=== PATIENT | female | born 1995 | race Caucasian/White ===

== ENCOUNTER 2022-04-10 23:17 | Emergency (ER) | payer OTHER, SELFPAY ==
--- OUTSIDE RECORDS SUMMARY | 2022-04-10 23:20 | XMS REPORT | Continuity of Care Document ---
:1995 Author Organization [facility] t Address [address] [place] [address] Care Team Providers Name Role Phone NATA Primary Care Physician Unavailable CHARLIE Attending Clinician Unavailable Jordon ANTON Attending Clinician Lab, Fam Pob I Attending Clinician Unavailable Sadia SLOT EDITOR Attending Clinician Doctor Unassigned, Name Attending Clinician Unavailable Pob1, Care Clinic Attending Clinician Unavailable Payers Payer Name Policy Type Policy Number Effective Date Expiration Date S ource Problems Condition Condition Condition Status Onset Resolution Last Treating Co mments Source Name Details Category Date Date Treatment Clinician Date Knee pain, Knee pain, Disease Active U nivers left left 4-07 ity of 00:00: [place] 00 [facility] Allergies, Adverse Reactions, Alerts Allergy Allergy Status Severity Reaction(s) Onset Inactive Treating Comm ents Source Name Type Date Date Clinician NO KNOWN Drug Active Univers ALLERGIE Class ity of S [facility] Social History Social Habit Start Date Stop Date Quantity Comments Source Sex Assigned At [facility] Medical Branch Exposure to Not sure [facility] SARS-CoV-2 (event) Medica l Branch Tobacco use and 2020-04-08 2020-04-08 Never used [facility] exposure 00:00:00 00:00:00 Medical [place] Smoking Status Start Date Stop Date Source Never smoker [facility] Medications Ordered Filled Start Stop Current Ordering Indication Dosage Frequency Signature Comments Components Source Medication Medication Date Date Medication? Clinician (SIG) Name Name LEVETIRACET Yes Take by Un jay AM (KEPPRA 6-15 mouth. ity of ORAL) 16:01: [address] LEVETIRACET 0 Yes Take by Un jay AM (KEPPRA 6-15 mouth. ity of ORAL) 16:01: [place] [facility] LEVETIRACET 2019-0 Yes Take by Un jay AM (KEPPRA 6-15 mouth. ity of ORAL) 16:01: [place] [facility] LEVETIRACET 2019-0 Yes Take by Un jay AM (KEPPRA 6-15 mouth. ity of ORAL) 16:01: [address] maalox:diph 0 2020- No [id number] 10mL Take 10 mL Univers enhydrAMINE 15 04-14 by mouth ity of :lidocaine 00:00: 04:59 as needed [place] 2 % viscous 00 :00 (S[facility] Medical 1:1:1 throat) Branch for up to 5 days. cephALEXin Yes Univers (KEFLEX) 4-03 ity of 500 mg 00:00: [place] capsule [facility] cephALEXin Yes Univers (KEFLEX) 4-03 ity of 500 mg 00:00: [place] capsule [facility] cephALEXin Yes Univers (KEFLEX) 4-03 ity of 500 mg 00:00: [place] capsule 00 [facility] cephALEXin 0 Yes Univers (KEFLEX) 4-03 ity of 500 mg 00:00: [place] capsule 00 [facility] diazepam 0 Yes Univers (VALIUM) 10 3-30 ity of mg tablet 00:00: [facility] XULANE 0 Yes Univers 150-35 3-30 ity of mcg/24 hr 00:00: [place] patch 00 [facility] diazepam 0 Yes Univers (VALIUM) 10 3-30 ity of mg tablet 00:00: [place] 00 [facility] XULANE Yes Univers 150-35 3-30 ity of mcg/24 hr 00:00: [place] patch 00 [facility] diazepam 0 Yes Univers (VALIUM) 10 3-30 ity of mg tablet 00:00: [facility] XULANE 0 Yes Univers 150-35 3-30 ity of mcg/24 hr 00:00: [place] patch 00 [facility] diazepam 0 Yes Univers (VALIUM) 10 3-30 ity of mg tablet 00:00: [facility] XULANE 0 Yes Univers 150-35 3-30 ity of mcg/24 hr 00:00: [place] patch 00 Medical Branch VYVANSE 30 Yes Univers mg capsule 3-11 ity of 00:00: [place] 00 Medical Branch VYVANSE 30 Yes Univers mg capsule 3-11 ity of 00:00: [place] 00 Medical Branch VYVANSE 30 Yes Univers mg capsule 3-11 ity of 00:00: [place] 00 Medical Branch VYVANSE 30 Yes Univers mg capsule 3-11 ity of 00:00: [place] 00 Medical Branch SERTraline Yes Univers (ZOLOFT) 1-28 ity of 100 mg 00:00: [place] tablet 00 Medical Branch SERTraline Yes Univers (ZOLOFT) 1-28 ity of 100 mg 00:00: [place] tablet 00 Medical Branch SERTraline Yes Univers (ZOLOFT) 1-28 ity of 100 mg 00:00: [place] tablet 00 Medical Branch SERTraline Yes Univers (ZOLOFT) 1-28 ity of 100 mg 00:00: [place] tablet 00 Medical Branch Vital Signs Vital Name Observation Time Observation Value Comments Source Systolic blood 2020-04-08 15:58:00 114 mm[Hg] Univer sity of pressure [facility] Diastolic blood 2020-04-08 15:58:00 74 mm[Hg] Unive rsity of pressure [facility] Heart rate 2020-04-08 15:58:00 102 /min [facility] Body temperature 2020-04-08 15:58:00 36.72 [facility] Res[facility] rate 2020-04-08 15:58:00 16 /min [facility] Body height 2020-04-08 15:58:00 154.9 cm [facility] Body weight 2020-04-08 15:58:00 61.236 kg [facility] BMI 2020-04-08 15:58:00 25.51 kg/m2 [facility] Oxygen saturation in 2020-04-08 15:58:00 98 /min [facility] blood by [facility] Pulse oximetry Branch Procedures Procedure Date / Time Performed Performing Clinician Sourc e POCT GRP A STREP 2020-04-08 00:00:[address] [facility] ([facility] Encounters Start End Encounter Admission Attending Care Care Encounter Source Date/Time Date/Time Type Type Clinicians Facility Department ID 2021-09-24 2021-09-24 Outpatient R [facility] [id number] Univers 14:00:00 14:00:00 ity of [facility] 2021-09-24 2021-09-24 Outpatient R CHARLIE [facility] [id number] Univers 14:00:00 14:00:00 OLIVIA allen o f [facility] 2020-06-19 2020-06-19 Telephone MICHELLE Ruvalcaba [id number] Univers 00:00:00 00:00:00 Michelle MCCARTHY [id number] it y of [facility] [id number] Al as [phone] [address] 2020-06-17 2020-06-17 Outpatient R [facility] [id number] Univers 13:00:00 13:00:00 [id number] ity of [facility] 2020-06-17 2020-06-17 Outpatient R [facility] [id number] Univers 13:00:00 13:00:00 ity of [facility] 2020-06-17 2020-06-17 Laboratory Lab, Adc Fam Pob I [facility] [id number] Univers 12:34:28 12:54:28 Only Sadia, Samina interclick [id number] ity of [place] [id number] Al as Professhussain [phone] [address] 2020-06-17 2020-06-17 Letter Doctor MICHELLE [id number] Univers 00:00:00 00:00:00 (Out) UnassignedFABIO [id number] ity of [place] [facility] [id number] Al as [phone] [address] 2020-04-08 2020-04-08 Urgent Pob1, Acute Care Clinic [facility] [id number] Univers 10:45:33 11:05:33 Care Sadia, Samina Health [id number] ity of [place] [id number] Al as Jose [phone] Nm dical [address] 2020-04-08 2020-04-08 Outpatient R [facility] [id number] Univers 11:00:00 11:00:00 [facility] Results Test Description Test Time Test Comments Results Result Comments Source POCT GRP A STREP (MOLECULAR) 2020-04-08 16:16:00 Test Item Value Reference Range Interpretation Comme nts POCT GP A STREP (test code = 53947-9) negative Negative - Negat emma [facility]
--- NOTE | 2022-04-10 23:47 | EDPHYS ---
Physician Documentation [facility] Name: Mary Jo Mendieta Age: 26 yrs Sex: Female : 1995 Arrival Date: 04/10/2022 Time: 23:20 Bed 12 Private MD: ED Physician Steven Shirley HPI: 04/10 23:46 This 26 yrs old Female presents to ER via Ambulatory with complaints of Ear Pain, Sore jmm Throat. 23:46 The patient presents with pain. Onset: The symptoms/episode began/occurred gradually, jmm today. Modifying factors: The symptoms are alleviated by nothing, the symptoms are aggravated by nothing. Associated signs and symptoms: Pertinent positives: sore throat. It is unknown whether or not the patient has had similar symptoms in the past. 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 - Social history:: Smoking status: Patient denies any tobacco usage or history of. ROS: 23:46 Constitutional: Positive for chills. jmm 23:46 ENT: Positive for ear pain. 23:46 All other systems are negative. Exam: 23:46 Constitutional: This is a well developed, well nourished patient who is awake, alert, jmm and in no acute distress. Head/Face: atraumatic. Eyes: EOMI, no conjunctival erythema appreciated 23:46 Neck: Trachea midline, Supple Chest/axilla: Normal chest wall appearance and motion. Cardiovascular: Regular rate and rhythm. No edema appreciated Respiratory: Normal respirations, no respiratory distress appreciated Abdomen/GI: Non distended, soft Back: Normal ROM Skin: General appearance color normal MS/ Extremity: Moves all extremities, no obvious deformities appreciated, no edema noted to the lower extremities Neuro: Awake and alert Psych: Behavior is normal, Mood is normal, Patient is cooperative and pleasant 23:46 ENT: TM's: erythema, that is moderate, on the right. Vital Signs: 23:27 Pulse 88; Resp 18; Temp 98.7; Pulse Ox 98% on R/A; Weight 61.23 kg; Height 5 ft. 1 in. tw5 (154.94 cm); Pain 9/10; 23:27 BP 108 / 56; tw5 23:27 Body Mass Index 25.51 (61.23 kg, 154.94 cm) tw5 MDM: 23:46 Patient medically screened. [facility] 23:47 Data reviewed: vital signs, nurses notes. Counseling: I had a detailed discussion with [facility] the patient and/or guardian regarding: the historical points, exam findings, and any diagnostic results supporting the discharge/admit diagnosis, the need for outpatient follow up, to return to the emergency department if symptoms worsen or persist or if there are any questions or concerns that arise at home. Administered Medications: No medications were administered Disposition: 04/11 00:25 Co-signature as Attending Physician, Steven Shirley MD. rn Disposition Summary: 04/10/22 23:47 Discharge Ordered Location: Home [facility] Condition: Stable [facility] Diagnosis - Acute serous otitis media, right ear [facility] Followup: [facility] - With: Private Physician - When: 2 - 3 days - Reason: Recheck today's complaints, Continuance of care, Re-evaluation by your physician Discharge Instructions: - Discharge Summary Sheet [facility] - Otitis Media, Adult [facility] Forms: - Medication Reconciliation Form [facility] - Thank You Letter [facility] - Antibiotic Education [facility] - Prescription Opioid Use [facility] Prescriptions: - Amoxicillin 875 mg Oral Tablet - take 1 tablet by ORAL route every 12 hours for 10 days; 20 tablet; Refills: 0, [facility] Product Selection Permitted Signatures: Adriano Jones PA PA jmm Nieto, Roman, MD MD rn Anju Restrepo [facility]
--- NOTE | 2022-04-10 23:47 | ER ---
Nurse's Notes [facility] Name: Mary Jo Mendieta Age: 26 yrs Sex: Female : 1995 Arrival Date: 04/10/2022 Time: 23:20 Bed 12 Private MD: Diagnosis: Acute serous otitis media, right ear Presentation: 04/10 23:27 Chief complaint: Patient states: "My Right ear is really hurting me. My throat as also tw5 been hurting, but that has been all day, the right ear only started hurting about two hours ago.". Coronavirus screen: Vaccine status: Patient reports being unvaccinated. Ebola Screen: Patient negative for fever greater than or equal to 101.5 degrees Fahrenheit, and additional compatible Ebola Virus Disease symptoms Patient denies exposure to infectious person. Patient denies travel to an Ebola-affected area in the 21 days before illness onset. Initial Sepsis Screen: Does the patient meet any 2 criteria? No. Patient's initial sepsis screen is negative. Does the patient have a suspected source of infection? No. Patient's initial sepsis screen is negative. Risk Assessment: Do you want to hurt yourself or someone else? Patient reports no desire to harm self or others. Onset of symptoms was April 10, 2022 at 21:30. 23:27 Method Of Arrival: Ambulatory tw5 23:27 Acuity: CHERIE 4 tw5 Triage Assessment: 23:29 General: Appears in no apparent distress. Behavior is calm, cooperative, appropriate tw5 for age. Pain: Complains of pain in right ear Pain currently is 9 out of 10 on a pain scale. EENT: Reports nasal congestion. 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 - Social history:: Smoking status: Patient denies any tobacco usage or history of. Screenin:59 Abuse screen: Denies threats or abuse. Denies injuries from another. Nutritional tw5 screening: No deficits noted. Tuberculosis screening: No symptoms or risk factors identified. Fall Risk None identified. Assessment: 23:59 General: see triage. tw5 Vital Signs: 23:27 Pulse 88; Resp 18; Temp 98.7; Pulse Ox 98% on R/A; Weight 61.23 kg; Height 5 ft. 1 in. tw5 (154.94 cm); Pain 9/10; 23:27 BP 108 / 56; tw5 23:27 Body Mass Index 25.51 (61.23 kg, 154.94 cm) tw5 ED Course: 23:20 Patient arrived in ED. es 23:29 Triage completed. tw5 23:29 Arm band placed on right wrist. tw5 23:31 Adriano Jones PA is PHCP. agustina 23:32 Steven Shirley MD is Attending Physician. jm 23:59 Patient has correct armband on for positive identification. tw5 23:59 No provider procedures requiring assistance completed. Patient did not have IV access tw5 during this emergency room visit. Administered Medications: No medications were administered Medication: 23:59 VIS not applicable for this client. tw5 Outcome: 23:47 Discharge ordered by . jm 23:59 Discharged to home ambulatory. tw5 23:59 Condition: good 23:59 Discharge instructions given to patient, Instructed on discharge instructions, follow up and referral plans. Demonstrated understanding of instructions. 23:59 Patient left the ED. tw5 Signatures: Adriano Jones PA PA jmm Salyer, Edna es Wood, Tiffany tw5
[2022-04-11 00:06] VITALS: BP 108/56; TEMP 98.7; O2SAT 98
== END 2022-04-10 23:59 | disposition home or self-care (01) ==
LOC: ER 23:17
DX: H65.01 Acute serous otitis media, right ear (principal)
CPT/HCPCS: 99281

== ENCOUNTER 2022-08-19 14:12 | Emergency (ER) | payer OTHER ==
--- OUTSIDE RECORDS SUMMARY | 2022-08-19 14:28 | XMS REPORT | Continuity of Care Document ---
:1995 Author Organization [facility] t Address [address] [place] [address] Care Team Providers Name Role Phone NATAARLENE Saleh Primary Care Physician Unavailable NICOLETTE MCGINNIS Attending Clinician Unavailable UNKNOWN, ATTENDING Attending Clinician Unavailable Edith Narvaez RN Attending Clinician Unavailable Nicolette Brice Attending Clinician NORM CAZARES Attending Clinician Unavailable Shekhar Graves Mfm Attending Clinician Unavailable Norm Cazares MD Attending Clinician Lab, [facility] Attending Clinician Unavailable Shayla Neal MD Attending Clinician [phone] SHAYLA NEAL Attending Clinician Unavailable 1, [facility] Us Room Attending Clinician Unavailable AUSTEN BERNAL Attending Clinician Unavailable Austen Bernal MD Attending Clinician Lab, [facility] Attending Clinician Unavailable TERA NORIEGA Attending Clinician Unavailable Doctor Unassigned, [place] Attending Clinician Unavailable OLIVIA GUERRA Attending Clinician Unavailable Michelle Ruvalcaba PA-C Attending Clinician Lab, Ad[facility] Fam Pob I Attending Clinician Unavailable Samina Castorena Attending Clinician Pob1, Acute Care Clinic Attending Clinician Unavailable Payers Payer Name Policy Type Policy Number Effective Date Expiration Date Formerly [facility] [id number] 2022 CHOICE [place] STAR 00:00:00 [employer] [id number] 2011 OUT OF NETWORK 00:00:00 MEDICAID PENDING PENDING 2022 00:00:00 MEDICA[place] OF [place] [id number] 2022 2022 00:00:00 00:00:00 Problems Condition Condition Condition Status Onset Resolution Last Treating Co mments Source Name Details Category Date Date Treatment Clinician Date Seizure Seizure Disease Active Univers disorder disorder 06-12 ity of during during 00:00: [place] 00 Medi german in first in first Branch trimester trimester 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 +HPV 0Per ASCCP guideline needs repeat pap I n 1 year Rubella Rubella Disease Active Overview: Univ ers non-immune non-immune 05-25 Formattin ity of status, status, 00:00: g of this [place] antepartum antepartum 00 note Me dical might be Branch different from the original. Address pp Susceptibl Susceptibl Disease Active Overview : Univers e to e to 05-25 Formattin ity of varicella varicella 00:00: [place] (non-immun (non-immun 00 note Me dical e), e), might be Branch currently currently different from the original. Address pp Supervisio Supervisio Disease Active U jarod n of n of 05-22 ity of high-risk high[place] Branch Obesity in Obesity in Disease Active U nivers 05-22 ity of 00:00: [place] 00 Medical Branch History of History of Disease Active Overview : Univers seizure seizure 05-22 Formattin ity o f 00:00: g of this [place] 00 note Medical might be Branch different from the original. Reports dx at age 4, last saw neuro in 2011, not on meds, reports last seizure activity was in february Knee pain, Knee pain, Disease Active 2016-0 U nivers left left 4-07 ity of 00:00: [place] 00 [facility] Knee pain, Knee pain, Disease Active 2015-0 U nivers left left 4-07 ity of 00:00: [place] 00 [facility] Allergies, Adverse Reactions, Alerts Allergy Allergy Status Severity Reaction(s) Onset Inactive Treating Comm ents Source Name Type Date Date Clinician NO KNOWN Drug Active Univers ALLERGIE Class ity of [facility] Social History Social Habit Start Date Stop Date Quantity Comments Source ASSERTION 2022-05-01 [facility] 00:00:00 [facility] Exposure to 2022-07-28 2022-08-07 Not sure [facility] SARS-CoV-2 00:00:00 14:39:00 [facility] (event) [place] Alcohol intake 2022-06-16 2022-06-16 Ex-drinker [facility] 00:00:00 00:00:00 (finding) [facility] Tobacco use and 2022-05-22 2022-05-22 Smokeless tobacco Un iversity of exposure 00:00:00 00:00:00 non-user [facility] Sex Ass[birth year] At [birth year] Universit y of 00:00:00 00:00:00 [facility] Smoking Status Start Date Stop Date Source Never smoked tobacco [facility] Medications Ordered Filled Start Stop Current Ordering Indication Dosage Frequency Signature Comments Components Source Medication Medication Date Date Medication? Clinician (SIG) Name Name No known 2021-10 No No known Unive rs medications 0-14 medication it y of 15:10: [address] No known 2021-10 No No known Unive rs medications 0-14 medication it y of 15:10: [address] No known 2021-10 No No known Unive rs medications 0-14 medication it y of 15:10: [address] No known 2021-10 No No known Unive rs medications 0-14 medication it y of 15:10: [address] No known 2021-10 No No known Unive rs medications 0-14 medication it y of 15:10: [address] No known No No known Unive rs medications 9-12 medication it y of 13:59: [address] No known No No known Unive rs medications 9-12 medication it y of 13:59: [address] No known No No known Unive rs medications 9-12 medication it y of 13:59: [address] No known No No known Unive rs medications 9-12 medication it y of 13:59: [address] No known No No known Unive rs medications 9-12 medication it y of 13:59: [address] No known No No known Unive rs medications 9-12 medication it y of 13:59: [address] No known 0 No No known Unive rs medications 9-12 medication it y of 13:59: [address] No known No No known Unive rs medications 9-12 medication it y of 13:59: [address] Vital Signs Vital Name Observation Time Observation Value Comments Source Systolic blood 2022-08-07 19:40:00 114 mm[Hg] Univer sity of [facility] Diastolic blood 2022-08-07 19:40:00 70 mm[Hg] Unive rsity of [facility] Heart rate 2022-08-07 19:40:00 93 /min Universi [facility] Body temperature 2022-08-07 19:40:00 36.44 [facility] Respiratory rate 2022-08-07 19:40:00 17 /min [facility] Body height 2022-08-07 19:40:00 [facility]9 [facility] Body weight 2022-08-07 19:40:00 [facility].47 [facility] BMI 2022-08-07 19:40:00 33.10 kg/m2 [facility] Systolic blood 2022-07-06 16:45:00 103 mm[Hg] Univer sity of [facility] Diastolic blood 2022-07-06 16:45:00 71 mm[Hg] Unive rsity of [facility] Heart rate 2022-07-06 16:45:00 101 /min Universi [facility] Body temperature 2022-07-06 16:45:00 36.56 [facility] Body weight 2022-07-06 16:45:00 75.841 [facility] BMI 2022-07-06 16:45:00 31.59 kg/m2 [facility] Procedures Procedure Date / Time Performed Performing Clinician Sourc e POCT URINALYSIS 2022-08-07 00:00:00 Nicolette Mcginnis [facility] Encounters Start End Encounter Admission Attending Care Care Encounter Source Date/Time Date/Time Type Type Clinicians Facility Department ID 2022-09-28 2022-09-28 Outpatient R [facility] [id number] Univers 09:00:00 09:00:00 ity [facility] 2022-09-10 2022-09-10 Outpatient P [facility] [id number] Univers 10:45:00 10:45:[facility] 2022-08-21 2022-08-21 Outpatient R RAHEL, [facility] [id number] Univers 11:00:00 11:00:00 NICOLETTE allen o f [facility] 2022-08-18 2022-08-18 Outpatient R UNKNOWN, [facility] [id number] Univers 16:20:00 16:20:[address] [facility] 2022-08-17 2022-08-17 Nurse Edith Narvaez 1.2.840.114 [id number] Univers 00:00:00 00:00:00 Triage FABIO 350.1.13.10 it y of HOSPITAL 4.2.7.2.686 Al as [id number] [address] 2022-08-07 2022-08-07 Outpatient R RAHEL, [facility] [id number] Univers 14:45:00 15:12:29 NICOLETTE allen o f [facility] 2022-08-07 2022-08-07 [facility] [id number] Univers 14:45:00 15:12:29 Nicolette Dickey COAL INSPECTOR 350.1.13.10 ity of Visit [facility] 4.2.7.2.686 Al as MATERNAL [id number] Med ical & CHILD [address] [place] [address] 2022-08-03 2022-08-03 Outpatient R DEBORA, [facility] [id number] Univers 11:30:00 15:23:[address] [facility] 2022-08-03 2022-08-03 Telemedici Faculty, Shekhar [facility] 1.2.840.114 [id number] Univers 11:30:00 15:23:05 ne Visit Norm Cazares COAL INSPECTOR 350.1.13.10 ity of REGIONAL 4.2.7.2.686 Al as MATERNAL [id number] [facility] & CHILD [address] [place] [address] 2022-08-03 2022-08-03 Outpatient Shaggy CAZARES [facility] [id number] Univers 11:30:00 11:30:00 [facility] 2022-07-21 2022-07-21 [facility]phone [facility] 1.2.840.114 [id number] Univers 00:00:00 00:00:00 Nicolette C COAL INSPECTOR 350.1.13.10 ity of [facility] 4.2.7.2.686 Al as MATERNAL [id number] [facility] & CHILD [address] [place] [address] 2022-07-16 2022-07-16 Abstract [facility] 1.2.840.114 [id number] Univers 00:00:00 00:00:00 Nicolette C COAL INSPECTOR 350.1.13.10 ity of REGIONAL 4.2.7.2.686 Al as MATERNAL [id number] [facility] & CHILD [address] [place] [address] 2022-07-15 2022-07-15 Abstract [facility] 1.2.840.114 [id number] Univers 00:00:00 00:00:00 Nicolette C COAL INSPECTOR 350.1.13.10 ity of [facility] 4.2.7.2.686 Al as MATERNAL [id number] [facility] & CHILD [address] [place] [address] 2022-07-14 2022-07-14 Community Representative Lab, [facility] 1.2.840. 114 [id number] Univers 09:00:00 09:28:43 Visit Shayla Neal COAL INSPECTOR 350.1. 13.10 ity of [facility] 4.2.7.2.686 Al as MATERNAL [id number] Med ical & CHILD [address] [place] [address] 2022-07-14 2022-07-14 Outpatient P [facility] [id number] Univers 09:00:00 09:00:00 ity of [facility] 2022-07-14 2022-07-14 Outpatient P TERE [facility] [id number] Univers 09:00:00 09:00:00 BRICE it y of S, MCGUIRE [facility] 2022-07-14 2022-07-14 Community Representative [facility] 1.2. 840.114 [id number] Univers 08:15:00 09:00:00 Visit Shayla Neal COAL INSPECTOR 350.1. 13.10 ity of [facility] 4.2.7.2.686 Al as MATERNAL [phone] Med ical & CHILD [address] [place] [address] 2022-07-06 2022-07-06 Outpatient R DOLORES [facility] [id number] Univers 11:30:00 12:12:04 [facility] 2022-07-06 2022-07-06 Office Faculty, [facility] 1.2 .840.114 [id number] Univers 11:30:00 12:12:04 Visit Austen Bernal COAL INSPECTOR 350.1. 13.10 ity of [facility] 4.2.7.2.686 Al as MATERNAL [phone] Med ical & CHILD [address] [place] [address] 2022-07-06 2022-07-06 Outpatient R OMERE, [facility] [id number] Univers 11:30:00 12:12:[address] [facility] 2022-06-23 2022-06-23 Abstract [facility] 1.2.840.114 [id number] Univers 00:00:00 00:00:00 Nicolette Dickey COAL INSPECTOR 350.1.13.10 ity of [facility] 4.2.7.2.686 Al as MATERNAL [id number] Med ical & CHILD [address] [place] [address] 2022-06-22 2022-06-22 Community Representative [facility] 1.2. 840.114 [id number] Univers 14:15:00 14:32:25 Visit Shayla Neal COAL INSPECTOR 350.1. 13.10 ity of REGIONAL 4.2.7.2.686 Al as MATERNAL [id number] [facility] & CHILD [address] [facility] 2022-06-22 2022-06-22 Outpatient P [facility] [id number] Univers 14:15:00 14:32:25 GORDOI it y of Mike MCGUIRE [facility] 2022-06-22 2022-06-22 Outpatient P [facility] [id number] Univers 14:15:00 14:15:00 OGRDOI it y of SSHAYLA [facility] 2022-06-16 2022-06-16 Outpatient R AKINPE, [facility] [id number] Univers 10:45:00 11:12:27 NICOLETTE ity o f [facility] 2022-06-16 2022-06-16 Routine [facility] [id number] Univers 10:45:00 11:12:27 Nicolette Dickey COAL INSPECTOR 350.1.13.10 ity of Visit REGIONAL 4.2.7.2.686 Al as MATERNAL [id number] [facility] & CHILD [address] [place] [address] 2022-06-15 2022-06-15 Telemedici Faculty, Shekhar [facility] 1.2.840.114 [id number] Univers 11:30:00 12:00:00 ne Visit Austen Bernal COAL INSPECTOR 350.1 .13.10 ity of REGIONAL 4.2.7.2.686 Al as MATERNAL [id number] [facility] & CHILD [address] [place] [address] 2022-06-15 2022-06-15 Outpatient R [facility] [id number] Univers 11:30:00 11:30:00 ity of [facility] 2022-06-15 2022-06-15 Outpatient R DOLORES, [facility] [id number] Univers 11:30:00 11:30:00 CHASEY ity of [facility] 2022-05-28 2022-05-28 Outpatient R RAHEL, [facility] [id number] Univers 08:30:00 08:30:00 NICOLETTE allen o [facility] 2022-05-28 2022-05-28 Community Representative Lab, [facility] 1.2.840. 114 [id number] Univers 08:30:00 08:30:00 Visit Rahel Nicolette Dickey COAL INSPECTOR 350.1.13. 10 ity of [facility] 4.2.7.2.686 Al as MATERNAL [id number] [facility] & [address] 2022-05-28 2022-05-28 [facility] [id number] Univers 08:30:00 08:15:52 NICOLETTE boweny o [facility] 2022-05-28 2022-05-28 Outpatient R NEETUKARLO, [facility] [id number] Univers 08:30:00 08:15:52 NICOLETTE allen o [facility] 2022-05-27 2022-05-27 [facility]phone [facility] 1.2.840.114 [id number] Univers 00:00:00 00:00:00 Nicolette Noble COAL INSPECTOR 350.1.13.10 ity of [facility] 4.2.7.2.686 Al as MATERNAL [id number] [facility] & CHILD [address] [place] [address] 2022-05-26 2022-05-26 Outpatient R LEANN [facility] [id number] Univers 15:00:00 15:00:00 ROSLEROYNDA tiffany o [facility] 2022-05-26 2022-05-26 Letter [facility] [id number] Univers 00:00:00 00:00:00 (Out) Nicolette C COAL INSPECTOR 350.1.13.10 ity [facility] 4.2.7.2.686 Al as MATERNAL [id number] [facility] & CHILD [address] [place] [address] 2022-05-26 2022-05-26 Letter Akinsipe, [facility] 1.2.420.183 [id number] Univers 00:00:00 00:00:00 (Out) Nicolette Dickey COAL INSPECTOR 350.1.13.10 ity of [facility] 4.2.7.2.686 Al as MATERNAL [id number] [facility] & CHILD [address] [place] [address] 2022-05-22 2022-05-22 Outpatient R AKINSIPE, [facility] [id number] Univers 14:15:00 16:30:24 NICOLETTE ity o [facility] 2022-05-22 2022-05-22 Outpatient R AKINSIPE, [facility] [id number] Univers 14:15:00 16:30:24 NICOLETTE ity o [facility] 2022-05-22 2022-05-22 Outpatient R AKINSIPE, [facility] [id number] Univers 14:15:00 16:30:24 NICOLETTE ity o [facility] 2022-05-22 2022-05-22 Initial Akinsipe, [facility] 1.2.061.715 [id number] Univers 14:15:00 16:30:24 Nicolette Dickey COAL INSPECTOR 350.1.13.10 ity of Visit [facility] 4.2.7.2.686 Al as MATERNAL [id number] [facility] & [address] 2022-05-22 2022-05-22 Outpatient R AKINSIPE, [facility] [id number] Univers 13:45:00 15:23:15 NICOLETTE ity o [facility] 2022-05-22 2022-05-22 Outpatient R AKINSIPE, [facility] [id number] Univers 14:15:00 14:15:00 NICOLETTE ity o [facility] 2022-05-22 2022-05-22 Orders Doctor MARTINEZ 1.2.840.114 [id number] Univers 00:00:00 00:00:00 Only Unassigned, FABIO 350.1.13.10 ity of [place] [facility] 4.2.7.2.686 Al as [id number] [place] [address] [place] 2021-09-24 2021-09-24 Outpatient R CHARLIE [facility] [id number] Univers 14:00:00 14:00:00 OLIVIA allen o f [facility] 2020-06-19 2020-06-19 Telephone MICHELLE Ruvalcaba [id number] Univers 00:00:00 00:00:00 Michelle MCCARTHY 350.1.13.10 it y of HOSPITAL 4.2.7.2.686 Al as [id number] [facility] 019 [place] 2020-06-17 2020-06-17 Outpatient R [facility] [id number] Univers 13:00:00 13:00:00 ity [facility] 2020-06-17 2020-06-17 Laboratory Lab, Adc Fam Pob I [facility] 1.2. 840.114 [id number] Univers 12:34:28 12:54:28 Only [facility] 350.1.13.10 ity of [place] 4.2.7.2.686 Al as Professio [id number] [address] [employer] 2020-06-17 2020-06-17 Letter Doctor MICHELLE 1.2.840.114 [id number] Univers 00:00:00 00:00:00 (Out) UnassignedFABIO 350.1.13.10 ity of [place] [facility] 4.2.7.2.686 Al as [id number] [address] 2020-04-08 2020-04-08 Urgent Pob1, Acute Care Clinic [facility] 1. 2.840.114 [id number] Univers 10:45:33 11:05:33 Care [facility] 350.1.13.10 ity of [place] 4.2.7.2.686 Al as Professio [id number] [address] [employer] 2020-04-08 2020-04-08 Outpatient R [facility] [id number] Univers 11:00:00 11:00:00 ity [facility] Results Test Description Test Time Test Comments Results Result Comments Source POCT URINALYSIS W SPECIFIC GRAVITY 2022-08-07 19:43:00 Test Item Value Reference Range Interpretation Comme nts POCT U SP GRAV (test code = 3255) . 1.005-1.025 POCT PH U (test code = 3254) . 5-8 POCT U LEUK EST (test code = 3263) . Negative - Negative POCT U NIT (test code = 3262) . Negative - Negative POCT U PROT (test code = 3259) trace Negative - Negative POCT U GLU (test code = 3256) negative Negative - Negative POCT U KETONE (test code = 3258) negative Negative - Negative POCT U UROBILI (test code = 3260) . 0.2-1 POCT U BILI (test code = 3261) . Negative - Negative POCT U BLD (test code = 3257) negative Negative - Negative POCT U COLOR (test code = 3266) yellow POCT U APPEAR (test code = 3267) [facility]CIFIC [id number] 19:43:00 Test Item Value Reference Range Interpretation Comments POCT U SP GRAV (test code = . 1.005-1.025 3255) POCT PH U (test code = 3254) . 5-8 POCT U LEUK EST (test code = . Negative - Negative 3263) POCT U NIT (test code = 3262) . Negative - Negative POCT U PROT (test code = 3259) trace Negative - Negative POCT U GLU (test code = 3256) negative Negative - Negative POCT U KETONE (test code = 3258) negative Negative - Negative POCT U UROBILI (test code = . 0.2-1 3260) POCT U BILI (test code = 3261) . Negative - Negative POCT U BLD (test code = 3257) negative Negative - Negative POCT U COLOR (test code = 3266) yellow POCT U APPEAR (test code = 3267) clear [facility]
--- NOTE | 2022-08-19 15:41 | ER ---
Nurse's Notes [facility] Name: Mary Jo Mendieta Age: 27 yrs Sex: Female : 1995 Arrival Date: 08/19/2022 Time: 14:18 Bed IW1 Private MD: Diagnosis: Acute upper respiratory infection, unspecified Presentation: 08/19 14:32 Chief complaint: Patient states: Pt reports Wednesday at 1800- cough, congestion, ld1 headache, sore throat began. Coronavirus screen: Client presents with at least one sign or symptom that may indicate coronavirus-19. Standard/surgical mask placed on the client. Ebola Screen: No symptoms or risks identified at this time. Initial Sepsis Screen: Does the patient meet any 2 criteria? No. Patient's initial sepsis screen is negative. Does the patient have a suspected source of infection? No. Patient's initial sepsis screen is negative. Risk Assessment: Do you want to hurt yourself or someone else? Patient reports no desire to harm self or others. Onset of symptoms was August 19, 2022. 14:32 Method Of Arrival: Ambulatory ld1 14:32 Acuity: CHERIE 4 ld1 Triage Assessment: 14:33 General: Appears in no apparent distress. comfortable, Behavior is cooperative, ld1 anxious. Pain: Denies pain. EENT: No signs and/or symptoms were reported regarding the EENT system. Reports nasal congestion. Neuro: Level of Consciousness is awake, alert, obeys commands, Oriented to person, place, time, situation. Cardiovascular: Capillary refill < 3 seconds Patient's skin is warm and dry. Respiratory: Airway is patent Respiratory effort is even, unlabored. GI: Abdomen is round non-distended. : No signs and/or symptoms were reported regarding the genitourinary system. Derm: No signs and/or symptoms reported regarding the dermatologic system. Musculoskeletal: No signs and/or symptoms reported regarding the musculoskeletal system. 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 - Social history:: Smoking status: Patient denies any tobacco usage or history of. Patient/guardian denies using alcohol. Screenin:35 Abuse screen: Denies threats or abuse. Denies injuries from another. Nutritional ld1 screening: No deficits noted. Tuberculosis screening: No symptoms or risk factors identified. Fall Risk None identified. Assessment: 14:35 Reassessment: See triage assessment. ld1 Vital Signs: 14:32 BP 116 / 83; Pulse 101; Resp 18; Temp 98.3(TE); Pulse Ox 97% on R/A; Weight 79.38 kg; ld1 Height 5 ft. 3 in. (160.02 cm); Pain 0/10; 14:32 Body Mass Index 31.00 (79.38 kg, 160.02 cm) ld1 ED Course: 14:18 Patient arrived in ED. mr 14:22 Brinana Babcock, [facility]. kb 14:22 Jeff Dang DO is Attending Physician. kb 14:33 Triage completed. ld1 14:33 Arm band placed on right wrist. ld1 14:35 Patient has correct armband on for positive identification. Placed in gown. Bed in low ld1 position. Call light in reach. Side rails up X2. Pulse ox on. NIBP on. Door closed. Noise minimized. 14:35 No provider procedures requiring assistance completed. ld1 14:36 Flu Sent. ld1 14:36 COVID-19 SARS RT PCR (Document "Date of Onset" if Symptomatic) Sent. ld1 14:36 Strep Sent. ld1 15:59 Patient did not have IV access during this emergency room visit. ld1 Administered Medications: No medications were administered Medication: 14:35 VIS not applicable for this client. ld1 Outcome: 15:41 Discharge ordered by . kb 15:59 Discharged to home ambulatory. ld1 15:59 Condition: stable 15:59 Discharge instructions given to patient, Instructed on discharge instructions, follow up and referral plans. Demonstrated understanding of instructions, follow-up care. 15:59 Patient left the ED. ld1 Signatures: Brianna Babcock, AARON ADKINS-Pooja Pond Rosa Patricia, RN RN ld1
--- NOTE | 2022-08-19 15:42 | EDPHYS ---
Physician Documentation [facility] Name: Mary Jo Mendieta Age: 27 yrs Sex: Female : 1995 Arrival Date: 08/19/2022 Time: 14:18 Bed IW1 Private MD: ED Physician Jeff Dang HPI: 08/19 15:31 This 27 yrs old Female presents to ER via Ambulatory with complaints of 17 wks kb , Flu Symptoms. 15:31 Onset: The symptoms/episode began/occurred 4 day(s) ago. The patient has not recently kb seen a physician. 15:31 The patient or guardian reports cough. Severity of symptoms: At their worst the kb symptoms were moderate, in the emergency department the symptoms are unchanged. Modifying factors: The symptoms are alleviated by nothing, the symptoms are aggravated by nothing. Associated signs and symptoms: Pertinent positives: rhinorrhea, sore throat, Pertinent negatives: chest pain, diarrhea, ear ache, fever, nausea, vomiting. The patient has not experienced similar symptoms in the past. Pt reports cough, congestion, sore throat and headache for 4 days. . 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 - Social history:: Smoking status: Patient denies any tobacco usage or history of. Patient/guardian denies using alcohol. ROS: 15:30 Constitutional: Negative for fever, chills, and weight loss. kb 15:30 ENT: Positive for rhinorrhea, sinus congestion, sore throat. 15:30 Respiratory: Positive for cough, Negative for dyspnea on exertion, hemoptysis, orthopnea, pleurisy, shortness of breath, sputum production, wheezing. 15:30 Neuro: Positive for headache. 15:30 All other systems are negative. Exam: 15:30 Constitutional: This is a well developed, well nourished patient who is awake, alert, kb and in no acute distress. Head/Face: Normocephalic, atraumatic. ENT: Moist Mucous membranes Cardiovascular: Regular rate and rhythm with a normal S1 and S2. No gallops, murmurs, or rubs. No pulse deficits. Respiratory: Respirations even and unlabored. No increased work of breathing. Talking in full sentences Abdomen/GI: Soft, non-tender. No distention Skin: Warm, dry with normal turgor. Normal color. MS/ Extremity: Pulses equal, no cyanosis. Neurovascular intact. Full, normal range of motion. Neuro: Awake and alert, GCS 15, oriented to person, place, time, and situation. Moves all extremities. Normal gait. Psych: Awake, alert, with orientation to person, place and time. Behavior, mood, and affect are within normal limits. Vital Signs: 14:32 BP 116 / 83; Pulse 101; Resp 18; Temp 98.3(TE); Pulse Ox 97% on R/A; Weight 79.38 kg; ld1 Height 5 ft. 3 in. (160.02 cm); Pain 0/10; 14:32 Body Mass Index 31.00 (79.38 kg, 160.02 cm) ld1 MDM: 14:34 Patient medically screened. kb 15:29 Data reviewed: vital signs, nurses notes. Data interpreted: Pulse oximetry: on room air kb is 97 %. Interpretation: normal. 15:30 Counseling: I had a detailed discussion with the patient and/or guardian regarding: the kb historical points, exam findings, and any diagnostic results supporting the discharge/admit diagnosis, lab results, the need for outpatient follow up, a family practitioner, to return to the emergency department if symptoms worsen or persist or if there are any questions or concerns that arise at home. 08/19 14:32 Order name: Flu; Complete Time: 15:20 ld1 08/19 14:32 Order name: COVID-19 SARS RT PCR (Document "Date of Onset" if Symptomatic); Complete ld1 Time: 15:29 08/19 14:32 Order name: Strep; Complete Time: 15:18 ld1 08/19 15:17 Order name: Throat Culture EDMS Administered Medications: No medications were administered Disposition: 21:09 Co-signature as Attending Physician, Jeff Dang DO I was immediately available on-site ms3 in the Emergency Department for consultation in the care of the patient.. Disposition Summary: 08/19/22 15:41 Discharge Ordered Location: Home kb Condition: Stable kb Diagnosis - Acute upper respiratory infection, unspecified kb Followup: kb - With: Emergency Department - When: As needed - Reason: Worsening of condition Followup: kb - With: Private Physician - When: 2 - 3 days - Reason: Recheck today's complaints, Continuance of care, Re-evaluation by your physician Discharge Instructions: - Discharge Summary Sheet kb - Upper Respiratory Infection, Adult, [id number] kb - Viral Respiratory Infection, [id number] kb Forms: - Medication Reconciliation Form kb - Thank You Letter kb - Work release form kb - Antibiotic Education kb - Prescription Opioid Use kb Signatures: Dispatcher [employer] EDMS Brianna Babcock, JED-C HIDE SPREADER-Jeff Beard DO DO ms3 Rosa Patricia, RN RN ld1 Corrections: (The following items were deleted from the chart) 15:30 15:30 ENT: Positive for rhinorrhea, sinus congestion, kb kb
[2022-08-19 16:47] VITALS: BP 116/83; TEMP 98.3; O2SAT 97
== END 2022-08-19 15:59 | disposition home or self-care (01) ==
LOC: ER 14:12
DX: O99.511 Diseases of the respiratory system complicating pregnancy, first trimester (principal); J06.9 Acute upper respiratory infection, unspecified; Z3A.17 17 weeks gestation of pregnancy; Z20.822 Contact with and (suspected) exposure to COVID-19
CPT/HCPCS: 87070; 87081; 87804 ×2; 99283; U0003

== ENCOUNTER 2023-03-07 23:39 | Emergency (ER) | payer OTHER ==
--- OUTSIDE RECORDS SUMMARY | 2023-03-07 23:47 | XMS REPORT | Continuity of Care Document ---
:1995 Author Organization [facility] t Address [address] [place] [address] Care Team Providers Name Role Phone NAILA WONG Primary Care Physician Unavailable NISHA PENA Attending Clinician Unavailable NISHA PENA Attending Clinician Unavailable KAMILAH MCGINNIS Attending Clinician Unavailable NAILA WONG Attending Clinician Unavailable Visit, Gaurav Nurse Attending Clinician Unavailable Naila Wong CNM Attending Clinician MICHELLE DECKER Attending Clinician Unavailable Alek GARIBAY, Maria Guadalupe Attending Clinician Nisha Pena MD Attending Clinician Blake Casey MD Attending Clinician Heavenly Mays MD Attending Clinician Louise Noel MD Attending Clinician [facility] Attending Clinician [phone] Provider, Gaurav Vaughn Attending Clinician Unavailable Ultrasound, Anatoliy Attending Clinician Unavailable Stevan Gamble MD Attending Clinician Fern Bernal MD Attending Clinician [phone] FERN BERNAL Attending Clinician Unavailable Faculty, Shekhar Rojas Attending Clinician Unavailable Tere Baires MD, Mcguire Attending Clinician [phone] TERE DENNISONARLENEOPAL, MCGUIRE Attending Clinician Unavailable Saran Abdalla DO Attending Clinician UNKNOWN, ATTENDING Attending Clinician Unavailable Edith Narvaez RN Attending Clinician Unavailable NORM CAZARES Attending Clinician Unavailable Norm Cazares MD Attending Clinician Lab, [facility] Attending Clinician Unavailable 1, [facility] Attending Clinician Unavailable Lab, Ang[facility] Attending Clinician Unavailable TERA NORIEGA Attending Clinician Unavailable Doctor Unassigned, [place] Attending Clinician Unavailable OLIVIA GUERRA Attending Clinician Unavailable Michelle Ruvalcaba PA-C Attending Clinician Lab, [facility] Pob I Attending Clinician Unavailable Samina Castorena Attending Clinician Pob1, [facility] Attending Clinician Unavailable NISHA PENA Admitting Clinician Unavailable Nisha Pena MD Admitting Clinician Payers Payer Name Policy Type Policy Number Effective Date Expiration Date [facility] [id number] 2022 [facility] [place] STAR 00:00:00 [employer] [id number] 2011 OUT OF NETWORK 00:00:00 MEDICAID PENDING PENDING 2022 00:00:00 MEDICAID OF [place] [id number] 2022 2022 00:00:00 00:00:00 Problems Condition Condition Condition Status Onset Resolution Last Treating Co mments Source Name Details Category Date Date Treatment Clinician Date Pre-eclamp Pre-eclamp Disease Active U nivers garth in garth in 3-20 ity of third third 00:00: [place] trimester trimester 00 Medi german Branch Morbid Morbid Disease Active Univers obesity obesity 3-19 it[place] of with body [place] body 00:[place] mass index mass index 00 Me dical of of Branch 40.0-49.9 40.0-49.9 Back pain Back pain Disease Active Uni vers affecting affecting 3-19 [place] of 00:[place] in third in third 00 Medica l trimester trimester Bran ch 38 weeks 38 weeks Disease Active Unive rs gestation gestation 3-19 ity of of of 00:00: [place] 00 [facility] Branch Excessive Excessive Disease Active Uni vers weight weight 3-03 ity of gain gain 00:00: [place] affecting affecting 00 [facility] Bran ch Seizure Seizure Disease Active Univers disorder disorder 8-19 ity of during during 00:00: [place] 00 [facility] in third in third Branch trimester trimester 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 +HPV 0Per ASCCP guideline needs repeat pap I n 1 year Rubella Rubella Disease Active Overview: Univ ers non-immune non-immune 05-25 Formattin ity of status, status, 00:00: g of this [place] antepartum antepartum 00 note Me dical might be Branch different from the original. Address pp Susceptibl Susceptibl Disease Active Overview : Univers e to e to 05-25 Formattin ity of varicella varicella 00:00: g of this [place] (non-immun (non-immun 00 note Me dical e), e), might be Branch currently currently different from the original. Address pp Supervisio Supervisio Disease Active U nivers n of n of 7-29 ity of high-risk high-risk 00:[place] 00 [facility] Branch Obesity in Obesity in Disease Active U nivers 7- ity of 00:00: 00 Medical Branch History of History of Disease Active Overview : Univers seizure seizure 05-22 Formattin ity o f 00:00: g of this [place] 00 note Medical might be Branch different from the original. Reports dx at age 4, last saw neuro in 2011, not on meds, reports last seizure activity was in february Knee pain, Knee pain, Disease Active U nivers left left 4-07 ity of 00:00: [place] 00 Medical Branch Knee pain, Knee pain, Disease Active U nivers left left 4-07 ity of 00:00: [place] 00 [facility] Scoliosis Scoliosis Disease Active Uni vers 04-14 ity of 00:00: [place] 00 [facility] Allergies, Adverse Reactions, Alerts Allergy Allergy Status Severity Reaction(s) Onset Inactive Treating Comm ents Source Name Type Date Date Clinician NO KNOWN Drug Active Univers ALLERGIE Class ity of S [facility] Social History Social Habit Start Date Stop Date Quantity Comments Source ASSERTION 2022-05-01 [facility] 00:00:00 [facility] Exposure to 2023-01-09 2023-01-19 Not sure [facility] SARS-CoV-2 00:00:00 09:39:00 [facility] (event) [place] Alcohol intake 2023-01-19 2023-01-19 Ex-drinker [facility] 00:00:00 00:00:00 (finding) [facility] Tobacco use and 2022-05-22 2022-05-22 Smokeless tobacco Un iversity of exposure 00:00:00 00:00:00 non-user [facility] Sex Ass[birth year] At [birth year] Universit y of 00:00:00 00:00:00 [facility] Smoking Status Start Date Stop Date Source Never smoked tobacco [facility] Medications Ordered Filled Start Stop Current Ordering Indication Dosage Frequency Signature Comments Components Source Medication Medication Date Date Medication? Clinician (SIG) Name Name levETIRAcet Yes 250mg Take 250 U nivers am 250 mg 3-23 mg by ity of tablet 14:48: mouth once [place] [address] now. [facility] levETIRAcet Yes 250mg Take 250 U nivers am 250 mg 3-23 mg by ity of tablet 14:48: mouth once [place] [address] now. [facility] levETIRAcet Yes 250mg 250 mg, Un jay am (KEPPRA) 3-23 Oral, QHS, it y of tablet 250 02:00: First dose [place] mg 00 on Wed01/13/23 at [place] 2100, Until Discontinu ed, Routine levETIRAcet Yes 250mg 250 mg, Un jay am (KEPPRA) 3-23 Oral, QHS, it y of tablet 250 02:00: First dose [place] mg 00 on Wed01/13/23 at Branch 2100, Until Discontinu ed, Routine ferrous 0 Yes [id number] 325mg Take 1 Un jay sulfate 325 3-23 tablet by ity of mg (65 mg 00:00: mouth [place] iron) 00 the Medical tablet morning. Branch HYDROcodone 0 Yes [id number] 1{tbl} Take 1 Un jay -acetaminop 3-23 tablet by ity of hen 5-325 00:00: mouth [place] mg tablet 00 every 6 Medical (six) Branch hours as needed for Pain (scale 7-10) (Pain scale above 4). Do not exceed 3 grams of acetaminop hen in 24 hours. Indication s: acute pain ibuprofen 0 Yes [id number] 600mg Take 1 Univers 600 mg 3-23 tablet by ity of tablet 00:00: mouth [place] 00 every 6 Medical (six) Branch hours as needed (Pain). Take with food or milk. norethindro Yes [id number] 1{tbl} Take 1 Univers ne 0.35 mg 3-23 tablet by ity of tablet 00:00: mouth in [place] 00 the Medical morning. Branch 0 Yes [id number] 1{tbl} Take 1 Univers vit 3-23 tablet by ity of no.130-iron 00:00: mouth in [place] -folic 00 the Medical ( morning. [place] VITAMIN) docusate 0 202- Yes [id number] 200mg Take 2 Univers 100 mg 3-23 -22 capsules ity of capsule 00:00: 04:59 by mouth [place] 00 :00 once daily Medical as needed Branch for Constipati on for up to 90 days. foLIC acid 0 2022- Yes [id number] 1mg Take 1 Univers 1 mg tablet 3-23 -22 tablet by it y of 00:00: 04:59 mouth in [place] 00 :00 the Medical morning Branch for 90 days. acetaminoph 0 Yes 650mg 650 mg, Un jay en 3-22 Oral, Q6H, ity of (TYLENOL) 17:00: First dose [place] tablet 650 00 on Wed Medical mg 01/13/23 at Branch 1200, Until Discontinu ed, Routine ibuprofen 0 Yes 600mg 600 mg, Univ ers (IBU) 3-22 Oral, Q6H, ity of tablet 600 17:00: First dose [place] mg 00 on Wed Medical 01/13/23 at Branch 1200, Until Discontinu ed, Routine acetaminoph 2022-0 Yes 650mg 650 mg, Un jay en 3 Oral, Q6H, ity of (TYLENOL) 17:00: First dose [place] tablet 650 00 on Wed Medical mg 01/13/23 at Branch 1200, Until Discontinu ed, Routine ibuprofen 2022-0 Yes 600mg 600 mg, Univ ers (IBU) 3-22 Oral, Q6H, ity of tablet 600 17:00: First dose [place] mg 00 on Wed Medical 01/13/23 at Branch 1200, Until Discontinu ed, Routine varicella 2022-0 Yes 1{each} 0.5 mL (1 Univers virus 01-13 Each), ity of vaccine 14:01: [place]cut[place] live 44 us, Medical (VARIVAX) ONCE-PRIOR Bran ch injection TO and diluent DISCHARGE, vial 1 dose, Starting on Wed01/13/23 at 0901, Until Discontinu ed, Routine, Give vaccine prior to discharge famotidine 0 Yes 20mg 20 mg, Unive rs (PEPCID AC) 3 Oral, ity of tablet 20 13:45: DAILY, [place] mg 00 First dose Medical on Wed Branch 01/13/23 at 0845, Until Discontinu ed, Routine famotidine 2022-0 Yes 20mg 20 mg, Unive rs (PEPCID AC) 3- Oral, ity of tablet 20 13:45: DAILY, [place] mg 00 First dose Medical on Wed Branch 01/13/23 at 0845, Until Discontinu ed, Routine HYDROcodone 2022-0 Yes 1{tbl} 1 tablet, Univers -acetaminop 3- Oral, ity of hen (NORCO) 11:58: Q6HPRN, Al as 10-325 mg 49 Starting Medica l tablet 1 on Wed Branch tablet 01/13/23 at 0658, Until Discontinu ed, Routine, Pain (scale 7-10) HYDROcodone 2022-0 Yes 1{tbl} 1 tablet, Univers -acetaminop 3-22 Oral, ity of hen (NORCO) 11:58: Q6HPRN, Al as 10-325 mg 49 Starting Medica l tablet 1 on Wed Branch tablet 01/13/23 at 0658, Until Discontinu ed, Routine, Pain (scale 7-10) levETIRAcet Yes 250mg Take 250 U nivers am 250 mg 3-22 mg by ity of tablet 09:00: mouth once [place] 04 now. Medical Branch tobramycin 2022- No 5mg/kg 240 mg Un jay (NEBCIN) 01-13- (rounded ity of 240 mg in 06:00: 06:15 from 239 Al as NaCl 0.9% 00 :59 mg = 5 Medical (NS) mg/kg Branch piggyback ?47.8 kg [place] weight), IV Piggyback, ONCE, 1 dose, On Wed01/13/23 at 0100, Administer over 30 Minutes, 50 mL
Reas on for Anti-Infec tive: Documented Infection< br>Documen juanito Infection Site: Pelvic
Duration of Therapy: Other (see Comments) Yes [id number] 1{tbl} Take 1 Univers vit 3-22 tablet by ity of no.130-iron 00:00: mouth in [place] -folic 00 the Medical ( morning. Branch VITAMIN) docusate Yes [id number] 200mg Take 2 U nivers 100 mg 3-22 capsules ity of capsule 00:00: by mouth [place] 00 once daily Medical as needed Branch for Constipati on. ferrous Yes [id number] 325mg Take 1 Un jay sulfate 325 3-22 tablet by ity of mg (65 mg 00:00: [place] iron) 00 the Medical tablet morning Branch and 1 tablet in the evening. ibuprofen Yes [id number] 600mg Take 1 Univers 600 mg 3-22 tablet by ity of tablet 00:00: mouth [place] 00 every 6 Medical (six) Branch hours as needed (Pain). Take with food or milk. foLIC acid Yes [id number] 1mg Take 1 Univers 1 mg tablet 3-22 tablet by ity of 00:00: mouth in [place] 00 the Medical morning. Branch norethindro Yes [id number] 1{tbl} Take 1 Univers ne 0.35 mg 3-22 tablet by ity of tablet 00:00: mouth in [place] 00 the Medical morning. Branch Yes [id number] 1{tbl} Take 1 Univers vit 3-22 tablet by ity of no.130-iron 00:00: mouth in [place] -folic 00 the Medical ( morning. Branch VITAMIN) docusate Yes [id number] 200mg Take 2 U nivers 100 mg 3-22 capsules ity of capsule 00:00: by mouth [place] [id number] once daily Medical as needed Branch for Constipati on. ferrous Yes [id number] 325mg Take 1 Un jay sulfate 325 3-22 tablet by ity of mg (65 mg 00:00: mouth in [facility] s iron) 00 the Medical tablet morning Branch and 1 tablet in the evening. ibuprofen Yes [id number] 600mg Take 1 Univers 600 mg 3-22 tablet by ity of tablet 00:00: mouth [place] 00 every 6 Medical (six) Branch hours as needed (Pain). Take with food or milk. foLIC acid Yes [id number] 1mg Take 1 Univers 1 mg tablet 3-22 tablet by ity of 00:00: mouth in [place] 00 the Medical morning. Branch norethindro Yes [id number] 1{tbl} Take 1 Univers ne 0.35 mg 3-22 tablet by ity of tablet 00:00: mouth in [place] 00 the Medical morning. Branch HYDROcodone 2022- Yes [id number] 1{tbl} Take 1 U nivers -acetaminop 3-22 03-30 tablet by it y of hen 5-325 00:00: 04:59 mouth [place] mg tablet 00 :00 every 6 Medical (six) Branch hours as needed for Pain (scale 7-10) (Pain scale above 4) for up to 7 days. Do not exceed 3 grams of acetaminop hen in 24 hours. Indication s: acute pain HYDROcodone 2022- Yes [id number] 1{tbl} Take 1 U nivers -acetaminop 3-22 03-30 tablet by it y of hen 5-325 00:00: 04:59 mouth [place] mg tablet 00 :00 every 6 Medical (six) Branch hours as needed for Pain (scale 7-10) (Pain scale above 4) for up to 7 days. Do not exceed 3 grams of acetaminop hen in 24 hours. Indication s: acute pain ampicillin 2022- No 2g 2,000 mg Un jay (POLYCILLIN 01-12 (2 g), IV it y of -N) 2,000 22:30: 00:04 Piggyback, [place] mg in NaCl 00 :30 ONCE, 1 Medica l 0.9% (NS) dose, On Branch 100 mL Tue MINI-BAG 01/12/23 at 1730, Administer over 30 Minutes, 100 mL
Reas on for Anti-Infec tive: Documented Infection< br>Documen juanito Infection Site: Pelvic
Duration of Therapy: Other (see Comments) metroNIDAZO 2022- No 500mg 500 mg, IV Univers LE in NaCl 01-12 Piggyback, it y of (iso-os) 21:30: 23:27 ONCE, 1 [place] (FLAGYL 00 :17 dose, On Medical I.V.) RTU Tue Branch IV infusion 01/12/23 at 500 mg 1630, Administer over 60 Minutes, 100 mL
R omero for Anti-Infec tive: Documented Infection< br>Documen juanito Infection Site: Pelvic<br& gt;Duratio n of Therapy: Other (see Comments) levETIRAcet 2022- No 250mg 250 mg, U nivers am (KEPPRA) 01-12 Oral, ity of tablet 250 20:45: 02:20 ONCE, 1 Al as mg 00 :00 dose, On Medical Tue Branch 01/12/23 at 1545, Routine rho(D) Yes 300ug 300 mcg, [facility]12 Intramuscu ity of globulin 20:40: lar, ONCE, Al as (RHOGAM) 47 For 1 Medical syringe 300 dose, Branch mcg Conditiona l, Routine rho(D) Yes 300ug 300 mcg, Univer s immune - Intramuscu ity of globulin 20:40: lar, ONCE, Al as (RHOGAM) 47 For 1 Medical syringe 300 dose, Branch mcg Conditiona l, Routine human Yes .5mL 0.5 mL, Univers papillomav 01-12 Intramuscu ity of vac,9-louis(P 20:40: lar, [place] F) 41 ONCE-PRIOR Medical (GARDASIL-9 TO [place] ) syringe DISCHARGE, 0.5 mL 1 dose, Starting on Wed01/12/23 at 1540, Until Discontinu ed, Routine, Give vaccine prior to discharge diphenhydrA 2023-0 Yes 25mg 25 mg, Univ ers MINE 3- Slow IV ity of (BENADRYL) 20:40: Push, [place] injection 41 Q6HPRN, Medical 25 mg Starting Branch on Wed01/12/23 at 1540, Until Discontinu ed, Routine, Itching diphenhydrA 3-0 Yes 25mg 25 mg, Univ ers MINE 3 Oral, ity of (BENADRYL) 20:40: Q6HPRN, [place] tablet 25 41 Starting Medica l mg on Wed01/12/23 at 1540, Until Discontinu ed, Routine, Sleep, Itching ondansetron 2022-0 Yes 4mg 4 mg, Slow Univers (ZOFRAN 01-12 IV Push, ity of (PF)) 20:40: Q8HPRN, [place] injection 4 41 Starting Medi german mg on Wed01/12/23 at 1540, Until Discontinu ed, Routine, Nausea and Vomiting (N/V) bisacodyL 2022-0 Yes 10mg 10 mg, Univer s (DULCOLAX) 01-12 Rectal, ity of suppository 20:40: QDAILYPRN, [place] 10 mg 41 Starting Medical on Wed01/12/23 at 1540, Until Discontinu ed, Routine, Constipati on simethicone 2022-0 Yes 160mg 160 mg, Un jay (GAS RELIEF 01-12 Oral, ity of (SIMETHICON 20:40: PC+HSPRN, [place] E)) 41 Starting Medical chewable on Wed tablet 160 01/12/23 at mg 1540, Until Discontinu ed, Routine, Gas docusate 3-0 Yes 200mg 200 mg, Unive rs (COLACE) 3- Oral, ity of capsule 200 20:40: QDAILYPRN, [place] mg 41 Starting Medical on Tue Branch 01/12/23 at 1540, Until Discontinu ed, Routine, Constipati on magnesium 3-0 Yes 30mL 30 mL, Univer s hydroxide 3-21 Oral, ity of (MILK OF 20:40: QDAILYPRN, Al as MAGNESIA) 41 Starting Medica l 400 mg/5 mL on Tue Branch suspension 01/12/23 at 30 mL 1540, Until Discontinu ed, Routine, Constipati on lactated 3-0 Yes 1000mL at 125 Unive rs ringers IV 3-21 mL/hr, ity of infusion 20:40: 1,000 mL, [place] 1,000 mL 41 IV Medical Infusion, Branch PRN, 1 dose, Starting on Wed01/12/23 at 1540, Until Discontinu ed, Routine diphenhydrA 2023-0 Yes 25mg 25 mg, Univ ers MINE 3- Slow IV ity of (BENADRYL) 20:40: Push, [place] injection 41 Q6HPRN, Medical 25 mg Starting Branch on Wed01/12/23 at 1540, Until Discontinu ed, Routine, Itching diphenhydrA 2023-0 Yes 25mg 25 mg, Univ ers MINE 3-21 Oral, ity of (BENADRYL) 20:40: Q6HPRN, [place] tablet 25 41 Starting Medica l mg on e Branch 01/12/23 at 1540, Until Discontinu ed, Routine, Sleep, Itching ondansetron 2023-0 Yes 4mg 4 mg, Slow Univers (ZOFRAN 01-12 IV Push, ity of (PF)) 20:40: Q8HPRN, [place] injection 4 41 Starting Medi german mg on e Branch 01/12/23 at 1540, Until Discontinu ed, Routine, Nausea and Vomiting (N/V) bisacodyL 2023-0 Yes 10mg 10 mg, Univer s (DULCOLAX) 3- Rectal, ity of suppository 20:40: QDAILYPRN, [place] 10 mg 41 Starting Medical on e Branch 01/12/23 at 1540, Until Discontinu ed, Routine, Constipati on simethicone 2023-0 Yes 160mg 160 mg, Un jay (GAS RELIEF 3- Oral, ity of (SIMETHICON 20:40: PC+HSPRN, [place] E)) 41 Starting Medical chewable on Wed tablet 160 01/12/23 at mg 1540, Until Discontinu ed, Routine, Gas docusate Yes 200mg 200 mg, Unive rs (COLACE) 01-12 Oral, ity of capsule 200 20:40: QDAILYPRN, [place] mg 41 Starting Medical on Wed Branch 01/12/23 at 1540, Until Discontinu ed, Routine, Constipati on magnesium Yes 30mL 30 mL, Univer s hydroxide 01-12 Oral, ity of (MILK OF 20:40: QDAILYPRN, Al as MAGNESIA) 41 Starting Medica l 400 mg/5 mL on Wed suspension 01/12/23 at 30 mL 1540, Until Discontinu ed, Routine, Constipati on lactated Yes 1000mL at 125 Unive rs ringers IV 3-21 mL/hr, ity of infusion 20:40: 1,000 mL, [place] 1,000 mL 41 IV Medical Infusion, Branch PRN, 1 dose, Starting on Wed01/12/23 at 1540, Until Discontinu ed, Routine ibuprofen 2022- No 600mg 600 mg, Uni vers (IBU) 01-12 Oral, ity of tablet 600 20:40: 11:59 Q6HPRN, Al as mg 41 :44 Starting Medical on Wed01/12/23 at 1540, Until Wed01/13/23 at 0659, Routine, Pain (scale 1-3) acetaminoph 2022- No 650mg 650 mg, U nivers en 01-12 Oral, ONCE ity of (TYLENOL) 03:45: 03:04 NOW, 1 [place] tablet 650 00 :00 dose, On Medic al mg Wed01/11/23 at 2245, Routine tobramycin 2022- No 5mg/kg 340 mg Un jay (NEBCIN) 01-12 (rounded ity of 340 mg in 03:45: 20:26 from 346.5 [place] NaCl 0.9% 00 :28 mg = 5 Medical (NS) mg/kg Branch piggyback ?69.3 kg Adjusted weight), IV Piggyback, Q24H ABX, 3 doses, First dose on Wed01/11/23 at 2245, Last dose on Wed01/13/23 at 2245, Administer over 30 Minutes, 50 mL
Reas on for Anti-Infec tive: Empiric Therapy for Suspected Infection< br>Empiric Therapy Site: Pelvic
Duration of therapy: 72 hours ampicillin 2022- No 2g 2,000 mg Un jay (POLYCILLIN 01-12 (2 g), IV it y of -N) 2,000 03:45: 20:25 Piggyback, [place] mg in NaCl 00 :45 Q6H ABX, Medic al 0.9% (NS) First dose Bran ch 100 mL on Wed MINI-BAG 01/11/23 at 2245, Until Discontinu ed, Administer over 30 Minutes, 100 mL
Reas on for Anti-Infec tive: Surgical Prophylaxi s
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
Duration of therapy: within 24 hours of surgery ondansetron 2022- No 4mg 4 mg, Slow Univers (ZOFRAN 01-12 IV Push, ity of (PF)) 02:15: 01:25 ONCE, On [place] injection 4 00 :00 Mon Medical mg 01/11/23 at Branch 2115, For 1 dose
Do ses of ondansetro n 16 mg and above need to be administer ed via IV piggyback. For Dose >=24mg ECG monitoring is advisable.
levETIRAcet 2022- No 250mg 250 mg, U nivers am (KEPPRA) 01-12 Oral, QHS, i ty of tablet 250 02:00: 20:40 First dose [place] mg 00 :44 (after Medical last Branch modificati on) on Wed01/11/23 at 2100, Until Discontinu ed, Routine lactated 2022- No 500mL at 999 Unive rs ringers IV 01-1121 mL/hr, 500 it y of infusion 19:45: 01:50 mL, IV [place] 500 mL 00 :56 Infusion, Medical ONCE, 1 Branch dose, On Wed01/11/23 at 1445, Routine ropivacaine 2022- Yes Epidural, U nivers 0.2 % -20 CONTINUOUS ity of (NAROPIN 19:34: PRN, [place] (PF)) 00 Starting Medical epidural on Wed Branch infusion 01/11/23 at 1434, Until Discontinu ed, Routine, Intra-op lidocaine-e Yes Intraderma Univers pinephrine 3-20 l, ONCE ity of (XYLOCAINE 19:32: INTRA [place] W/EPINEPHRI 00 PROCEDURE, Me dical NE) 1.5 Starting Branch %-1:200,000 on Wed injection 01/11/23 at 1432, Until Discontinu ed, Routine, Intra-op lactated 2022- No 500mL at 999 Unive rs ringers IV 01-11 03-20 mL/hr, 500 it y of infusion 18:54: 19:34 mL, IV [place] 500 mL 35 :52 Infusion, Medical PRN - SEE Branch INSTRUCTIO NS, 1 dose, Starting on Wed01/11/23 at 1354, Until Wed01/11/23 at 1434, Routine sodium 2022- No 30mL 30 mL, Univers citrate-cit 01-11-20 Oral, ity of [place] acid 18:54: 19:20 PRE-PROCED [place] (BICITRA) 35 :00 URE ONCE, Medic al 500-334 1 dose, Branch mg/5 mL Starting solution 30 on Wed mL 01/11/23 at 1354, Until Discontinu ed, Routine, Surgery/Pr ocedure oxytocin 2022-2022- No 2mU/min at 2-40 Un jay (PITOCIN) 01-11 03-21 mL/hr, IV ity of 30 units in 07:48: 20:40 Infusion, [place] NS 500 mL 53 :44 TITRATE, Medica l IV infusion Starting Bran ch on Wed01/11/23 at 0248, Until Wed01/12/23 at 1540, LINDSEY butorphanol 2022- No 1mg 1 mg, IV U nivers (STADOL) 01-11-20 Push, ity of injection 1 07:15: 06:25 ONCE, 1 [place] mg 00 :00 dose, On Medical Mon Branch 01/11/23 at 0215, Routine lactated 2022- No 500mL at 999 Unive rs ringers IV 01-11 mL/hr, 500 it y of infusion 04:17: 20:40 mL, IV [place] 500 mL 47 :44 Infusion, Medical PRN - SEE Branch INSTRUCTIO NS, Starting on [place] 01/10/23 at 2317, Until Wed01/12/23 at 1540, Routine D5W-LR IV 2022- No 1000mL at 1-125 U nivers infusion 01-11 mL/hr, IV ity o f 1,000 mL 04:17: 20:40 Infusion, Al as 47 :44 TITRATE, Medical Starting Branch on [place] 01/10/23 at 2317, Until Wed01/12/23 at 1540, Routine levETIRAcet 2022- No 250mg 250 mg, U nivers am (KEPPRA) 01-11 Oral, BID, i ty of tablet 250 01:00: 05:36 First dose [place] mg 00 :56 on [facility] 01/10/23 at Branch 2000, Until Discontinu ed, Routine levETIRAcet Yes 250mg Take 250 U nivers am 250 mg 3-19 mg by ity of tablet 16:48: mouth once [place] 07 now. [facility] levETIRAcet 2021-10 Yes 250mg Take 250 U nivers am 250 mg 0-28 mg by ity of tablet 11:24: mouth once [place] 52 now. [facility] Branch levETIRAcet 2021-10 Yes 250mg Take 250 U nivers am 250 mg 0-28 mg by ity of tablet 11:24: mouth once [place] 52 now. [facility] Branch levETIRAcet 2021-10 Yes 250mg Take 250 U nivers am 250 mg 0-28 mg by ity of tablet 11:24: mouth once [place] 52 now. [facility] levETIRAcet 2021-10 Yes 250mg Take 250 U nivers am 250 mg 0-28 mg by ity of tablet 11:24: mouth once [place] 52 now. [facility] levETIRAcet 2021-10 Yes 250mg Take 250 U nivers am 250 mg 0-28 mg by ity of tablet 11:24: mouth once [place] 52 now. Medical Branch levETIRAcet 2021-10 Yes 250mg Take 250 U nivers am 250 mg 0-28 mg by ity of tablet 11:24: mouth once [place] 52 now. Medical Branch levETIRAcet 2021-10 Yes 250mg Take 250 U nivers am 250 mg 0-28 mg by ity of tablet 11:24: mouth once [place] 52 now. Medical Branch levETIRAcet 2021-10 Yes 250mg Take 250 U nivers am 250 mg 0-28 mg by ity of tablet 11:24: mouth once [place] 52 now. Medical Branch levETIRAcet 2021-10 Yes 250mg Take 250 U nivers am 250 mg 0-28 mg by ity of tablet 11:24: mouth once [place] 52 now. Medical Branch levETIRAcet 2021-10 Yes 250mg Take 250 U nivers am 250 mg 0-28 mg by ity of tablet 11:24: mouth once [place] 52 now. Medical Branch levETIRAcet 2021-10 Yes 250mg Take 250 U nivers am 250 mg 0-28 mg by ity of tablet 11:24: mouth once [place] 53 now. [facility] levETIRAcet 2021-10 Yes 250mg Take 250 U nivers am 250 mg 0-28 mg by ity of tablet 11:24: mouth once [place] 53 now. [facility] levETIRAcet 2021-10 Yes 250mg Take 250 U nivers am 250 mg 0-28 mg by ity of tablet 11:24: mouth once [place] 53 now. [facility] levETIRAcet 2021-10 Yes 250mg Take 250 U nivers am 250 mg 0-28 mg by ity of tablet 11:24: mouth once [place] 53 now. [facility] levETIRAcet 2021-10 Yes 250mg Take 250 U nivers am 250 mg 0-28 mg by ity of tablet 11:24: mouth once [place] 53 now. [facility] levETIRAcet 2021-10 Yes 250mg Take 250 U nivers am 250 mg 0-28 mg by ity of tablet 11:24: mouth once [place] 53 now. [facility] levETIRAcet 2021-10 Yes 250mg Take 250 U nivers am 250 mg 0-28 mg by ity of tablet 11:24: mouth once [place] 53 now. [facility] levETIRAcet 2021-10 Yes 250mg Take 250 U nivers am 250 mg 0-28 mg by ity of tablet 11:24: mouth once [place] 53 now. [facility] levETIRAcet 2021-10 Yes 250mg Take 250 U nivers am 250 mg 0-28 mg by ity of tablet 11:24: mouth once [place] 53 now. [facility] levETIRAcet 2021-10 Yes 250mg Take 250 U nivers am 250 mg 0-28 mg by ity of tablet 11:24: mouth once [place] 53 now. [facility] levETIRAcet 2021-10 Yes 250mg Take 250 U nivers am 250 mg 0-28 mg by ity of tablet 11:24: mouth once [place] 53 now. [facility] levETIRAcet 2021-10 Yes 250mg Take 250 U nivers am 250 mg 0-28 mg by ity of tablet 11:24: mouth once [place] 52 now. [facility] levETIRAcet 2021-10 Yes 250mg Take 250 U nivers am 250 mg 0-28 mg by ity of tablet 11:24: mouth once [place] 53 now. [facility] levETIRAcet 2021-10 Yes 250mg Take 250 U nivers am 250 mg 0-28 mg by ity of tablet 11:24: mouth once [place] 53 now. [facility] levETIRAcet 2021-10 Yes 250mg Take 250 U nivers am 250 mg 0-28 mg by ity of tablet 11:24: mouth once [place] 52 now. [facility] levETIRAcet 2021-10 Yes 250mg Take 250 U nivers am 250 mg 0-28 mg by ity of tablet 11:24: mouth once [place] 53 now. [facility] levETIRAcet 2021-10 Yes 250mg Take 250 U nivers am 250 mg 0-28 mg by ity of tablet 11:24: mouth once [place] 52 now. [facility] levETIRAcet 2021-10 Yes 250mg Take 250 U nivers am 250 mg 0-28 mg by ity of tablet 11:24: mouth once [place] 53 now. [facility] levETIRAcet 2021-10 Yes 250mg Take 250 U nivers am 250 mg 0-28 mg by ity of tablet 11:24: mouth once [place] 53 now. [facility] No known 2021-10 No No known Unive rs medications 0-14 medication it y of 15:10: [address] No known 2021- No No known Unive rs medications 0-14 medication it y of 15:10: [address] No known 2021- No No known Unive rs medications 0-14 medication it y of 15:10: [address] No known 2021-10 No No known Unive rs medications 0-14 medication it y of 15:10: [address] No known 2021- No No known Unive rs medications 0-14 medication it y of 15:10: [address] No known 2021-0 No No known Unive rs medications 9-12 medication it y of 13:59: [address] No known 2021-0 No No known Unive rs medications 9-12 medication it y of 13:59: [address] No known 2021-0 No No known Unive rs medications 9-12 medication it y of 13:59: [address] No known 2021-0 No No known Unive rs medications 9-12 medication it y of 13:59: [address] No known 2021-0 No No known Unive rs medications 9-12 medication it y of 13:59: [address] No known 2021-0 No No known Unive rs medications 9-12 medication it y of 13:59: [address] No known 2021-0 No No known Unive rs medications 9-12 medication it y of 13:59: [address] No known 2021-0 No No known Unive rs medications 9-12 medication it y of 13:59: [address] Immunizations Ordered Immunization Filled Immunization Date Status Commen ts Source Name Name HPV9 2023-01-14 Completed [facility] 00:00:00 [facility] HPV9 2023-01-14 Completed [facility] 00:00:00 [facility] TDAP 2022-11-11 Completed [facility] 00:00:00 [facility] TDAP 2022-11-11 Completed [facility] 00:00:00 [facility] TDAP 2022-11-11 Completed [facility] 00:00:00 [facility] TDAP 2022-11-11 Completed [facility] 00:00:00 [facility] TDAP 2022-11-11 Completed [facility] 00:00:00 [facility] TDAP 2022-11-11 Completed [facility] 00:00:00 [facility] TDAP 2022-11-11 Completed [facility] 00:00:00 [facility] TDAP 2022-11-11 Completed [facility] 00:00:00 [facility] TDAP 2022-11-11 Completed [facility] 00:00:00 [facility] TDAP 2022-11-11 Completed [facility] 00:00:00 [facility] TDAP 2022-11-11 Completed [facility] 00:00:00 [facility] TDAP 2022-11-11 Completed [facility] 00:00:00 [facility] TDAP 2022-11-11 Completed [facility] 00:00:00 [facility] TDAP 2022-11-11 Completed [facility] 00:00:00 [facility] TDAP 2022-11-11 Completed [facility] 00:00:00 [facility] TDAP 2022-11-11 Completed [facility] 00:00:00 [facility] TDAP 2022-11-11 Completed [facility] 00:00:00 [facility] TDAP 2022-11-11 Completed [facility] 00:00:00 [facility] TDAP 2016-01-23 Completed [facility] 00:00:00 [facility] TDAP 2016-01-23 Completed [facility] 00:00:00 [facility] TDAP 2016-01-23 Completed [facility] 00:00:00 [facility] TDAP 2016-01-23 Completed [facility] 00:00:00 [facility] TDAP 2016-01-23 Completed [facility] 00:00:00 [facility] TDAP 2016-01-23 Completed [facility] 00:00:00 [facility] TDAP 2016-01-23 Completed [facility] 00:00:00 [facility] TDAP 2016-01-23 Completed [facility] 00:00:00 [facility] TDAP 2016-01-23 Completed [facility] 00:00:00 [facility] TDAP 2016-01-23 Completed [facility] 00:00:00 [facility] TDAP 2016-01-23 Completed [facility] 00:00:00 [facility] TDAP 2016-01-23 Completed [facility] 00:00:00 [facility] TDAP 2016-01-23 Completed [facility] 00:00:00 [place] [facility] TDAP 2016-01-23 Completed [facility] 00:00:00 [facility] Meningococcal 2016-01-16 Completed [facility] Polysaccharide 00:00:00 [place] [facility] (groups A, C, Y and Branc h W-135) conjugate vaccine (MCV4P) Meningococcal 2016-01-16 Completed [facility] Polysaccharide 00:00:00 [place] [facility] (groups A, C, Y and Branc h W-135) conjugate vaccine (MCV4P) Meningococcal 2016-01-16 Completed [facility] Polysaccharide 00:00:00 [place] [facility] (groups A, C, Y and Branc h W-135) conjugate vaccine (MCV4P) Meningococcal 2016-01-16 Completed [facility] Polysaccharide 00:00:00 [place] [facility] (groups A, C, Y and Branc h W-135) conjugate vaccine (MCV4P) Meningococcal 2016-01-16 Completed [facility] Polysaccharide 00:00:00 [place] [facility] (groups A, C, Y and Branc h W-135) conjugate vaccine (MCV4P) Meningococcal 2016-01-16 Completed [facility] Polysaccharide 00:00:00 [place] [facility] (groups A, C, Y and Branc h W-135) conjugate vaccine (MCV4P) Meningococcal 2016-01-16 Completed [facility] Polysaccharide 00:00:00 [place] [facility] (groups A, C, Y and Branc h W-135) conjugate vaccine (MCV4P) Meningococcal 2016-01-16 Completed [facility] Polysaccharide 00:00:00 [place] [facility] (groups A, C, Y and Branc h W-135) conjugate vaccine (MCV4P) Meningococcal 2016-01-16 Completed [facility] Polysaccharide 00:00:00 [place] [facility] (groups A, C, Y and Branc h W-135) conjugate vaccine (MCV4P) Meningococcal 2016-01-16 Completed [facility] Polysaccharide 00:00:00 [place] [facility] (groups A, C, Y and Branc h W-135) conjugate vaccine (MCV4P) Meningococcal 2016-01-16 Completed [facility] Polysaccharide 00:00:00 [place] [facility] (groups A, C, Y and Branc h W-135) conjugate vaccine (MCV4P) Meningococcal 2016-01-16 Completed [facility] Polysaccharide 00:00:00 [place] [facility] (groups A, C, Y and Branc h W-135) conjugate vaccine (MCV4P) Meningococcal 2016-01-16 Completed [facility] Polysaccharide 00:00:00 [place] [facility] (groups A, C, Y and Branc h W-135) conjugate vaccine (MCV4P) Meningococcal 2016-01-16 Completed [facility] Polysaccharide 00:00:00 [place] [facility] (groups A, C, Y and Branc h W-135) conjugate vaccine (MCV4P) HEPA,NOS 2009-05-28 Completed [facility] 00:00:00 [facility] Meningococcal 2009-05-28 Completed [facility] Polysaccharide 00:00:00 [place] [facility] (groups A, C, Y and Branc h W-135) conjugate vaccine (MCV4P) TDAP 2009-05-28 Completed [facility] 00:00:00 [facility] HEPA,NOS 2009-05-28 Completed [facility] 00:00:00 [facility] Meningococcal 2009-05-28 Completed [facility] Polysaccharide 00:00:00 [place] [facility] (groups A, C, Y and Branc h W-135) conjugate vaccine (MCV4P) TDAP 2009-05-28 Completed [facility] 00:00:00 [facility] HEPA,NOS 2009-05-28 Completed [facility] 00:00:00 [facility] Meningococcal 2009-05-28 Completed [facility] Polysaccharide 00:00:00 [place] [facility] (groups A, C, Y and Branc h W-135) conjugate vaccine (MCV4P) TDAP 2009-05-28 Completed [facility] 00:00:00 [facility] HEPA,NOS 2009-05-28 Completed [facility] 00:00:00 [facility] Meningococcal 2009-05-28 Completed [facility] Polysaccharide 00:00:00 [place] [facility] (groups A, C, Y and Branc h W-135) conjugate vaccine (MCV4P) TDAP 2009-05-28 Completed [facility] 00:00:00 [facility] HEPA,NOS 2009-05-28 Completed [facility] 00:00:00 [facility] Meningococcal 2009-05-28 Completed [facility] Polysaccharide 00:00:00 [place] [facility] (groups A, C, Y and Branc h W-135) conjugate vaccine (MCV4P) TDAP 2009-05-28 Completed [facility] 00:00:00 [facility] HEPA,NOS 2009-05-28 Completed [facility] 00:00:00 [facility] Meningococcal 2009-05-28 Completed [facility] Polysaccharide 00:00:00 [place] [facility] (groups A, C, Y and Branc h W-135) conjugate vaccine (MCV4P) TDAP 2009-05-28 Completed [facility] 00:00:00 [facility] HEPA,NOS 2009-05-28 Completed [facility] 00:00:00 [facility] Meningococcal 2009-05-28 Completed [facility] Polysaccharide 00:00:00 [place] [facility] (groups A, C, Y and Branc h W-135) conjugate vaccine (MCV4P) TDAP 2009-05-28 Completed [facility] 00:00:00 [facility] HEPA,NOS 2009-05-28 Completed [facility] 00:00:00 [facility] Meningococcal 2009-05-28 Completed [facility] Polysaccharide 00:00:00 [place] [facility] (groups A, C, Y and Branc h W-135) conjugate vaccine (MCV4P) TDAP 2009-05-28 Completed [facility] 00:00:00 [facility] HEPA,NOS 2009-05-28 Completed [facility] 00:00:00 [facility] Meningococcal 2009-05-28 Completed [facility] Polysaccharide 00:00:00 [place] [facility] (groups A, C, Y and Branc h W-135) conjugate vaccine (MCV4P) TDAP 2009-05-28 Completed [facility] 00:00:00 [facility] HEPA,NOS 2009-05-28 Completed [facility] 00:00:00 [facility] Meningococcal 2009-05-28 Completed [facility] Polysaccharide 00:00:00 [place] [facility] (groups A, C, Y and Branc h W-135) conjugate vaccine (MCV4P) TDAP 2009-05-28 Completed [facility] 00:00:00 [facility] HEPA,NOS 2009-05-28 Completed [facility] 00:00:00 [facility] Meningococcal 2009-05-28 Completed [facility] Polysaccharide 00:00:00 [place] [facility] (groups A, C, Y and Branc h W-135) conjugate vaccine (MCV4P) TDAP 2009-05-28 Completed [facility] 00:00:00 [facility] HEPA,NOS 2009-05-28 Completed [facility] 00:00:00 [facility] Meningococcal 2009-05-28 Completed [facility] Polysaccharide 00:00:00 [place] [facility] (groups A, C, Y and Branc h W-135) conjugate vaccine (MCV4P) TDAP 2009-05-28 Completed [facility] 00:00:00 [facility] HEPA,NOS 2009-05-28 Completed [facility] 00:00:00 [facility] Meningococcal 2009-05-28 Completed [facility] Polysaccharide 00:00:00 [place] [facility] (groups A, C, Y and Branc h W-135) conjugate vaccine (MCV4P) TDAP 2009-05-28 Completed [facility] 00:00:00 [facility] HEPA,NOS 2009-05-28 Completed [facility] 00:00:00 [facility] Meningococcal 2009-05-28 Completed [facility] Polysaccharide 00:00:00 [place] [facility] (groups A, C, Y and Branc h W-135) conjugate vaccine (MCV4P) TDAP 2009-05-28 Completed [facility] 00:00:00 [facility] Meningococcal 2007-12-20 Completed [facility] Polysaccharide 00:00:00 [place] [facility] (groups A, C, Y and Branc h W-135) conjugate vaccine (MCV4P) TDAP 2007-12-20 Completed [facility] 00:00:00 [facility] Varicella 2007-12-20 Completed [facility] (varivax)(chicken 00:00:00 [place] [facility] pox) [facility] Meningococcal 2007-12-20 Completed [facility] Polysaccharide 00:00:00 [place] [facility] (groups A, C, Y and Branc h W-135) conjugate vaccine (MCV4P) TDAP 2007-12-20 Completed [facility] 00:00:00 [facility] Varicella 2007-12-20 Completed [facility] (varivax)(chicken 00:00:00 [place] [facility] pox) [facility] Meningococcal 2007-12-20 Completed [facility] Polysaccharide 00:00:00 [place] [facility] (groups A, C, Y and Branc h W-135) conjugate vaccine (MCV4P) TDAP 2007-12-20 Completed [facility] 00:00:00 [facility] Varicella 2007-12-20 Completed [facility] (varivax)(chicken 00:00:00 [place] [facility] p[facility]) [facility] Meningococcal 2007-12-20 Completed [facility] Polysaccharide 00:00:00 [place] [facility] (groups A, C, Y and Branc h W-135) conjugate vaccine (MCV4P) TDAP 2007-12-20 Completed [facility] 00:00:00 [facility] Varicella 2007-12-20 Completed [facility] (varivax)(chicken 00:00:00 [place] [facility] pox) [facility] Meningococcal 2007-12-20 Completed [facility] Polysaccharide 00:00:00 [place] [facility] (groups A, C, Y and Branc h W-135) conjugate vaccine (MCV4P) TDAP 2007-12-20 Completed [facility] 00:00:00 [facility] Varicella 2007-12-20 Completed [facility] (varivax)(chicken 00:00:00 [place] [facility] pox) [facility] Meningococcal 2007-12-20 Completed [facility] Polysaccharide 00:00:00 [place] [facility] (groups A, C, Y and Branc h W-135) conjugate vaccine (MCV4P) TDAP 2007-12-20 Completed [facility] 00:00:00 [facility] Varicella 2007-12-20 Completed [facility] (varivax)(chicken 00:00:00 [place] [facility] pox) [facility] Meningococcal 2007-12-20 Completed [facility] Polysaccharide 00:00:00 [place] [facility] (groups A, C, Y and Branc h W-135) conjugate vaccine (MCV4P) TDAP 2007-12-20 Completed [facility] 00:00:00 [facility] Varicella 2007-12-20 Completed [facility] (varivax)(chicken 00:00:00 [place] [facility] pox) [facility] Meningococcal 2007-12-20 Completed [facility] Polysaccharide 00:00:00 [place] [facility] (groups A, C, Y and Branc h W-135) conjugate vaccine (MCV4P) TDAP 2007-12-20 Completed [facility] 00:00:00 [facility] Varicella 2007-12-20 Completed [facility] (varivax)(chicken 00:00:00 [place] [facility] p[facility]) [facility] Meningococcal 2007-12-20 Completed [facility] Polysaccharide 00:00:00 [place] [facility] (groups A, C, Y and Branc h W-135) conjugate vaccine (MCV4P) TDAP 2007-12-20 Completed [facility] 00:00:00 [facility] Varicella 2007-12-20 Completed [facility] (varivax)(chicken 00:00:00 [place] [facility] pox) [facility] Meningococcal 2007-12-20 Completed [facility] Polysaccharide 00:00:00 [place] [facility] (groups A, C, Y and Branc h W-135) conjugate vaccine (MCV4P) TDAP 2007-12-20 Completed [facility] 00:00:00 [facility] Varicella 2007-12-20 Completed [facility] (varivax)(chicken 00:00:00 [place] [facility] pox) [facility] Meningococcal 2007-12-20 Completed [facility] Polysaccharide 00:00:00 [place] [facility] (groups A, C, Y and Branc h W-135) conjugate vaccine (MCV4P) TDAP 2007-12-20 Completed [facility] 00:00:00 [facility] Varicella 2007-12-20 Completed [facility] (varivax)(chicken 00:00:00 [place] [facility] p[facility]) [facility] Meningococcal 2007-12-20 Completed [facility] Polysaccharide 00:00:00 [place] [facility] (groups A, C, Y and Branc h W-135) conjugate vaccine (MCV4P) TDAP 2007-12-20 Completed [facility] 00:00:00 [facility] Varicella 2007-12-20 Completed [facility] (varivax)(chicken 00:00:00 [place] [facility] p[facility]) [facility] Meningococcal 2007-12-20 Completed [facility] Polysaccharide 00:00:00 [place] [facility] (groups A, C, Y and Branc h W-135) conjugate vaccine (MCV4P) TDAP 2007-12-20 Completed [facility] 00:00:00 [facility] Varicella 2007-12-20 Completed [facility] (varivax)(chicken 00:00:00 [place] [facility] p[facility]) [facility] Meningococcal 2007-12-20 Completed [facility] Polysaccharide 00:00:00 [place] [facility] (groups A, C, Y and Branc h W-135) conjugate vaccine (MCV4P) TDAP 2007-12-20 Completed [facility] 00:00:00 [facility] Varicella 2007-12-20 Completed [facility] (varivax)(chicken 00:00:00 [place] [facility] HEPA,NOS 2007-04-26 Completed [facility] 00:00:00 [facility] HEPA,NOS 2007-04-26 Completed [facility] 00:00:00 [facility] HEPA,NOS 2007-04-26 Completed [facility] 00:00:00 [facility] HEPA,NOS 2007-04-26 Completed [facility] 00:00:00 [facility] HEPA,NOS 2007-04-26 Completed [facility] 00:00:00 [facility] HEPA,NOS 2007-04-26 Completed [facility] 00:00:00 [facility] HEPA,NOS 2007-04-26 Completed [facility] 00:00:00 [facility] HEPA,NOS 2007-04-26 Completed [facility] 00:00:00 [place] [facility] HEPA,NOS 2007-04-26 Completed [facility] 00:00:00 [place] [facility] HEPA,NOS 2007-04-26 Completed [facility] 00:00:00 [place] [facility] HEPA,NOS 2007-04-26 Completed [facility] 00:00:00 [place] [facility] HEPA,NOS 2007-04-26 Completed [facility] 00:00:00 [place] [facility] HEPA,NOS 2007-04-26 Completed [facility] 00:00:00 [place] [facility] HEPA,NOS 2007-04-26 Completed [facility] 00:00:00 [facility] DTAP 2001-01-17 Completed [facility] 00:00:00 [facility] MMR 2001-01-17 Completed [facility] 00:00:00 [facility] Polio (IPV/OPV) 2001-01-17 Completed [facility] 00:00:00 [facility] DTAP 2001-01-17 Completed [facility] 00:00:00 [facility] MMR 2001-01-17 Completed [facility] 00:00:00 [facility] Polio (IPV/OPV) 2001-01-17 Completed [facility] 00:00:00 [facility] DTAP 2001-01-17 Completed [facility] 00:00:00 [facility] MMR 2001-01-17 Completed [facility] 00:00:00 [place] [facility] Polio (IPV/OPV) 2001-01-17 Completed [facility] 00:00:00 [facility] DTAP 2001-01-17 Completed [facility] 00:00:00 [facility] MMR 2001-01-17 Completed [facility] 00:00:00 [place] [facility] Polio (IPV/OPV) 2001-01-17 Completed [facility] 00:00:00 [facility] DTAP 2001-01-17 Completed [facility] 00:00:00 [facility] MMR 2001-01-17 Completed [facility] 00:00:00 [place] [facility] Polio (IPV/OPV) 2001-01-17 Completed [facility] 00:00:00 [facility] DTAP 2001-01-17 Completed [facility] 00:00:00 [facility] MMR 2001-01-17 Completed [facility] 00:00:00 [place] [facility] Polio (IPV/OPV) 2001-01-17 Completed [facility] 00:00:00 [place] [facility] DTAP 2001-01-17 Completed [facility] 00:00:00 [place] [facility] MMR 2001-01-17 Completed [facility] 00:00:00 [place] [facility] Polio (IPV/OPV) 2001-01-17 Completed [facility] 00:00:00 [place] [facility] DTAP 2001-01-17 Completed [facility] 00:00:00 [place] [facility] MMR 2001-01-17 Completed [facility] 00:00:00 [place] [facility] Polio (IPV/OPV) 2001-01-17 Completed [facility] 00:00:00 [place] [facility] DTAP 2001-01-17 Completed [facility] 00:00:00 [place] [facility] MMR 2001-01-17 Completed [facility] 00:00:00 [place] [facility] Polio (IPV/OPV) 2001-01-17 Completed [facility] 00:00:00 [facility] DTAP 2001-01-17 Completed [facility] 00:00:00 [place] [facility] MMR 2001-01-17 Completed [facility] 00:00:00 [place] [facility] Polio (IPV/OPV) 2001-01-17 Completed [facility] 00:00:00 [place] [facility] DTAP 2001-01-17 Completed [facility] 00:00:00 [place] [facility] MMR 2001-01-17 Completed [facility] 00:00:00 [place] [facility] Polio (IPV/OPV) 2001-01-17 Completed [facility] 00:00:00 [facility] DTAP 2001-01-17 Completed [facility] 00:00:00 [place] [facility] MMR 2001-01-17 Completed [facility] 00:00:00 [place] [facility] Polio (IPV/OPV) 2001-01-17 Completed [facility] 00:00:00 [place] [facility] DTAP 2001-01-17 Completed [facility] 00:00:00 [place] [facility] MMR 2001-01-17 Completed [facility] 00:00:00 [place] [facility] Polio (IPV/OPV) 2001-01-17 Completed [facility] 00:00:00 [place] [facility] DTAP 2001-01-17 Completed [facility] 00:00:00 [place] [facility] MMR 2001-01-17 Completed [facility] 00:00:00 [facility] Polio (IPV/OPV) 2001-01-17 Completed [facility] 00:00:00 [facility] DTAP 1999-11-04 Completed [facility] 00:00:00 [facility] Varicella 1999-11-04 Completed [facility] (varivax)(chicken 00:00:00 [place] [facility] DTAP 1999-11-04 Completed [facility] 00:00:00 [facility] Varicella 1999-11-04 Completed [facility] (varivax)(chicken 00:00:00 [place] [facility] DTAP 1999-11-04 Completed [facility] 00:00:00 [facility] Varicella 1999-11-04 Completed [facility] (varivax)(chicken 00:00:00 [place] [facility] DTAP 1999-11-04 Completed [facility] 00:00:00 [facility] Varicella 1999-11-04 Completed [facility] (varivax)(chicken 00:00:00 [place] [facility] DTAP 1999-11-04 Completed [facility] 00:00:00 [facility] Varicella 1999-11-04 Completed [facility] (varivax)(chicken 00:00:00 [place] [facility] DTAP 1999-11-04 Completed [facility] 00:00:00 [facility] Varicella 1999-11-04 Completed [facility] of (varivax)([facility] 00:[facility]00 [facility] DTAP 1999-11-04 Completed [facility] 00:00:00 [facility] Varicella 1999-11-04 Completed [facility] (varivax)([facility] 00:00:00 [facility] DTAP 1999-11-04 Completed [facility] 00:00:00 [facility] Varicella 1999-11-04 Completed [facility] (varivax)([facility] 00:00:00 [facility] DTAP 1999-11-04 Completed [facility] 00:00:00 [facility] Varicella 1999-11-04 Completed [facility] (varivax)([facility] 00:00:00 [facility] DTAP 1999-11-04 Completed [facility] 00:00:00 [facility] Varicella 1999-11-04 Completed [facility] (varivax)([facility] 00:00:00 [facility] DTAP 1999-11-04 Completed [facility] 00:00:00 [facility] Varicella 1999-11-04 Completed [facility] (varivax)([facility] 00:00:00 [facility] DTAP 1999-11-04 Completed [facility] 00:00:00 [facility] Varicella 1999-11-04 Completed [facility] (varivax)([facility] 00:00:00 [facility] DTAP 1999-11-04 Completed [facility] 00:00:00 [facility] Varicella 1999-11-04 Completed [facility] (varivax)([facility] 00:00:00 [facility] DTAP 1999-11-04 Completed [facility] 00:00:00 [facility] Varicella 1999-11-04 Completed [facility] (varivax)([facility] 00:00:00 [facility] DTAP 1997-10-31 Completed [facility] 00:00:00 [facility] MMR 1997-10-31 Completed [facility] 00:00:00 [facility] DTAP 1997-10-31 Completed [facility] 00:00:00 [facility] MMR 1997-10-31 Completed [facility] 00:00:00 [facility] DTAP 1997-10-31 Completed [facility] 00:00:00 [facility] MMR 1997-10-31 Completed [facility] 00:00:00 [facility] DTAP 1997-10-31 Completed [facility] 00:00:00 [facility] MMR 1997-10-31 Completed [facility] 00:00:00 [facility] DTAP 1997-10-31 Completed [facility] 00:00:00 [facility] MMR 1997-10-31 Completed [facility] 00:00:00 [facility] DTAP 1997-10-31 Completed [facility] 00:00:00 [facility] MMR 1997-10-31 Completed [facility] 00:00:00 [facility] DTAP 1997-10-31 Completed [facility] 00:00:00 [facility] MMR 1997-10-31 Completed [facility] 00:00:00 [facility] DTAP 1997-10-31 Completed [facility] 00:00:00 [facility] MMR 1997-10-31 Completed [facility] 00:00:00 [facility] DTAP 1997-10-31 Completed [facility] 00:00:00 [facility] MMR 1997-10-31 Completed [facility] 00:00:00 [facility] DTAP 1997-10-31 Completed [facility] 00:00:00 [facility] MMR 1997-10-31 Completed [facility] 00:00:00 [facility] DTAP 1997-10-31 Completed [facility] 00:00:00 [facility] MMR 1997-10-31 Completed [facility] 00:00:00 [facility] DTAP 1997-10-31 Completed [facility] 00:00:00 [facility] MMR 1997-10-31 Completed [facility] 00:00:00 [facility] DTAP 1997-10-31 Completed [facility] 00:00:00 [facility] MMR 1997-10-31 Completed [facility] 00:00:00 [facility] DTAP 1997-10-31 Completed [facility] 00:00:00 [facility] MMR 1997-10-31 Completed [facility] 00:00:00 [facility] DTAP 1997-04-24 Completed [facility] 00:00:00 [facility] Hep B, Adol or Pedi 1997-04-24 Completed Unive rsity of Dosage 00:00:00 [facility] Polio (IPV/OPV) 1997-04-24 Completed [facility] 00:00:00 [facility] DTAP 1997-04-24 Completed [facility] 00:00:00 [facility] Hep B, Adol or Pedi 1997-04-24 Completed [facility] of Dosage 00:00:00 [facility] Polio (IPV/OPV) 1997-04-24 Completed [facility] 00:00:00 [facility] DTAP 1997-04-24 Completed [facility] 00:00:00 [facility] Hep B, Adol or Pedi 1997-04-24 Completed [facility]ive rs[facility] of Dosage 00:00:00 [facility] Polio (IPV/OPV) 1997-04-24 Completed [facility] 00:00:00 [facility] DTAP 1997-04-24 Completed [facility] 00:00:00 [facility] Hep B, Adol or Pedi 1997-04-24 Completed [facility] of Dosage 00:00:00 [facility] Polio (IPV/OPV) 1997-04-24 Completed [facility] 00:00:00 [facility] DTAP 1997-04-24 Completed [facility] 00:00:00 [facility] Hep B, Adol or Pedi 1997-04-24 Completed [facility] rs[facility] of Dosage 00:00:00 [facility] Polio (IPV/OPV) 1997-04-24 Completed [facility] 00:00:00 [facility] DTAP 1997-04-24 Completed [facility] 00:00:00 [facility] Hep B, Adol or Pedi 1997-04-24 Completed [facility] of Dosage 00:00:00 [facility] Polio (IPV/OPV) 1997-04-24 Completed [facility] 00:00:00 [facility] DTAP 1997-04-24 Completed [facility] 00:00:00 [facility] Hep B, Adol or Pedi 1997-04-24 Completed [facility]ive rs[facility] of Dosage 00:00:00 [facility] Polio (IPV/OPV) 1997-04-24 Completed [facility] 00:00:00 [facility] DTAP 1997-04-24 Completed [facility] 00:00:00 [facility] Hep B, Adol or Pedi 1997-04-24 Completed [facility] of Dosage 00:00:00 [facility] Polio (IPV/OPV) 1997-04-24 Completed [facility] 00:00:00 [facility] DTAP 1997-04-24 Completed [facility] 00:00:00 [facility] Hep B, Adol or Pedi 1997-04-24 Completed [facility] rs[facility] of Dosage 00:00:00 [facility] Polio (IPV/OPV) 1997-04-24 Completed [facility] 00:00:00 [facility] DTAP 1997-04-24 Completed [facility] 00:00:00 [facility] Hep B, Adol or Pedi 1997-04-24 Completed [facility] of Dosage 00:00:00 [facility] Polio (IPV/OPV) 1997-04-24 Completed [facility] 00:00:00 [facility] DTAP 1997-04-24 Completed [facility] 00:00:00 [facility] Hep B, Adol or Pedi 1997-04-24 Completed [facility] of Dosage 00:00:00 [facility] Polio (IPV/OPV) 1997-04-24 Completed [facility] 00:00:00 [facility] DTAP 1997-04-24 Completed [facility] 00:00:00 [facility] Hep B, Adol or Pedi 1997-04-24 Completed [facility] of Dosage 00:00:00 [facility] Polio (IPV/OPV) 1997-04-24 Completed [facility] 00:00:00 [facility] DTAP 1997-04-24 Completed [facility] 00:00:00 [facility] Hep B, Adol or Pedi 1997-04-24 Completed [facility] of Dosage 00:00:00 [facility] Polio (IPV/OPV) 1997-04-24 Completed [facility] 00:00:00 [facility] DTAP 1997-04-24 Completed [facility] 00:00:00 [facility] Hep B, Adol or Pedi 1997-04-24 Completed [facility] of Dosage 00:00:00 [facility] Polio (IPV/OPV) 1997-04-24 Completed [facility] 00:00:00 [facility] DTAP 1996 Completed [facility] 00:00:00 [facility] Polio (IPV/OPV) 1996 Completed [facility] 00:00:00 [facility] DTAP 1996 Completed [facility] 00:00:00 [facility] Polio (IPV/OPV) 1996 Completed [facility] 00:00:00 [facility] DTAP 1996 Completed [facility] 00:00:00 [facility] Polio (IPV/OPV) 1996 Completed [facility] 00:00:00 [facility] DTAP 1996 Completed [facility] 00:00:00 [facility] Polio (IPV/OPV) 1996 Completed [facility] 00:00:00 [facility] DTAP 1996 Completed [facility] 00:00:00 [facility] Polio (IPV/OPV) 1996 Completed [facility] 00:00:00 [facility] DTAP 1996 Completed [facility] 00:00:00 [facility] Polio (IPV/OPV) 1996 Completed [facility] 00:00:00 [facility] DTAP 1996 Completed [facility] 00:00:00 [facility] Polio (IPV/OPV) 1996 Completed [facility] 00:00:00 [facility] DTAP 1996 Completed [facility] 00:00:00 [facility] Polio (IPV/OPV) 1996 Completed [facility] 00:00:00 [facility] DTAP 1996 Completed [facility] 00:00:00 [facility] Polio (IPV/OPV) 1996 Completed [facility] 00:00:00 [facility] DTAP 1996 Completed [facility] 00:00:00 [facility] Polio (IPV/OPV) 1996 Completed [facility] 00:00:00 [facility] DTAP 1996 Completed [facility] 00:00:00 [facility] Polio (IPV/OPV) 1996 Completed [facility] 00:00:00 [facility] DTAP 1996 Completed [facility] 00:00:00 [facility] Polio (IPV/OPV) 1996 Completed [facility] 00:00:00 [facility] DTAP 1996 Completed [facility] 00:00:00 [facility] Polio (IPV/OPV) 1996 Completed [facility] 00:00:00 [facility] DTAP 1996 Completed [facility] 00:00:00 [facility] Polio (IPV/OPV) 1996 Completed [facility] 00:00:00 [facility] DTAP 1996 Completed [facility] 00:00:00 [facility] Hep B, Adol or Pedi 1996 Completed [facility] of Dosage 00:00:00 [facility] Polio (IPV/OPV) 1996 Completed [facility] 00:00:00 [facility] DTAP 1996 Completed [facility] 00:00:00 [facility] Hep B, Adol or Pedi 1996 Completed [facility] of Dosage 00:00:00 [facility] Polio (IPV/OPV) 1996 Completed [facility] 00:00:00 [facility] DTAP 1996 Completed [facility] 00:00:00 [facility] Hep B, Adol or Pedi 1996 Completed [facility] of Dosage 00:00:00 [facility] Polio (IPV/OPV) 1996 Completed [facility] 00:00:00 [facility] DTAP 1996 Completed [facility] 00:00:00 [facility] Hep B, Adol or Pedi 1996 Completed [facility] of Dosage 00:00:00 [facility] Polio (IPV/OPV) 1996 Completed [facility] 00:00:00 [facility] DTAP 1996 Completed [facility] 00:00:00 [facility] Hep B, Adol or Pedi 1996 Completed [facility] of Dosage 00:00:00 [facility] Polio (IPV/OPV) 1996 Completed [facility] 00:00:00 [facility] DTAP 1996 Completed [facility] 00:00:00 [facility] Hep B, Adol or Pedi 1996 Completed [facility] of Dosage 00:00:00 [facility] Polio (IPV/OPV) 1996 Completed [facility] 00:00:00 [facility] DTAP 1996 Completed [facility] 00:00:00 [facility] Hep B, Adol or Pedi 1996 Completed [facility] of Dosage 00:00:00 [facility] Polio (IPV/OPV) 1996 Completed [facility] 00:00:00 [facility] DTAP 1996 Completed [facility] 00:00:00 [facility] Hep B, Adol or Pedi 1996 Completed [facility] of Dosage 00:00:00 [facility] Polio (IPV/OPV) 1996 Completed [facility] 00:00:00 [facility] DTAP 1996 Completed [facility] 00:00:00 [facility] Hep B, Adol or Pedi 1996 Completed [facility] of Dosage 00:00:00 [facility] Polio (IPV/OPV) 1996 Completed [facility] 00:00:00 [facility] DTAP 1996 Completed [facility] 00:00:00 [facility] Hep B, Adol or Pedi 1996 Completed [facility] of Dosage 00:00:00 [facility] Polio (IPV/OPV) 1996 Completed [facility] 00:00:00 [facility] DTAP 1996 Completed [facility] 00:00:00 [facility] Hep B, Adol or Pedi 1996 Completed [facility] of Dosage 00:00:00 [facility] Polio (IPV/OPV) 1996 Completed [facility] 00:00:00 [facility] DTAP 1996 Completed [facility] 00:00:00 [facility] Hep B, Adol or Pedi 1996 Completed [facility] of Dosage 00:00:00 [facility] Polio (IPV/OPV) 1996 Completed [facility] 00:00:00 [facility] DTAP 1996 Completed [facility] 00:00:00 [facility] Hep B, Adol or Pedi 1996 Completed [facility] of Dosage 00:00:00 [facility] Polio (IPV/OPV) 1996 Completed [facility] 00:00:00 [facility] DTAP 1996 Completed [facility] 00:00:00 [facility] Hep B, Adol or Pedi 1996 Completed [facility] of Dosage 00:00:00 [facility] Polio (IPV/OPV) 1996 Completed [facility] 00:00:00 [facility] Hep B, Adol or Pedi 1996 Completed [facility] of Dosage 00:00:00 [facility] Hep B, Adol or Pedi 1996 Completed [facility] of Dosage 00:00:00 [facility] Hep B, Adol or Pedi 1996 Completed [facility] of Dosage 00:00:00 [facility] Hep B, Adol or Pedi 1996 Completed [facility] of Dosage 00:00:00 [facility] Hep B, Adol or Pedi 1996 Completed [facility] of Dosage 00:00:00 [facility] Hep B, Adol or Pedi 1996 Completed [facility] of Dosage 00:00:00 [facility] Hep B, Adol or Pedi 1996 Completed [facility] of Dosage 00:00:00 [facility] Hep B, Adol or Pedi 1996 Completed [facility] of Dosage 00:00:00 [facility] Hep B, Adol or Pedi 1996 Completed [facility] of Dosage 00:00:00 [facility] Hep B, Adol or Pedi 1996 Completed [facility] of Dosage 00:00:00 [facility] Hep B, Adol or Pedi 1996 Completed [facility] of Dosage 00:00:00 [facility] Hep B, Adol or Pedi 1996 Completed [facility] of Dosage 00:00:00 [facility] Hep B, Adol or Pedi 1996 Completed [facility] of Dosage 00:00:00 [facility] Hep B, Adol or Pedi 1996 Completed [facility] of Dosage 00:00:00 [facility] Vital Signs Vital Name Observation Time Observation Value Comments Source Systolic blood 2023-01-19 14:50:00 135 mm[Hg] Univer [facility] of pressure [facility] Diastolic blood 2023-01-19 14:50:00 84 mm[Hg] Unive [facility] of pressure [facility] Heart rate 2023-01-19 14:50:00 97 /min [facility] Body temperature 2023-01-19 14:50:00 36.39 [facility] Respiratory rate 2023-01-19 14:50:00 18 /min [facility] Body height 2023-01-19 14:50:00 152.4 cm [facility] Body weight 2023-01-19 14:50:00 96.888 kg [facility] BMI 2023-01-19 14:50:00 41.72 kg/m2 [facility] Systolic blood 2023-01-14 13:45:00 135 mm[Hg] Univer [facility]ity of pressure [facility] Diastolic blood 2023-01-14 13:45:00 82 mm[Hg] [facility] of pressure [facility] Heart rate 2023-01-14 13:45:00 96 /min [facility] Body temperature 2023-01-14 13:45:00 36.72 [facility] 2023-01-14 13:45:00 17 /min [facility] Oxygen saturation in 2023-01-14 13:45:00 98 /min [facility] Arterial blood by [place] [employer] [facility] Body height 2023-01-11 03:30:00 154.9 cm [facility] Body weight 2023-01-11 03:30:00 101.606 kg [facility] BMI 2023-01-11 03:30:00 42.35 kg/m2 [facility] Systolic blood 2023-01-12 19:15:00 115 mm[Hg] [facility] of pressure [facility] Diastolic blood 2023-01-12 19:15:00 80 mm[Hg] Unive [facility] of pressure [facility] Heart rate 2023-01-12 19:15:00 119 /min [facility] Respiratory rate 2023-01-12 19:15:00 27 /min [facility] Oxygen saturation in 2023-01-12 19:15:00 100 /min [facility] Arterial blood by [facility] Pulse oxim[facility] Body temperature 2023-01-12 19:00:00 36.44 [facility] Body height 2023-01-11 03:30:00 154.9 cm [facility] Body weight 2023-01-11 03:30:00 101.606 kg [facility] BMI 2023-01-11 03:30:00 42.35 kg/m2 [facility] Systolic blood 2023-01-07 19:06:00 133 mm[Hg] Univer [facility] of pressure [facility] Diastolic blood 2023-01-07 19:06:00 83 mm[Hg] Unive rs[facility] of pressure [facility] Heart rate 2023-01-07 19:06:00 96 /min [facility] Body temperature 2023-01-07 19:06:00 35.61 [facility] Respiratory rate 2023-01-07 19:06:00 18 /min [facility] Body height 2023-01-07 19:06:00 154.9 cm [facility] Body weight 2023-01-07 19:06:00 101.787 kg [facility] BMI 2023-01-07 19:06:00 42.40 kg/m2 [facility] Systolic blood 2023-01-05 17:43:00 126 mm[Hg] Univer [facility] of pressure [facility] Diastolic blood 2023-01-05 17:43:00 77 mm[Hg] Unive [facility] of pressure [facility] Heart rate 2023-01-05 17:43:00 97 /min [facility] Body temperature 2023-01-05 17:43:00 36.72 [facility] Respiratory rate 2023-01-05 17:43:00 18 /min [facility] Body height 2023-01-05 17:43:00 154.9 cm [facility] Body weight 2023-01-05 17:43:00 101.379 kg [facility] BMI 2023-01-05 17:43:00 42.23 kg/m2 [facility] Systolic blood 2022-12-29 14:49:00 121 mm[Hg] [facility]iver [facility] of pressure [facility] Diastolic blood 2022-12-29 14:49:00 66 mm[Hg] [facility] of pressure [facility] Heart rate 2022-12-29 14:49:00 94 /min [facility] Body temperature 2022-12-29 14:49:00 36.5 [facility] Respiratory rate 2022-12-29 14:49:00 18 /min [facility] Body height 2022-12-29 14:49:00 154.9 cm [facility] Body weight 2022-12-29 14:49:00 99.565 kg [facility] BMI 2022-12-29 14:49:00 41.47 kg/m2 [facility] Systolic blood 2022-12-25 16:31:00 132 mm[Hg] [facility]iver [facility] of pressure [facility] Diastolic blood 2022-12-25 16:31:00 79 mm[Hg] [facility] of pressure [facility] Heart rate 2022-12-25 16:31:00 100 /min [facility] Body temperature 2022-12-25 16:31:00 36.5 [facility] Respiratory rate 2022-12-25 16:31:00 18 /min [facility] Body height 2022-12-25 16:31:00 154.9 cm [facility] Body weight 2022-12-25 16:31:00 98.793 kg [facility] BMI 2022-12-25 16:31:00 41.15 kg/m2 [facility] Systolic blood 2022-12-22 14:45:00 123 mm[Hg] [facility] of pressure [facility] Diastolic blood 2022-12-22 14:45:00 74 mm[Hg] [facility] of pressure [facility] Heart rate 2022-12-22 14:45:00 107 /min [facility] Body temperature 2022-12-22 14:45:00 36.44 [facility] Respiratory rate 2022-12-22 14:45:00 18 /min [facility] Body height 2022-12-22 14:45:00 154.9 cm [facility] Body weight 2022-12-22 14:45:00 95.89 kg [facility] BMI 2022-12-22 14:45:00 39.94 kg/m2 [facility] Systolic blood 2022-12-10 18:51:00 123 mm[Hg] [facility]iver [facility] of pressure [facility] Diastolic blood 2022-12-10 18:51:00 74 mm[Hg] [facility]ive [facility] of pressure [facility] Heart rate 2022-12-10 18:51:00 102 /min [facility] Body temperature 2022-12-10 18:51:00 36.22 [facility] Body height 2022-12-10 18:51:00 154.9 cm [facility] Body weight 2022-12-10 18:51:00 96.344 kg [facility] BMI 2022-12-10 18:51:00 40.13 kg/m2 [facility] Systolic blood 2022-12-07 21:09:00 126 mm[Hg] Univer [facility]ity of pressure [facility] Diastolic blood 2022-12-07 21:09:00 86 mm[Hg] [facility] of pressure [facility] Heart rate 2022-12-07 21:09:00 116 /min [facility] Body temperature 2022-12-07 21:09:00 35.78 [facility] Respiratory rate 2022-12-07 21:09:00 18 /min [facility] Body height 2022-12-07 21:09:00 154.9 cm [facility] Body weight 2022-12-07 21:09:00 95.981 kg [facility] BMI 2022-12-07 21:09:00 39.98 kg/m2 [facility] Systolic blood 2022-11-11 14:26:00 112 mm[Hg] [facility]iver [facility] of pressure [facility] Diastolic blood 2022-11-11 14:26:00 64 mm[Hg] Unive [facility]ity of pressure [facility] Heart rate 2022-11-11 14:26:00 112 /min [facility] Body temperature 2022-11-11 14:26:00 36.5 [facility] Respiratory rate 2022-11-11 14:26:00 18 /min [facility] Body height 2022-11-11 14:26:00 154.9 cm [facility] Body weight 2022-11-11 14:26:00 94.348 kg [facility] BMI 2022-11-11 14:26:00 39.30 kg/m2 [facility] Systolic blood 2022-10-29 14:56:00 97 mm[Hg] Univer [facility] of pressure [facility] Diastolic blood 2022-10-29 14:56:00 65 mm[Hg] [facility] of pressure [facility] Heart rate 2022-10-29 14:56:00 96 /min [facility] Body temperature 2022-10-29 14:56:00 36.22 [facility] Respiratory rate 2022-10-29 14:56:00 16 /min [facility] Body height 2022-10-29 14:56:00 154.9 cm [facility] Body weight 2022-10-29 14:56:00 92.704 kg [facility] BMI 2022-10-29 14:56:00 38.62 kg/m2 [facility] Systolic blood 2022-10-14 17:05:00 117 mm[Hg] Univer [facility]ity of pressure [facility] Diastolic blood 2022-10-14 17:05:00 69 mm[Hg] [facility] Heart rate 2022-10-14 17:05:00 111 /min [facility] Body temperature 2022-10-14 17:05:00 36.56 Elizabeth [facility] Respiratory rate 2022-10-14 17:05:00 17 /min [facility] Body height 2022-10-14 17:05:00 154.9 cm [facility] Body weight 2022-10-14 17:05:00 90.402 kg [facility] BMI 2022-10-14 17:05:00 37.66 kg/m2 [facility] Systolic blood 2022-09-21 17:13:00 111 mm[Hg] [facility] Diastolic blood 2022-09-21 17:13:00 65 mm[Hg] [facility] Heart rate 2022-09-21 17:13:00 102 /min [facility] Body temperature 2022-09-21 17:13:00 36.22 [facility] Respiratory rate 2022-09-21 17:13:00 18 /min [facility] Body height 2022-09-21 17:13:00 154.9 cm [facility] Body weight 2022-09-21 17:13:00 86.665 kg [facility] BMI 2022-09-21 17:13:00 36.10 kg/m2 [facility] Systolic blood 2022-08-21 16:18:00 121 mm[Hg] [facility] Diastolic blood 2022-08-21 16:18:00 73 mm[Hg] [facility] Heart rate 2022-08-21 16:18:00 109 /min [facility] Body temperature 2022-08-21 16:18:00 36.44 [facility] Respiratory rate 2022-08-21 16:18:00 18 /min [facility] Body height 2022-08-21 16:18:00 154.9 cm [facility] Body weight 2022-08-21 16:18:00 81.251 kg [facility] BMI 2022-08-21 16:18:00 33.85 kg/m2 [facility] Systolic blood 2022-08-07 19:40:00 114 mm[Hg] [facility] Diastolic blood 2022-08-07 19:40:00 70 mm[Hg] [facility] Heart rate 2022-08-07 19:40:00 93 /min [facility] Body temperature 2022-08-07 19:40:00 36.44 [facility] Respiratory rate 2022-08-07 19:40:00 17 /min [facility] Body height 2022-08-07 19:40:00 154.9 cm [facility] Body weight 2022-08-07 19:40:00 79.47 kg [facility] BMI 2022-08-07 19:40:00 33.10 kg/m2 [facility] Systolic blood 2022-07-06 16:45:00 103 mm[Hg] [facility] Diastolic blood 2022-07-06 16:45:00 71 mm[Hg] [facility] Heart rate 2022-07-06 16:45:00 101 /min [facility] Body temperature 2022-07-06 16:45:00 36.56 [facility] Body weight 2022-07-06 16:45:00 75.841 kg [facility] BMI 2022-07-06 16:45:00 31.59 kg/m2 [facility] Procedures Procedure Date / Time Performing Clinician Source Performed CBC WITH DIFF 2023-01-13 10:05:00 Birdie Beckford Mai [facility] CBC WITH DIFF 2023-01-13 10:05:00 Birdie Beckford Inessa [facility] VENOUS CORD GAS 2023-01-12 18:14:00 Chapito [facility] VENOUS CORD GAS 2023-01-12 18:14:00 Chapito [facility] OR FOR DOUBLE SET UP 2023-01-12 17:37:00 Blake Casey [facility] SECTION 2023-01-12 17:37:00 Blake Casey [facility] OR FOR DOUBLE SET UP 2023-01-12 17:37:00 Balke Casey [facility] SECTION 2023-01-12 17:37:00 Blake Casey [facility] CENTRAL NEURAXIAL BLOCK 2023-01-11 19:20:00 Miguelito Zurita [facility] (LEVETIRACETAM) 2023-01-11 05:52:[address] [facility] 2023-01-11 05:52:00 Gely Orozco [facility] HEPATITIS B SURFACE 2023-01-11 05:40:00 Sorin Uriarte [facility] HB ABO GROUPING 2023-01-11 05:40:00 Chapito [facility] RHO (D) IMMUNE GLOBULIN 2023-01-11 05:40:00 Birdie Beckford [facility] SYPHILIS IGG/IGM 2023-01-11 05:40:00 Chapito [facility] HEPATITIS B SURFACE 2023-01-11 05:40:00 Sorin Uriarte [facility] HB ABO GROUPING 2023-01-11 05:40:00 Hope [facility] RHO (D) IMMUNE GLOBULIN 2023-01-11 05:40:00 Birdie Beckford Mai [facility] SYPHILIS IGG/IGM 2023-01-11 05:40:00 [facility] (AS[facility] AMINO 2023-01-10 23:44:00 [facility]) Medical Branch CREATININE 2023-01-10 23:44:00 Ruelas-[facility] ALANINE AMINO 2023-01-10 23:44:00 Hollis-[facility] TRANSFERASE([facility] LACTATE DEHYDROGENASE 2023-01-10 23:44:00 Ruelas-[facility] URIC ACID 2023-01-10 23:44:00 [place]as[place] COMP. METABOLIC PANEL 2023-01-10 23:44:00 [facility] ([id number]) Medical Branch CBC WITH DIFF 2023-01-10 23:44:00 [facility] URINALYSIS 2023-01-10 23:44:00 Hollis-[facility] SGOT (ASPARTATE AMINO 2023-01-10 23:44:00 Hollis-[facility]) Medical Branch CREATININE 2023-01-10 23:44:00 Ruelas[place], [facility] ALANINE AMINO 2023-01-10 23:44:00 [facility] TRANSFERASE([facility] [place] LACTATE DEHYDROGENASE 2023-01-10 23:44:00 Ruelas-[facility] URIC ACID 2023-01-10 23:44:00 Ruelas-[facility] COMP. METABOLIC PANEL 2023-01-10 23:44:00 Maria Guadalupe Gaston [facility] ([id number]) [facility] Branch CBC WITH DIFF 2023-01-10 23:44:00 Maria Guadalupe Gaston [facility] URINALYSIS 2023-01-10 23:44:00 Maria Guadalupe Gaston [facility] PROTEIN CREAT RATIO 2023-01-10 22:50:00 Maria Guadalupe Gaston Un iversity [facility] URINE RANDOM [facility] PROTEIN CREAT RATIO 2023-01-10 22:50:00 Maria Guadalupe [facility] ASSIGNMENT OF BENEFITS 2023-01-10 21:40:53 Doctor Unassigned, No [facility] ASSIGNMENT OF BENEFITS 2023-01-10 21:40:53 Doctor Unassigned, No [facility] CONSENT/REFUSAL FOR 2023-01-10 21:38:09 Doctor Unassigned, No [facility] DIAGNOSIS AND TREATMENT [facility] CONSENT/REFUSAL FOR 2023-01-10 21:38:09 Doctor Unassigned, No [facility] NON-STRESS TEST 2023-01-07 21:16:56 Akinmar Kamilah C U [facility] POCT URINALYSIS 2023-01-07 19:33:00 Akinsipe Kamilah C [facility] NON-STRESS TEST 2023-01-06 21:38:57 Akinsipe Kamilah C U [facility] POCT URINALYSIS 2023-01-05 00:00:00 Akinsipe Kamilah C [facility] POCT URINALYSIS 2022-12-29 14:51:00 Akinsipe, Kamilah C [facility] NON-STRESS TEST 2022-12-25 18:27:50 Naila [facility] 2022-12-25 16:32:00 Akinsipe Kamilah C [facility] NON-STRESS TEST 2022-12-22 16:08:21 [facility] 2022-12-22 14:45:00 Kamilah Mcginnis [facility] NON-STRESS TEST 2022-12-10 19:52:27 [facility]aila [facility] PO[facility] URINALYSIS W/O 2022-12-10 19:28:00 Naila Wong [facility] SPECIFIC GRAVITY [facility] NON-STRESS TEST 2022-12-07 21:46:26 Kamilah Mcginnis [facility] POCT URINALYSIS 2022-12-07 21:11:00 Kamilah Mcginnis [facility] HIV 1/2 AG-AB WITH 2022-11-11 15:24:00 Kamilah Mcginnis [facility] SYPHILIS IGG/IGM 2022-11-11 15:24:00 Kamilah Mcginnis [facility] TDAP VACCINE, >11 YRS, 2022-11-11 14:51:08 Kamilah Mcginnis [facility] POCT URINALYSIS 2022-11-11 14:27:00 Kamilah Mcginnis [facility] POCT URINALYSIS 2022-10-29 15:03:00 Kamilah Mcginnis [facility] POCT URINALYSIS 2022-10-14 00:00:00 Kamilah Mcginnis [facility] POCT URINALYSIS 2022-09-21 17:17:00 Kamilah Mcginnis [facility] ALPHA 2022-08-21 16:50:00 Kamilah Mcginnis [facility] FETOPROTEIN-MATERNAL SER [facility] PAP SMEAR-LIQUID 2022-08-21 16:50:00 Kamilah Mcginnis [facility] BASED-[facility] POCT URINALYSIS 2022-08-07 00:00:00 Kamilah Mcginnis [facility] Encounters Start End Encounter Admission Attending Care Care Encounter Source Date/Time Date/Time Type Type Clinicians Facility Department ID 2023-01-10 Outpatient P PENA NISHA [facility] CHRISTIANO [id number] Univers 19:34:[address] [facility] 2023-03-23 2023-03-23 Outpatient R RAHEL, [facility] [id number] Univers 13:15:00 13:15:00 KAMILAH mckee [facility] 2023-01-19 2023-01-19 [facility] [id number] Univers 10:00:00 10:06:02 NAILA [facility] 2023-01-19 2023-01-19 [facility] 1.2 .840.114 [id number] Univers 10:00:00 10:06:02 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[facility].13.1 [facility] 4.2.7.2.686 Al as MATERNAL [id number] [facility] ical & CHILD [address] [place] [address] 2023-01-10 2023-01-14 Inpatient X NISHA PENA [facility] [id number] Univers 16:46:00 14:48:00 HELIOAKBARNISHA [facility] 2023-01-10 2023-01-14 [facility] 1.2 .840.114 [id number] Univers 16:46:00 14:48:00 Encounter HelioAkbarNishamaycol [facility]CCARTHY 350.1.13.10 [facility] 4.2.7.2.686 Al as [id number] [address] 2023-01-14 2023-01-14 Outpatient R [facility] [id number] Univers 14:30:00 14:30:00 ity [facility] 2023-01-12 2023-01-12 [facility] [id number] Univers 15:30:00 15:30:00 KAMILAH mckee [facility] 2023-01-12 2023-01-12 Surgery MICHELLE Casey 1.2.840.114 [id number] Univers 13:05:00 14:23:00 Blake MCCARTHY 350.1.13.10 ity of [facility] 4.2.7.2.686 Al as [id number] [facility] 013 Branch 2023-01-11 2023-01-11 Anesthesia Heavenly Mays 1.2.840.114 [id number] Univers 14:22:00 14:22:00 Event Louise Noel 350.1.13.10 ity [facility] 4.2.7.2.686 Al as [id number] [facility] 132 Branch 2023-01-08 2023-01-08 Outpatient R [facility] [id number] Univers 14:30:00 14:30:00 ity [facility] 2023-01-07 2023-01-07 [facility] [id number] Univers 14:45:00 15:05:11 KAMILAH ity o 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 350.1.13.10 ity of Visit REGIONAL 4.2.7.2.686 Al as MATERNAL [id number] [facility] [address] [place] [address] 2023-01-05 2023-01-05 Outpatient R AKINSIPE, [facility] [id number] Univers 13:00:00 13:35:29 KAMILAH ity o f [facility] 2023-01-05 2023-01-05 Routine Akinsipe, [facility] 1.2.688.528 [id number] Univers 13:00:00 13:35:29 Kamilah C SEWAGE SCREEN OPERATOR 350.1.13.10 ity of Visit REGIONAL 4.2.7.2.686 Al as MATERNAL [id number] [facility] [address] [place] [address] 2023-01-02 2023-01-02 Telephone [facility] 1.2.840.114 [id number] Univers 00:00:00 00:00:00 Kamilah C SEWAGE SCREEN OPERATOR 350.1.13.10 ity of REGIONAL 4.2.7.2.686 Al as MATERNAL [id number] [facility] & [address] 2023-01-01 2023-01-01 Outpatient R RAHEL [facility] [id number] Univers 13:00:00 13:00:00 KAMILAH boweny o f [facility] 2022-12-29 2022-12-29 Outpatient [facility] [id number] Univers 09:00:00 09:40:36 [facility] 2022-12-29 2022-12-29 Routine Provider, Gaurav [facility] 1 .2.840.114 [id number] Univers 09:00:00 09:40:36 Naila Wong SEWAGE SCREEN OPERATOR 350.1.13. 10 ity of Visit REGIONAL 4.2.7.2.686 Al as MATERNAL [id number] [facility] & [address] 2022-12-28 2022-12-28 Outpatient P [facility] [id number] Univers 10:30:00 10:30:00 [facility] 2022-12-25 2022-12-25 Outpatient [facility] [id number] Univers 10:30:00 11:20:26 [facility] 2022-12-25 2022-12-25 Routine Provider, Gaurav [facility] 1 .2.840.114 [id number] Univers 10:30:00 11:20:26 Naila Wong SEWAGE SCREEN OPERATOR 350.1.13. 10 ity of Visit REGIONAL 4.2.7.2.686 Al as MATERNAL [id number] [facility] & [address] 2022-12-25 2022-12-25 Outpatient R [facility] [id number] Univers 09:30:00 09:30:00 ity [facility] 2022-12-22 2022-12-22 Outpatient R [facility] [id number] Univers 08:45:00 09:31:01 NAILA [facility] 2022-12-22 2022-12-22 Routine Provider, Gaurav Vaughn [facility] 1 .2.840.114 [id number] Univers 08:45:00 09:31:01 Naila Wong SEWAGE SCREEN OPERATOR 350.1.13. 10 ity of Visit REGIONAL 4.2.7.2.686 Al as MATERNAL [id number] [facility] [address] [place] [address] 2022-12-21 2022-12-21 Outpatient [facility] [id number] Univers 13:30:00 13:30:00 KAMILAH mckee [facility] 2022-12-21 2022-12-21 Pigs Feet Finisher [facility]tras[facility] 1.2 .840.114 [id number] Univers 08:30:00 09:01:47 Visit Stevan Gamble SEWAGE SCREEN OPERATOR 350.1.13.10 ity of REGIONAL 4.2.7.2.686 Al as MATERNAL [id number] [facility] & CHILD 369 [facility] 2022-12-14 2022-12-14 Outpatient Shaggy [facility] [id number] Univers 13:00:00 13:00:00 [facility] 2022-12-10 2022-12-10 Routine Provider, [facility] 1 .2.840.114 [id number] Univers 13:30:00 13:30:00 Naila Wong SEWAGE SCREEN OPERATOR 350.1.13. 10 ity of Visit REGIONAL 4.2.7.2.686 Al as MATERNAL [id number] [facility] & [address] 2022-12-10 2022-12-10 Outpatient Shaggy [facility] [id number] Univers 13:30:00 13:28:21 [facility] 2022-12-07 2022-12-07 [facility] 1.2.398.431 [id number] Univers 15:15:00 15:41:47 Kamilah C SEWAGE SCREEN OPERATOR 350.1.13.10 ity of Visit REGIONAL 4.2.7.2.686 Al as MATERNAL [id number] [facility] 107 [facility] 2022-12-07 2022-12-07 Outpatient R RAHEL, [facility] [id number] Univers 14:00:00 14:00:00 KAMILAH ity o f [facility] 2022-11-30 2022-11-30 Outpatient P [facility] [id number] Univers 10:30:00 10:30:00 ity of [facility] 2022-11-25 2022-11-25 Outpatient R RAHEL, [facility] [id number] Univers 14:00:00 14:00:00 KAMILAH ity o f [facility] 2022-11-12 2022-11-12 Abstract [facility] 1.2.840.114 [id number] Univers 00:00:00 00:00:00 Kamilah Dickey SEWAGE SCREEN OPERATOR 350.1.13.10 ity of REGIONAL 4.2.7.2.686 Al as MATERNAL [id number] [facility] CHILD [address] [place] [address] 2022-11-11 2022-11-11 Pigs Feet Finisher Ultrasound, [facility] 1.2 .840.114 [id number] Univers 10:30:00 11:00:00 Visit Fern Bernal Masha SEWAGE SCREEN OPERATOR 350.1. 13.10 ity of REGIONAL 4.2.7.2.686 Al as MATERNAL [id number] [facility] CH[facility] 369 [facility] 2022-11-11 2022-11-11 Outpatient P OMERE, [facility] [id number] Univers 10:30:00 10:30:00 CHASEY ity [facility] 2022-11-11 2022-11-11 Outpatient R RAHEL, [facility] [id number] Univers 08:45:00 09:20:10 KAMILAH ity o f [facility] 2022-11-11 2022-11-11 Routine [facility] 1.2.640.300 [id number] Univers 08:45:00 09:20:10 Kamilah C SEWAGE SCREEN OPERATOR 350.1.13.10 ity of Visit REGIONAL 4.2.7.2.686 Al as MATERNAL [id number] [facility] CHILD [address] [place] [address] 2022-10-29 2022-10-29 Outpatient R AKINSIPE, [facility] [id number] Univers 08:45:00 09:23:49 KAMILAH ity o f [facility] 2022-10-29 2022-10-29 Routine Akinpe, [facility] 1.2.594.936 [id number] Univers 08:45:00 09:23:49 Kamilah C SEWAGE SCREEN OPERATOR 350.1.13.10 ity of Visit REGIONAL 4.2.7.2.686 Al as MATERNAL [id number] [address] 2022-10-14 2022-10-14 Outpatient R RAHEL, [facility] [id number] Univers 10:45:00 11:47:29 KAMILAH ity o f [facility] 2022-10-14 2022-10-14 Routine Akinsipe, [facility] 1.2.736.248 [id number] Univers 10:45:00 11:47:29 Kamilah C SEWAGE SCREEN OPERATOR 350.1.13.10 ity of Visit REGIONAL 4.2.7.2.686 Al as MATERNAL [id number] [facility] & [address] 2022-10-12 2022-10-12 Outpatient P [facility] [id number] Univers 10:30:00 10:30:00 ity [facility] 2022-10-05 2022-10-05 Outpatient R OMERE, [facility] [id number] Univers 15:30:00 15:30:00 CHASEY ity [facility] 2022-09-28 2022-09-28 Telemedici Faculty, [facility]har [facility] 1.2.840.114 [id number] Univers 09:00:00 09:30:00 ne Visit Tere Dennisonwilliam Mcguire SEWAGE SCREEN OPERATOR 350.1 .13.10 ity of REGIONAL 4.2.7.2.686 Al as MATERNAL [id number] Med ical & CHILD 107 [facility] 2022-09-28 2022-09-28 Outpatient R TERE [facility] [id number] Univers 09:00:00 09:00:00 BRICE bowen SHAYLA Juarez [facility] 2022-09-21 2022-09-21 Outpatient R RAHEL [facility] [id number] Univers 11:00:00 11:33:17 KAMILAHJEANETH allen o f [facility] 2022-09-21 2022-09-21 Routine [facility] 1.2.056.810 [id number] Univers 11:00:00 11:33:17 Kamilah C SEWAGE SCREEN OPERATOR 350.1.13.10 ity of Visit REGIONAL 4.2.7.2.686 Al as MATERNAL [id number] Med ical & CHILD [address] [place] [address] 2022-09-16 2022-09-16 Telephone [facility] 1.2.840.114 [id number] Univers 00:00:00 00:00:00 Kamilah C SEWAGE SCREEN OPERATOR 350.1.13.10 ity of REGIONAL 4.2.7.2.686 Al as MATERNAL [id number] Med ical & CHILD [address] [place] [address] 2022-09-10 2022-09-10 Pigs Feet Finisher Ultrasound, [facility] 1.2 .840.114 [id number] Univers 10:45:00 11:50:02 Visit Saran Abdalla SEWAGE SCREEN OPERATOR 350.1.13.10 ity of REGIONAL 4.2.7.2.686 Al as MATERNAL [id number] Med ical & CHILD 369 [facility] 2022-09-10 2022-09-10 Outpatient P SUSAN [facility] [id number] Univers 10:45:00 10:45:00 SARAN ity of [facility] 2022-09-10 2022-09-10 Abstract [facility] 1.2.840.114 [id number] Univers 00:00:00 00:00:00 Kamilah C SEWAGE SCREEN OPERATOR 350.1.13.10 ity of REGIONAL 4.2.7.2.686 Al as MATERNAL [id number] Med ical & CHILD [address] [place] [address] 2022-08-21 2022-08-21 Outpatient R AKINSIPE, [facility] [id number] Univers 11:00:00 11:57:28 KAMILAH ity o [facility] 2022-08-21 2022-08-21 Routine Akinsipe, [facility] 1.2.236.535 [id number] Univers 11:00:00 11:57:28 Kamilah C SEWAGE SCREEN OPERATOR 350.1.13.10 ity of Visit REGIONAL 4.2.7.2.686 Al as MATERNAL [id number] [facility] & CHILD [address] [place] [address] 2022-08-18 2022-08-18 Outpatient R KRISTINA, [facility] [id number] Univers 16:20:00 16:20:00 ATTENDING ity [facility] 2022-08-17 2022-08-17 Nurse Edith Narvaez 1.2.840.114 [id number] Univers 00:00:00 00:00:00 Triage FABIO 350.1.13.10 it [facility] 4.2.7.2.686 Al as [id number] [address] 2022-08-07 2022-08-07 Outpatient R AKINSIPE, [facility] [id number] Univers 14:45:00 15:12:29 KAMILAH ity o [facility] 2022-08-07 2022-08-07 Routine Akinpe, [facility] 1.2.628.328 [id number] Univers 14:45:00 15:12:29 Kamilah C SEWAGE SCREEN OPERATOR 350.1.13.10 ity of Visit REGIONAL 4.2.7.2.686 Al as MATERNAL [id number] [facility] & CHILD [address] [place] [address] 2022-08-03 2022-08-03 Out[facility] [id number] Univers 11:30:00 15:23:05 NORM [facility] 2022-08-03 2022-08-03 Telemedici Faculty, Shekhar [facility] 1.2.840.114 [id number] Univers 11:30:00 15:23:05 ne Visit Norm Cazares SEWAGE SCREEN OPERATOR 350.1.13.10 ity of REGIONAL 4.2.7.2.686 Al as MATERNAL [id number] Med ical & CHILD [address] [place] [address] 2022-08-03 2022-08-03 Outpatient R DEBORA [facility] [id number] Univers 11:30:00 11:30:00 NORM ity [facility] 2022-07-21 2022-07-21 Telephone Nuradestini [facility] 1.2.840.114 [id number] Univers 00:00:00 00:00:00 Kamilah C SEWAGE SCREEN OPERATOR 350.1.13.[address] [facility] 4.2.7.2.686 Al as MATERNAL [id number] Med ical & CHILD [address] [place] [address] 2022-07-16 2022-07-16 Abstract Nuradestini [facility] 1.2.840.114 [id number] Univers 00:00:00 00:00:00 Kamilah C SEWAGE SCREEN OPERATOR 350.1.13.10 ity of REGIONAL 4.2.7.2.686 Al as MATERNAL [id number] Med ical & CHILD [address] [place] [address] 2022-07-15 2022-07-15 [facility] 1.2.840.114 [id number] Univers 00:00:00 00:00:00 Kamilah C SEWAGE SCREEN OPERATOR 350.1.13.[address] [facility] 4.2.7.2.686 Al as MATERNAL [id number] [facility] ical & CHILD [address] [place] [address] 2022-07-14 2022-07-14 [facility], [facility] 1.2.840. 114 [id number] Univers 09:00:00 09:28:43 Visit Shayla Howe SEWAGE SCREEN OPERATOR 350.1. 13.10 ity of REGIONAL 4.2.7.2.686 Al as MATERNAL [id number] Med ical & CHILD [address] [facility] 2022-07-14 2022-07-14 Outpatient P [facility] [id number] Univers 09:00:00 09:00:00 ity of [facility] 2022-07-14 2022-07-14 Outpatient P TERE [facility] [id number] Univers 09:00:00 09:00:00 BRICE it y of S, MCGUIRE [facility] 2022-07-14 2022-07-14 Pigs Feet Finisher 1, [facility] Us Room [place] [facility] 1.2. 840.114 [id number] Univers 08:15:00 09:00:00 Visit Tere Dequan Shayla SEWAGE SCREEN OPERATOR 350.1. 13.[address] [facility] 4.2.7.2.686 Al as MATERNAL [phone] [facility] ical & CHILD [address] [place] [address] 2022-07-06 2022-07-06 [facility] [id number] Univers 11:30:00 12:12:04 CHASECourt [facility] 2022-07-06 2022-07-06 Office Faculty, Shekhar [facility] 1.2 .840.114 [id number] Univers 11:30:00 12:12:04 Visit Fern Bernal SEWAGE SCREEN OPERATOR 350.1. 13.[address] [facility] 4.2.7.2.686 Al as MATERNAL [id number] [facility] & [address] 2022-07-06 2022-07-06 Outpatient R DOLORES [facility] [id number] Univers 11:30:00 12:12:04 [facility] 2022-06-23 2022-06-23 Abstract Rahel, [facility] 1.2.840.114 [id number] Univers 00:00:00 00:00:00 Kamilah Dickey SEWAGE SCREEN OPERATOR 350.1.13.[address] [facility] 4.2.7.2.686 Al as MATERNAL [phone] [facility] & CHILD [address] [place] [address] 2022-06-22 2022-06-22 Pigs Feet Finisher 1, [facility] 1.2. 840.114 [id number] Univers 14:15:00 14:32:25 Visit Shayla Howe SEWAGE SCREEN OPERATOR 350.1. 13.10 ity of REGIONAL 4.2.7.2.686 Al as MATERNAL [id number] [facility] [address] [facility] 2022-06-22 2022-06-22 Outpatient P [facility] [id number] Univers 14:15:00 14:32:25 KOUTROUVELI it y of S, MCGUIRE [facility] 2022-06-22 2022-06-22 Outpatient P TERE [facility] [id number] Univers 14:15:00 14:15:00 KOUTROUVELI it y of S, MCGUIRE [facility] 2022-06-16 2022-06-16 Outpatient R AKINSIPE, [facility] [id number] Univers 10:45:00 11:12:27 KAMILAH allen o f [facility] 2022-06-16 2022-06-16 Routine Akinsipe, [facility] 1.2.572.932 [id number] Univers 10:45:00 11:12:27 Kamilah Dickey SEWAGE SCREEN OPERATOR 350.1.13.10 ity of Visit REGIONAL 4.2.7.2.686 Al as MATERNAL [id number] [facility] & [address] 2022-06-15 2022-06-15 Telemedici Faculty, Shekhar Oneill [facility] 1.2.840.114 [id number] Univers 11:30:00 12:00:00 ne Visit Fern Bernalliban SEWAGE SCREEN OPERATOR 350.1 .13.10 ity of [place] [address].2.7.2.686 Al as MATERNAL [id number] [facility] & CHILD [address] [place] [address] 2022-06-15 2022-06-15 Outpatient R [facility] [id number] Univers 11:30:00 11:30:00 ity [facility] 2022-06-15 2022-06-15 Outpatient R OMERE, [facility] [id number] Univers 11:30:00 11:30:00 CHASEY ity [facility] 2022-05-28 2022-05-28 Pigs Feet Finisher [facility] 1.2.840. 114 [id number] Univers 08:30:00 08:30:00 Visit Geneva Mcginnisola C SEWAGE SCREEN OPERATOR 350.1.13. 10 ity of [facility] 4.2.7.2.686 Al as MATERNAL [id number] [facility] & [address] 2022-05-28 2022-05-28 Outpatient R NEETUPE, [facility] [id number] Univers 08:30:00 08:15:52 KAMILAH ity o f [facility] 2022-05-28 2022-05-28 Outpatient R AKINSIPE, [facility] [id number] Univers 08:30:00 08:15:52 KAMILAH ity o [facility] 2022-05-28 2022-05-28 Outpatient R AKINSIPE, [facility] [id number] Univers 08:30:00 08:15:52 KAMILAH ity o [facility] 2022-05-27 2022-05-27 Telephone [facility] 1.2.840.114 [id number] Univers 00:00:00 00:00:00 Kamilah C SEWAGE SCREEN OPERATOR 350.1.13.10 ity of REG[facility] 4.2.7.2.686 Al as MATERNAL [id number] [address] 2022-05-26 2022-05-26 Outpatient R NORIEGA, [facility] [id number] Univers 15:00:00 15:00:00 AURELIOLEROYNDA tiffany o [facility] 2022-05-26 2022-05-26 Letter [facility] 1.2.637.566 [id number] Univers 00:00:00 00:00:00 (Out) Kamilah C SEWAGE SCREEN OPERATOR 350.1.13.10 ity of [facility] 4.2.7.2.686 Al as MATERNAL [phone] [address] 2022-05-26 2022-05-26 Letter [facility] 1.2.670.181 [id number] Univers 00:00:00 00:00:00 (Out) Kamilah C SEWAGE SCREEN OPERATOR 350.1.13.10 ity of [facility] 4.2.7.2.686 Al as MATERNAL [id number] [facility] & CHILD [address] [place] [address] 2022-05-22 2022-05-22 Outpatient R AKINSIPE, [facility] [id number] Univers 14:15:00 16:30:24 KAMILAH ity o f [facility] 2022-05-22 2022-05-22 Outpatient R AKINSIPE, [facility] [id number] Univers 14:15:00 16:30:24 KAMILAH ity o [facility] 2022-05-22 2022-05-22 Outpatient R AKINSIPE, [facility] [id number] Univers 14:15:00 16:30:24 KAMILAH jessiy o [facility] 2022-05-22 2022-05-22 Initial Rahel, [facility] 1.2.171.137 [id number] Univers 14:15:00 16:30:24 Kamilah Dickey SEWAGE SCREEN OPERATOR 350.1.13.10 ity of Visit REGIONAL 4.2.7.2.686 Al as MATERNAL [id number] [facility]ILD [address] [place] [address] 2022-05-22 2022-05-22 Outpatient R AKINSIPE, [facility] [id number] Univers 13:45:00 15:23:15 KAMILAH allen o [facility] 2022-05-22 2022-05-22 Outpatient R AKINSIPE, [facility] [id number] Univers 14:15:00 14:15:00 KAMILAH jessiy o [facility] 2022-05-22 2022-05-22 Orders Doctor MARTINEZ 1.2.840.114 [id number] Univers 00:00:00 00:00:00 Only Unassigned, FABIO 350.1.13.10 ity of [place] [facility] 4.2.7.2.686 Al as [id number] [address] 2021-09-24 2021-09-24 Outpatient R CHARLIE, [facility] [id number] Univers 14:00:00 14:00:00 OLIVIA bowencourt o [facility] 2020-06-19 2020-06-19 Telephone MICHELLE Ruvalcaba 1.2.602.172 [id number] Univers 00:00:00 00:00:00 Michelle MCCARTHY 350.1.13.10 it y of HOSPITAL 4.2.7.2.686 Al as [id number] [address] 2020-06-17 2020-06-17 Outpatient R [facility] [id number] Univers 13:00:00 13:00:00 ity [facility] 2020-06-17 2020-06-17 Laboratory Lab, Adc Fam Pob I [facility] 1.2. 840.114 [id number] Univers 12:34:28 12:54:28 Only Samina [facility] 350.1.13.10 ity of [place] 4.2.7.2.686 Al as Professio [id number] [address] Office [facility] One 2020-06-17 2020-06-17 Letter Doctor MICHELLE 1.2.840.114 [id number] Univers 00:00:00 00:00:00 (Out) UnassignedFABIO 350.1.13.10 ity of [place] [facility] 4.2.7.2.686 Al as [id number] [address] 2020-04-08 2020-04-08 Urgent Pob1, Acute Care Clinic [facility] 1. 2.840.114 [id number] Univers 10:45:33 11:05:33 Care Samina Mccullough 350.1.13.10 ity of [place] 4.2.7.2.686 Al as Professio [id number] [address] Office Building One 2020-04-08 2020-04-08 Outpatient R [facility] [id number] Univers 11:00:00 [facility]:00[facility] Test Description Test Time Test Comments Results Result Comments Source RHO (D) IMMUNE GLOBULIN 2023-01-12 20:44:53 Test Item Value Reference Range Interpretation Comme nts RHIG CANDIDATE? (test code = No- see comment Patient is not a candidate for RhIg- 5188) Patient is Rh P ositive.Performed at [facility] Laboratory Services - [facility] Blood [address] [place] [address]Qhaa Free: [phone] A No. [id number] [facility] [id number] 20:44:53 Test Item Value Reference Range Interpretation Comments RHIG CANDIDATE? No- see comment Patient i s not a (test code = candidate for R hIg- 5188) Patient is Rh Positive.Perfor med at [facility] Laboratory Services - [facility] Blood [address] [address]Fanf Free: [phone] A No. [id number] [facility] CORD [id number] 18:38:22 Test Item Value Reference Range Interpretation Comments VENOUS BASE EXCESS, CORD -4.8 mEq/L (test code = 7415405055) VENOUS PH, CORD (test 7.25 7.25-7.45 code = 3279193203) VENOUS PC02, CORD (test 54 See_Comment H [Au tomated message] code = 1384833664) The syste m which generated this result transmitted ref erence range: 27 - 49 mmHg. The reference r clau was not used to interpret this result as normal/abnor mal. VENOUS PO2, CORD (test Unabl e code = 5333790054) VENOUS BICARBONATE, CORD 23 See_Comment [A utomated message] (test code = 2217622407) The system which generated this result transmitted ref erence range: 12 - 29 mEq/L. The reference r clau was not used to interpret this result as normal/abnor mal. Lab Interpretation (test Abnormal code = 49288-8) [facility] CORD [id number] 18:38:22 Test Item Value Reference Range Interpretation Comments VENOUS BASE EXCESS, CORD -4.8 mEq/L (test code = 5545720435) VENOUS PH, CORD (test 7.25 7.25-7.45 code = 2428782137) VENOUS PC02, CORD (test 54 See_Comment H [Au tomated message] code = 6261281230) The syste m which generated this result transmitted ref erence range: 27 - 49 mmHg. The reference r clau was not used to interpret this result as normal/abnor mal. VENOUS PO2, CORD (test Unabl e code = 5159907659) VENOUS BICARBONATE, CORD 23 See_Comment [A utomated message] (test code = 4523519309) The system which generated this result transmitted ref erence range: 12 - 29 mEq/L. The reference r clau was not used to interpret this result as normal/abnor mal. Lab Interpretation (test Abnormal code = 16846-8) [facility] CORD [id number] 18:34:44 Test Item Value Reference Range Interpretation Comments BASE EXCESS, CORD -6.1 mEq/L (test code = 2678283807) AC PH, CORD (BEAKER) 7.21 7.18-7.38 (test code = 3175357369) PC02, CORD (test code 58 See_Comment [Auto mated message] The = 3317127133) system which g enerated this result transmit juanito reference range : 32 - 66 mmHg. The refer ence range was not used to interpret this result as normal/abnormal . PO2, CORD (test code 10 See_Comment [Autom ated message] The = ) system which g enerated this result transmit juanito reference range : 10 - 30 mmHg. The refer ence range was not used to interpret this result as normal/abnormal . BICARBONATE, CORD 23 See_Comment [Automate d message] The (test code = system which ge nerated this 8933543025) result transmit juanito reference range : 17 - 27 mEq/L. The refe rence range was not used to interpret this result as normal/abnormal . [facility] CORD [id number] 18:34:44 Test Item Value Reference Range Interpretation Comments BASE EXCESS, CORD -6.1 mEq/L (test code = 2285211499) AC PH, CORD (BEAKER) 7.21 7.18-7.38 (test code = 5531357196) PC02, CORD (test code 58 See_Comment [Auto mated message] The = 0885720185) system which g enerated this result transmit juanito reference range : 32 - 66 mmHg. The refer ence range was not used to interpret this result as normal/abnormal . PO2, CORD (test code 10 See_Comment [Autom ated message] The = 3072641121) system which g enerated this result transmit juanito reference range : 10 - 30 mmHg. The refer ence range was not used to interpret this result as normal/abnormal . BICARBONATE, CORD 23 See_Comment [Automate d message] The (test code = system which ge nerated this 6960358116) result transmit juanito reference range : 17 - 27 mEq/L. The refe rence range was not used to interpret this result as normal/abnormal . [facility] ONLY - SYPHILIS [id number] 14:38:24 Test Item Value Reference Range Interpretation Comments Syphilis IgG/IgM (test Non-reactive Non-reactive code = 39390-9) ALYSHA (test code = ALYSHA) Non-reactive - No serologic evidence of T. pallidum infection. Cannot exclude incubating or early syphilis. Submit a second specimen in 2-4 weeks if syphilis is clinically suspected. Equivocal - Further testing to follow. Reactive - Further testing to follow. Lab Interpretation (test Normal code = 96886-7) [facility] ONLY - SYPHILIS [id number] 14:38:24 Test Item Value Reference Range Interpretation Comments Syphilis IgG/IgM (test Non-reactive Non-reactive code = 03807-0) ALYSHA (test code = ALYSHA) Non-reactive - No serologic evidence of T. pallidum infection. Cannot exclude incubating or early syphilis. Submit a second specimen in 2-4 weeks if syphilis is clinically suspected. Equivocal - Further testing to follow. Reactive - Further testing to follow. Lab Interpretation (test Normal code = 74083-3) [facility] B Surface [id number] 06:53:32 Test Item Value Reference Range Interpretation Comments HBsAg Semi-Quantitative (test code = 0.04 Negative 5195-3) [facility] B Surface [id number] 06:53:32 Test Item Value Reference Range Interpretation Comments HBsAg Semi-Quantitative (test code = 0.04 Negative 5195-3) [facility] (LEVETIRACETAM)2023-01-11 06:22:53 Test Item Value Reference Range Interpretation Comments KEPPRA (test code = 5 ug/mL 12-46 L [id number]) ALYSHA (test code = ALYSHA) Therapeutic range: 12-46 ?g/mL ? ?Toxic: Not well established.Test developed and characteristics determined by [facility] Laboratory Services. Lab Interpretation Abnormal (test code = 01806-8) [facility] (LEV[facility]IRACETAM)2023-01-11 06:22:53 Test Item Value Reference Range Interpretation Comments KEPPRA (test code = 5 ug/mL 12-46 L [id number]) ALYSHA (test code = ALYSHA) Therapeutic range: 12-46 ?g/mL ? ?Toxic: Not well established.Test developed and characteristics determined by [facility] Laboratory Services. Lab Interpretation Abnormal (test code = 07167-2) [facility] Screen - ONCE [id number] 05:59:00 Test Item Value Reference Range Interpretation Comments ABO & RH (test code = 20) A POSITIVE IAT (test code = 1185) Negative [facility] ONCE [id number] 05:59:00 Test Item Value Reference Range Interpretation Comments ABO & RH (test code = 20) A POSITIVE IAT (test code = 1185) Negative [facility] [id number] 19:33:00 Test Item Value Reference Range Interpretation Comments POCT U SP GRAV (test code = 3255) . 1.005-1.025 POCT PH U (test code = 3254) . 5-8 POCT U LEUK EST (test code = 3263) . Negative - Negative POCT U NIT (test code = 3262) . Negative - Negative POCT U PROT (test code = 3259) 30+ Negative - Negative POCT U GLU (test code = 3256) NEG Negative - Negative POCT U KETONE (test code = 3258) . Negative - Negative POCT U UROBILI (test code = 3260) . 0.2-1 POCT U BILI (test code = 3261) . Negative - Negative POCT U BLD (test code = 3257) . Negative - Negative POCT U COLOR (test code = 3266) . POCT U APPEAR (test code = 3267) . [facility] W SPECIFIC [id number] 18:03:00 Test Item Value Reference Range Interpretation Comments POCT U SP GRAV (test code = . 1.005-1.025 3255) POCT PH U (test code = 3254) . 5-8 POCT U LEUK EST (test code = . Negative - Negative 3263) POCT U NIT (test code = 3262) . Negative - Negative POCT U PROT (test code = 3259) 1+ Negative - Negative POCT U GLU (test code = 3256) negative Negative - Negative POCT U KETONE (test code = 3258) . Negative - Negative POCT U UROBILI (test code = . 0.2-1 3260) POCT U BILI (test code = 3261) . Negative - Negative POCT U BLD (test code = 3257) . Negative - Negative POCT U COLOR (test code = 3266) . POCT U APPEAR (test code = 3267) . [facility] URINALYSIS W SPECIFIC [id number] 14:51:00 Test Item Value Reference Range Interpretation Comments POCT U SP GRAV (test code = 3255) . 1.005-1.025 POCT PH U (test code = 3254) 6 mg/dl 5-8 POCT U LEUK EST (test code = Trace Negative - Negative 3263) POCT U NIT (test code = 3262) Neg Negative - Negative POCT U PROT (test code = 3259) Trace Negative - Negative POCT U GLU (test code = 3256) Neg Negative - Negative POCT U KETONE (test code = 3258) None Negative - Negative POCT U UROBILI (test code = 3260) . 0.2-1 POCT U BILI (test code = 3261) . Negative - Negative POCT U BLD (test code = 3257) Trace Negative - Negative POCT U COLOR (test code = 3266) POCT U APPEAR (test code = 3267) [facility] URINALYSIS W SPECIFIC [id number] 16:32:00 Test Item Value Reference Range Interpretation Comments POCT U SP GRAV (test code = 3255) . 1.005-1.025 POCT PH U (test code = 3254) . 5-8 POCT U LEUK EST (test code = 3263) . Negative - Negative POCT U NIT (test code = 3262) . Negative - Negative POCT U PROT (test code = 3259) 1+ Negative - Negative POCT U GLU (test code = 3256) Neg Negative - Negative POCT U KETONE (test code = 3258) . Negative - Negative POCT U UROBILI (test code = 3260) . 0.2-1 POCT U BILI (test code = 3261) . Negative - Negative POCT U BLD (test code = 3257) . Negative - Negative POCT U COLOR (test code = 3266) . POCT U APPEAR (test code = 3267) . [facility] URINALYSIS W SPECIFIC [id number] 16:32:00 Test Item Value Reference Range Interpretation Comments POCT U SP GRAV (test code = 3255) . 1.005-1.025 POCT PH U (test code = 3254) . 5-8 POCT U LEUK EST (test code = 3263) . Negative - Negative POCT U NIT (test code = 3262) . Negative - Negative POCT U PROT (test code = 3259) 1+ Negative - Negative POCT U GLU (test code = 3256) Neg Negative - Negative POCT U KETONE (test code = 3258) . Negative - Negative POCT U UROBILI (test code = 3260) . 0.2-1 POCT U BILI (test code = 3261) . Negative - Negative POCT U BLD (test code = 3257) . Negative - Negative POCT U COLOR (test code = 3266) . POCT U APPEAR (test code = 3267) . [facility] URINALYSIS W SPECIFIC [id number] 14:46:00 Test Item Value Reference Range Interpretation Comments POCT U SP GRAV (test code = 3255) . 1.005-1.025 POCT PH U (test code = 3254) 7 mg/dl 5-8 POCT U LEUK EST (test code = Trace Negative - Negative 3263) POCT U NIT (test code = 3262) Neg Negative - Negative POCT U PROT (test code = 3259) Trace Negative - Negative POCT U GLU (test code = 3256) Neg Negative - Negative POCT U KETONE (test code = 3258) None Negative - Negative POCT U UROBILI (test code = 3260) . 0.2-1 POCT U BILI (test code = 3261) . Negative - Negative POCT U BLD (test code = 3257) Trace Negative - Negative POCT U COLOR (test code = 3266) . POCT U APPEAR (test code = 3267) . [facility] URINALYSIS W SPECIFIC [id number] 14:46:00 Test Item Value Reference Range Interpretation Comments POCT U SP GRAV (test code = 3255) . 1.005-1.025 POCT PH U (test code = 3254) 7 mg/dl 5-8 POCT U LEUK EST (test code = Trace Negative - Negative 3263) POCT U NIT (test code = 3262) Neg Negative - Negative POCT U PROT (test code = 3259) Trace Negative - Negative POCT U GLU (test code = 3256) Neg Negative - Negative POCT U KETONE (test code = 3258) None Negative - Negative POCT U UROBILI (test code = 3260) . 0.2-1 POCT U BILI (test code = 3261) . Negative - Negative POCT U BLD (test code = 3257) Trace Negative - Negative POCT U COLOR (test code = 3266) . POCT U APPEAR (test code = 3267) . [facility] URINALYSIS W/O SPECIFIC [id number] 19:28:00 Test Item Value Reference Range Interpretation Comments POCT PH U (test code = 3254) * 5-8 POCT U LEUK EST (test code = * Negative - Negative 3263) POCT U NIT (test code = 3262) * Negative - Negative POCT U PROT (test code = 3259) trace Negative - Negative POCT U GLU (test code = 3256) negative Negative - Negative POCT U KETONE (test code = 3258) * Negative - Negative POCT U BLD (test code = 3257) * Negative - Negative [facility] URINALYSIS W SPECIFIC [id number] 21:12:00 Test Item Value Reference Range Interpretation Comments POCT U SP GRAV (test code = 3255) . 1.005-1.025 POCT PH U (test code = 3254) . 5-8 POCT U LEUK EST (test code = 3263) . Negative - Negative POCT U NIT (test code = 3262) . Negative - Negative POCT U PROT (test code = 3259) 30 Negative - Negative POCT U GLU (test code = 3256) 50 Negative - Negative POCT U KETONE (test code = 3258) . Negative - Negative POCT U UROBILI (test code = 3260) . 0.2-1 POCT U BILI (test code = 3261) . Negative - Negative POCT U BLD (test code = 3257) . Negative - Negative POCT U COLOR (test code = 3266) . POCT U APPEAR (test code = 3267) . [facility] [place] [id number] 16:39:57 Test Item Value Reference Range Interpretation Comments Syphilis IgG/IgM (test Non-reactive Non-reactive code = 40749-2) ALYSHA (test code = ALYSHA) Non-reactive - No serologic evidence of T. pallidum infection. Cannot exclude incubating or early syphilis. Submit a second specimen in 2-4 weeks if syphilis is clinically suspected. Equivocal - Further testing to follow. Reactive - Further testing to follow. Lab Interpretation (test Normal code = 63194-9) [facility] 1/2 AG-AB WITH [id number] 06:31:45 Test Item Value Reference Range Interpretation Comments HIV Negative Negative Semi-quantitative (test code = 90171-2) ALYSHA (test code = Non-reactive for HIV-1 ALYSHA) antigen and HIV-1/HIV-2 antibodies. ?No laboratory evidence of HIV infection. ?Repeat in 2-4 weeks if acute HIV infection is suspected. [facility] W SPECIFIC [id number] 14:27:00 Test Item Value Reference Range Interpretation Comments POCT U SP GRAV (test code = 3255) . 1.005-1.025 POCT PH U (test code = 3254) . 5-8 POCT U LEUK EST (test code = 3263) . Negative - Negative POCT U NIT (test code = 3262) . Negative - Negative POCT U PROT (test code = 3259) Trace Negative - Negative POCT U GLU (test code = 3256) Neg Negative - Negative POCT U KETONE (test code = 3258) . Negative - Negative POCT U UROBILI (test code = 3260) . 0.2-1 POCT U BILI (test code = 3261) . Negative - Negative POCT U BLD (test code = 3257) . Negative - Negative POCT U COLOR (test code = 3266) . POCT U APPEAR (test code = 3267) . [facility] URINALYSIS W SPECIFIC [id number] 15:03:00 Test Item Value Reference Range Interpretation Comments POCT U SP GRAV (test code = 3255) . 1.005-1.025 POCT PH U (test code = 3254) . 5-8 POCT U LEUK EST (test code = 3263) . Negative - Negative POCT U NIT (test code = 3262) . Negative - Negative POCT U PROT (test code = 3259) Trace Negative - Negative POCT U GLU (test code = 3256) Neg Negative - Negative POCT U KETONE (test code = 3258) . Negative - Negative POCT U UROBILI (test code = 3260) . 0.2-1 POCT U BILI (test code = 3261) . Negative - Negative POCT U BLD (test code = 3257) . Negative - Negative POCT U COLOR (test code = 3266) POCT U APPEAR (test code = 3267) [facility] URINALYSIS W SPECIFIC [id number] 15:03:00 Test Item Value Reference Range Interpretation Comments POCT U SP GRAV (test code = 3255) . 1.005-1.025 POCT PH U (test code = 3254) . 5-8 POCT U LEUK EST (test code = 3263) . Negative - Negative POCT U NIT (test code = 3262) . Negative - Negative POCT U PROT (test code = 3259) Trace Negative - Negative POCT U GLU (test code = 3256) Neg Negative - Negative POCT U KETONE (test code = 3258) . Negative - Negative POCT U UROBILI (test code = 3260) . 0.2-1 POCT U BILI (test code = 3261) . Negative - Negative POCT U BLD (test code = 3257) . Negative - Negative POCT U COLOR (test code = 3266) POCT U APPEAR (test code = 3267) [facility] URINALYSIS W SPECIFIC [id number] 15:03:00 Test Item Value Reference Range Interpretation Comments POCT U SP GRAV (test code = 3255) . 1.005-1.025 POCT PH U (test code = 3254) . 5-8 POCT U LEUK EST (test code = 3263) . Negative - Negative POCT U NIT (test code = 3262) . Negative - Negative POCT U PROT (test code = 3259) Trace Negative - Negative POCT U GLU (test code = 3256) Neg Negative - Negative POCT U KETONE (test code = 3258) . Negative - Negative POCT U UROBILI (test code = 3260) . 0.2-1 POCT U BILI (test code = 3261) . Negative - Negative POCT U BLD (test code = 3257) . Negative - Negative POCT U COLOR (test code = 3266) POCT U APPEAR (test code = 3267) [facility] URINALYSIS W SPECIFIC [id number] 17:08:00 Test Item Value Reference Range Interpretation Comments [...] POCT U GLU (test code = 3256) normal Negative - Negative POCT U KETONE (test code = 3258) . Negative - Negative POCT U UROBILI (test code = 3260) . 0.2-1 POCT U BILI (test code = 3261) . Negative - Negative POCT U BLD (test code = 3257) . Negative - Negative POCT U COLOR (test code = 3266) . POCT U APPEAR (test code = 3267) . [facility] URINALYSIS W SPECIFIC [id number] 17:08:00 Test Item Value Reference Range Interpretation Comments [...] POCT U GLU (test code = 3256) normal Negative - Negative POCT U KETONE (test code = 3258) . Negative - Negative POCT U UROBILI (test code = 3260) . 0.2-1 POCT U BILI (test code = 3261) . Negative - Negative POCT U BLD (test code = 3257) . Negative - Negative POCT U COLOR (test code = 3266) . POCT U APPEAR (test code = 3267) . [facility] URINALYSIS W SPECIFIC [id number] 17:08:00 Test Item Value Reference Range Interpretation Comments [...] POCT U GLU (test code = 3256) normal Negative - Negative POCT U KETONE (test code = 3258) . Negative - Negative POCT U UROBILI (test code = 3260) . 0.2-1 POCT U BILI (test code = 3261) . Negative - Negative POCT U BLD (test code = 3257) . Negative - Negative POCT U COLOR (test code = 3266) . POCT U APPEAR (test code = 3267) . [facility] URINALYSIS W SPECIFIC [id number] 17:08:00 Test Item Value Reference Range Interpretation Comments [...] POCT U GLU (test code = 3256) normal Negative - Negative POCT U KETONE (test code = 3258) . Negative - Negative POCT U UROBILI (test code = 3260) . 0.2-1 POCT U BILI (test code = 3261) . Negative - Negative POCT U BLD (test code = 3257) . Negative - Negative POCT U COLOR (test code = 3266) . POCT U APPEAR (test code = 3267) . [facility] URINALYSIS W SPECIFIC [id number] 17:08:00 Test Item Value Reference Range Interpretation Comments [...] POCT U GLU (test code = 3256) normal Negative - Negative POCT U KETONE (test code = 3258) . Negative - Negative POCT U UROBILI (test code = 3260) . 0.2-1 POCT U BILI (test code = 3261) . Negative - Negative POCT U BLD (test code = 3257) . Negative - Negative POCT U COLOR (test code = 3266) . POCT U APPEAR (test code = 3267) . [facility] [id number] 17:18:00 Test Item Value Reference Range Interpretation Comments POCT U SP GRAV (test code = 3255) . 1.005-1.025 POCT PH U (test code = 3254) . 5-8 POCT U LEUK EST (test code = 3263) . Negative - Negative POCT U NIT (test code = 3262) . Negative - Negative POCT U PROT (test code = 3259) Trace Negative - Negative POCT U GLU (test code = 3256) Neg Negative - Negative POCT U KETONE (test code = 3258) . Negative - Negative POCT U UROBILI (test code = 3260) . 0.2-1 POCT U BILI (test code = 3261) . Negative - Negative POCT U BLD (test code = 3257) . Negative - Negative POCT U COLOR (test code = 3266) . POCT U APPEAR (test code = 3267) . [facility] [id number] 16:47:57 Test Item Value Reference Range Interpretation Comments AFP-MS (test 25.4 ng/mL code = 9348745664) AFP-MS MoM (test code = 6929904796) WEIGHT (test lbs code = 9514455298) RACE (test code = 5636758386) GEST. AGE (test 18,0 Gestational age code = reflects sample 7726318563) collection date . Previous prelim inary verified result was 9,3 on 08/22/2022 a t 1301 CDT INS. DEP (test No code = 1581658650) LMP (test code = 0606781115) US DATE (test code = 1688736757) PE DATE (test code = 3938016719) METHOD (test US code = 2523601683) MULT GEST (test No code = 5427961068) NTD HX (test No code = 4396536405) INITAL OR Initial Testing REPEAT (test code = 6348045957) SMOKER (test No code = 8901040901) RH (test code = Positive 4059184801) OSB INTERP See Note The maternal se rum AFP (test code = result is NOT e levated 2476857823) for a of thisgestational age. The risk of an open neural tube def ect is less thanthe sc reening cut-off. OSB RSK (test 1:89043 The risk of OS B is code = equal to 1:6560 0The OSB 3942454359) cut-off is 2.50 (1:104) OSB SCRN (test Negative code = 2360140818) [facility] URINALYSIS W SPECIFIC [id number] 19:43:00 Test Item Value Reference Range Interpretation [...] U APPEAR (test code = 3267) clear [facility] [id number] 19:43:00 Test Item Value Reference Range Interpretation [...] U APPEAR (test code = 3267) clear [facility]
[2023-03-08] MEDS ORDERED: IBUPROFEN 400 MG TAB ONE (01:07)
[2023-03-08 02:02] LABS: Specific Gravity 1.015 (1.005-1.030); Urine Bacteria <20 /HPF (<20); Urine Bilirubin NEGATIVE (Negative); Urine Blood Negative (Negative); Urine Clarity Clear (Clear); Urine Color Colorless (Yellow); Urine Glucose NEGATIVE (Negative); Urine Mucus Slight /HPF (None Seen); Urine Protein NEGATIVE (Negative); Urine RBC <5 /HPF (None Seen); Urine Urobilinogen Normal (Normal); Urine pH 6.5 (5.0-7.0)
--- NOTE | 2023-03-08 02:24 | ER ---
Nurse's Notes [facility] Name: Mary Jo Mendieta Age: 27 yrs Sex: Female : 1995 Arrival Date: 03/07/2023 Time: 23:39 Bed 10 Private MD: Diagnosis: Postoperative pain at incision. Pelvic pain in female Presentation: 03/07 23:52 Chief complaint: Patient states: lower abdominal pain began today crampy C Section on kl January 12. Coronavirus screen: Vaccine status: Patient reports being unvaccinated. Ebola Screen: Patient negative for fever greater than or equal to 101.5 degrees Fahrenheit, and additional compatible Ebola Virus Disease symptoms. Initial Sepsis Screen: Does the patient meet any 2 criteria? No. Patient's initial sepsis screen is negative. Does the patient have a suspected source of infection? No. Patient's initial sepsis screen is negative. Risk Assessment: Do you want to hurt yourself or someone else? Patient reports no desire to harm self or others. 23:52 Method Of Arrival: Ambulatory 23:52 Acuity: CHERIE 3 kl Triage Assessment: 23:55 General: Appears uncomfortable, Behavior is calm, cooperative. Pain: Complains of pain kl in right lower quadrant and left lower quadrant. GI: Reports upper abdominal pain, nausea, normal bowel habits. : No deficits noted. No signs and/or symptoms were reported regarding the genitourinary system. Historical: - Allergies: 23:54 No Known Allergies; kl - PMHx: 23:54 epilepsy; kl - PSHx: 23:54 section; kl - Immunization history:: Adult Immunizations not up to date. - Social history:: Smoking status: Patient denies any tobacco usage or history of. - Family history:: not pertinent. Screenin/15 02:37 [facility] ED Fall Risk Assessment (Adult) History of falling in the last 3 months, kl including since admission No falls in past 3 months (0 pts) Confusion or Disorientation No (0 pts) Intoxicated or Sedated No (0 pts) Impaired Gait No (0 pts) Mobility Assist Device Used No (0 pt) Score/Fall Risk Level 0 - 2 = Low Risk Oriented to surroundings, Maintained a safe environment. Abuse screen: Denies threats or abuse. Nutritional screening: No deficits noted. Tuberculosis screening: No symptoms or risk factors identified. Assessment: 02:37 Reassessment: Patient appears in no apparent distress at this time. Patient is alert, kl oriented x 3, equal unlabored respirations, skin warm/dry/pink. Vital Signs: 03/07 23:52 BP 118 / 64; Pulse 72; Resp 18; Temp 98(TE); Pulse Ox 99% on R/A; Weight 79.38 kg; kl Height 5 ft. 1 in. ; Pain 6/10; 03/08 02:38 BP 124 / 78; Pulse 65; Resp 16; Pulse Ox 99% on R/A; kl 03/07 23:52 Body Mass Index 33.07 (79.38 kg, 154.94 cm) 03/07 23:52 Pain Scale: Adult ED Course: 03/07 23:45 Patient arrived in ED. 23:54 Triage completed. 03/08 00:03 Moy Wilson MD is Attending Physician. sp4 00:58 Test, Urine Sent. 00:58 Urinalysis W/Microscopic Sent. 01:02 Test, Urine Sent. kl 02:38 Patient has correct armband on for positive identification. Administered Medications: 01:02 Drug: Ibuprofen PO 800 mg Route: PO; kl 02:37 Follow up: Response: No adverse reaction; Pain is decreased Outcome: 02:24 Discharge ordered by . sp4 02:39 Discharged to home ambulatory, with family. kl 02:39 Condition: stable 02:39 Discharge instructions given to patient, Instructed on discharge instructions, follow up and referral plans. 02:39 Patient left the ED. Signatures: Chelsea Alvares RN RN kl Salyer, Edna es Potepalov, Sergey, MD MD sp4
--- NOTE | 2023-03-08 02:24 | EDPHYS ---
Physician Documentation [facility] Name: Mary Jo Mendieta Age: 27 yrs Sex: Female : 1995 Arrival Date: 03/07/2023 Time: 23:39 Bed 10 Private MD: ED Physician Moy Wilson HPI: 03/08 00:03 This 27 yrs old Female presents to ER via Ambulatory with complaints of Pain sp4 where is unable to sit. 00:58 27-year-old female presents with acute pain at the site. Patient delivered sp4 her first baby on 01/12/2023 via low transverse and this evening she has developed crampy pain around her scar. Patient denied any vaginal bleeding, denied discharge, denied dysuria, denied fever, denied vomiting. . Historical: - Allergies: 03/07 23:54 No Known Allergies; kl - PMHx: 23:54 epilepsy; kl - PSHx: 23:54 section; kl - Immunization history:: Adult Immunizations not up to date. - Social history:: Smoking status: Patient denies any tobacco usage or history of. - Family history:: not pertinent. ROS: 03/08 00:58 Constitutional: Negative for fever, chills, and weight loss, Eyes: Negative for injury, sp4 pain, redness, and discharge, ENT: Negative for injury, pain, and discharge, Neck: Negative for injury, pain, and swelling, Cardiovascular: Negative for chest pain, palpitations, and edema, Respiratory: Negative for shortness of breath, cough, wheezing, and pleuritic chest pain, Abdomen/GI: Negative for nausea, vomiting, diarrhea, and constipation, positive lower abdominal pain at the area Back: Negative for injury and pain, : Negative for injury, bleeding, discharge, and swelling, MS/Extremity: Negative for injury and deformity, Skin: Negative for injury, rash, and discoloration, Neuro: Negative for headache, weakness, numbness, tingling, and seizure, Psych: Negative for depression, anxiety, Allergy/Immunology: Negative for hives, rash, and allergies Endocrine: Negative for neck swelling, polydipsia, polyuria, polyphagia, and weight changes Hematologic/Lymphatic: Negative for swollen nodes, abnormal bleeding, and unusual bruising Exam: 00:58 Constitutional: This is a well developed, well nourished patient who is awake, alert, sp4 and in no acute distress. Head/Face: Normocephalic, atraumatic. Eyes: Pupils equal round and reactive to light, extra-ocular motions intact. Lids and lashes normal. Conjunctiva and sclera are not injected. Cornea within normal limits. Periorbital areas with no swelling, redness, or edema. ENT: Nares patent. No nasal discharge, no septal abnormalities noted. Tympanic membranes are normal and external auditory canals are clear. Oropharynx with no redness, swelling, or masses, exudates, or evidence of obstruction, uvula midline. Mucous membranes moist. Neck: Trachea midline, no thyromegaly or masses palpated, and no cervical lymphadenopathy. Supple, full range of motion without nuchal rigidity, or vertebral point tenderness. No Meningismus. Chest/axilla: Normal chest wall appearance and motion. Nontender with no deformity. No lesions are appreciated. Cardiovascular: Regular rate and rhythm with a normal S1 and S2. No gallops, murmurs, or rubs. Normal PMI, no JVD. No pulse deficits. Respiratory: Lungs have equal breath sounds bilaterally, clear to auscultation and percussion. No rales, rhonchi or wheezes noted. No increased work of breathing, no retractions or nasal flaring. Abdomen/GI: Soft, non-tender, with normal bowel sounds. No distension or tympany. There is scar from low transverse and healing stages. There is mild tenderness around scar. No guarding, no rebound, no signs of peritonitis Back: No spinal tenderness. No costovertebral tenderness. Skin: Warm, dry with normal turgor. Normal color with no rashes, no lesions, and no evidence of cellulitis. MS/ Extremity: Pulses equal, no cyanosis. Neurovascular intact. Full, normal range of motion. Neuro: Awake and alert, GCS 15, oriented to person, place, time, and situation. Cranial nerves II-XII grossly intact. Motor strength 5/5 in all extremities. Sensory grossly intact. Psych: Awake, alert, with orientation to person, place and time. Behavior, mood, and affect are within normal limits Vital Signs: 03/07 23:52 BP 118 / 64; Pulse 72; Resp 18; Temp 98(TE); Pulse Ox 99% on R/A; Weight 79.38 kg; kl Height 5 ft. 1 in. ; Pain 10; 03/08 02:38 BP 124 / 78; Pulse 65; Resp 16; Pulse Ox 99% on R/A; kl 03/07 23:52 Body Mass Index 33.07 (79.38 kg, 154.94 cm) kl 03/07 23:52 Pain Scale: Adult kl MDM: 00:35 Patient medically screened. sp4 00:58 Data reviewed: vital signs, nurses notes, lab test result(s), urinalysis, UPT: sp4 negative. ED course: Patient was offered CT abdomen pelvis to evaluate for postoperative complications. Patient has declined CT scan at this time. Patient plans to follow-up with her [facility] for repeat exam in the next few days. . 02:22 Differential Diagnosis Postoperative seroma, postoperative fluid collection, sp4 pain, postoperative pain. ED course: Since patient declining CAT scan at this time it is reasonable to discharge patient with recommendation to return in case pain becomes worse. 03/08 00:43 Order name: UAM; Complete Time: 02:22 03/08 00:43 Order name: Urinalysis W/Microscopic kl Administered Medications: 01:02 Drug: Ibuprofen PO 800 mg Route: PO; 02:37 Follow up: Response: No adverse reaction; Pain is decreased Disposition Summary: 03/08/23 02:24 Discharge Ordered Location: Home sp4 Problem: new sp4 Symptoms: are unchanged sp4 Condition: Stable sp4 Diagnosis - Postoperative pain at incision. Pelvic pain in female sp4 Followup: sp4 - With: Private Physician - When: 2 - 3 days - Reason: Recheck today's complaints Discharge Instructions: - Discharge Summary Sheet sp4 - Pelvic Pain, Female sp4 Forms: - Medication Reconciliation Form sp4 Prescriptions: - naproxen sodium 500 mg Oral Tablet, ER Multiphase 24 hr - take 1 tablet by ORAL route every 12 hours; 30 tablet; Refills: 0, Product sp4 Selection Permitted Signatures: Dispatcher [employer] Chelsea Strickland RN RN kl Potepalov, Sergey, MD MD sp4
[2023-03-08 03:00] VITALS: TEMP 98; O2SAT 99
[2023-03-08 03:01] VITALS: BP 124/78
== END 2023-03-08 02:39 | disposition home or self-care (01) ==
LOC: ER 23:39
DX: G89.18 Other acute postprocedural pain (principal); R10.2 Pelvic and perineal pain; G40.909 Epilepsy, unspecified, not intractable, without status epilepticus
CPT/HCPCS: 81001; 99283

== ENCOUNTER 2024-01-25 17:29 | Emergency (ER) | payer SELFPAY ==
--- OUTSIDE RECORDS SUMMARY | 2024-01-25 17:37 | XMS REPORT | Continuity of Care Document ---
Author Name Unknown Address [address] [facility] [address]. [address] [place] [address] [facility] Address [address] [facility]. [address] [place] [address] Care Team Providers Care Design Editor Name Role Phone CHERYL DAVISON Primary Care Physician Unavailab NISHA Bey Attending Clinician Unavailable NISHA CADET Attending Clinician Unavailable CON RIOS Attending Clinician Unavailable Con Rios PA-C Attending Clinician [phone] Felecia Vick Attending Clinician [phone] CHERYL DAVISON Attending Clinician Unavailable Xenia WOODSJanuary Attending Clinician Unavailab TRINA Shaw Attending Clinician Unavailable Trina Valentine PA-C Attending Clinician [phone] Unknown, Attending Attending Clinician Unavailab koki GC_GCBZW_Kadijuan francisco_S Attending Clinician UnavailCheryl Hoff Attending Clinician [phone] NOLVIA JACOBS Attending Clinician Unavailable [facility]ending [facility]ician Unava ilable Nolvia Poole Attending Clinician [phone] Doctor Unassigned, [place] Attending Clinician U Rashid Muro Attending Clinician [phone] NAILA LUNDY Attending Clinician UnavailFELECIA Browne Attending Clinician Unavailable Kamilah Brice Attending Clinician + KAMILAH MCGINNIS Attending Clinician Unavail able Visit, [facility] Nurse Attending Clinician Unava ilable Nikkie TOPETE, Naila Winters Attending Clinician [phone] MICHELLE DECKER Attending Clinician Unavailable Alek GARIBAY, Maria Guadalupe Attending Clinician [phone] Helio GARIBAY, Nisha Attending Clinician [phone] Jacinto GARIBAY, Blake Xie Attending Clinician [phone] Tabatha GARIBAY, Heavenly Attending Clinician [phone] Bert GARIBAY, Louise Attending Clinician [phone] [facility], [facility] Attending Clinician Hannah vailable Ultrasound, Floridalmam Attending Clinician Unavailjose Gamble MD, Stevan Rogers Attending Clinician [phone] Christine GARIBAY, Fern Flanagan Attending Clinician + FERN BERNAL Attending Clinician Unav ailable Faculty, [facility] Attending Clinician Unava ilable Tammie Baires MD, Garcia Attending Clinician + SHAYLA NEAL Attending Clinician Unav ailable SusanSaran cross DO Attending Clinician [phone] UNKNOWN, ATTENDING Attending Clinician Unavailab koki Narvaez RN, Edith M Attending Clinician Unavailable NORM CAZARES Attending Clinician Unavailable Norm Cazares MD Attending Clinician [phone] Lab, [facility] Attending Clinician Unavailable 1, [facility] Attending Clinician Unavailab le Lab, [facility] Attending Clinician Unavailable TERA NORIEGA Attending Clinician Unavailab OLIVIA Macias Attending Clinician Unavailobey Ruvalcaba PA-C, Michelle Attending Clinician [phone] Lab, [facility] I Attending Clinician Unavailab Samina Harris Attending Clinician [phone] P[facility], [facility] Attending Clinician Unav ailable NISHA CADET Admitting Clinician Unavailable GC_GCBZW_Kadiyala_S Admitting Clinician Unavailjose Cadet MD, Nisha Admitting Clinician Payers Payer Name Policy Type Policy Number Effective Date Expirati on Date Source [facility] [id number] 2022 00:00:00 [employer]WORK [id number] 2011 00:00:00 MEDICAID PENDING PENDING 2022 00:00:00 MEDICAID [place] [id number] 2022 00:00:00 2022 00:00:00 Problems Condition Name Condition Details Condition Category Status Onset Date Resolution Date Last Treatment Date Treating Clinician Comments Source Encounter to establish care Encounter to establish care Disease Active 2022-10 00:00: 00 [facility] Vomiting, unspecifie d vomiting type, unspecifie d whether nausea present Vomiting, unspecifie d vomiting type, unspecifie d whether nausea present Disease Active 2022-10 00:00: 00 [facility] BMI 38.0-38.9, adult BMI 38.0-38.9, adult Disease Active 04-22 00:00: 00 [facility] Contracept emma patch status Contracept emma patch status Disease Active 04-22 00:00: 00 [facility] Anemia of mother in , condition Anemia of mother in , condition Disease Active 04-22 00:00: 00 [facility] Pre-eclamp garth in third trimester Pre-eclamp garth in third trimester Disease Active 01-11 00:00: 00 [facility] Morbid obesity with body mass index of 40.0-49.9 Morbid obesity with body mass index of 40.0-49.9 Disease Active 01-10 00:00: 00 [facility] Back pain affecting in third trimester Back pain affecting in third trimester Disease Active 01-10 00:00: 00 [facility] 38 weeks gestation of 38 weeks gestation of Disease Active 01-10 00:00: 00 [facility] Excessive weight gain affecting Excessive weight gain affecting Disease Active 3-03 00:00: 00 [facility] Seizure disorder during in third trimester Seizure disorder during in third trimester Disease Active 8-19 00:00: 00 [facility] Low grade squamous intraepith elial lesion (LGSIL) on cervical Pap smear Low grade squamous intraepith elial lesion (LGSIL) on cervical Pap smear Disease Active 8 00:00: 00 Overview: Formattin g of this note might be different from the original. +HPV 08-12- 0Per ASCCP guideline needs repeat pap I n 1 year [facility] Rubella non-immune status, antepartum Rubella non-immune status, antepartum Disease Active 05-25 00:00: 00 Overview: Formattin g of this note might be different from the original. Address pp [facility] Susceptibl e to varicella (non-immun e), currently Susceptibl e to varicella (non-immun e), currently Disease Active 05-25 00:00: 00 Overview: Formattin g of this note might be different from the original. Address pp [facility] Supervisio n of high-risk Supervisio n of high-risk Disease Active 05-22 00:00: 00 [facility] Obesity in Obesity in Disease Active 05-22 00:00: 00 [facility] History of seizure History of seizure Disease Active 05-22 00:00: 00 Overview: Formattin g of this note might be different from the original. Reports dx at age 4, last saw neuro in 2011, not on meds, reports last seizure activity was in february [facility] Knee pain, left Knee pain, left Disease Active 01-29 00:00: 00 [facility] Knee pain, left Knee pain, left Disease Active 01-29 00:00: 00 [facility] Scoliosis Scoliosis Disease Active 6- 00:00: 00 [facility] Allergies, Adverse Reactions, Alerts Allergy Name Allergy Type Status Severity Reaction(s) Onset Date Inactive Date Treating Clinician Comments Source NO KNOWN ALLERGIE S Drug Class Active [facility] Social History Social Habit Start Date Stop Date Quantity Comments Source ASSERTION 2022-05-01 00:00:00 [facility] Gender identity [facility] Alcohol intake 2023-12-21 00:00:00 2023-12-21 00:00:00 Current drinker of alcohol (finding) [facility] Alcohol Comment 2023-04-22 00:00:00 2023-04-22 00:00:00 Social drinking [facility] History of Social function 2023-04-22 00:00:00 2023-04-22 00:00:00 [facility] Exposure to SARS-CoV-2 (event) 2023-01-09 00:00:00 2023-01-19 09:39:00 Not sure [facility] Tobacco use and exposure 2022-05-22 00:00:00 2022-05-22 00:00:00 Smokeless tobacco non-user [facility] Sex Assigned At 1995 00:00:00 1995 00:00:00 [facility] Smoking Status Start Date Stop Date Source Never smoked tobacco [facility] Medications Ordered Medication Name Filled Medication Name Start Date Stop Date Current Medication? Ordering Clinician Indication Dosage Frequency Signature (SIG) Comments Components Source acetaminoph en (TYLENOL) tablet 650 mg 12-22 05:30: 00 12-22 05:25 :00 No 650mg 650 mg, Oral, ONCE, 1 dose, On Wed12/21/23 at 2330, LINDSEY [facility] methylPREDN ISolone 4 mg tablets 12-21 00:00: 00 Yes [id number] Take by mouth SEE-INSTRU CTIONS. follow package directions [facility] bromphenira mine-pseudo ephedrine-D M (BROMFED DM) 2-30-10 mg/5 mL syrup 12-21 00:00: 00 12-31 05:59 :00 Yes [id number] 10mL Take 10 mL by mouth 4 (four) times daily as needed for Congestion /Allergies for up to 10 days. [facility] valACYclovi r (VALTREX) 1 gram tablet 12-18 00:00: 00 12-25 05:59 :00 Yes [id number] 1g Take 1 tablet by mouth in the morning and 1 tablet in the evening. Do all this for 7 days. [facility] ondansetron 4 mg disintegrat ing tablet 2022-10 00:00: 00 Yes [id number] 4mg Take 1 tablet by mouth every 8 (eight) hours as needed for Nausea and Vomiting (N/V). [facility] PAXLOVID, EUA, 300 mg (150 mg x 2)-100 mg tablet 05-17 00:00: 00 Yes [id number] TAKE 3 TABLETS BY MOUTH IN THE MORNING AND IN THE EVENING FOR 5 DAYS [facility] nirmatrelvi r-ritonavir (PAXLOVID, EUA,) 300 mg (150 mg x 2)-100 mg tablet 05-15 00:00: 00 05-17 00:00 :00 No [id number] 3{tbl} Take 3 tablets by mouth in the morning and 3 tablets in the evening. Do all this for 5 days. [facility] levETIRAcet am 250 mg tablet 04-22 15:47: 27 04-22 00:00 :00 No 250mg Take 1 tablet by mouth once now. [facility] norelgestro min-ethinyl estradiol 150-35 mcg/24 hr patch 04-22 00:00: 00 Yes [id number] 1{patch } Apply 1 Patch to skin weekly. [facility] levETIRAcet am 250 mg tablet 01-14 14:48: 52 Yes 250mg Take 250 mg by mouth once now. [facility] levETIRAcet am (KEPPRA) tablet 250 mg 01-14 02:00: 00 Yes 250mg 250 mg, Oral, QHS, First dose on Wed01/13/23 at 2100, Until Discontinu ed, Routine [facility] vit no.130-iron -folic ( VITAMIN) 01-14 00:00: 00 Yes [id number] 1{tbl} Take 1 tablet by mouth in the morning. [facility] vit no.130-iron -folic ( VITAMIN) 01-14 00:00: 00 Yes [id number] 1{tbl} Take 1 tablet by mouth in the morning. [facility] ferrous sulfate 325 mg (65 mg iron) tablet 01-14 00:00: 00 04-22 00:00 :00 No [id number] 325mg Take 1 tablet by mouth in the morning. [facility] HYDROcodone -acetaminop hen 5-325 mg tablet 01-14 00:00: 00 04-22 00:00 :00 No [id number] 1{tbl} Take 1 tablet by mouth every 6 (six) hours as needed for Pain (scale 7-10) (Pain scale above 4). Do not exceed 3 grams of acetaminop hen in 24 hours. Indication s: acute pain [facility] ibuprofen 600 mg tablet 01-14 00:00: 00 04-22 00:00 :00 No [id number] 600mg Take 1 tablet by mouth every 6 (six) hours as needed (Pain). Take with food or milk. [facility] norethindro ne 0.35 mg tablet 01-14 00:00: 00 04-22 00:00 :00 No [id number] 1{tbl} Take 1 tablet by mouth in the morning. [facility] docusate 100 mg capsule 01-14 00:00: 00 04-15 04:59 :00 No [id number] 200mg Take 2 capsules by mouth once daily as needed for Constipati on for up to 90 days. [facility] foLIC acid 1 mg tablet 01-14 00:00: 00 04-15 04:59 :00 No [id number] 1mg Take 1 tablet by mouth in the morning for 90 days. [facility] acetaminoph en (TYLENOL) tablet 650 mg 01-13 17:00: 00 Yes 650mg 650 mg, Oral, Q6H, First dose on Wed01/13/23 at 1200, Until Discontinu ed, Routine [facility] ibuprofen (IBU) tablet 600 mg 01-13 17:00: 00 Yes 600mg 600 mg, Oral, Q6H, First dose on Wed01/13/23 at 1200, Until Discontinu ed, Routine [facility] varicella virus vaccine live (VARIVAX) injection and diluent vial 01-13 14:01: 44 Yes 1{each} 0.5 mL (1 Each), Subcutaneo us, ONCE-PRIOR TO DISCHARGE, 1 dose, Starting on Wed01/13/23 at 0901, Until Discontinu ed, Routine, Give vaccine prior to discharge [facility] famotidine (PEPCID AC) tablet 20 mg 01-13 13:45: 00 Yes 20mg 20 mg, Oral, DAILY, First dose on Wed01/13/23 at 0845, Until Discontinu ed, Routine [facility] HYDROcodone -acetaminop hen (NORCO) 10-325 mg tablet 1 tablet 01-13 11:58: 49 Yes 1{tbl} 1 tablet, Oral, Q6HPRN, Starting on Wed01/13/23 at 0658, Until Discontinu ed, Routine, Pain (scale 7-10) [facility] levETIRAcet am 250 mg tablet 01-13 09:00: 04 Yes 250mg Take 250 mg by mouth once now. [facility] tobramycin (NEBCIN) 240 mg in NaCl 0.9% (NS) piggyback 01-13 06:00: 00 01-13 06:15 :59 No 5mg/kg 240 mg (rounded from 239 mg = 5 mg/kg ?47.8 kg [place] weight), IV Piggyback, ONCE, 1 dose, On Wed01/13/23 at 0100, Administer over 30 Minutes, 50 mL
Reas on for Anti-Infec tive: Documented Infection< br>Documen juanito Infection Site: Pelvic
Duration of Therapy: Other (see Comments) [facility] vit no.130-iron -folic ( VITAMIN) 01-13 00:00: 00 Yes [id number] 1{tbl} Take 1 tablet by mouth in the morning. [facility] docusate 100 mg capsule 01-13 00:00: 00 Yes [id number] 200mg Take 2 capsules by mouth once daily as needed for Constipati on. [facility] ferrous sulfate 325 mg (65 mg iron) tablet 01-13 00:00: 00 Yes [id number] 325mg Take 1 tablet by mouth in the morning and 1 tablet in the evening. [facility] ibuprofen 600 mg tablet 01-13 00:00: 00 Yes [id number] 600mg Take 1 tablet by mouth every 6 (six) hours as needed (Pain). Take with food or milk. [facility] foLIC acid 1 mg tablet 01-13 00:00: 00 Yes [id number] 1mg Take 1 tablet by mouth in the morning. [facility] norethindro ne 0.35 mg tablet 01-13 00:00: 00 Yes [id number] 1{tbl} Take 1 tablet by mouth in the morning. [facility] HYDROcodone -acetaminop hen 5-325 mg tablet 01-13 00:00: 00 01-21 04:59 :00 No [id number] 1{tbl} Take 1 tablet by mouth every 6 (six) hours as needed for Pain (scale 7-10) (Pain scale above 4) for up to 7 days. Do not exceed 3 grams of acetaminop hen in 24 hours. Indication s: acute pain [facility] ampicillin (POLYCILLIN -N) 2,000 mg in NaCl 0.9% (NS) 100 mL MINI-BAG 01-12 22:30: 00 01-13 00:04 :30 No 2g 2,000 mg (2 g), IV Piggyback, ONCE, 1 dose, On Wed01/12/23 at 1730, Administer over 30 Minutes, 100 mL
Reas on for Anti-Infec tive: Documented Infection< br>Documen juanito Infection Site: Pelvic
Duration of Therapy: Other (see Comments) [facility] metroNIDAZO LE in NaCl (iso-os) (FLAGYL I.V.) RTU IV infusion 500 mg 01-12 21:30: 00 01-12 23:27 :17 No 500mg 500 mg, IV Piggyback, ONCE, 1 dose, On Wed01/12/23 at 1630, Administer over 60 Minutes, 100 mL
Reas on for Anti-Infec tive: Documented Infection< br>Documen juanito Infection Site: Pelvic
Duration of Therapy: Other (see Comments) [facility] levETIRAcet am (KEPPRA) tablet 250 mg 01-12 20:45: 00 01-13 02:20 :00 No 250mg 250 mg, Oral, ONCE, 1 dose, On Wed01/12/23 at 1545, Routine [facility] rho(D) immune globulin (RHOGAM) syringe 300 mcg 01-12 20:40: 47 Yes 300ug 300 mcg, Intramuscu lar, ONCE, For 1 dose, Conditiona l, Routine [facility] human papillomav vac,9-louis(P F) (GARDASIL-9 ) syringe 0.5 mL 01-12 20:40: 41 Yes .5mL 0.5 mL, Intramuscu lar, ONCE-PRIOR TO DISCHARGE, 1 dose, Starting on Wed01/12/23 at 1540, Until Discontinu ed, Routine, Give vaccine prior to discharge [facility] diphenhydrA MINE (BENADRYL) injection 25 mg 01-12 20:40: 41 Yes 25mg 25 mg, Slow IV Push, Q6HPRN, Starting on Wed01/12/23 at 1540, Until Discontinu ed, Routine, Itching [facility] diphenhydrA MINE (BENADRYL) tablet 25 mg 01-12 20:40: 41 Yes 25mg 25 mg, Oral, Q6HPRN, Starting on Wed01/12/23 at 1540, Until Discontinu ed, Routine, Sleep, Itching [facility] ondansetron (ZOFRAN (PF)) injection 4 mg 01-12 20:40: 41 Yes 4mg 4 mg, Slow IV Push, Q8HPRN, Starting on Wed01/12/23 at 1540, Until Discontinu ed, Routine, Nausea and Vomiting (N/V) [facility] bisacodyL (DULCOLAX) suppository 10 mg 01-12 20:40: 41 Yes 10mg 10 mg, Rectal, QDAILYPRN, Starting on Wed01/12/23 at 1540, Until Discontinu ed, Routine, Constipati on [facility] simethicone (GAS RELIEF (SIMETHICON E)) chewable tablet 160 mg 01-12 20:40: 41 Yes 160mg 160 mg, Oral, PC+HSPRN, Starting on Wed01/12/23 at 1540, Until Discontinu ed, Routine, Gas [facility] docusate (COLACE) capsule 200 mg 01-12 20:40: 41 Yes 200mg 200 mg, Oral, QDAILYPRN, Starting on Wed01/12/23 at 1540, Until Discontinu ed, Routine, Constipati on [facility] magnesium hydroxide (MILK OF MAGNESIA) 400 mg/5 mL suspension 30 mL 01-12 20:40: 41 Yes 30mL 30 mL, Oral, QDAILYPRN, Starting on Wed01/12/23 at 1540, Until Discontinu ed, Routine, Constipati on [facility] lactated ringers IV infusion 1,000 mL 01-12 20:40: 41 Yes 1000mL at 125 mL/hr, 1,000 mL, IV Infusion, PRN, 1 dose, Starting on Wed01/12/23 at 1540, Until Discontinu ed, Routine [facility] ibuprofen (IBU) tablet 600 mg 01-12 20:40: 41 01-13 11:59 :44 No 600mg 600 mg, Oral, Q6HPRN, Starting on Wed01/12/23 at 1540, Until Wed01/13/23 at 0659, Routine, Pain (scale 1-3) [facility] acetaminoph en (TYLENOL) tablet 650 mg 01-12 03:45: 00 01-12 03:04 :00 No 650mg 650 mg, Oral, ONCE NOW, 1 dose, On Wed01/11/23 at 2245, Routine [facility] tobramycin (NEBCIN) 340 mg in NaCl 0.9% (NS) piggyback 01-12 03:45: 00 01-12 20:26 :28 No 5mg/kg 340 mg (rounded from 346.5 mg = 5 mg/kg ?69.3 kg Adjusted weight), IV Piggyback, Q24H ABX, 3 doses, First dose on Wed01/11/23 at 2245, Last dose on Wed01/13/23 at 2245, Administer over 30 Minutes, 50 mL
Reas on for Anti-Infec tive: Empiric Therapy for Suspected Infection< br>Empiric Therapy Site: Pelvic
Duration of therapy: 72 hours [facility] ampicillin (POLYCILLIN -N) 2,000 mg in NaCl 0.9% (NS) 100 mL MINI-BAG 01-12 03:45: 00 01-12 20:25 :45 No 2g 2,000 mg (2 g), IV Piggyback, Q6H ABX, First dose on Wed01/11/23 at 2245, Until Discontinu ed, Administer over 30 Minutes, 100 mL
Reas on for Anti-Infec tive: Surgical Prophylaxi s
Surgi german Prophylaxi s: LINOLEUM TILE FLOOR LAYER
Duration of therapy: within 24 hours of surgery [facility] ondansetron (ZOFRAN (PF)) injection 4 mg 01-12 02:15: 00 01-12 01:25 :00 No 4mg 4 mg, Slow IV Push, ONCE, On Wed01/11/23 at 2115, For 1 dose
Do ses of ondansetro n 16 mg and above need to be administer ed via IV piggyback. For Dose >=24mg ECG monitoring is advisable.
[facility] levETIRAcet am (KEPPRA) tablet 250 mg 01-12 02:00: 00 01-12 20:40 :44 No 250mg 250 mg, Oral, QHS, First dose (after last modificati on) on Wed01/11/23 at 2100, Until Discontinu ed, Routine [facility] lactated ringers IV infusion 500 mL 01-11 19:45: 00 01-12 01:50 :56 No 500mL at 999 mL/hr, 500 mL, IV Infusion, ONCE, 1 dose, On Wed01/11/23 at 1445, Routine [facility] ropivacaine 0.2 % (NAROPIN (PF)) epidural infusion 01-11 19:34: 00 Yes Epidural, CONTINUOUS PRN, Starting on Wed01/11/23 at 1434, Until Discontinu ed, Routine, Intra-op [facility] lidocaine-e pinephrine (XYLOCAINE W/EPINEPHRI NE) 1.5 %-1:200,000 injection 01-11 19:32: 00 Yes Intraderma l, ONCE INTRA PROCEDURE, Starting on Wed01/11/23 at 1432, Until Discontinu ed, Routine, Intra-op [facility] lactated ringers IV infusion 500 mL 01-11 18:54: 35 01-11 19:34 :52 No 500mL at 999 mL/hr, 500 mL, IV Infusion, PRN - SEE INSTRUCTIO NS, 1 dose, Starting on Wed01/11/23 at 1354, Until Wed01/11/23 at 1434, Routine [facility] sodium citrate-cit clayton acid (BICITRA) 500-334 mg/5 mL solution 30 mL 01-11 18:54: 35 01-11 19:20 :00 No 30mL 30 mL, Oral, PRE-PROCED URE ONCE, 1 dose, Starting on Wed01/11/23 at 1354, Until Discontinu ed, Routine, Surgery/Pr ocedure [facility] oxytocin (PITOCIN) 30 units in NS 500 mL IV infusion 01-11 07:48: 53 01-12 20:40 :44 No 2mU/min at 2-40 mL/hr, IV Infusion, TITRATE, Starting on Wed01/11/23 at 0248, Until Wed01/12/23 at 1540, LINDSEY [facility] butorphanol (STADOL) injection 1 mg 01-11 07:15: 00 01-11 06:25 :00 No 1mg 1 mg, IV Push, ONCE, 1 dose, On Wed01/11/23 at 0215, Routine [facility] lactated ringers IV infusion 500 mL 01-11 04:17: 47 01-12 20:40 :44 No 500mL at 999 mL/hr, 500 mL, IV Infusion, PRN - SEE INSTRUCTIO NS, Starting on Wed01/10/23 at 2317, Until Wed01/12/23 at 1540, Routine [facility] D5W-LR IV infusion 1,000 mL 01-11 04:17: 47 01-12 20:40 :44 No 1000mL at 1-125 mL/hr, IV Infusion, TITRATE, Starting on Wed01/10/23 at 2317, Until Wed01/12/23 at 1540, Routine [facility] levETIRAcet am (KEPPRA) tablet 250 mg 01-11 01:00: 00 01-11 05:36 :56 No 250mg 250 mg, Oral, BID, First dose on Wed01/10/23 at 2000, Until Discontinu ed, Routine [facility] levETIRAcet am 250 mg tablet 01-10 16:48: 07 Yes 250mg Take 250 mg by mouth once now. [facility] levETIRAcet am 250 mg tablet 2021-10 0 11:24: 52 Yes 250mg Take 250 mg by mouth once now. [facility] No known medications 2021-10 0-14 15:10: 26 No No known medication s [facility] No known medications 912 13:59: 38 No No known medication [facility] Immunizations Ordered Immunization Name Filled Immunization Name Date Status Comments Source HPV9 2023-04-22 00:00:00 Completed [facility] HPV9 2023-04-22 00:00:00 Completed [facility] HPV9 2023-04-22 00:00:00 Completed [facility] HPV9 2023-04-22 00:00:00 Completed [facility] HPV9 2023-01-14 00:00:00 Completed [facility] HPV9 2023-01-14 00:00:00 Completed [facility] HPV9 2023-01-14 00:00:00 Completed [facility] HPV9 2023-01-14 00:00:00 Completed [facility] HPV9 2023-01-14 00:00:00 Completed [facility] HPV9 2023-01-14 00:00:00 Completed [facility] HPV9 2023-01-14 00:00:00 Completed [facility] HPV9 2023-01-14 00:00:00 Completed [facility] TDAP 2022-11-11 00:00:00 Completed [facility] TDAP 2022-11-11 00:00:00 Completed [facility] TDAP 2022-11-11 00:00:00 Completed [facility] TDAP 2022-11-11 00:00:00 Completed [facility] TDAP 2022-11-11 00:00:00 Completed [facility] TDAP 2022-11-11 00:00:00 Completed [facility] TDAP 2022-11-11 00:00:00 Completed [facility] TDAP 2022-11-11 00:00:00 Completed [facility] TDAP 2022-11-11 00:00:00 Completed [facility] TDAP 2022-11-11 00:00:00 Completed [facility] TDAP 2022-11-11 00:00:00 Completed [facility] TDAP 2022-11-11 00:00:00 Completed [facility] TDAP 2022-11-11 00:00:00 Completed [facility] TDAP 2022-11-11 00:00:00 Completed [facility] TDAP 2022-11-11 00:00:00 Completed [facility] TDAP 2022-11-11 00:00:00 Completed [facility] TDAP 2022-11-11 00:00:00 Completed [facility] TDAP 2022-11-11 00:00:00 Completed [facility] TDAP 2022-11-11 00:00:00 Completed [facility] TDAP 2022-11-11 00:00:00 Completed [facility] TDAP 2022-11-11 00:00:00 Completed [facility] TDAP 2022-11-11 00:00:00 Completed [facility] TDAP 2022-11-11 00:00:00 Completed [facility] TDAP 2022-11-11 00:00:00 Completed [facility] TDAP 2016-01-23 00:00:00 Completed [facility] TDAP 2016-01-23 00:00:00 Completed [facility] TDAP 2016-01-23 00:00:00 Completed [facility] TDAP 2016-01-23 00:00:00 Completed [facility] TDAP 2016-01-23 00:00:00 Completed [facility] TDAP 2016-01-23 00:00:00 Completed [facility] TDAP 2016-01-23 00:00:00 Completed [facility] TDAP 2016-01-23 00:00:00 Completed [facility] TDAP 2016-01-23 00:00:00 Completed [facility] TDAP 2016-01-23 00:00:00 Completed [facility] TDAP 2016-01-23 00:00:00 Completed [facility] TDAP 2016-01-23 00:00:00 Completed [facility] TDAP 2016-01-23 00:00:00 Completed [facility] TDAP 2016-01-23 00:00:00 Completed [facility] TDAP 2016-01-23 00:00:00 Completed [facility] TDAP 2016-01-23 00:00:00 Completed [facility] TDAP 2016-01-23 00:00:00 Completed [facility] TDAP 2016-01-23 00:00:00 Completed [facility] TDAP 2016-01-23 00:00:00 Completed [facility] TDAP 2016-01-23 00:00:00 Completed [facility] Meningococcal Polysaccharide (groups A, C, Y and W-135) conjugate vaccine (MCV4P) 2016-01-16 00:00:00 Completed [facility] Meningococcal Polysaccharide (groups A, C, Y and W-135) conjugate vaccine (MCV4P) 2016-01-16 00:00:00 Completed [facility] Meningococcal Polysaccharide (groups A, C, Y and W-135) conjugate vaccine (MCV4P) 2016-01-16 00:00:00 Completed [facility] Meningococcal Polysaccharide (groups A, C, Y and W-135) conjugate vaccine (MCV4P) 2016-01-16 00:00:00 Completed [facility] Meningococcal Polysaccharide (groups A, C, Y and W-135) conjugate vaccine (MCV4P) 2016-01-16 00:00:00 Completed [facility] Meningococcal Polysaccharide (groups A, C, Y and W-135) conjugate vaccine (MCV4P) 2016-01-16 00:00:00 Completed [facility] Meningococcal Polysaccharide (groups A, C, Y and W-135) conjugate vaccine (MCV4P) 2016-01-16 00:00:00 Completed [facility] Meningococcal Polysaccharide (groups A, C, Y and W-135) conjugate vaccine (MCV4P) 2016-01-16 00:00:00 Completed [facility] Meningococcal Polysaccharide (groups A, C, Y and W-135) conjugate vaccine (MCV4P) 2016-01-16 00:00:00 Completed [facility] Meningococcal Polysaccharide (groups A, C, Y and W-135) conjugate vaccine (MCV4P) 2016-01-16 00:00:00 Completed [facility] Meningococcal Polysaccharide (groups A, C, Y and W-135) conjugate vaccine (MCV4P) 2016-01-16 00:00:00 Completed [facility] Meningococcal Polysaccharide (groups A, C, Y and W-135) conjugate vaccine (MCV4P) 2016-01-16 00:00:00 Completed [facility] Meningococcal Polysaccharide (groups A, C, Y and W-135) conjugate vaccine (MCV4P) 2016-01-16 00:00:00 Completed [facility] Meningococcal Polysaccharide (groups A, C, Y and W-135) conjugate vaccine (MCV4P) 2016-01-16 00:00:00 Completed [facility] Meningococcal Polysaccharide (groups A, C, Y and W-135) conjugate vaccine (MCV4P) 2016-01-16 00:00:00 Completed [facility] Meningococcal Polysaccharide (groups A, C, Y and W-135) conjugate vaccine (MCV4P) 2016-01-16 00:00:00 Completed [facility] Meningococcal Polysaccharide (groups A, C, Y and W-135) conjugate vaccine (MCV4P) 2016-01-16 00:00:00 Completed [facility] Meningococcal Polysaccharide (groups A, C, Y and W-135) conjugate vaccine (MCV4P) 2016-01-16 00:00:00 Completed [facility] Meningococcal Polysaccharide (groups A, C, Y and W-135) conjugate vaccine (MCV4P) 2016-01-16 00:00:00 Completed [facility] Meningococcal Polysaccharide (groups A, C, Y and W-135) conjugate vaccine (MCV4P) 2016-01-16 00:00:00 Completed [facility] HEPA,NOS 2009-05-28 00:00:00 Completed [facility] Meningococcal Polysaccharide (groups A, C, Y and W-135) conjugate vaccine (MCV4P) 2009-05-28 00:00:00 Completed [facility] TDAP 2009-05-28 00:00:00 Completed [facility] HEPA,NOS 2009-05-28 00:00:00 Completed [facility] Meningococcal Polysaccharide (groups A, C, Y and W-135) conjugate vaccine (MCV4P) 2009-05-28 00:00:00 Completed [facility] TDAP 2009-05-28 00:00:00 Completed [facility] HEPA,NOS 2009-05-28 00:00:00 Completed [facility] Meningococcal Polysaccharide (groups A, C, Y and W-135) conjugate vaccine (MCV4P) 2009-05-28 00:00:00 Completed [facility] TDAP 2009-05-28 00:00:00 Completed [facility] HEPA,NOS 2009-05-28 00:00:00 Completed [facility] Meningococcal Polysaccharide (groups A, C, Y and W-135) conjugate vaccine (MCV4P) 2009-05-28 00:00:00 Completed [facility] TDAP 2009-05-28 00:00:00 Completed [facility] HEPA,NOS 2009-05-28 00:00:00 Completed [facility] Meningococcal Polysaccharide (groups A, C, Y and W-135) conjugate vaccine (MCV4P) 2009-05-28 00:00:00 Completed [facility] TDAP 2009-05-28 00:00:00 Completed [facility] HEPA,NOS 2009-05-28 00:00:00 Completed [facility] Meningococcal Polysaccharide (groups A, C, Y and W-135) conjugate vaccine (MCV4P) 2009-05-28 00:00:00 Completed [facility] TDAP 2009-05-28 00:00:00 Completed [facility] HEPA,NOS 2009-05-28 00:00:00 Completed [facility] Meningococcal Polysaccharide (groups A, C, Y and W-135) conjugate vaccine (MCV4P) 2009-05-28 00:00:00 Completed [facility] TDAP 2009-05-28 00:00:00 Completed [facility] HEPA,NOS 2009-05-28 00:00:00 Completed [facility] Meningococcal Polysaccharide (groups A, C, Y and W-135) conjugate vaccine (MCV4P) 2009-05-28 00:00:00 Completed [facility] TDAP 2009-05-28 00:00:00 Completed [facility] HEPA,NOS 2009-05-28 00:00:00 Completed [facility] Meningococcal Polysaccharide (groups A, C, Y and W-135) conjugate vaccine (MCV4P) 2009-05-28 00:00:00 Completed [facility] TDAP 2009-05-28 00:00:00 Completed [facility] HEPA,NOS 2009-05-28 00:00:00 Completed [facility] Meningococcal Polysaccharide (groups A, C, Y and W-135) conjugate vaccine (MCV4P) 2009-05-28 00:00:00 Completed [facility] TDAP 2009-05-28 00:00:00 Completed [facility] HEPA,NOS 2009-05-28 00:00:00 Completed [facility] Meningococcal Polysaccharide (groups A, C, Y and W-135) conjugate vaccine (MCV4P) 2009-05-28 00:00:00 Completed [facility] TDAP 2009-05-28 00:00:00 Completed [facility] HEPA,NOS 2009-05-28 00:00:00 Completed [facility] Meningococcal Polysaccharide (groups A, C, Y and W-135) conjugate vaccine (MCV4P) 2009-05-28 00:00:00 Completed [facility] TDAP 2009-05-28 00:00:00 Completed [facility] HEPA,NOS 2009-05-28 00:00:00 Completed [facility] Meningococcal Polysaccharide (groups A, C, Y and W-135) conjugate vaccine (MCV4P) 2009-05-28 00:00:00 Completed [facility] TDAP 2009-05-28 00:00:00 Completed [facility] HEPA,NOS 2009-05-28 00:00:00 Completed [facility] Meningococcal Polysaccharide (groups A, C, Y and W-135) conjugate vaccine (MCV4P) 2009-05-28 00:00:00 Completed [facility] TDAP 2009-05-28 00:00:00 Completed [facility] HEPA,NOS 2009-05-28 00:00:00 Completed [facility] Meningococcal Polysaccharide (groups A, C, Y and W-135) conjugate vaccine (MCV4P) 2009-05-28 00:00:00 Completed [facility] TDAP 2009-05-28 00:00:00 Completed [facility] HEPA,NOS 2009-05-28 00:00:00 Completed [facility] Meningococcal Polysaccharide (groups A, C, Y and W-135) conjugate vaccine (MCV4P) 2009-05-28 00:00:00 Completed [facility] TDAP 2009-05-28 00:00:00 Completed [facility] HEPA,NOS 2009-05-28 00:00:00 Completed [facility] Meningococcal Polysaccharide (groups A, C, Y and W-135) conjugate vaccine (MCV4P) 2009-05-28 00:00:00 Completed [facility] TDAP 2009-05-28 00:00:00 Completed [facility] HEPA,NOS 2009-05-28 00:00:00 Completed [facility] Meningococcal Polysaccharide (groups A, C, Y and W-135) conjugate vaccine (MCV4P) 2009-05-28 00:00:00 Completed [facility] TDAP 2009-05-28 00:00:00 Completed [facility] HEPA,NOS 2009-05-28 00:00:00 Completed [facility] Meningococcal Polysaccharide (groups A, C, Y and W-135) conjugate vaccine (MCV4P) 2009-05-28 00:00:00 Completed [facility] TDAP 2009-05-28 00:00:00 Completed [facility] HEPA,NOS 2009-05-28 00:00:00 Completed [facility] Meningococcal Polysaccharide (groups A, C, Y and W-135) conjugate vaccine (MCV4P) 2009-05-28 00:00:00 Completed [facility] TDAP 2009-05-28 00:00:00 Completed [facility] Meningococcal Polysaccharide (groups A, C, Y and W-135) conjugate vaccine (MCV4P) 2007-12-20 00:00:00 Completed [facility] TDAP 2007-12-20 00:00:00 Completed [facility] Varicella (varivax)(chicken pox) 2007-12-20 00:00:00 Completed [facility] Meningococcal Polysaccharide (groups A, C, Y and W-135) conjugate vaccine (MCV4P) 2007-12-20 00:00:00 Completed [facility] TDAP 2007-12-20 00:00:00 Completed [facility] Varicella (varivax)(chicken pox) 2007-12-20 00:00:00 Completed [facility] Meningococcal Polysaccharide (groups A, C, Y and W-135) conjugate vaccine (MCV4P) 2007-12-20 00:00:00 Completed [facility] TDAP 2007-12-20 00:00:00 Completed [facility] Varicella (varivax)(chicken pox) 2007-12-20 00:00:00 Completed [facility] Meningococcal Polysaccharide (groups A, C, Y and W-135) conjugate vaccine (MCV4P) 2007-12-20 00:00:00 Completed [facility] TDAP 2007-12-20 00:00:00 Completed [facility] Varicella (varivax)(chicken pox) 2007-12-20 00:00:00 Completed [facility] Meningococcal Polysaccharide (groups A, C, Y and W-135) conjugate vaccine (MCV4P) 2007-12-20 00:00:00 Completed [facility] TDAP 2007-12-20 00:00:00 Completed [facility] Varicella (varivax)(chicken pox) 2007-12-20 00:00:00 Completed [facility] Meningococcal Polysaccharide (groups A, C, Y and W-135) conjugate vaccine (MCV4P) 2007-12-20 00:00:00 Completed [facility] TDAP 2007-12-20 00:00:00 Completed [facility] Varicella (varivax)(chicken pox) 2007-12-20 00:00:00 Completed [facility] Meningococcal Polysaccharide (groups A, C, Y and W-135) conjugate vaccine (MCV4P) 2007-12-20 00:00:00 Completed [facility] TDAP 2007-12-20 00:00:00 Completed [facility] Varicella (varivax)(chicken pox) 2007-12-20 00:00:00 Completed [facility] Meningococcal Polysaccharide (groups A, C, Y and W-135) conjugate vaccine (MCV4P) 2007-12-20 00:00:00 Completed [facility] TDAP 2007-12-20 00:00:00 Completed [facility] Varicella (varivax)(chicken pox) 2007-12-20 00:00:00 Completed [facility] Meningococcal Polysaccharide (groups A, C, Y and W-135) conjugate vaccine (MCV4P) 2007-12-20 00:00:00 Completed [facility] TDAP 2007-12-20 00:00:00 Completed [facility] Varicella (varivax)(chicken pox) 2007-12-20 00:00:00 Completed [facility] Meningococcal Polysaccharide (groups A, C, Y and W-135) conjugate vaccine (MCV4P) 2007-12-20 00:00:00 Completed [facility] TDAP 2007-12-20 00:00:00 Completed [facility] Varicella (varivax)(chicken pox) 2007-12-20 00:00:00 Completed [facility] Meningococcal Polysaccharide (groups A, C, Y and W-135) conjugate vaccine (MCV4P) 2007-12-20 00:00:00 Completed [facility] TDAP 2007-12-20 00:00:00 Completed [facility] Varicella (varivax)(chicken pox) 2007-12-20 00:00:00 Completed [facility] Meningococcal Polysaccharide (groups A, C, Y and W-135) conjugate vaccine (MCV4P) 2007-12-20 00:00:00 Completed [facility] TDAP 2007-12-20 00:00:00 Completed [facility] Varicella (varivax)(chicken pox) 2007-12-20 00:00:00 Completed [facility] Meningococcal Polysaccharide (groups A, C, Y and W-135) conjugate vaccine (MCV4P) 2007-12-20 00:00:00 Completed [facility] TDAP 2007-12-20 00:00:00 Completed [facility] Varicella (varivax)(chicken pox) 2007-12-20 00:00:00 Completed [facility] Meningococcal Polysaccharide (groups A, C, Y and W-135) conjugate vaccine (MCV4P) 2007-12-20 00:00:00 Completed [facility] TDAP 2007-12-20 00:00:00 Completed [facility] Varicella (varivax)(chicken pox) 2007-12-20 00:00:00 Completed [facility] Meningococcal Polysaccharide (groups A, C, Y and W-135) conjugate vaccine (MCV4P) 2007-12-20 00:00:00 Completed [facility] TDAP 2007-12-20 00:00:00 Completed [facility] Varicella (varivax)(chicken pox) 2007-12-20 00:00:00 Completed [facility] Meningococcal Polysaccharide (groups A, C, Y and W-135) conjugate vaccine (MCV4P) 2007-12-20 00:00:00 Completed [facility] TDAP 2007-12-20 00:00:00 Completed [facility] Varicella (varivax)(chicken pox) 2007-12-20 00:00:00 Completed [facility] Meningococcal Polysaccharide (groups A, C, Y and W-135) conjugate vaccine (MCV4P) 2007-12-20 00:00:00 Completed [facility] TDAP 2007-12-20 00:00:00 Completed [facility] Varicella (varivax)(chicken pox) 2007-12-20 00:00:00 Completed [facility] Meningococcal Polysaccharide (groups A, C, Y and W-135) conjugate vaccine (MCV4P) 2007-12-20 00:00:00 Completed [facility] TDAP 2007-12-20 00:00:00 Completed [facility] Varicella (varivax)(chicken pox) 2007-12-20 00:00:00 Completed [facility] Meningococcal Polysaccharide (groups A, C, Y and W-135) conjugate vaccine (MCV4P) 2007-12-20 00:00:00 Completed [facility] TDAP 2007-12-20 00:00:00 Completed [facility] Varicella (varivax)(chicken pox) 2007-12-20 00:00:00 Completed [facility] Meningococcal Polysaccharide (groups A, C, Y and W-135) conjugate vaccine (MCV4P) 2007-12-20 00:00:00 Completed [facility] TDAP 2007-12-20 00:00:00 Completed [facility] Varicella (varivax)(chicken pox) 2007-12-20 00:00:00 Completed [facility] HEPA,NOS 2007-04-26 00:00:00 Completed [facility] HEPA,NOS 2007-04-26 00:00:00 Completed [facility] HEPA,NOS 2007-04-26 00:00:00 Completed [facility] HEPA,NOS 2007-04-26 00:00:00 Completed [facility] HEPA,NOS 2007-04-26 00:00:00 Completed [facility] HEPA,NOS 2007-04-26 00:00:00 Completed [facility] HEPA,NOS 2007-04-26 00:00:00 Completed [facility] HEPA,NOS 2007-04-26 00:00:00 Completed [facility] HEPA,NOS 2007-04-26 00:00:00 Completed [facility] HEPA,NOS 2007-04-26 00:00:00 Completed [facility] HEPA,NOS 2007-04-26 00:00:00 Completed [facility] HEPA,NOS 2007-04-26 00:00:00 Completed [facility] HEPA,NOS 2007-04-26 00:00:00 Completed [facility] HEPA,NOS 2007-04-26 00:00:00 Completed [facility] HEPA,NOS 2007-04-26 00:00:00 Completed [facility] HEPA,NOS 2007-04-26 00:00:00 Completed [facility] HEPA,NOS 2007-04-26 00:00:00 Completed [facility] HEPA,NOS 2007-04-26 00:00:00 Completed [facility] HEPA,NOS 2007-04-26 00:00:00 Completed [facility] HEPA,NOS 2007-04-26 00:00:00 Completed [facility] DTAP 2001-01-17 00:00:00 Completed [facility] MMR 2001-01-17 00:00:00 Completed [facility] Polio (IPV/OPV) 2001-01-17 00:00:00 Completed [facility] DTAP 2001-01-17 00:00:00 Completed [facility] MMR 2001-01-17 00:00:00 Completed [facility] Polio (IPV/OPV) 2001-01-17 00:00:00 Completed [facility] DTAP 2001-01-17 00:00:00 Completed [facility] MMR 2001-01-17 00:00:00 Completed [facility] Polio (IPV/OPV) 2001-01-17 00:00:00 Completed [facility] DTAP 2001-01-17 00:00:00 Completed [facility] MMR 2001-01-17 00:00:00 Completed [facility] Polio (IPV/OPV) 2001-01-17 00:00:00 Completed [facility] DTAP 2001-01-17 00:00:00 Completed [facility] MMR 2001-01-17 00:00:00 Completed [facility] Polio (IPV/OPV) 2001-01-17 00:00:00 Completed [facility] DTAP 2001-01-17 00:00:00 Completed [facility] MMR 2001-01-17 00:00:00 Completed [facility] Polio (IPV/OPV) 2001-01-17 00:00:00 Completed [facility] DTAP 2001-01-17 00:00:00 Completed [facility] MMR 2001-01-17 00:00:00 Completed [facility] Polio (IPV/OPV) 2001-01-17 00:00:00 Completed [facility] DTAP 2001-01-17 00:00:00 Completed [facility] MMR 2001-01-17 00:00:00 Completed [facility] Polio (IPV/OPV) 2001-01-17 00:00:00 Completed [facility] DTAP 2001-01-17 00:00:00 Completed [facility] MMR 2001-01-17 00:00:00 Completed [facility] Polio (IPV/OPV) 2001-01-17 00:00:00 Completed [facility] DTAP 2001-01-17 00:00:00 Completed [facility] MMR 2001-01-17 00:00:00 Completed [facility] Polio (IPV/OPV) 2001-01-17 00:00:00 Completed [facility] DTAP 2001-01-17 00:00:00 Completed [facility] MMR 2001-01-17 00:00:00 Completed [facility] Polio (IPV/OPV) 2001-01-17 00:00:00 Completed [facility] DTAP 2001-01-17 00:00:00 Completed [facility] MMR 2001-01-17 00:00:00 Completed [facility] Polio (IPV/OPV) 2001-01-17 00:00:00 Completed [facility] DTAP 2001-01-17 00:00:00 Completed [facility] MMR 2001-01-17 00:00:00 Completed [facility] Polio (IPV/OPV) 2001-01-17 00:00:00 Completed [facility] DTAP 2001-01-17 00:00:00 Completed [facility] MMR 2001-01-17 00:00:00 Completed [facility] Polio (IPV/OPV) 2001-01-17 00:00:00 Completed [facility] DTAP 2001-01-17 00:00:00 Completed [facility] MMR 2001-01-17 00:00:00 Completed [facility] Polio (IPV/OPV) 2001-01-17 00:00:00 Completed [facility] DTAP 2001-01-17 00:00:00 Completed [facility] MMR 2001-01-17 00:00:00 Completed [facility] Polio (IPV/OPV) 2001-01-17 00:00:00 Completed [facility] DTAP 2001-01-17 00:00:00 Completed [facility] MMR 2001-01-17 00:00:00 Completed [facility] Polio (IPV/OPV) 2001-01-17 00:00:00 Completed [facility] DTAP 2001-01-17 00:00:00 Completed [facility] MMR 2001-01-17 00:00:00 Completed [facility] Polio (IPV/OPV) 2001-01-17 00:00:00 Completed [facility] DTAP 2001-01-17 00:00:00 Completed [facility] MMR 2001-01-17 00:00:00 Completed [facility] Polio (IPV/OPV) 2001-01-17 00:00:00 Completed [facility] DTAP 2001-01-17 00:00:00 Completed [facility] MMR 2001-01-17 00:00:00 Completed [facility] Polio (IPV/OPV) 2001-01-17 00:00:00 Completed [facility] DTAP 1999-11-04 00:00:00 Completed [facility] Varicella (varivax)(chicken pox) 1999-11-04 00:00:00 Completed [facility] DTAP 1999-11-04 00:00:00 Completed [facility] Varicella (varivax)(chicken pox) 1999-11-04 00:00:00 Completed [facility] DTAP 1999-11-04 00:00:00 Completed [facility] Varicella (varivax)(chicken pox) 1999-11-04 00:00:00 Completed [facility] DTAP 1999-11-04 00:00:00 Completed [facility] Varicella (varivax)(chicken pox) 1999-11-04 00:00:00 Completed [facility] DTAP 1999-11-04 00:00:00 Completed [facility] Varicella (varivax)(chicken pox) 1999-11-04 00:00:00 Completed [facility] DTAP 1999-11-04 00:00:00 Completed [facility] Varicella (varivax)(chicken pox) 1999-11-04 00:00:00 Completed [facility] DTAP 1999-11-04 00:00:00 Completed [facility] Varicella (varivax)(chicken pox) 1999-11-04 00:00:00 Completed [facility] DTAP 1999-11-04 00:00:00 Completed [facility] Varicella (varivax)(chicken pox) 1999-11-04 00:00:00 Completed [facility] DTAP 1999-11-04 00:00:00 Completed [facility] Varicella (varivax)(chicken pox) 1999-11-04 [facility] Varicella (varivax)(chicken pox) 1999-11-04 00:00:00 Completed [facility] DTAP 1999-11-04 00:00:00 Completed [facility] Varicella (varivax)(chicken pox) 1999-11-04 00:00:00 Completed [facility] DTAP 1999-11-04 00:00:00 Completed [facility] Varicella (varivax)(chicken pox) 1999-11-04 00:00:00 Completed [facility] DTAP 1999-11-04 00:00:00 Completed [facility] Varicella (varivax)(chicken pox) 1999-11-04 00:00:00 Completed [facility] DTAP 1999-11-04 00:00:00 Completed [facility] Varicella (varivax)(chicken pox) 1999-11-04 00:00:00 Completed [facility] DTAP 1999-11-04 00:00:00 Completed [facility] Varicella (varivax)(chicken pox) 1999-11-04 [facility] Varicella (varivax)(chicken pox) 1999-11-04 [facility] Varicella (varivax)(chicken pox) 1999-11-04 00:00:00 Completed [facility] DTAP 1999-11-04 00:00:00 Completed [facility] Varicella (varivax)(chicken pox) 1999-11-04 00:00:00 Completed [facility] DTAP 1999-11-04 00:00:00 Completed [facility] Varicella (varivax)(chicken pox) 1999-11-04 00:00:00 Completed [facility] DTAP 1999-11-04 00:00:00 Completed [facility] Varicella (varivax)(chicken pox) 1999-11-04 00:00:00 Completed [facility] DTAP 1997-10-31 00:00:00 Completed [facility] MMR 1997-10-31 00:00:00 Completed [facility] DTAP 1997-10-31 00:00:00 Completed [facility] MMR 1997-10-31 00:00:00 Completed [facility] DTAP 1997-10-31 00:00:00 Completed [facility] MMR 1997-10-31 00:00:00 Completed [facility] DTAP 1997-10-31 00:00:00 Completed [facility] MMR 1997-10-31 00:00:00 Completed [facility] DTAP 1997-10-31 00:00:00 Completed [facility] MMR 1997-10-31 00:00:00 Completed [facility] DTAP 1997-10-31 00:00:00 Completed [facility] MMR 1997-10-31 00:00:00 Completed [facility] HIB PRP-D,booster 1997-10-31 00:00:00 Completed [facility] DTAP 1997-10-31 00:00:00 [facility] [facility] 1997-10-31 00:00:00 Completed [facility] HIB PRP-D,booster 1997-10-31 00:00:00 Completed [facility] DTAP 1997-10-31 00:00:00 Completed [facility] MMR 1997-10-31 00:00:00 Completed [facility] HIB PRP-D,booster 1997-10-31 00:00:00 Completed [facility] Heamophilus Influenza B 1997-10-31 00:00:00 Completed [facility] DTAP 1997-10-31 00:00:00 Completed [facility] MMR 1997-10-31 00:00:00 Completed [facility] HIB PRP-D,booster 1997-10-31 00:00:00 Completed [facility] Heamophilus Influenza B 1997-10-31 00:00:00 Completed [facility] DTAP 1997-10-31 00:00:00 Completed [facility] MMR 1997-10-31 00:00:00 Completed [facility] HIB PRP-D,booster 1997-10-31 00:00:00 Completed [facility] Heamophilus Influenza B 1997-10-31 00:00:00 Completed [facility] DTAP 1997-10-31 00:00:00 Completed [facility] MMR 1997-10-31 00:00:00 Completed [facility] HIB PRP-D,booster 1997-10-31 00:00:00 Completed [facility] Heamophilus Influenza B 1997-10-31 00:00:00 Completed [facility] DTAP 1997-10-31 00:00:00 Completed [facility] MMR 1997-10-31 00:00:00 Completed [facility] DTAP 1997-10-31 00:00:00 Completed [facility] MMR 1997-10-31 00:00:00 Completed [facility] DTAP 1997-10-31 00:00:00 Completed [facility] MMR 1997-10-31 00:00:00 Completed [facility] DTAP 1997-10-31 00:00:00 Completed [facility] MMR 1997-10-31 00:00:00 Completed [facility] DTAP 1997-10-31 00:00:00 Completed [facility] MMR 1997-10-31 00:00:00 Completed [facility] DTAP 1997-10-31 00:00:00 Completed [facility] MMR 1997-10-31 00:00:00 Completed [facility] DTAP 1997-10-31 00:00:00 Completed [facility] MMR 1997-10-31 00:00:00 Completed [facility] DTAP 1997-10-31 00:00:00 Completed [facility] MMR 1997-10-31 00:00:00 Completed [facility] DTAP 1997-10-31 00:00:00 Completed [facility] MMR 1997-10-31 00:00:00 Completed [facility] DTAP 1997-04-24 00:00:00 Completed [facility] Hep B, Adol or Pedi Dosage 1997-04-24 00:00:00 Completed [facility] Polio (IPV/OPV) 1997-04-24 00:00:00 Completed [facility] DTAP 1997-04-24 00:00:00 Completed [facility] Hep B, Adol or Pedi Dosage 1997-04-24 00:00:00 Completed [facility] Polio (IPV/OPV) 1997-04-24 00:00:00 Completed [facility] DTAP 1997-04-24 00:00:00 Completed [facility] Hep B, Adol or Pedi Dosage 1997-04-24 00:00:00 Completed [facility] Polio (IPV/OPV) 1997-04-24 00:00:00 Completed [facility] DTAP 1997-04-24 00:00:00 Completed [facility] Hep B, Adol or Pedi Dosage 1997-04-24 00:00:00 Completed [facility] Polio (IPV/OPV) 1997-04-24 00:00:00 Completed [facility] DTAP 1997-04-24 00:00:00 Completed [facility] Hep B, Adol or Pedi Dosage 1997-04-24 00:00:00 Completed [facility] Polio (IPV/OPV) 1997-04-24 00:00:00 Completed [facility] DTAP 1997-04-24 00:00:00 Completed [facility] Hep B, Adol or Pedi Dosage 1997-04-24 00:00:00 Completed [facility] Polio (IPV/OPV) 1997-04-24 00:00:00 Completed [facility] HIB PRP-D,booster 1997-04-24 00:00:00 Completed [facility] DTAP 1997-04-24 00:00:00 Completed [facility] Hep B, Adol or Pedi Dosage 1997-04-24 00:00:00 Completed [facility] Polio (IPV/OPV) 1997-04-24 00:00:00 Completed [facility] HIB PRP-D,booster 1997-04-24 00:00:00 Completed [facility] DTAP 1997-04-24 00:00:00 Completed [facility] Hep B, Adol or Pedi Dosage 1997-04-24 00:00:00 Completed [facility] Polio (IPV/OPV) 1997-04-24 00:00:00 Completed [facility] HIB PRP-D,booster 1997-04-24 00:00:00 Completed [facility] Heamophilus Influenza B 1997-04-24 00:00:00 Completed [facility] DTAP 1997-04-24 00:00:00 Completed [facility] Hep B, Adol or Pedi Dosage 1997-04-24 00:00:00 Completed [facility] Polio (IPV/OPV) 1997-04-24 00:00:00 Completed [facility] HIB PRP-D,booster 1997-04-24 00:00:00 Completed [facility] Heamophilus Influenza B 1997-04-24 00:00:00 Completed [facility] DTAP 1997-04-24 00:00:00 Completed [facility] Hep B, Adol or Pedi Dosage 1997-04-24 00:00:00 Completed [facility] Polio (IPV/OPV) 1997-04-24 00:00:00 Completed [facility] HIB PRP-D,booster 1997-04-24 00:00:00 Completed [facility] Heamophilus Influenza B 1997-04-24 00:00:00 Completed [facility] DTAP 1997-04-24 00:00:00 Completed [facility] Hep B, Adol or Pedi Dosage 1997-04-24 00:00:00 Completed [facility] Polio (IPV/OPV) 1997-04-24 00:00:00 Completed [facility] HIB PRP-D,booster 1997-04-24 00:00:00 Completed [facility] Heamophilus Influenza B 1997-04-24 00:00:00 Completed [facility] DTAP 1997-04-24 00:00:00 Completed [facility] Hep B, Adol or Pedi Dosage 1997-04-24 00:00:00 Completed [facility] Polio (IPV/OPV) 1997-04-24 00:00:00 Completed [facility] DTAP 1997-04-24 00:00:00 Completed [facility] Hep B, Adol or Pedi Dosage 1997-04-24 00:00:00 Completed [facility] Polio (IPV/OPV) 1997-04-24 00:00:00 Completed [facility] DTAP 1997-04-24 00:00:00 Completed [facility] Hep B, Adol or Pedi Dosage 1997-04-24 00:00:00 Completed [facility] Polio (IPV/OPV) 1997-04-24 00:00:00 Completed [facility] DTAP 1997-04-24 00:00:00 Completed [facility] Hep B, Adol or Pedi Dosage 1997-04-24 00:00:00 Completed [facility] Polio (IPV/OPV) 1997-04-24 00:00:00 Completed [facility] DTAP 1997-04-24 00:00:00 Completed [facility] Hep B, Adol or Pedi Dosage 1997-04-24 00:00:00 Completed [facility] Polio (IPV/OPV) 1997-04-24 00:00:00 Completed [facility] DTAP 1997-04-24 00:00:00 Completed [facility] Hep B, Adol or Pedi Dosage 1997-04-24 00:00:00 Completed [facility] Polio (IPV/OPV) 1997-04-24 00:00:00 Completed [facility] DTAP 1997-04-24 00:00:00 Completed [facility] Hep B, Adol or Pedi Dosage 1997-04-24 00:00:00 Completed [facility] Polio (IPV/OPV) 1997-04-24 00:00:00 Completed [facility] DTAP 1997-04-24 00:00:00 Completed [facility] Hep B, Adol or Pedi Dosage 1997-04-24 00:00:00 Completed [facility] Polio (IPV/OPV) 1997-04-24 00:00:00 Completed [facility] DTAP 1997-04-24 00:00:00 Completed [facility] Hep B, Adol or Pedi Dosage 1997-04-24 00:00:00 Completed [facility] Polio (IPV/OPV) 1997-04-24 00:00:00 Completed [facility] DTAP 1996 00:00:00 Completed [facility] Polio (IPV/OPV) 1996 00:00:00 Completed [facility] DTAP 1996 00:00:00 Completed [facility] Polio (IPV/OPV) 1996 00:00:00 Completed [facility] DTAP 1996 00:00:00 Completed [facility] Polio (IPV/OPV) 1996 00:00:00 Completed [facility] DTAP 1996 00:00:00 Completed [facility] Polio (IPV/OPV) 1996 00:00:00 Completed [facility] DTAP 1996 00:00:00 Completed [facility] Polio (IPV/OPV) 1996 00:00:00 Completed [facility] DTAP 1996 00:00:00 Completed [facility] Polio (IPV/OPV) 1996 00:00:00 Completed [facility] HIB PRP-D,booster 1996 00:00:00 Completed [facility] DTAP 1996 00:00:00 Completed [facility] Polio (IPV/OPV) 1996 00:00:00 Completed [facility] HIB PRP-D,booster 1996 00:00:00 Completed [facility] DTAP 1996 00:00:00 Completed [facility] Polio (IPV/OPV) 1996 00:00:00 Completed [facility] HIB PRP-D,booster 1996 00:00:00 Completed [facility] Heamophilus Influenza B 1996 00:00:00 Completed [facility] DTAP 1996 00:00:00 Completed [facility] Polio (IPV/OPV) 1996 00:00:00 Completed [facility] HIB PRP-D,booster 1996 00:00:00 Completed [facility] Heamophilus Influenza B 1996 00:00:00 Completed [facility] DTAP 1996 00:00:00 Completed [facility] Polio (IPV/OPV) 1996 00:00:00 Completed [facility] HIB PRP-D,booster 1996 00:00:00 Completed [facility] Heamophilus Influenza B 1996 00:00:00 Completed [facility] DTAP 1996 00:00:00 Completed [facility] Polio (IPV/OPV) 1996 00:00:00 Completed [facility] HIB PRP-D,booster 1996 00:00:00 Completed [facility] Heamophilus Influenza B 1996 00:00:00 Completed [facility] DTAP 1996 00:00:00 Completed [facility] Polio (IPV/OPV) 1996 00:00:00 Completed [facility] DTAP 1996 00:00:00 Completed [facility] Polio (IPV/OPV) 1996 00:00:00 Completed [facility] DTAP 1996 00:00:00 Completed [facility] Polio (IPV/OPV) 1996 00:00:00 Completed [facility] DTAP 1996 00:00:00 Completed [facility] Polio (IPV/OPV) 1996 00:00:00 Completed [facility] DTAP 1996 00:00:00 Completed [facility] Polio (IPV/OPV) 1996 00:00:00 Completed [facility] DTAP 1996 00:00:00 Completed [facility] Polio (IPV/OPV) 1996 00:00:00 Completed [facility] DTAP 1996 00:00:00 Completed [facility] Polio (IPV/OPV) 1996 00:00:00 Completed [facility] DTAP 1996 00:00:00 Completed [facility] Polio (IPV/OPV) 1996 00:00:00 Completed [facility] DTAP 1996 00:00:00 Completed [facility] Polio (IPV/OPV) 1996 00:00:00 Completed [facility] DTAP 1996 00:00:00 Completed [facility] Hep B, Adol or Pedi Dosage 1996 00:00:00 Completed [facility] Polio (IPV/OPV) 1996 00:00:00 Completed [facility] DTAP 1996 00:00:00 Completed [facility] Hep B, Adol or Pedi Dosage 1996 00:00:00 Completed [facility] Polio (IPV/OPV) 1996 00:00:00 Completed [facility] DTAP 1996 00:00:00 Completed [facility] Hep B, Adol or Pedi Dosage 1996 00:00:00 Completed [facility] Polio (IPV/OPV) 1996 00:00:00 Completed [facility] DTAP 1996 00:00:00 Completed [facility] Hep B, Adol or Pedi Dosage 1996 00:00:00 Completed [facility] Polio (IPV/OPV) 1996 00:00:00 Completed [facility] DTAP 1996 00:00:00 Completed [facility] Hep B, Adol or Pedi Dosage 1996 00:00:00 Completed [facility] Polio (IPV/OPV) 1996 00:00:00 Completed [facility] DTAP 1996 00:00:00 Completed [facility] Hep B, Adol or Pedi Dosage 1996 00:00:00 Completed [facility] Polio (IPV/OPV) 1996 00:00:00 Completed [facility] HIB PRP-D,booster 1996 00:00:00 Completed [facility] DTAP 1996 00:00:00 Completed [facility] Hep B, Adol or Pedi Dosage 1996 00:00:00 Completed [facility] Polio (IPV/OPV) 1996 00:00:00 Completed [facility] HIB PRP-D,booster 1996 00:00:00 Completed [facility] DTAP 1996 00:00:00 Completed [facility] Hep B, Adol or Pedi Dosage 1996 00:00:00 Completed [facility] Polio (IPV/OPV) 1996 00:00:00 Completed [facility] HIB PRP-D,booster 1996 00:00:00 Completed [facility] Heamophilus Influenza B 1996 00:00:00 Completed [facility] DTAP 1996 00:00:00 Completed [facility] Hep B, Adol or Pedi Dosage 1996 00:00:00 Completed [facility] Polio (IPV/OPV) 1996 00:00:00 Completed [facility] HIB PRP-D,booster 1996 00:00:00 Completed [facility] Heamophilus Influenza B 1996 00:00:00 Completed [facility] DTAP 1996 00:00:00 Completed [facility] Hep B, Adol or Pedi Dosage 1996 00:00:00 Completed [facility] Polio (IPV/OPV) 1996 00:00:00 Completed [facility] HIB PRP-D,booster 1996 00:00:00 Completed [facility] Heamophilus Influenza B 1996 00:00:00 Completed [facility] DTAP 1996 00:00:00 Completed [facility] Hep B, Adol or Pedi Dosage 1996 00:00:00 Completed [facility] Polio (IPV/OPV) 1996 00:00:00 Completed [facility] HIB PRP-D,booster 1996 00:00:00 Completed [facility] Heamophilus Influenza B 1996 00:00:00 Completed [facility] DTAP 1996 00:00:00 Completed [facility] Hep B, Adol or Pedi Dosage 1996 00:00:00 Completed [facility] Polio (IPV/OPV) 1996 00:00:00 Completed [facility] DTAP 1996 00:00:00 Completed [facility] Hep B, Adol or Pedi Dosage 1996 00:00:00 Completed [facility] Polio (IPV/OPV) 1996 00:00:00 Completed [facility] DTAP 1996 00:00:00 Completed [facility] Hep B, Adol or Pedi Dosage 1996 00:00:00 Completed [facility] Polio (IPV/OPV) 1996 00:00:00 Completed [facility] DTAP 1996 00:00:00 Completed [facility] Hep B, Adol or Pedi Dosage 1996 00:00:00 Completed [facility] Polio (IPV/OPV) 1996 00:00:00 Completed [facility] DTAP 1996 00:00:00 Completed [facility] Hep B, Adol or Pedi Dosage 1996 00:00:00 Completed [facility] Polio (IPV/OPV) 1996 00:00:00 Completed [facility] DTAP 1996 00:00:00 Completed [facility] Hep B, Adol or Pedi Dosage 1996 00:00:00 Completed [facility] Polio (IPV/OPV) 1996 00:00:00 Completed [facility] DTAP 1996 00:00:00 Completed [facility] Hep B, Adol or Pedi Dosage 1996 00:00:00 Completed [facility] Polio (IPV/OPV) 1996 00:00:00 Completed [facility] DTAP 1996 00:00:00 Completed [facility] Hep B, Adol or Pedi Dosage 1996 00:00:00 Completed [facility] Polio (IPV/OPV) 1996 00:00:00 Completed [facility] DTAP 1996 00:00:00 Completed [facility] Hep B, Adol or Pedi Dosage 1996 00:00:00 Completed [facility] Polio (IPV/OPV) 1996 00:00:00 Completed [facility] Hep B, Adol or Pedi Dosage 1996 00:00:00 Completed [facility] Hep B, Adol or Pedi Dosage 1996 00:00:00 Completed [facility] Hep B, Adol or Pedi Dosage 1996 00:00:00 Completed [facility] Hep B, Adol or Pedi Dosage 1996 00:00:00 Completed [facility] Hep B, Adol or Pedi Dosage 1996 00:00:00 Completed [facility] Hep B, Adol or Pedi Dosage 1996 00:00:00 Completed [facility] Hep B, Adol or Pedi Dosage 1996 00:00:00 Completed [facility] Hep B, Adol or Pedi Dosage 1996 00:00:00 Completed [facility] Hep B, Adol or Pedi Dosage 1996 00:00:00 Completed [facility] Hep B, Adol or Pedi Dosage 1996 00:00:00 Completed [facility] Hep B, Adol or Pedi Dosage 1996 00:00:00 Completed [facility] Hep B, Adol or Pedi Dosage 1996 00:00:00 Completed [facility] Hep B, Adol or Pedi Dosage 1996 00:00:00 Completed [facility] Hep B, Adol or Pedi Dosage 1996 00:00:00 Completed [facility] Hep B, Adol or Pedi Dosage 1996 00:00:00 Completed [facility] Hep B, Adol or Pedi Dosage 1996 00:00:00 Completed [facility] Hep B, Adol or Pedi Dosage 1996 00:00:00 Completed [facility] Hep B, Adol or Pedi Dosage 1996 00:00:00 Completed [facility] Hep B, Adol or Pedi Dosage 1996 00:00:00 Completed [facility] Hep B, Adol or Pedi Dosage 1996 00:00:00 Completed [facility] TDAP Unknown Completed [facility] DTAP Unknown Completed [facility] DTAP Unknown Completed [facility] DTAP Unknown Completed [facility] DTAP Unknown Completed [facility] DTAP Unknown Completed [facility] DTAP Unknown Completed [facility] HEPA,NOS Unknown Completed [facility] HEPA,NOS Unknown Completed [facility] Hep B, Adol or Pedi Dosage Unknown Completed [facility] Hep B, Adol or Pedi Dosage Unknown Completed [facility] Hep B, Adol or Pedi Dosage Unknown Completed [facility] Meningococcal Polysaccharide (groups A, C, Y and W-135) conjugate vaccine (MCV4P) Unknown Completed [facility] Meningococcal Polysaccharide (groups A, C, Y and W-135) conjugate vaccine (MCV4P) Unknown Completed [facility] Meningococcal Polysaccharide (groups A, C, Y and W-135) conjugate vaccine (MCV4P) Unknown Completed [facility] MMR Unknown Completed [facility] MMR Unknown Completed [facility] Polio (IPV/OPV) Unknown Completed [facility] Polio (IPV/OPV) Unknown Completed [facility] Polio (IPV/OPV) Unknown Completed [facility] Polio (IPV/OPV) Unknown Completed [facility] TDAP Unknown Completed [facility] TDAP Unknown Completed [facility] TDAP Unknown Completed [facility] Varicella (varivax)(chicken pox) Unknown Completed [facility] Varicella (varivax)(chicken pox) Unknown Completed [facility] HPV9 Unknown Completed [facility] HIB PRP-D,booster [facility] Completed [facility] Heamophilus Influenza B Unknown Completed [facility] Heamophilus Influenza B Unknown Completed [facility] Heamophilus Influenza B Unknown Completed [facility] HPV9 Unknown Completed [facility] TDAP Unknown Completed [facility] DTAP Unknown Completed [facility] DTAP Unknown Completed [facility] DTAP Unknown Completed [facility] DTAP Unknown Completed [facility] DTAP Unknown Completed [facility] DTAP Unknown Completed [facility] HEPA,NOS Unknown Completed [facility] HEPA,NOS Unknown Completed [facility] Hep B, Adol or Pedi Dosage Unknown Completed [facility] Hep B, Adol or Pedi Dosage Unknown Completed [facility] Hep B, Adol or Pedi Dosage Unknown Completed [facility] Meningococcal Polysaccharide (groups A, C, Y and W-135) conjugate vaccine (MCV4P) Unknown Completed [facility] Meningococcal Polysaccharide (groups A, C, Y and W-135) conjugate vaccine (MCV4P) Unknown Completed [facility] Meningococcal Polysaccharide (groups A, C, Y and W-135) conjugate vaccine (MCV4P) Unknown Completed [facility] MMR Unknown Completed [facility] MMR Unknown Completed [facility] Polio (IPV/OPV) Unknown Completed [facility] Polio (IPV/OPV) Unknown Completed [facility] Polio (IPV/OPV) Unknown Completed [facility] Polio (IPV/OPV) Unknown Completed [facility] TDAP Unknown Completed [facility] TDAP Unknown Completed [facility] TDAP Unknown Completed [facility] Varicella (varivax)(chicken pox) Unknown Completed [facility] Varicella (varivax)(chicken pox) Unknown Completed [facility] HPV9 Unknown Completed [facility] HIB PRP-D,booster Unknown [facility] He[facility] B Unknown Completed [facility] Heamophilus Influenza B Unknown Completed [facility] Heamophilus Influenza B Unknown Completed [facility] Heamophilus Influenza B Unknown Completed [facility] HPV9 Unknown Completed [facility] HPV9 Unknown Completed [facility] TDAP Unknown Completed [facility] DTAP Unknown Completed [facility] DTAP Unknown Completed [facility] DTAP Unknown Completed [facility] DTAP Unknown Completed [facility] DTAP Unknown Completed [facility] DTAP Unknown Completed [facility] HEPA,NOS Unknown Completed [facility] HEPA,NOS Unknown Completed [facility] Hep B, Adol or Pedi Dosage Unknown Completed [facility] Hep B, Adol or Pedi Dosage Unknown Completed [facility] Hep B, Adol or Pedi Dosage Unknown Completed [facility] Meningococcal Polysaccharide (groups A, C, Y and W-135) conjugate vaccine (MCV4P) Unknown Completed [facility] Meningococcal Polysaccharide (groups A, C, Y and W-135) conjugate vaccine (MCV4P) Unknown Completed [facility] Meningococcal Polysaccharide (groups A, C, Y and W-135) conjugate vaccine (MCV4P) Unknown Completed [facility] MMR Unknown Completed [facility] MMR Unknown Completed [facility] Polio (IPV/OPV) Unknown Completed [facility] Polio (IPV/OPV) Unknown Completed [facility] Polio (IPV/OPV) Unknown Completed [facility] Polio (IPV/OPV) Unknown Completed [facility] TDAP Unknown Completed [facility] TDAP Unknown Completed [facility] TDAP Unknown Completed [facility] Varicella (varivax)(chicken pox) Unknown Completed [facility] Varicella (varivax)(chicken pox) Unknown Completed [facility] HPV9 Unknown Completed [facility] HIB PRP-D,booster Unknown [facility] Unknown Completed [facility] Heamophilus Influenza B Unknown Completed [facility] Heamophilus Influenza B Unknown Completed [facility] Heamophilus Influenza B Unknown Completed [facility] HPV9 Unknown Completed [facility] HPV9 Unknown Completed [facility] HPV9 Unknown Completed [facility] TDAP Unknown Completed [facility] DTAP Unknown Completed [facility] DTAP Unknown Completed [facility] DTAP Unknown Completed [facility] DTAP Unknown Completed [facility] DTAP Unknown Completed [facility] DTAP Unknown Completed [facility] HEPA,NOS Unknown Completed [facility] HEPA,NOS Unknown Completed [facility] Hep B, Adol or Pedi Dosage Unknown Completed [facility] Hep B, Adol or Pedi Dosage Unknown Completed [facility] Hep B, Adol or Pedi Dosage Unknown Completed [facility] Meningococcal Polysaccharide (groups A, C, Y and W-135) conjugate vaccine (MCV4P) Unknown Completed [facility] Meningococcal Polysaccharide (groups A, C, Y and W-135) conjugate vaccine (MCV4P) Unknown Completed [facility] Meningococcal Polysaccharide (groups A, C, Y and W-135) conjugate vaccine (MCV4P) Unknown Completed [facility] MMR Unknown Completed [facility] MMR Unknown Completed [facility] Polio (IPV/OPV) Unknown Completed [facility] Polio (IPV/OPV) Unknown Completed [facility] Polio (IPV/OPV) Unknown Completed [facility] Polio (IPV/OPV) Unknown Completed [facility] TDAP Unknown Completed [facility] TDAP Unknown Completed [facility] TDAP Unknown Completed [facility] Varicella (varivax)(chicken pox) Unknown Completed [facility] Varicella (varivax)(chicken pox) Unknown Completed [facility] HPV9 Unknown Completed [facility] HIB PRP-D,booster Unknown [facility]booster [facility] Com[facility] Heamophilus Influenza B Unknown Completed [facility] Heamophilus Influenza B Unknown Completed [facility] Heamophilus Influenza B Unknown Completed [facility] HPV9 Unknown Completed [facility] HPV9 Unknown Completed [facility] HPV9 Unknown Completed [facility] TDAP Unknown Completed [facility] DTAP Unknown Completed [facility] DTAP Unknown Completed [facility] DTAP Unknown Completed [facility] DTAP Unknown Completed [facility] DTAP Unknown Completed [facility] DTAP Unknown Completed [facility] HEPA,NOS Unknown Completed [facility] HEPA,NOS Unknown Completed [facility] Hep B, Adol or Pedi Dosage Unknown Completed [facility] Hep B, Adol or Pedi Dosage Unknown Completed [facility] Hep B, Adol or Pedi Dosage Unknown Completed [facility] Meningococcal Polysaccharide (groups A, C, Y and W-135) conjugate vaccine (MCV4P) Unknown Completed [facility] Meningococcal Polysaccharide (groups A, C, Y and W-135) conjugate vaccine (MCV4P) Unknown Completed [facility] Meningococcal Polysaccharide (groups A, C, Y and W-135) conjugate vaccine (MCV4P) Unknown Completed [facility] MMR Unknown Completed [facility] MMR Unknown Completed [facility] Polio (IPV/OPV) Unknown Completed [facility] Polio (IPV/OPV) Unknown Completed [facility] Polio (IPV/OPV) Unknown Completed [facility] Polio (IPV/OPV) Unknown Completed [facility] TDAP Unknown Completed [facility] TDAP Unknown Completed [facility] TDAP Unknown Completed [facility] Varicella (varivax)(chicken pox) Unknown Completed [facility] Varicella (varivax)(chicken pox) Unknown Completed [facility] HPV9 Unknown Completed [facility] HIB PRP-D,booster Unknown [facility]D,booster [facility] Completed [facility] Heamophilus Influenza B Unknown Completed [facility] Heamophilus Influenza B Unknown Completed [facility] Heamophilus Influenza B Unknown Completed [facility] HPV9 Unknown Completed [facility] HPV9 Unknown Completed [facility] HPV9 Unknown Completed [facility] TDAP Unknown Completed [facility] DTAP Unknown Completed [facility] DTAP Unknown Completed [facility] DTAP Unknown Completed [facility] DTAP Unknown Completed [facility] DTAP Unknown Completed [facility] DTAP Unknown Completed [facility] HEPA,NOS Unknown Completed [facility] HEPA,NOS Unknown Completed [facility] Hep B, Adol or Pedi Dosage Unknown Completed [facility] Hep B, Adol or Pedi Dosage Unknown Completed [facility] Hep B, Adol or Pedi Dosage Unknown Completed [facility] Meningococcal Polysaccharide (groups A, C, Y and W-135) conjugate vaccine (MCV4P) Unknown Completed [facility] Meningococcal Polysaccharide (groups A, C, Y and W-135) conjugate vaccine (MCV4P) Unknown Completed [facility] Meningococcal Polysaccharide (groups A, C, Y and W-135) conjugate vaccine (MCV4P) Unknown Completed [facility] MMR Unknown Completed [facility] MMR Unknown Completed [facility] Polio (IPV/OPV) Unknown Completed [facility] Polio (IPV/OPV) Unknown Completed [facility] Polio (IPV/OPV) Unknown Completed [facility] Polio (IPV/OPV) Unknown Completed [facility] TDAP Unknown Completed [facility] TDAP Unknown Completed [facility] TDAP Unknown Completed [facility] Varicella (varivax)(chicken pox) Unknown Completed [facility] Varicella (varivax)(chicken pox) Unknown Completed [facility] HPV9 Unknown Completed [facility] HIB PRP-D,booster Unknown [facility] HIB PRP-D,booster [facility] HIB PRP-D[facility]booster [facility] HIB PRP-D,booster [facility] Influenza B Unknown Completed [facility] Heamophilus Influenza B Unknown Completed [facility] Heamophilus Influenza B Unknown Completed [facility] Heamophilus Influenza B Unknown Completed [facility] HPV9 Unknown Completed [facility] HPV9 Unknown Completed [facility] HPV9 Unknown Completed [facility] TDAP Unknown Completed [facility] DTAP Unknown Completed [facility] DTAP Unknown Completed [facility] DTAP Unknown Completed [facility] DTAP Unknown Completed [facility] DTAP Unknown Completed [facility] DTAP Unknown Completed [facility] HEPA,NOS Unknown Completed [facility] HEPA,NOS Unknown Completed [facility] Hep B, Adol or Pedi Dosage Unknown Completed [facility] Hep B, Adol or Pedi Dosage Unknown Completed [facility] Hep B, Adol or Pedi Dosage Unknown Completed [facility] Meningococcal Polysaccharide (groups A, C, Y and W-135) conjugate vaccine (MCV4P) Unknown Completed [facility] Meningococcal Polysaccharide (groups A, C, Y and W-135) conjugate vaccine (MCV4P) Unknown Completed [facility] Meningococcal Polysaccharide (groups A, C, Y and W-135) conjugate vaccine (MCV4P) Unknown Completed [facility] MMR Unknown Completed [facility] MMR Unknown Completed [facility] Polio (IPV/OPV) Unknown Completed [facility] Polio (IPV/OPV) Unknown Completed [facility] Polio (IPV/OPV) Unknown Completed [facility] Polio (IPV/OPV) Unknown Completed [facility] TDAP Unknown Completed [facility] TDAP Unknown Completed [facility] TDAP Unknown Completed [facility] Varicella (varivax)(chicken pox) Unknown Completed [facility] Varicella (varivax)(chicken pox) Unknown Completed [facility] HPV9 Unknown Completed [facility] HIB PRP-D,booster Unknown [facility] HIB PRP-D,booster [facility] HIB PRP-D,booster [facility] HIB PRP-D,booster Unknown [facility] Influenza B Unknown Completed [facility] Heamophilus Influenza B Unknown Completed [facility] Heamophilus Influenza B Unknown Completed [facility] Heamophilus Influenza B Unknown Completed [facility] HPV9 Unknown Completed [facility] HPV9 Unknown Completed [facility] HPV9 Unknown Completed [facility] TDAP Unknown Completed [facility] DTAP Unknown Completed [facility] DTAP Unknown Completed [facility] DTAP Unknown Completed [facility] DTAP Unknown Completed [facility] DTAP Unknown Completed [facility] DTAP Unknown Completed [facility] HEPA,NOS Unknown Completed [facility] HEPA,NOS Unknown Completed [facility] Hep B, Adol or Pedi Dosage Unknown Completed [facility] Hep B, Adol or Pedi Dosage Unknown Completed [facility] Hep B, Adol or Pedi Dosage Unknown Completed [facility] Meningococcal Polysaccharide (groups A, C, Y and W-135) conjugate vaccine (MCV4P) Unknown Completed [facility] Meningococcal Polysaccharide (groups A, C, Y and W-135) conjugate vaccine (MCV4P) Unknown Completed [facility] Meningococcal Polysaccharide (groups A, C, Y and W-135) conjugate vaccine (MCV4P) Unknown Completed [facility] MMR Unknown Completed [facility] MMR Unknown Completed [facility] Polio (IPV/OPV) Unknown Completed [facility] Polio (IPV/OPV) Unknown Completed [facility] Polio (IPV/OPV) Unknown Completed [facility] Polio (IPV/OPV) Unknown Completed [facility] TDAP Unknown Completed [facility] TDAP Unknown Completed [facility] TDAP Unknown Completed [facility] Varicella (varivax)(chicken pox) Unknown Completed [facility] Varicella (varivax)(chicken pox) Unknown Completed [facility] HPV9 Unknown Completed [facility] HIB PRP-D,booster Unknown [facility] H[facility] PRP-D,booster [facility] HIB PRP-D,booster Unknown [facility] HIB PRP-D,booster Unknown [facility] Influenza B Unknown Completed [facility] Heamophilus Influenza B Unknown Completed [facility] Heamophilus Influenza B Unknown Completed [facility] Heamophilus Influenza B Unknown Completed [facility] HPV9 Unknown Completed [facility] HPV9 Unknown Completed [facility] HPV9 Unknown Completed [facility] TDAP Unknown Completed [facility] DTAP Unknown Completed [facility] DTAP Unknown Completed [facility] DTAP Unknown Completed [facility] DTAP Unknown Completed [facility] DTAP Unknown Completed [facility] DTAP Unknown Completed [facility] HEPA,NOS Unknown Completed [facility] HEPA,NOS Unknown Completed [facility] Hep B, Adol or Pedi Dosage Unknown Completed [facility] Hep B, Adol or Pedi Dosage Unknown Completed [facility] Hep B, Adol or Pedi Dosage Unknown Completed [facility] Meningococcal Polysaccharide (groups A, C, Y and W-135) conjugate vaccine (MCV4P) Unknown Completed [facility] Meningococcal Polysaccharide (groups A, C, Y and W-135) conjugate vaccine (MCV4P) Unknown Completed [facility] Meningococcal Polysaccharide (groups A, C, Y and W-135) conjugate vaccine (MCV4P) Unknown Completed [facility] MMR Unknown Completed [facility] MMR Unknown Completed [facility] Polio (IPV/OPV) Unknown Completed [facility] Polio (IPV/OPV) Unknown Completed [facility] Polio (IPV/OPV) Unknown Completed [facility] Polio (IPV/OPV) Unknown Completed [facility] TDAP Unknown Completed [facility] TDAP Unknown Completed [facility] TDAP Unknown Completed [facility] Varicella (varivax)(chicken pox) Unknown Completed [facility] Varicella (varivax)(chicken pox) Unknown Completed [facility] HPV9 Unknown Completed [facility] HIB PRP-D,booster Unknown [facility] HIB PRP-D,booster Unknown [facility] HIB PRP-D,booster Unknown [facility] HIB PRP-D,booster Unknown [facility] Influenza B Unknown Completed [facility] Heamophilus Influenza B Unknown Completed [facility] Heamophilus Influenza B Unknown Completed [facility] Heamophil[facility] Influenza B Unknown Completed [facility] HPV9 Unknown Completed [facility] HPV9 Unknown Completed [facility] HPV9 Unknown Completed [facility] Vital Signs Vital Name Observation Time Observation Value Comments S ource Systolic blood pressure 2023-12-22 05:20:00 116 mm[Hg] [facility] Diastolic blood pressure 2023-12-22 05:20:00 75 mm[Hg] [facility] Heart rate 2023-12-22 05:20:00 104 /min [facility] Body temperature 2023-12-22 05:20:00 38 [facility] Respiratory rate 2023-12-22 05:20:00 20 /min [facility] Oxygen saturation in Arterial blood by Pulse oximetry 2023-12-22 05:20:00 100 /min [facility] Body height 2023-12-22 02:56:00 154.9 cm [facility] Body weight 2023-12-22 02:56:00 79.379 kg [facility] BMI 2023-12-22 02:56:00 33.07 kg/m2 [facility] Systolic blood pressure 2023-08-26 18:20:00 124 mm[Hg] [facility] Diastolic blood pressure 2023-08-26 18:20:00 72 mm[Hg] [facility] Heart rate 2023-08-26 18:20:00 107 /min [facility] Body temperature 2023-08-26 18:20:00 36.78 [facility] Respiratory rate 2023-08-26 18:20:00 18 /min [facility] Body weight 2023-08-26 18:20:00 79.062 kg [facility] BMI 2023-08-26 18:20:00 32.93 kg/m2 [facility] Oxygen saturation in Arterial blood by Pulse oximetry 2023-08-26 18:20:00 98 /min [facility] Systolic blood pressure 2023-08-03 15:00:00 117 mm[Hg] [facility] Diastolic blood pressure 2023-08-03 15:00:00 81 mm[Hg] [facility] Heart rate 2023-08-03 15:00:00 85 /min [facility] Body height 2023-08-03 15:00:00 154.9 cm [facility] Body weight 2023-08-03 15:00:00 80.74 kg [facility] BMI 2023-08-03 15:00:00 33.63 kg/m2 [facility] Oxygen saturation in Arterial blood by Pulse oximetry 2023-08-03 15:00:00 99 /min [facility] Systolic blood pressure 2023-07-19 18:06:00 125 mm[Hg] [facility] Diastolic blood pressure 2023-07-19 18:06:00 75 mm[Hg] [facility] Heart rate 2023-07-19 18:06:00 87 /min [facility] Body temperature 2023-07-19 18:06:00 35.94 [facility] Respiratory rate 2023-07-19 18:06:00 17 /min [facility] Body height 2023-07-19 18:06:00 154.9 cm [facility] Body weight 2023-07-19 18:06:00 83.326 kg [facility] BMI 2023-07-19 18:06:00 34.71 kg/m2 [facility] Systolic blood pressure 2023-05-15 18:00:00 111 mm[Hg] [facility] Diastolic blood pressure 2023-05-15 18:00:00 75 mm[Hg] [facility] Heart rate 2023-05-15 18:00:00 100 /min [facility] Body temperature 2023-05-15 18:00:00 36.83 [facility] Respiratory rate 2023-05-15 18:00:00 16 /min [facility] Body height 2023-05-15 18:00:00 154.9 cm [facility] Body weight 2023-05-15 18:00:00 86.818 kg [facility] BMI 2023-05-15 18:00:00 36.16 kg/m2 [facility] Oxygen saturation in Arterial blood by Pulse oximetry 2023-05-15 18:00:00 98 /min [facility] Systolic blood pressure 2023-04-22 20:08:00 119 mm[Hg] [facility] Diastolic blood pressure 2023-04-22 20:08:00 73 mm[Hg] [facility] Heart [facility] 2023-04-22 20[facility]08:00 79 [facility] Body temperature 2023-04-22 20:08:00 36.11 [facility] Respiratory rate 2023-04-22 20:08:00 20 /min [facility] Body height 2023-04-22 20:08:00 152.4 cm [facility] Body weight 2023-04-22 20:08:00 88.451 kg [facility] BMI 2023-04-22 20:08:00 38.08 kg/m2 [facility] Systolic blood pressure 2023-01-19 14:50:00 135 mm[Hg] [facility] Diastolic blood pressure 2023-01-19 14:50:00 84 mm[Hg] [facility] Heart rate 2023-01-19 14:50:00 97 [facility] Body temperature 2023-01-19 14:50:00 36.39 [facility] Respiratory rate 2023-01-19 14:50:00 18 /min [facility] Body height 2023-01-19 14:50:00 152.4 cm [facility] Body weight 2023-01-19 14:50:00 96.888 kg [facility] BMI 2023-01-19 14:50:00 41.72 kg/m2 [facility] Systolic blood pressure 2023-01-14 13:45:00 135 mm[Hg] [facility] Diastolic blood pressure 2023-01-14 13:45:00 82 mm[Hg] [facility] Heart rate 2023-01-14 13:45:00 96 /min [facility] Body temperature 2023-01-14 13:45:00 36.72 [facility] Respiratory rate 2023-01-14 13:45:00 17 /min [facility] Oxygen saturation in Arterial blood by Pulse oximetry 2023-01-14 13:45:00 98 /min [facility] Body height 2023-01-11 03:30:00 154.9 cm [facility] Body weight 2023-01-11 03:30:00 101.606 kg [facility] BMI 2023-01-11 03:30:00 42.35 kg/m2 [facility] Systolic blood pressure 2023-01-12 19:15:00 115 mm[Hg] [facility] Diastolic blood pressure 2023-01-12 19:15:00 80 mm[Hg] [facility] Heart rate 2023-01-12 19:15:00 119 /min [facility] Respiratory rate 2023-01-12 19:15:00 27 /min [facility] Oxygen saturation in Arterial blood by Pulse oximetry 2023-01-12 19:15:00 100 /min [facility] Body temperature 2023-01-12 19:00:00 36.44 [facility] Body height 2023-01-11 03:30:00 154.9 cm [facility] Body weight 2023-01-11 03:30:00 101.606 kg [facility] BMI 2023-01-11 03:30:00 42.35 kg/m2 [facility] Systolic blood pressure 2023-01-07 19:06:00 133 mm[Hg] [facility] Diastolic blood pressure 2023-01-07 19:06:00 83 mm[Hg] [facility] Heart rate 2023-01-07 19:06:00 96 /min [facility] Body temperature 2023-01-07 19:06:00 35.61 [facility] Respiratory rate 2023-01-07 19:06:00 18 /min [facility] Body height 2023-01-07 19:06:00 154.9 cm [facility] Body weight 2023-01-07 19:06:00 101.787 kg [facility] BMI 2023-01-07 19:06:00 42.40 kg/m2 [facility] Systolic blood pressure 2023-01-05 17:43:00 126 mm[Hg] [facility] Diastolic blood pressure 2023-01-05 17:43:00 77 mm[Hg] [facility] Heart rate 2023-01-05 17:43:00 97 /min [facility] Body temperature 2023-01-05 17:43:00 36.72 [facility] Respiratory rate 2023-01-05 17:43:00 18 /min [facility] Body height 2023-01-05 17:43:00 154.9 cm [facility] Body weight 2023-01-05 17:43:00 101.379 kg [facility] BMI 2023-01-05 17:43:00 42.23 kg/m2 [facility] Systolic blood pressure 2022-12-29 14:49:00 121 mm[Hg] [facility] Diastolic blood pressure 2022-12-29 14:49:00 66 mm[Hg] [facility] Heart rate 2022-12-29 14:49:00 94 /min [facility] Body temperature 2022-12-29 14:49:00 36.5 [facility] Respiratory rate 2022-12-29 14:49:00 18 /min [facility] Body height 2022-12-29 14:49:00 154.9 cm [facility] Body weight 2022-12-29 14:49:00 99.565 kg [facility] BMI 2022-12-29 14:49:00 41.47 kg/m2 [facility] Systolic blood pressure 2022-12-25 16:31:00 132 mm[Hg] [facility] Diastolic blood pressure 2022-12-25 16:31:00 79 mm[Hg] [facility] Heart rate 2022-12-25 16:31:00 100 /min [facility] Body temperature 2022-12-25 16:31:00 36.5 [facility] Respiratory rate 2022-12-25 16:31:00 18 /min [facility] Body height 2022-12-25 16:31:00 154.9 cm [facility] Body weight 2022-12-25 16:31:00 98.793 kg [facility] BMI 2022-12-25 16:31:00 41.15 kg/m2 [facility] Systolic blood pressure 2022-12-22 14:45:00 123 mm[Hg] [facility] Diastolic blood pressure 2022-12-22 14:45:00 74 mm[Hg] [facility] Heart rate 2022-12-22 14:45:00 107 /min [facility] Body temperature 2022-12-22 14:45:00 36.44 [facility] Respiratory rate 2022-12-22 14:45:00 18 /min [facility] Body height 2022-12-22 14:45:00 154.9 cm [facility] Body weight 2022-12-22 14:45:00 95.89 kg [facility] BMI 2022-12-22 14:45:00 39.94 kg/m2 [facility] Systolic blood pressure 2022-12-10 18:51:00 123 mm[Hg] [facility] Diastolic blood pressure 2022-12-10 18:51:00 74 mm[Hg] [facility] Heart rate 2022-12-10 18:51:00 102 /min [facility] Body temperature 2022-12-10 18:51:00 36.22 [facility] Body height 2022-12-10 18:51:00 154.9 cm [facility] Body weight 2022-12-10 18:51:00 96.344 kg [facility] BMI 2022-12-10 18:51:00 40.13 kg/m2 [facility] Systolic blood pressure 2022-12-07 21:09:00 126 mm[Hg] [facility] Diastolic blood pressure 2022-12-07 21:09:00 86 mm[Hg] [facility] Heart rate 2022-12-07 21:09:00 116 /min [facility] Body temperature 2022-12-07 21:09:00 35.78 [facility] Respiratory rate 2022-12-07 21:09:00 18 /min [facility] Body height 2022-12-07 21:09:00 154.9 cm [facility] Body weight 2022-12-07 21:09:00 95.981 kg [facility] BMI 2022-12-07 21:09:00 39.98 kg/m2 [facility] Systolic blood pressure 2022-11-11 14:26:00 112 mm[Hg] [facility] Diastolic blood pressure 2022-11-11 14:26:00 64 mm[Hg] [facility] Heart rate 2022-11-11 14:26:00 112 /min [facility] Body temperature 2022-11-11 14:26:00 36.5 [facility] Respiratory rate 2022-11-11 14:26:00 18 /min [facility] Body height 2022-11-11 14:26:00 154.9 cm [facility] Body weight 2022-11-11 14:26:00 94.348 kg [facility] BMI 2022-11-11 14:26:00 39.30 kg/m2 [facility] Systolic blood pressure 2022-10-29 14:56:00 97 mm[Hg] [facility] Diastolic blood pressure 2022-10-29 14:56:00 65 mm[Hg] [facility] Heart rate 2022-10-29 14:56:00 96 /min [facility] Body temperature 2022-10-29 14:56:00 36.22 [facility] Respiratory rate 2022-10-29 14:56:00 16 /min [facility] Body height 2022-10-29 14:56:00 154.9 cm [facility] Body weight 2022-10-29 14:56:00 92.704 kg [facility] BMI 2022-10-29 14:56:00 38.62 kg/m2 [facility] Systolic blood pressure 2022-10-14 17:05:00 117 mm[Hg] [facility] Diastolic blood pressure 2022-10-14 17:05:00 69 mm[Hg] [facility] Heart rate 2022-10-14 17:05:00 111 /[facility] Body temperature 2022-10-14 17:05:00 36.56 [facility] Respiratory rate 2022-10-14 17:05:00 17 /min [facility] Body height 2022-10-14 17:05:00 154.9 cm [facility] Body weight 2022-10-14 17:05:00 90.402 kg [facility] BMI 2022-10-14 17:05:00 37.66 kg/m2 [facility] Systolic blood pressure 2022-09-21 17:13:00 111 mm[Hg] [facility] Diastolic blood pressure 2022-09-21 17:13:00 65 mm[Hg] [facility] Heart rate 2022-09-21 17:13:00 102 /min [facility] Body temperature 2022-09-21 17:13:00 36.22 [facility] Respiratory rate 2022-09-21 17:13:00 18 /min [facility] Body height 2022-09-21 17:13:00 154.9 cm [facility] Body weight 2022-09-21 17:13:00 86.665 kg [facility] BMI 2022-09-21 17:13:00 36.10 kg/m2 [facility] Systolic blood pressure 2022-08-21 16:18:00 121 mm[Hg] [facility] Diastolic blood pressure 2022-08-21 16:18:00 73 mm[Hg] [facility] Heart rate 2022-08-21 16:18:00 109 /min [facility] Body temperature 2022-08-21 16:18:00 36.44 [facility] Respiratory rate 2022-08-21 16:18:00 18 /min [facility] Body height 2022-08-21 16:18:00 154.9 cm [facility] Body weight 2022-08-21 16:18:00 81.251 kg [facility] BMI 2022-08-21 16:18:00 33.85 kg/m2 [facility] Systolic blood pressure 2022-08-07 19:40:00 114 mm[Hg] [facility] Diastolic blood pressure 2022-08-07 19:40:00 70 mm[Hg] [facility] Heart rate 2022-08-07 19:40:00 93 /min [facility] Body temperature 2022-08-07 19:40:00 36.44 [facility] Respiratory rate 2022-08-07 19:40:00 17 /min [facility] Body height 2022-08-07 19:40:00 154.9 cm [facility] Body weight 2022-08-07 19:40:00 79.47 kg [facility] BMI 2022-08-07 19:40:00 33.10 kg/m2 [facility] Systolic blood pressure 2022-07-06 16:45:00 103 mm[Hg] [facility] Diastolic blood pressure 2022-07-06 16:45:00 71 mm[Hg] [facility] Heart rate 2022-07-06 16:45:00 101 /min [facility] Body temperature 2022-07-06 16:45:00 36.56 [facility] Body weight 2022-07-06 16:45:00 75.841 kg [facility] BMI 2022-07-06 16:45:00 31.59 kg/m2 [facility] Procedures Procedure Date / Time Performed Performing Clinician Source RAPID INFLUENZA A/B 2023-12-22 05:01:00 Con Rios [facility] ASSIGNMENT OF BENEFITS 2023-12-22 03:17:35 Docto r Unassigned, [place] [facility] RAPID STREP SCREEN FOR GROUP A 2023-12-22 03:13:00 Con Rios [facility] COVID-19 (ID NOW RAPID TESTING) 2023-12-22 03:13:00 Con Rios [facility] NOTICE OF PRIVACY PRACTICES 2023-12-22 02:50:28 Doctor Unassigned, [place] [facility] CONSENT/REFUSAL FOR DIAGNOSIS AND TREATMENT 2023-12-22 02:49:46 Doctor Unassigned, [place] [facility] POCT SARS-COV-2 ANTIGEN (BINAX NOW) 2023-08-26 18:42:00 Trina Valentine [facility] POCT MOLECULAR FLU 2023-08-26 18:32:00 Unknown, Attend ing [facility] GARDASIL 9 (HPV 9V) VACCINE 2023-07-20 18:47:47 Doctor Unassigned, [place] [facility] GARDASIL 9 (HPV 9V) VACCINE 2023-07-19 18:26:23 Doctor Unassigned, [place] [facility] PATIENT FINANCIAL POLICY 2023-07-19 17:54:59 Doctor Unassigned, [place] [facility] POCT SARS-COV-2 ANTIGEN (BINAX NOW) 2023-05-15 18:13:00 Promise Carlos [facility] POCT MOLECULAR STREP 2023-05-15 17:58:00 Unknown, Atte jean claude [facility] GARDASIL 9 (HPV 9V) VACCINE 2023-04-22 21:03:29 Nolvia Jacobs [facility] POCT TEST 2023-04-22 20:55:00 Cortney Jacobs [facility] CBC WITH DIFF 2023-01-13 10:05:00 Alka Beckford Mai [facility] CBC WITH DIFF 2023-01-13 10:05:00 Alka Beckford Mai [facility] VENOUS CORD GAS 2023-01-12 18:14:00 Lauren Uriarte [facility] VENOUS CORD GAS 2023-01-12 18:14:00 Lauren Uriarte [facility] OR FOR DOUBLE SET UP DELIVERY 2023-01-12 17:37:00 CaseyBlake russ [facility] SECTION 2023-01-12 17:37:00 Lauren Caseyis Zoya moss [facility] OR FOR DOUBLE SET UP DELIVERY 2023-01-12 17:37:00 CaseyBlake boswell [facility] SECTION 2023-01-12 17:37:00 Blake Casey [facility] CENTRAL NEURAXIAL BLOCK 2023-01-11 19:20:00 Rani Zurita [facility] KEPPRA (LEVETIRACETAM) 2023-01-11 05:52:00 Umesh Orozco [facility] TESSYPPRA (LEVETIRACETAM) 2023-01-11 05:52:00 Umesh Orozco [facility] HEPATITIS B SURFACE ANTIGEN 2023-01-11 05:40:00 Sorin Uriarte [facility] HB ABO GROUPING 2023-01-11 05:40:00 Lauren Uriarte [facility] RHO (D) IMMUNE GLOBULIN 2023-01-11 05:40:00 Birdie Suarez Mai [facility] SYPHILIS IGG/IGM 2023-01-11 05:40:00 Betsy Uriarte [facility] HEPATITIS B SURFACE ANTIGEN 2023-01-11 05:40:00 Sorin Uriarte [facility] HB ABO GROUPING 2023-01-11 05:40:00 Lauren Uriarte [facility] RHO (D) IMMUNE GLOBULIN 2023-01-11 05:40:00 Birdie Suarez Mai [facility] SYPHILIS IGG/IGM 2023-01-11 05:40:00 Betsy Uriarte [facility] SGOT (ASPARTATE AMINO TRANSFER) 2023-01-10 23:44:00 [facility] CREATININE 2023-01-10 23:44:00 [facility] ALANINE AMINO TRANSFERASE(SGPT 2023-01-10 23:44:00 [facility] LACTATE DEHYDROGENASE 2023-01-10 23:44:00 [facility] URIC ACID 2023-01-10 23:44:00 [facility] COMP. METABOLIC PANEL ([id number]) 2023-01-10 23:44:00 [facility] CBC WITH DIFF 2023-01-10 23:44:00 [facility] URINALYSIS 2023-01-10 23:44:00 [facility] SGOT (ASPARTATE AMINO TRANSFER) 2023-01-10 23:44:00 [facility] CREATININE 2023-01-10 23:44:00 [facility] ALANINE AMINO TRANSFERASE(SGPT 2023-01-10 23:44:00 [facility] LACTATE DEHYDROGENASE 2023-01-10 23:44:00 [facility] URIC ACID 2023-01-10 23:44:00 [facility] COMP. METABOLIC PANEL ([id number]) 2023-01-10 23:44:00 [facility] CBC WITH DIFF 2023-01-10 23:44:00 [facility] URINALYSIS 2023-01-10 23:44:00 [facility] PROTEIN CREAT RATIO URINE RANDOM 2023-01-10 22:50:00 [facility] PROTEIN CREAT RATIO URINE RANDOM 2023-01-10 22:50:00 Alek Maria Guadalupe [facility] ASSIGNMENT OF BENEFITS 2023-01-10 21:40:53 Docto r Unassigned, [place] [facility] ASSIGNMENT OF BENEFITS 2023-01-10 21:40:53 Docto r Unassigned, [place] [facility] CONSENT/REFUSAL FOR DIAGNOSIS AND TREATMENT 2023-01-10 21:38:09 Doctor Unassigned, [place] [facility] CONSENT/REFUSAL FOR DIAGNOSIS AND TREATMENT 2023-01-10 21:38:09 Doctor Unassigned, [place] [facility] NON-STRESS TEST 2023-01-07 21:16:56 Ricardo Mcginnis [facility] POCT URINALYSIS 2023-01-07 19:33:00 Kamilah Mcginnis [facility] NON-STRESS TEST 2023-01-06 21:38:57 Ricardo Mcginnis [facility] POCT URINALYSIS 2023-01-05 00:00:00 Kamilah Mcginnis [facility] POCT URINALYSIS 2022-12-29 14:51:00 Kamilah Mcginnis [facility] NON-STRESS TEST 2022-12-25 18:27:50 Hussein Lundy [facility] POCT URINALYSIS 2022-12-25 16:32:00 Kamilah Mcginnis [facility] NON-STRESS TEST 2022-12-22 16:08:21 Hussein Lundy [facility] POCT URINALYSIS 2022-12-22 14:45:00 Kamilah Mcginnis [facility] NON-STRESS TEST 2022-12-10 19:52:27 Hussein Lundy [facility] POCT URINALYSIS W/O SPECIFIC GRAVITY 2022-12-10 19:28:00 Naila Lundy [facility] NON-STRESS TEST 2022-12-07 21:46:26 Ricardo Mcginnis [facility] POCT URINALYSIS 2022-12-07 21:11:00 Kamilah Mcginnis [facility] HIV 1/2 AG-AB WITH REFLEX 2022-11-11 15:24:00 Kamilah Mcginnis [facility] SYPHILIS IGG/IGM 2022-11-11 15:24:00 Thang Mcginnis [facility] TDAP VACCINE, >11 YRS, IM 2022-11-11 14:51:08 Kamilah Mcginnis [facility] POCT URINALYSIS 2022-11-11 14:27:00 Kamilah Mcginnis [facility] POCT URINALYSIS 2022-10-29 15:03:00 Kamilah Mcginnis [facility] POCT URINALYSIS 2022-10-14 00:00:00 Kamilah Mcginnis [facility] POCT URINALYSIS 2022-09-21 17:17:00 Kamilah Mcginnis [facility] ALPHA FETOPROTEIN-MATERNAL SER 2022-08-21 16:50:00 Kamilah Mcginnis [facility] PAP SMEAR-LIQUID BASED-CP 2022-08-21 16:50:00 Kamilah Mcginnis [facility] POCT URINALYSIS 2022-08-07 00:00:00 Kamilah Mcginnis [facility] Encounters Start Date/Time End Date/Time Encounter Type Admission Type Attending Clinicians Care Facility Care Department Encounter ID Source 2023-01-10 19:34:33 Outpatient NISHA VELEZ SANGEETA [facility] [id number] [facility] 2023-12-21 20:58:00 2023-12-21 23:34:00 Emergency X CON RIOS [facility] ERT [id number] [facility] 2023-12-21 20:58:00 2023-12-21 23:34:00 Emergency Con Rios [facility] 1.2.840.114 350.1.13.10 4.2.7.2.686 [id number] [facility] 2023-12-18 00:00:00 2023-12-18 00:00:[address] [facility] 1..840.114 350.1.13.10 4.2.7.2.686 [id number] [facility] 2023-10-04 16:30:00 2023-10-04 16:30:00 Outpatient CHERYL DYSON [facility] [id number] [facility] 2023-09-28 00:00:00 2023-09-28 00:00:00 Pre Visit Outreach Xenia Karen [facility] 1..840.114 350.1.13.10 4.2.7.2.686 [id number] [facility] 2023-08-26 13:00:00 2023-08-26 13:52:45 Outpatient R TRINA VALENTINE [facility] [id number] [facility] 2023-08-26 13:00:00 2023-08-26 13:52:45 Urgent Care Trina Valentine Unknown, Attending [facility] 1..840.114 350.1.13.10 4.2.7.2.686 [id number] [facility] 2023-08-25 00:00:00 2023-08-25 00:00:00 Outpatient GC_GCBZW_Ka diyala_S PRIV [facility] [id number] [facility] 2023-08-03 10:00:00 2023-08-03 10:17:34 Outpatient R CHERYL DAVISON [facility] [id number] [facility] 2023-08-03 10:00:00 2023-08-03 10:17:34 Office Visit Cheryl Davison [facility] 1.114 350.1.13.10 4.2.7.2.686 [id number] [facility] 2023-07-19 14:30:00 2023-07-19 14:30:00 Nurse Visit Visit, [facility] Nurse Nolvia Jacobs [facility] LINOLEUM TILE FLOOR LAYER [facility] MATERNAL & CHILD [facility] 1.114 350.1.13.10 4.2.7.2.686 [id number] [facility] 2023-07-19 14:30:00 2023-07-19 13:55:20 Outpatient NOLVIA KLINE [facility] [id number] [facility] 2023-07-19 00:00:00 2023-07-19 00:00:00 Orders Only Doctor Unassigned, [place] [facility] 1.114 350.1.13.10 4.2.7.2.686 [id number] [facility] 2023-07-19 00:00:00 2023-07-19 00:00:00 Letter (Out) Rashid Montes [facility] LINOLEUM TILE FLOOR LAYER [facility] MATERNAL & CHILD [facility] 1..114 350.1.13.10 4.2.7.2.686 [id number] [facility] 2023-05-15 12:40:00 2023-05-15 13:43:53 Outpatient FELECIA BOYD [facility] [id number] [facility] 2023-05-15 12:40:00 2023-05-15 13:00:00 Urgent Care Felecia Melendez Unknown, Attending [facility] 1..114 350.1.13.10 4.2.7.2.686 [id number] [facility] 2023-05-15 00:00:00 2023-05-15 00:00:00 RefFelecia Triplett [facility]FF[facility] 1.2.840.114 350.1.13.10 4.2.7.2.686 [id number] [facility] 2023-04-22 15:00:00 2023-04-22 15:57:27 Outpatient R NOLVIA JACOBS [facility] [id number] [facility] 2023-04-22 15:00:00 2023-04-22 15:57:27 Office Visit Nolvia Jacobs [facility] LINOLEUM TILE FLOOR LAYER [facility] MATERNAL & CHILD [facility] 1.2.840.114 350.1.13.10 4.2.7.2.686 [id number] [facility] 2023-04-20 00:00:00 2023-04-20 00:00:00 Telephone Kamilah Mcginnis [facility] LINOLEUM TILE FLOOR LAYER [facility] & CHILD [facility] 1.2.840.114 350.1.13.10 4.2.7.2.686 [id number] [facility] 2023-04-05 00:00:00 2023-04-05 00:00:00 Telephone Kamilah Mcginnis [facility] LINOLEUM TILE FLOOR LAYER [facility] CHILD [facility] 1.2.840.114 350.1.13.10 4.2.7.2.686 [id number] [facility] 2023-03-23 13:15:00 2023-03-23 13:15:00 Outpatient KAMILAH CALDWELL [facility] [id number] [facility] 2023-01-19 10:00:00 2023-01-19 10:06:02 Outpatient NAILA WITT [facility] [id number] [facility] 2023-01-19 10:00:00 2023-01-19 10:06:02 [facility] LINOLEUM TILE FLOOR LAYER [facility] MATERNAL & CH[facility] 1.2.840.114 350.1.13.10 4.2.7.2.686 [id number] [facility] 2023-01-10 16:46:00 2023-01-14 14:48:00 Inpatient KEERTHI DORANRAFAEL CADET, NISHA [facility] [id number] [facility] 2023-01-10 16:46:00 2023-01-14 14:48:00 Hospital Encounter RuelasDougkan harris Maria Guadalupesriram Cadet, [facility] 1.2840.114 350.1.13.10 4.2.7.2.686 [id number] [facility] 2023-01-14 14:30:00 2023-01-14 14:30:00 Outpatient R [facility] [id number] [facility] 2023-01-12 15:30:00 2023-01-12 15:30:00 Outpatient R KAMILAH MCGINNIS [facility] [id number] [facility] 2023-01-12 13:05:00 2023-01-12 14:23:00 Surgery Blake Casey [facility] 1.2.840.114 350.1.13.10 4.2.7.2.686 [id number] [facility] 2023-01-11 14:22:00 2023-01-11 14:22:00 Anesthesia Event Heavenly Mays Sarah [facility] 1.2840.114 350.1.13.10 4.2.7.2.686 [id number] [facility] 2023-01-08 14:30:00 2023-01-08 14:30:00 Outpatient R [facility] [id number] [facility] 2023-01-07 14:45:00 2023-01-07 15:05:11 Outpatient R AKINKAMILAH SMITH [facility] [id number] [facility] 2023-01-07 14:45:00 2023-01-07 15:05:11 Routine Visit Kamilah Mcginnis [facility] LINOLEUM TILE FLOOR LAYER [facility] & CHILD [facility] 1..840.114 350.1.13.10 4.2.7.2.686 [id number] [facility] 2023-01-05 13:00:00 2023-01-05 13:35:29 Outpatient R KAMILAH MCGINNIS [facility] [id number] [facility] 2023-01-05 13:00:00 2023-01-05 13:35:29 Routine Visit Kamilah Mcginnis [facility] LINOLEUM TILE FLOOR LAYER [facility] & CHILD [facility] 1..840.114 350.1.13.10 4.2.7.2.686 [id number] [facility] 2023-01-02 00:00:00 2023-01-02 00:00:00 Telephone Kamilah Mcginnis [facility] LINOLEUM TILE FLOOR LAYER [facility] CHILD [facility] 1.840.114 350.1.13.10 4.2.7.2.686 [id number] [facility] 2023-01-01 13:00:00 2023-01-01 13:00:00 Outpatient R KAMILAH MCGINNIS [facility] [id number] [facility] 2022-12-29 09:00:00 2022-12-29 09:40:36 Outpatient R NAILA LUNDY [facility] [id number] [facility] 2022-12-29 09:00:00 2022-12-29 09:40:36 Routine Visit Provider, Naila Aparicio [facility] LINOLEUM TILE FLOOR LAYER [facility] & CHILD [facility] 1..840.114 350.1.13.10 4.2.7.2.686 [id number] [facility] 2022-12-28 10:30:00 2022-12-28 10:30:00 Outpatient P [facility] [id number] [facility] 2022-12-25 10:30:00 2022-12-25 11:20:26 Outpatient R NAILA LUNDY [facility] [id number] [facility] 2022-12-25 10:30:00 2022-12-25 11:20:26 Routine Visit Provider, Naila Aparicio [facility] LINOLEUM TILE FLOOR LAYER [facility] MATERNAL & CHILD [facility] ..840.114 350.1.13.10 4.2.7.2.686 [id number] [facility] 2022-12-25 09:30:00 2022-12-25 09:30:00 Outpatient R [facility] [id number] [facility] 2022-12-22 08:45:00 2022-12-22 09:31:01 Outpatient R NAILA LUNDY [facility] [id number] [facility] 2022-12-22 08:45:00 2022-12-22 09:31:01 Routine Visit Provider, Naila Aparicio [facility] LINOLEUM TILE FLOOR LAYER [facility] MATERNAL & CHILD [facility] ..840.114 350.1.13.10 4.2.7.2.686 [id number] [facility] 2022-12-21 13:30:00 2022-12-21 13:30:00 Outpatient R KAMILAH MCGINNIS [facility] [id number] [facility] 2022-12-21 08:30:00 2022-12-21 09:01:47 Transportation Lead Visit Ultrasound, Stevan Novak [facility] LINOLEUM TILE FLOOR LAYER [facility] MATERNAL & CHILD [facility] ..840.114 350.1.13.10 4.2.7.2.686 [id number] [facility] 2022-12-14 13:00:00 2022-12-14 13:00:00 Outpatient R NAILA LUNDY [facility] [id number] [facility] 2022-12-10 13:30:00 2022-12-10 13:30:00 Routine Visit Provider, Naila Aparicio [facility] LINOLEUM TILE FLOOR LAYER [facility] & CHILD [facility] 1..840.114 350.1.13.10 4.2.7.2.686 [id number] [facility] 2022-12-10 13:30:00 2022-12-10 13:28:21 Outpatient R NAILA LUNDY [facility] [id number] [facility] 2022-12-07 15:15:00 2022-12-07 15:41:47 Routine Visit Kamilah Mcginnis [facility] LINOLEUM TILE FLOOR LAYER [facility] & CHILD [facility] 1..840.114 350.1.13.10 4.2.7.2.686 [id number] [facility] 2022-12-07 14:00:00 2022-12-07 14:00:00 Outpatient R KAMILAH MCGINNIS [facility] [id number] [facility] 2022-11-30 10:30:00 2022-11-30 10:30:00 Outpatient P [facility] [id number] [facility] 2022-11-25 14:00:00 2022-11-25 14:00:00 Outpatient R KAMILAH MCGINNIS [facility] [id number] [facility] 2022-11-12 00:00:00 2022-11-12 00:00:00 Abstract Kamilah Mcginnis [facility] LINOLEUM TILE FLOOR LAYER [facility] CHILD [facility] 1..840.114 350.1.13.10 4.2.7.2.686 [id number] [facility] 2022-11-11 10:30:00 2022-11-11 11:00:00 Transportation Lead Visit Ultrasound, Anatoliy Fern Bernal Masha [facility] LINOLEUM TILE FLOOR LAYER [facility] & CHILD [facility] 1..840.114 350.1.13.10 [id number] [id number] [facility] 2022-11-11 10:30:00 2022-11-11 10:30:00 Outpatient P HBARTI BERNALCourt [facility] [id number] [facility] 2022-11-11 08:45:00 2022-11-11 09:20:10 Outpatient R KAMILAH MCGINNIS [facility] [id number] [facility] 2022-11-11 08:45:00 2022-11-11 09:20:10 Routine Visit Kamilah Mcginnis [facility] LINOLEUM TILE FLOOR LAYER [facility] & CHILD [facility] 1..840.114 350.1.13.10 [id number] [id number] [facility] 2022-10-29 08:45:00 2022-10-29 09:23:49 Outpatient R KAMILAH MCGINNIS [facility] [id number] [facility] 2022-10-29 08:45:00 2022-10-29 09:23:49 Routine Visit Kamilah Mcginnis [facility] LINOLEUM TILE FLOOR LAYER [facility] & CHILD [facility] 1..840.114 350.1.13.10 [id number] [id number] [facility] 2022-10-14 10:45:00 2022-10-14 11:47:29 Outpatient R KAMILAH MCGINNIS [facility] [id number] [facility] 2022-10-14 10:45:00 2022-10-14 11:47:29 Routine Visit Kamilah Mcginnis [facility] LINOLEUM TILE FLOOR LAYER [facility] MATERNAL & CHILD [facility] 1.840.114 350.1.13.10 4.2.7.2.686 [id number] [facility] 2022-10-12 10:30:00 2022-10-12 10:30:00 Outpatient P [facility] [id number] [facility] 2022-10-05 15:30:00 2022-10-05 15:30:00 Outpatient R FERN BERNAL [facility] [id number] [facility] 2022-09-28 09:00:00 2022-09-28 09:30:00 Telemedici ne Visit Faculty, Shekhar Oneill [facility] Shayla Iglesias [facility] LINOLEUM TILE FLOOR LAYER [facility] & CHILD [facility] 1.0.114 350.1.13.10 4.2.7.2.686 [id number] [facility] 2022-09-28 09:00:00 2022-09-28 09:00:00 Outpatient R SHAYLA IGLESIAS [facility] [id number] [facility] 2022-09-21 11:00:00 2022-09-21 11:33:17 Outpatient R KAMILAH MCGINNIS [facility] [id number] [facility] 2022-09-21 11:00:00 2022-09-21 11:33:17 Routine Visit Kamilah Mcginnis [facility] LINOLEUM TILE FLOOR LAYER [facility] & CHILD [facility] 1.0.114 350.1.13.10 4.2.7.2.686 [id number] [facility] 2022-09-16 00:00:00 2022-09-16 00:00:00 Telephone Kamilah Mcginnis [facility] LINOLEUM TILE FLOOR LAYER [facility] & CHILD [facility] 1.840.114 350.1.13.10 4.2.7.2.686 [id number] [facility] 2022-09-10 10:45:00 2022-09-10 11:50:02 Transportation Lead Visit Ultrasound, Shekhar-Saran Gonzales [facility] LINOLEUM TILE FLOOR LAYER [facility] & CHILD [facility] 1.840.114 350.1.13.10 4.2.7.2.686 [id number] [facility] 2022-09-10 10:45:00 2022-09-10 10:45:00 Outpatient P SUSAN SARAN [facility] [id number] [facility] 2022-09-10 00:00:00 2022-09-10 00:00:00 Abstract Kamilah Mcginnis [facility] LINOLEUM TILE FLOOR LAYER [facility] & CHILD [facility] 1.840.114 350.1.13.10 4.2.7.2.686 [id number] [facility] 2022-08-21 11:00:00 2022-08-21 11:57:28 Outpatient R KAMILAH MCGINNIS [facility] [id number] [facility] 2022-08-21 11:00:00 2022-08-21 11:57:28 Routine Visit Kamilah Mcginnis [facility] LIN[facility]LEUM TI[facility] 1.840.114 350.1.13.10 4.2.7.2.686 [id number] [facility] 2022-08-18 16:20:00 2022-08-18 16:20:00 Outpatient R UNKNOWN, ATTENDING [facility] [id number] [facility] 2022-08-17 00:00:00 2022-08-17 00:00:00 Nurse Triage Edith Narvaez [facility] ..114 350.1.13.10 4.2.7.2.686 [id number] [facility] 2022-08-07 14:45:00 2022-08-07 15:12:29 Outpatient R JOSEFINABAM SMITHILOLA [facility] [id number] [facility] 2022-08-07 14:45:00 2022-08-07 15:12:29 Routine Visit Kamilah Mcginnis [facility] LINOLEUM TILE FLOOR LAYER [facility] MATERNAL & CHILD [facility] 1..840.114 350.1.13.10 4.2.7.2.686 [id number] [facility] 2022-08-03 11:30:00 2022-08-03 15:23:05 Outpatient R NORM CAZARES [facility] [id number] [facility] 2022-08-03 11:30:00 2022-08-03 15:23:05 Telemedici ne Visit Faculty, [facility] Davila [facility] LINOLEUM TILE FLOOR LAYER [facility] & CHILD [facility] 1..840.114 350.1.13.10 4.2.7.2.686 [id number] [facility] 2022-08-03 11:30:00 2022-08-03 11:30:00 Outpatient R DEBORA NORM [facility] [id number] [facility] 2022-07-21 00:00:00 2022-07-21 00:00:00 Telephone Kamilah Mcginnis [facility] LINOLEUM TILE FLOOR LAYER [facility] & CHILD [facility] 1..840.114 350.1.13.10 4.2.7.2.686 [id number] [facility] 2022-07-16 00:00:00 2022-07-16 00:00:00 Abstract Kamilah Mcginnis [facility] LINOLEUM TILE FLOOR LAYER [facility] CHILD [facility] 1..840.114 350.1.13.10 4.2.7.2.686 [id number] [facility] 2022-07-15 00:00:00 2022-07-15 00:00:00 Abstract Kamilah Mcginnis [facility] LINOLEUM TILE FLOOR LAYER [facility] MATERNAL & CHILD [facility] 1.84.114 350.1.13.10 4.2.7.2.686 [id number] [facility] 2022-07-14 09:00:00 2022-07-14 09:28:43 [facility] LINOLEUM TILE FLOOR LAYER [facility] & CHILD [facility] 1.84.114 350.1.13.10 4.2.7.2.686 [id number] [facility] 2022-07-14 09:00:00 2022-07-14 09:00:00 Outpatient P [facility] [id number] [facility] 2022-07-14 09:00:00 2022-07-14 09:00:00 Outpatient P SHAYLA IGLESIAS [facility] [id number] [facility] 2022-07-14 08:15:00 2022-07-14 09:00:00 Transportation Lead [facility] & CHILD [facility] 1.840.114 350.1.13.10 4.2.7.2.686 [id number] [facility] 2022-07-06 11:30:00 2022-07-06 12:12:04 Outpatient R FERN BERNAL [facility] [id number] [facility] 2022-07-06 11:30:00 2022-07-06 12:12:04 Office Visit Faculty, Shekhar Oneill Fern Macdonald [facility] LINOLEUM TILE FLOOR LAYER [facility] MATERNAL & CHILD [facility] 1.840.114 350.1.13.10 4.2.7.2.686 [id number] [facility] 2022-07-06 11:30:00 2022-07-06 12:12:04 Outpatient R FERN BERNAL [facility] [id number] [facility] 2022-06-23 00:00:00 2022-06-23 00:00:00 Abstract Kamilah Mcginnis [facility] LINOLEUM TILE FLOOR LAYER [facility] & CHILD [facility] 1..840.114 350.1.13.10 4.2.7.2.686 [id number] [facility] 2022-06-22 14:15:00 2022-06-22 14:32:25 Transportation Lead Visit 1, [facility] Room Shayla Iglesias [facility] LINOLEUM TILE FLOOR LAYER [facility] & CHILD [facility] 1..840.114 350.1.13.10 4.2.7.2.686 [id number] [facility] 2022-06-22 14:15:00 2022-06-22 14:32:25 Outpatient P SHAYLA IGLESIAS [facility] [id number] [facility] 2022-06-22 14:15:00 2022-06-22 14:15:00 Outpatient P SHAYLA IGLESIAS [facility] [id number] [facility] 2022-06-16 10:45:00 2022-06-16 11:12:27 Outpatient R KAMILAH MCGINNIS [facility] [id number] [facility] 2022-06-16 10:45:00 2022-06-16 11:12:27 Routine Visit JosefinaKamilah smith [facility]N [facility] & CHILD [facility] 1..840.114 350.1.13.10 4.2.7.2.686 [id number] 107 [id number] [facility] 2022-06-15 11:30:00 2022-06-15 12:00:00 Telemedici ne Visit Faculty, Shekhar Oneill [facility] ChristineBharticourt Flanagan [facility] LINOLEUM TILE FLOOR LAYER [facility] CHILD [facility] 1..840.114 350.1.13.10 4.2.7.2.686 [id number] [facility] 2022-06-15 11:30:00 2022-06-15 11:30:00 Outpatient R [facility] [id number] [facility] 2022-06-15 11:30:00 2022-06-15 11:30:00 Outpatient R FERN BERNAL [facility] [id number] [facility] 2022-05-28 08:30:00 2022-05-28 08:30:00 Transportation Lead Visit Lab, Shekhar-Rmchp Kamilah Mcginnis [facility] LINOLEUM TILE FLOOR LAYER [facility] & CHILD [facility] ..840.114 350.1.13.10 4.2.7.2.686 [id number] [facility] 2022-05-28 08:30:00 2022-05-28 08:15:52 Outpatient R KAMILAH MCGINNIS [facility] [id number] [facility] 2022-05-28 08:30:00 2022-05-28 08:15:52 Outpatient R KAMILAH MCGINNIS [facility] [id number] [facility] 2022-05-28 08:30:00 2022-05-28 08:15:52 Outpatient R KAMILAH MCGINNIS [facility] [id number] [facility] 2022-05-27 00:00:00 2022-05-27 00:00:00 Telephone Kamilah Mcginnis [facility] LINOLEUM TILE FLOOR LAYER [facility] ..840.114 350.1.13.10 4.2.7.2.686 [id number] [facility] 2022-05-26 15:00:00 2022-05-26 15:00:00 Outpatient R TERA NORIEGA [facility] [id number] [facility] 2022-05-26 00:00:00 2022-05-26 00:00:00 Letter (Out) Kamilah Mcginnis Noble [facility] LINOLEUM TILE FLOOR LAYER [facility] & CHILD [facility] 1.2.840.114 350.1.13.10 4.2.7.2.686 [id number] [facility] 2022-05-26 00:00:00 2022-05-26 00:00:00 Letter (Out) JosefinaBam smithilola Noble [facility] LINOLEUM TILE FLOOR LAYER [facility] & CHILD [facility] 1.2.840.114 350.1.13.10 4.2.7.2.686 [id number] [facility] 2022-05-22 14:15:00 2022-05-22 16:30:24 Outpatient R KAMILAH MCGINNIS [facility] [id number] [facility] 2022-05-22 14:15:00 2022-05-22 16:30:24 Outpatient R KAMILAH MCGINNIS [facility] [id number] [facility] 2022-05-22 14:15:00 2022-05-22 16:30:24 Outpatient R KAMILAH MCGINNIS [facility] [id number] [facility] 2022-05-22 14:15:00 2022-05-22 16:30:24 Initial Visit Kamilah Mcginnis [facility] LINOLEUM TILE FLOOR LAYER [facility] & CHILD [facility] 1.2.840.114 350.1.13.10 4.2.7.2.686 [id number] [facility] 2022-05-22 13:45:00 2022-05-22 15:23:15 Outpatient R KAMILAH MCGINNIS [facility] [id number] [facility] 2022-05-22 14:15:00 2022-05-22 14:15:00 Outpatient R KAMILAH MCGINNIS [facility] [id number] [facility] 2022-05-22 00:00:00 2022-05-22 00:00:00 Orders Only Doctor Unassigned, [place] [facility] 1.114 350.1.13.10 4.2.7.2.686 [id number] [facility] 2021-09-24 14:00:00 2021-09-24 14:00:00 Outpatient R OLIVIA GUERRA [facility] [id number] [facility] 2020-06-19 00:00:00 2020-06-19 00:00:00 Telephone Jordon [facility] 1.114 350.1.13.10 4.2.7.2.686 [id number] [facility] 2020-06-17 13:00:00 2020-06-17 13:00:00 Outpatient R [facility] [id number] [facility] 2020-06-17 12:34:28 2020-06-17 12:54:28 Laboratory Only [facility] .114 350.1.13.10 4.2.7.2.686 [id number] [facility] 2020-06-17 00:00:00 2020-06-17 00:00:00 Letter (Out) Doctor Unassigned, [place] [facility] 1.114 350.1.13.10 4.2.7.2.686 [id number] [facility] 2020-04-08 10:45:33 2020-04-08 11:05:33 Urgent Care Pob1, Acute Care Clinic [facility] Office [facility] [address] .114 350.1.13.10 4.2.7.2.686 [id number] [facility] 2020-04-08 11:00:00 2020-04-08 11:00:00 Outpatient R [facility] [id number] [facility] Results Test Description Test Time Test Comments Results Result Co mments Source [facility] SARS-COV-2 ANTIGEN (BINAX NOW)2023-08-26 18:42:00* Test Item Value Reference Range Interpretation Comme [facility] POCT SARS-COV-2 ANTIGEN (tomi t code = 46612-9) Not Detected Not Detected On board controls acceptable with C Line (test code = 3574) Yes [facility] SARS-COV-2 ANTIGEN (BINAX NOW)2023-05-15 18:13:00* Test Item Value Reference Range Interpretation Comme [facility] POCT SARS-COV-2 ANTIGEN (tomi t code = 63022-3) Positive Not Detected A On board controls acceptable with C Line (test code = 3574) Yes Lab Interpretation (test cod e = 49128-1) Abnormal [facility] MOLECULAR [id number] 18:06:20* Test Item Value Reference Range Interpretation Comme [facility] POCT Molecular Strep (test c ode = 47228-1) Negative Negative Lab Interpretation (test cod e = 55324-4) Normal [facility] [id number] 20:56:00* Test Item Value Reference Range Interpretation Comme nts POCT PREG (test code = 1605) Negative On board controls acceptable with C Line (test code = 3574) Yes POCT PREG LOT # (test code = 3575) POCT PREG TEST DATE ( test code = 3576) [facility] [id number] 20:56:00* Test Item Value Reference Range Interpretation Comme nts POCT PREG (test code = 1605) Negative On board controls acceptable with C Line (test code = 3574) Yes POCT PREG LOT # (test code = 3575) POCT PREG TEST DATE ( test code = 3576) [facility] [id number] 20:44:53* Test Item Value Reference Range Interpretation Comme nts RHIG CANDIDATE? (test code = 5188) No- see comment Patient is not a candidate for RhIg- Patient is Rh Positive.Performed at [facility] Laboratory Services - [facility] Blood [address] [place] [address]Irgs Free: [phone] No. [id number] [facility] I[facility]E [id number] 20:44:53* Test Item Value Reference Range Interpretation Comme nts RHIG CANDIDATE? (test code = 5188) No- see comment Patient is not a candidate for RhIg- Patient is Rh Positive.Performed at [facility] Laboratory Services - [facility] Blood [address] [address]Aqsg Free: [phone] No. [id number] [facility] [id number] 18:38:22* Test Item Value Reference Range Interpretation Comme [facility] VENOUS BASE EXCESS, CORD (test code = 1411364781) -4.8 mEq/L VENOUS PH, CORD (test code = 8097971562) 7.25 7.25-7.45 VENOUS PC02, CORD (test code = 1319244040) 54 See_Comment H [Automated CEED Techge] The system which generated this result transmitted reference range: 27 - 49 mmHg. The reference range was not used to interpret this result as normal/abnormal. VENOUS PO2, CORD (test code = 6636603070) Unable VENOUS BICARBONATE, CORD (test code = 6055771930) 23 See_Comment [Automa juanito message] The system which generated this result transmitted reference range: 12 - 29 mEq/L. The reference range was not used to interpret this result as normal/abnormal. Lab Interpretation (test code = 99697-8) Abnormal [facility] CORD [id number] 18:38:22* Test Item Value Reference Range Interpretation Comme [facility] VENOUS BASE EXCESS, CORD (test code = 6644997039) -4.8 mEq/L VENOUS PH, CORD (test code = 8566682995) 7.25 7.25-7.45 VENOUS PC02, CORD (test code = 4227374427) 54 See_Comment H [Automated me ssage] The system which generated this result transmitted reference range: 27 - 49 mmHg. The reference range was not used to interpret this result as normal/abnormal. VENOUS PO2, CORD (test code = 8732879075) Unable VENOUS BICARBONATE, CORD (test code = 9538055128) 23 See_Comment [Automa juanito message] The system which generated this result transmitted reference range: 12 - 29 mEq/L. The reference range was not used to interpret this result as normal/abnormal. Lab Interpretation (test code = 57010-3) Abnormal [facility] CORD [id number] 18:34:44* Test Item Value Reference Range Interpretation Comme nts BASE EXCESS, CORD (test code = 1000852217) -6.1 mEq/L AC PH, CORD (BEAKER) (test code = 2693302756) 7.21 7.18-7.38 PC02, CORD (test code = 8929963976) 58 See_Comment [Automated messa ge] The system which generated this result transmitted reference range: 32 - 66 mmHg. The reference range was not used to interpret this result as normal/abnormal. PO2, CORD (test code = 9127810860) 10 See_Comment [Automated messa ge] The system which generated this result transmitted reference range: 10 - 30 mmHg. The reference range was not used to interpret this result as normal/abnormal. BICARBONATE, CORD (test code = 3885504365) 23 See_Comment [Automated messa ge] The system which generated this result transmitted reference range: 17 - 27 mEq/L. The reference range was not used to interpret this result as normal/abnormal. [facility] CORD [id number] 18:34:44* Test Item Value Reference Range Interpretation Comme nts BASE EXCESS, CORD (test code = 9663931924) -6.1 mEq/L AC PH, CORD (BEAKER) (test code = 5124850668) 7.21 7.18-7.38 PC02, CORD (test code = 1752023206) 58 See_Comment [Automated messa ge] The system which generated this result transmitted reference range: 32 - 66 mmHg. The reference range was not used to interpret this result as normal/abnormal. PO2, CORD (test code = 9892863942) 10 See_Comment [Automated messa ge] The system which generated this result transmitted reference range: 10 - 30 mmHg. The reference range was not used to interpret this result as normal/abnormal. BICARBONATE, CORD (test code = 8529450851) 23 See_Comment [Automated messa ge] The system which generated this result transmitted reference range: 17 - 27 mEq/L. The reference range was not used to interpret this result as normal/abnormal. [facility] ONLY - SYPHILIS [id number] 14:38:24* Test Item Value Reference Range Interpretation Comme nts Syphilis IgG/IgM (test code = 65879-0) Non-reactive Non-reactive ALYSHA (test code = ALYSHA) Non-reactive - No serologic evidence of T. pallidum infection. Cannot exclude incubating or early syphilis. Submit a second specimen in 2-4 weeks if syphilis is clinically suspected. Equivocal - Further testing to follow. Reactive - Further testing to follow. Lab Interpretation (test code = 89295-4) Normal [facility] ONLY - SYPHILIS [id number] 14:38:24* Test Item Value Reference Range Interpretation Comme nts Syphilis IgG/IgM (test code = 60742-6) Non-reactive Non-reactive ALYSHA (test code = ALYSHA) Non-reactive - No serologic evidence of T. pallidum infection. Cannot exclude incubating or early syphilis. Submit a second specimen in 2-4 weeks if syphilis is clinically suspected. Equivocal - Further testing to follow. Reactive - Further testing to follow. Lab Interpretation (test code = 93632-1) Normal [facility] B Surface [id number] 06:53:32 * Test Item Value Reference Range Interpretation Comme nts HBsAg Semi-Quantitative (tomi t code = 5195-3) 0.04 Negative [facility] B Surface [id number] 06:53:32 * Test Item Value Reference Range Interpretation Comme nts HBsAg Semi-Quantitative (tomi t code = 5195-3) 0.04 Negative [facility]2023[facility]-11 06:22:53* Test Item Value Reference Range Interpretation Comme nts KEPPRA (test code = 7179741195) 5 ug/mL 12-46 L ALYSHA (test code = ALYSHA) Therapeutic range: 12-46 ?g/mL ? ?Toxic: Not well established.Test developed and characteristics determined by [facility] Laboratory Services. Lab Interpretation (test code = 02452-7) Abnormal [facility]2023-01-11 06:22:53* Test Item Value Reference Range Interpretation Comme nts KEPPRA (test code = 3165858483) 5 ug/mL 12-46 L ALYSHA (test code = ALYSHA) Therapeutic range: 12-46 ?g/mL ? ?Toxic: Not well established.Test developed and characteristics determined by [facility] Laboratory Services. Lab Interpretation (test code = 60152-7) Abnormal [facility] [id number] 05:59:00 * Test Item Value Reference Range Interpretation Comme nts ABO & RH (test code = 20) A POSITIVE IAT (test code = 1185) Negative [facility] [id number] 05:59:00 * Test Item Value Reference Range Interpretation Comme nts ABO & RH (test code = 20) A POSITIVE IAT (test code = 1185) Negative [facility] [id number] 19:33:00* Test Item Value Reference Range Interpretation Comme nts POCT U SP GRAV (test code = 3255) . 1.005-1.025 POCT PH U (test code = 3254) . 5-8 POCT U LEUK EST (test code = 3263) . Negative - N egative POCT U NIT (test code = 3262) . Negative - Negati ve POCT U PROT (test code = 3259) 30+ Negative - Negat emma POCT U GLU (test code = 3256) NEG Negative - Negati ve POCT U KETONE (test code = 3258) . Negative - Neg ative POCT U UROBILI (test code = 3260) . 0.2-1 POCT U BILI (test code = 3261) . Negative - Negat emma POCT U BLD (test code = 3257) . Negative - Negati ve POCT U COLOR (test code = 3266) . POCT U APPEAR (test code = 3267) . [facility] SPECIFIC [id number] 18:03:00* Test Item Value Reference Range Interpretation Comme nts POCT U SP GRAV (test code = 3255) . 1.005-1.025 POCT PH U (test code = 3254) . 5-8 POCT U LEUK EST (test code = 3263) . Negative - Negative POCT U NIT (test code = 3262) . Negative - Negati ve POCT U PROT (test code = 3259) 1+ Negative - Negat emma POCT U GLU (test code = 3256) negative Negative - Negati ve POCT U KETONE (test code = 3258) . Negative - Neg ative POCT U UROBILI (test code = 3260) . 0.2-1 POCT U BILI (test code = 3261) . Negative - Negat emma POCT U BLD (test code = 3257) . Negative - Negati ve POCT U COLOR (test code = 3266) . POCT U APPEAR (test code = 3267) . [facility] URINALYSIS W SPECIFIC [id number] 14:51:00* Test Item Value Reference Range Interpretation Comme nts POCT U SP GRAV (test code = 3255) . 1.005-1.025 POCT PH U (test code = 3254) 6 mg/dl 5-8 POCT U LEUK EST (test code = 3263) Trace Negative - Negative POCT U NIT (test code = 3262) Neg Negative - Negati ve POCT U PROT (test code = 3259) Trace Negative - Negat emma POCT U GLU (test code = 3256) Neg Negative - Negati ve POCT U KETONE (test code = 3258) None Negative - Neg ative POCT U UROBILI (test code = 3260) . 0.2-1 POCT U BILI (test code = 3261) . Negative - Negat emma POCT U BLD (test code = 3257) Trace Negative - Negati ve POCT U COLOR (test code = 3266) POCT U APPEAR (test code = 3267) [facility] URINALYSIS W SPECIFIC [id number] 16:32:00* Test Item Value Reference Range Interpretation Comme nts POCT U SP GRAV (test code = 3255) . 1.005-1.025 POCT PH U (test code = 3254) . 5-8 POCT U LEUK EST (test code = 3263) . Negative - N egative POCT U NIT (test code = 3262) . Negative - Negati ve POCT U PROT (test code = 3259) 1+ Negative - Negat emma POCT U GLU (test code = 3256) Neg Negative - Negati ve POCT U KETONE (test code = 3258) . Negative - Neg ative POCT U UROBILI (test code = 3260) . 0.2-1 POCT U BILI (test code = 3261) . Negative - Negat emma POCT U BLD (test code = 3257) . Negative - Negati ve POCT U COLOR (test code = 3266) . POCT U APPEAR (test code = 3267) . [facility] URINALYSIS W SPECIFIC [id number] 16:32:00* Test Item Value Reference Range Interpretation Comme nts POCT U SP GRAV (test code = 3255) . 1.005-1.025 POCT PH U (test code = 3254) . 5-8 POCT U LEUK EST (test code = 3263) . Negative - N egative POCT U NIT (test code = 3262) . Negative - Negati ve POCT U PROT (test code = 3259) 1+ Negative - Negat emma POCT U GLU (test code = 3256) Neg Negative - Negati ve POCT U KETONE (test code = 3258) . Negative - Neg ative POCT U UROBILI (test code = 3260) . 0.2-1 POCT U BILI (test code = 3261) . Negative - Negat emma POCT U BLD (test code = 3257) . Negative - Negati ve POCT U COLOR (test code = 3266) . POCT U APPEAR (test code = 3267) . [facility] URINALYSIS W SPECIFIC [id number] 14:46:00* Test Item Value Reference Range Interpretation Comme nts POCT U SP GRAV (test code = 3255) . 1.005-1.025 POCT PH U (test code = 3254) 7 mg/dl 5-8 POCT U LEUK EST (test code = 3263) Trace Negative - Negative POCT U NIT (test code = 3262) Neg Negative - Negati ve POCT U PROT (test code = 3259) Trace Negative - Negat emma POCT U GLU (test code = 3256) Neg Negative - Negati ve POCT U KETONE (test code = 3258) None Negative - Neg ative POCT U UROBILI (test code = 3260) . 0.2-1 POCT U BILI (test code = 3261) . Negative - Negat emma POCT U BLD (test code = 3257) Trace Negative - Negati ve POCT U COLOR (test code = 3266) . POCT U APPEAR (test code = 3267) . [facility] URINALYSIS W SPECIFIC [id number] 14:46:00* Test Item Value Reference Range Interpretation Comme nts POCT U SP GRAV (test code = 3255) . 1.005-1.025 POCT PH U (test code = 3254) 7 mg/dl 5-8 POCT U LEUK EST (test code = 3263) Trace Negative - Negative POCT U NIT (test code = 3262) Neg Negative - Negati ve POCT U PROT (test code = 3259) Trace Negative - Negat emma POCT U GLU (test code = 3256) Neg Negative - Negati ve POCT U KETONE (test code = 3258) None Negative - Neg ative POCT U UROBILI (test code = 3260) . 0.2-1 POCT U BILI (test code = 3261) . Negative - Negat emma POCT U BLD (test code = 3257) Trace Negative - Negati ve POCT U COLOR (test code = 3266) . POCT U APPEAR (test code = 3267) . [facility] URINALYSIS W/O SPECIFIC [id number] 19:28:00* Test Item Value Reference Range Interpretation Comme nts POCT PH U (test code = 3254) * 5-8 POCT U LEUK EST (test code = 3263) * Negative - Negative POCT U NIT (test code = 3262) * Negative - Negati ve POCT U PROT (test code = 3259) trace Negative - Negat emma POCT U GLU (test code = 3256) negative Negative - Negati ve POCT U KETONE (test code = 3258) * Negative - Neg ative POCT U BLD (test code = 3257) * Negative - Negati ve [facility] URINALYSIS W SPECIFIC [id number] 21:12:00* Test Item Value Reference Range Interpretation Comme nts POCT U SP GRAV (test code = 3255) . 1.005-1.025 POCT PH U (test code = 3254) . 5-8 POCT U LEUK EST (test code = 3263) . Negative - N egative POCT U NIT (test code = 3262) . Negative - Negati ve POCT U PROT (test code = 3259) 30 Negative - Negat emma POCT U GLU (test code = 3256) 50 Negative - Negati ve POCT U KETONE (test code = 3258) . Negative - Neg ative POCT U UROBILI (test code = 3260) . 0.2-1 POCT U BILI (test code = 3261) . Negative - Negat emma POCT U BLD (test code = 3257) . Negative - Negati ve POCT U COLOR (test code = 3266) . POCT U APPEAR (test code = 3267) . [facility] ONLY - SYPHILIS [id number] 16:39:57* Test Item Value Reference Range Interpretation Comme nts Syphilis IgG/IgM (test code = 28267-6) Non-reactive Non-reactive ALYSHA (test code = ALYSHA) Non-reactive - No serologic evidence of T. pallidum infection. Cannot exclude incubating or early syphilis. Submit a second specimen in 2-4 weeks if syphilis is clinically suspected. Equivocal - Further testing to follow. Reactive - Further testing to follow. Lab Interpretation (test code = 22628-1) [facility] [id number] 06:31:45* Test Item Value Reference Range Interpretation Comme nts HIV Semi-quantitative (test code = 50913-1) Negative Negative ALYSHA (test code = ALYSHA) Non-reactive for HIV-1 antigen and HIV-1/HIV-2 antibodies. ?No laboratory evidence of HIV infection. ?Repeat in 2-4 weeks if acute HIV infection is suspected. [facility] URINALYSIS W SPECIFIC [id number] 14:27:00* Test Item Value Reference Range Interpretation Comme nts POCT U SP GRAV (test code = 3255) . 1.005-1.025 POCT PH U (test code = 3254) . 5-8 POCT U LEUK EST (test code = 3263) . Negative - N egative POCT U NIT (test code = 3262) . Negative - Negati ve POCT U PROT (test code = 3259) Trace Negative - Negat emma POCT U GLU (test code = 3256) Neg Negative - Negati ve POCT U KETONE (test code = 3258) . Negative - Neg ative POCT U UROBILI (test code = 3260) . 0.2-1 POCT U BILI (test code = 3261) . Negative - Negat emma POCT U BLD (test code = 3257) . Negative - Negati ve POCT U COLOR (test code = 3266) . POCT U APPEAR (test code = 3267) . [facility] URINALYSIS W SPECIFIC [id number] 15:03:00* Test Item Value Reference Range Interpretation Comme nts POCT U SP GRAV (test code = 3255) . 1.005-1.025 POCT PH U (test code = 3254) . 5-8 POCT U LEUK EST (test code = 3263) . Negative - N egative POCT U NIT (test code = 3262) . Negative - Negati ve POCT U PROT (test code = 3259) Trace Negative - Negat emma POCT U GLU (test code = 3256) Neg Negative - Negati ve POCT U KETONE (test code = 3258) . Negative - Neg ative POCT U UROBILI (test code = 3260) . 0.2-1 POCT U BILI (test code = 3261) . Negative - Negat emma POCT U BLD (test code = 3257) . Negative - Negati ve POCT U COLOR (test code = 3266) POCT U APPEAR (test code = 3267) [facility] URINALYSIS W SPECIFIC [id number] 15:03:00* Test Item Value Reference Range Interpretation Comme nts POCT U SP GRAV (test code = 3255) . 1.005-1.025 POCT PH U (test code = 3254) . 5-8 POCT U LEUK EST (test code = 3263) . Negative - N egative POCT U NIT (test code = 3262) . Negative - Negati ve POCT U PROT (test code = 3259) Trace Negative - Negat emma POCT U GLU (test code = 3256) Neg Negative - Negati ve POCT U KETONE (test code = 3258) . Negative - Neg ative POCT U UROBILI (test code = 3260) . 0.2-1 POCT U BILI (test code = 3261) . Negative - Negat emma POCT U BLD (test code = 3257) . Negative - Negati ve POCT U COLOR (test code = 3266) POCT U APPEAR (test code = 3267) [facility] URINALYSIS W SPECIFIC [id number] 15:03:00* Test Item Value Reference Range Interpretation Comme nts POCT U SP GRAV (test code = 3255) . 1.005-1.025 POCT PH U (test code = 3254) . 5-8 POCT U LEUK EST (test code = 3263) . Negative - N egative POCT U NIT (test code = 3262) . Negative - Negati ve POCT U PROT (test code = 3259) Trace Negative - Negat emma POCT U GLU (test code = 3256) Neg Negative - Negati ve POCT U KETONE (test code = 3258) . Negative - Neg ative POCT U UROBILI (test code = 3260) . 0.2-1 POCT U BILI (test code = 3261) . Negative - Negat emma POCT U BLD (test code = 3257) . Negative - Negati ve POCT U COLOR (test code = 3266) POCT U APPEAR (test code = 3267) [facility] URINALYSIS W SPECIFIC [id number] 17:08:00* Test Item Value Reference Range Interpretation Comme nts POCT U SP GRAV (test code = 3255) . 1.005-1.025 POCT PH U (test code = 3254) . 5-8 POCT U LEUK EST (test code = 3263) . Negative - N egative POCT U NIT (test code = 3262) . Negative - Negati ve POCT U PROT (test code = 3259) trace Negative - Negat emma POCT U GLU (test code = 3256) normal Negative - Negati ve POCT U KETONE (test code = 3258) . Negative - Neg ative POCT U UROBILI (test code = 3260) . 0.2-1 POCT U BILI (test code = 3261) . Negative - Negat emma POCT U BLD (test code = 3257) . Negative - Negati ve POCT U COLOR (test code = 3266) . POCT U APPEAR (test code = 3267) . [facility] URINALYSIS W SPECIFIC [id number] 17:08:00* Test Item Value Reference Range Interpretation Comme nts POCT U SP GRAV (test code = 3255) . 1.005-1.025 POCT PH U (test code = 3254) . 5-8 POCT U LEUK EST (test code = 3263) . Negative - N egative POCT U NIT (test code = 3262) . Negative - Negati ve POCT U PROT (test code = 3259) trace Negative - Negat emma POCT U GLU (test code = 3256) normal Negative - Negati ve POCT U KETONE (test code = 3258) . Negative - Neg ative POCT U UROBILI (test code = 3260) . 0.2-1 POCT U BILI (test code = 3261) . Negative - Negat emma POCT U BLD (test code = 3257) . Negative - Negati ve POCT U COLOR (test code = 3266) . POCT U APPEAR (test code = 3267) . [facility] URINALYSIS W SPECIFIC [id number] 17:08:00* Test Item Value Reference Range Interpretation Comme nts POCT U SP GRAV (test code = 3255) . 1.005-1.025 POCT PH U (test code = 3254) . 5-8 POCT U LEUK EST (test code = 3263) . Negative - N egative POCT U NIT (test code = 3262) . Negative - Negati ve POCT U PROT (test code = 3259) trace Negative - Negat emma POCT U GLU (test code = 3256) normal Negative - Negati ve POCT U KETONE (test code = 3258) . Negative - Neg ative POCT U UROBILI (test code = 3260) . 0.2-1 POCT U BILI (test code = 3261) . Negative - Negat emma POCT U BLD (test code = 3257) . Negative - Negati ve POCT U COLOR (test code = 3266) . POCT U APPEAR (test code = 3267) . [facility] URINALYSIS W SPECIFIC [id number] 17:08:00* Test Item Value Reference Range Interpretation Comme nts POCT U SP GRAV (test code = 3255) . 1.005-1.025 POCT PH U (test code = 3254) . 5-8 POCT U LEUK EST (test code = 3263) . Negative - N egative POCT U NIT (test code = 3262) . Negative - Negati ve POCT U PROT (test code = 3259) trace Negative - Negat emma POCT U GLU (test code = 3256) normal Negative - Negati ve POCT U KETONE (test code = 3258) . Negative - Neg ative POCT U UROBILI (test code = 3260) . 0.2-1 POCT U BILI (test code = 3261) . Negative - Negat emma POCT U BLD (test code = 3257) . Negative - Negati ve POCT U COLOR (test code = 3266) . POCT U APPEAR (test code = 3267) . [facility] URINALYSIS W SPECIFIC [id number] 17:08:00* Test Item Value Reference Range Interpretation Comme nts POCT U SP GRAV (test code = 3255) . 1.005-1.025 POCT PH U (test code = 3254) . 5-8 POCT U LEUK EST (test code = 3263) . Negative - N egative POCT U NIT (test code = 3262) . Negative - Negati ve POCT U PROT (test code = 3259) trace Negative - Negat emma POCT U GLU (test code = 3256) normal Negative - Negati ve POCT U KETONE (test code = 3258) . Negative - Neg ative POCT U UROBILI (test code = 3260) . 0.2-1 POCT U BILI (test code = 3261) . Negative - Negat emma POCT U BLD (test code = 3257) . Negative - Negati ve POCT U COLOR (test code = 3266) . POCT U APPEAR (test code = 3267) . [facility] [id number] 17:18:00* Test Item Value Reference Range Interpretation Comme nts POCT U SP GRAV (test code = 3255) . 1.005-1.025 POCT PH U (test code = 3254) . 5-8 POCT U LEUK EST (test code = 3263) . Negative - N egative POCT U NIT (test code = 3262) . Negative - Negati ve POCT U PROT (test code = 3259) Trace Negative - Negat emma POCT U GLU (test code = 3256) Neg Negative - Negati ve POCT U KETONE (test code = 3258) . Negative - Neg ative POCT U UROBILI (test code = 3260) . 0.2-1 POCT U BILI (test code = 3261) . Negative - Negat emma POCT U BLD (test code = 3257) . Negative - Negati ve POCT U COLOR (test code = 3266) . POCT U APPEAR (test code = 3267) . [facility] [id number] 16:47:57* Test Item Value Reference Range Interpretation Comme nts AFP-MS (test code = 2499664922) 25.4 ng/mL AFP-MS MoM (test code = 7481018827) WEIGHT (test code = 6186964138) lbs RACE (test code = 1254565617) GEST. AGE (test code = 6296708011) 18,0 Gestational age reflects sample collection date. Previous preliminary verified result was 9,3 on 08/22/2022 at 1301 CDT INS. DEP (test code = 1328972180) No LMP (test code = 2113951628) US DATE (test code = 1463315008) PE DATE (test code = 7803514909) METHOD (test code = 6921105906) US MULT GEST (test code = 4391287887) No NTD HX (test code = 6886011778) No INITAL OR REPEAT (test code = 7761710601) Initial Testing SMOKER (test code = 6129734691) No RH (test code = 1983713200) Positive OSB INTERP (test code = 1192748448) See Note The maternal ser um AFP result is NOT elevated for a of thisgestational age. The risk of an open neural tube defect is less thanthe screening cut-off. OSB RSK (test code = 0531646287) 1:32722 The risk of OSB is equal to 1:11754Lye OSB cut-off is 2.50 (1:104) OSB SCRN (test code = 6747419815) Negative [facility] URINALYSIS W SPECIFIC [id number] 19:43:00* Test Item Value Reference Range Interpretation Comme nts POCT U SP GRAV (test code = 3255) . 1.005-1.025 POCT PH U (test code = 3254) . 5-8 POCT U LEUK EST (test code = 3263) . Negative - Negative POCT U NIT (test code = 3262) . Negative - Negati ve POCT U PROT (test code = 3259) trace Negative - Negat emma POCT U GLU (test code = 3256) negative Negative - Negati ve POCT U KETONE (test code = 3258) negative Negative - Neg ative POCT U UROBILI (test code = 3260) . 0.2-1 POCT U BILI (test code = 3261) . Negative - Negat emma POCT U BLD (test code = 3257) negative Negative - Negati ve POCT U COLOR (test code = 3266) yellow POCT U APPEAR (test code = 3267) [facility] [id number] 19:43:00* Test Item Value Reference Range Interpretation Comme nts POCT U SP GRAV (test code = 3255) . 1.005-1.025 POCT PH U (test code = 3254) . 5-8 POCT U LEUK EST (test code = 3263) . Negative - Negative POCT U NIT (test code = 3262) . Negative - Negati ve POCT U PROT (test code = 3259) trace Negative - Negat emma POCT U GLU (test code = 3256) negative Negative - Negati ve POCT U KETONE (test code = 3258) negative Negative - Neg ative POCT U UROBILI (test code = 3260) . 0.2-1 POCT U BILI (test code = 3261) . Negative - Negat emma POCT U BLD (test code = 3257) negative Negative - Negati ve POCT U COLOR (test code = 3266) yellow POCT U APPEAR (test code = 3267) clear [facility] Notes Date/Time Note Provider Source 2023-12-21 23:33:06 eNfev4jLKbRpG2UPs8tG /XzZM8ILFHMH7 LnpF90qAqRptdJ4cOc7C//moWaVLEcq37 18-12-26T23:33:06 Pt discharged with diagnosis of fever and chills and viral illness. Printed and verbal instructions reviewed with and given to pt. Prescriptions given x 2. Pt verbalized understanding of teaching, medications, and recommended follow-up. Denies questions or concerns at this time. Pt ambulatory at discharge. Appears in no apparent distress. No ataxia noted. 53497-7Nsnwbombk department FrotHW9629-01-55X71:33:08Emergen y department NoteTXT1.2.840.893345.1.13.104.2. 7.2.364152|[id number] for patient nkxe63755-8MluxXJFUZTOTTPNZxoadfw ed C-CDA narrative [id number] Harp RNUT[address] Cu[id number] 453CEQAPANTKOFRMCCFWFTQCU9962-01- 27T23:33:081.2.840.159800.1.72.3. 15|1.2.840.827804.1.13.104.2.7.2. 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 7.2.814907|[id number] for patient ueiz95462-4YiwoDYAQVWCBLVIAwdqnrz ed C-CDA narrative [id number] R Shehadeh RN[address]TXTX[address]5577 988EBOHHORWMBFXYSFDMBWLAG0412-32- 27T23:07:171.2.840.415454.1.72.3. 15|1.2.840.363092.1.13.104.2.7.2. [id number] Margaux Davis RN [facility] 2023-12-21 20:54:51 lYHhzrRAuvFVXuRkKHaT lS+dttbn6x/8x hzvPEB2ERszKkUVPqSrUT31UtzWutze00 18-12-26T20:54:51 Patient reports fever starting this morning, with headache and chills. Temp around 7pm was 102 at home, took Ibuprofen. She started new prescribed medication yesterday for mouth sores. 73905-6Ugsnxuxdn department Triage fqqbXI6876-98-83U36:56:27[facility] Triage noteTXT1.2.840.139563.1.13.104.2. 7.2.217974|[id number] for patient ktnh03036-4Hqihvgiag department NoteLNNARRATIVEFormatted C-CDA narrative [id number] M Leibee RNUT[address] Dt[id number] 107VUNCDPGFRDTLDNGGJGPHTC9882-43- 27T20:56:271.2.840.414259.1.72.3. 15|1.2.840.977172.1.13.104.2.7.2. [id number] Mushtaq Perez RN [facility] 2023-12-18 11:19:45 X2YPvRSc/ejIPUelZ9Ik joMRr+iMdwsNc Yxv7xhelMWluj8owS4Do6IAK1+G71nq90 18-12-23T11:19:45 Medina is here with her who is well. Noticed cold sore corner of the lip right side. Sent Valtrex 1 gm PO BID x 7 days. 41045-5Dkipckuoo encounter McrpHP5989-05-54Q77:22:23Telephon e encounter NoteTXT1.2.840.730316.1.13.104.2. 7.2.384117|[id number] for patient tgwe17224-7GfjvOZEFKKJVBIFRoqzwdp ed C-CDA narrative text[address] JddyXirbjdfavIwugvgbdiCWRX7593857 419DDVEONRUIGKJBBJUMJTNDX3248-38- 24T11:22:231.2.840.779015.1.72.3. 15|1.2.840.429088.1.13.104.2.7.2. [id number] [facility] 2023-05-17 10:10:37 [facility]YbZwRFDpuUIiyxRBt fNPHl9dpjH4gg bIdkdWBuZz2JwxfEJ/T8PJCSvs6fqMv53 16-05-24T10:10:37 Tried calling patient at the contact number on the chart, no voicemail set up. I don't know if she wants me to send the Paxlovid prescription to any other pharmacy. 59200-2Xmfpnakqm encounter HiagCK0724-72-72J05:10:37Telephon e encounter NoteTXT1.2.840.805537.1.13.104.2. 7.2.986079|[id number] for patient [address] Yn[id number] 989DAEQYOWXRJXMPBOAUYDHRT0191-67- 24T10:10:371.2.840.168617.1.72.3. 15|1.2.840.259853.1.13.104.2.7.2. [id number] [facility]"
[2024-01-25 19:23] LABS: SARS-CoV-2 Antigen CONTROL BLUE LINE VIS/BG OK; SARS-CoV-2 Antigen Rapid Res Negative (Negative)
--- NOTE | 2024-01-25 19:35 | EDPHYS ---
Physician Documentation [facility] Name: Mary Jo Mendieta Age: 28 yrs Sex: Female : 1995 Arrival Date: 01/25/2024 Time: 17:29 Bed DX5 Private MD: ED Physician Chetan Velasquez HPI: 01/24 17:54 This 28 yrs old Female presents to ER via Ambulatory with complaints of sb4 Vomiting/Diarrhea, Headache. 17:54 patient states she started feeling nauseated last night at approx 8pm, said she thinks sb4 it could be due to a bad fruit cup. states she has vomited a few times, had diarrhea, and now has a headache. she is able to hold food/fluids down. no known sick contacts. states she feels hot, but has not checked her temp. Historical: - Allergies: 17:49 No Known Allergies; nj1 - PMHx: 17:49 epilepsy; nj1 - PSHx: 17:49 section; nj1 - Immunization history:: Client reports having NOT received the Covid vaccine. - Infectious Disease History:: Denies. - Social history:: Smoking status: Patient denies any tobacco usage or history of. ROS: 17:54 Cardiovascular: Negative for chest pain, palpitations, and edema, sb4 17:54 Constitutional: Positive for fever, 17:54 Abdomen/GI: Positive for nausea, vomiting, and diarrhea, 17:54 Neuro: Positive for headache, 17:54 All other systems are negative, Exam: 17:54 Constitutional: This is a well developed, well nourished patient who is awake, alert, sb4 and in no acute distress. Head/Face: Normocephalic, atraumatic. Eyes: Extra-ocular motions intact. Periorbital areas with no swelling, redness, or edema. ENT: Mucous membranes moist. Cardiovascular: Regular rate and rhythm with a normal S1 and S2. Respiratory: Lungs have equal breath sounds bilaterally, clear to auscultation and percussion. No rales, rhonchi or wheezes noted. No increased work of breathing, no retractions or nasal flaring. Abdomen/GI: Soft, non-tender, no distension. Skin: Warm, dry with normal turgor. Normal color with no rashes, no lesions, and no evidence of cellulitis. MS/ Extremity: Pulses equal, no cyanosis. Neurovascular intact. Full, normal range of motion. Neuro: Awake and alert, GCS 15, oriented to person, place, time, and situation. Motor strength 5/5 in all extremities. Sensory grossly intact. Vital Signs: 17:47 BP 110 / 71; Pulse 105; Resp 18; Temp 99.3(O); Pulse Ox 97% ; Weight 79.38 kg; Height 5 nj1 ft. 1 in. ; Pain 6/10; 17:47 Body Mass Index 33.07 (79.38 kg, 154.94 cm) nj1 17:47 Pain Scale: Adult nj1 MDM: 17:54 Patient medically screened. sb4 19:34 Data reviewed: vital signs, nurses notes, lab test result(s), and as a result, I will sb4 discharge patient. Counseling: I had a detailed discussion with the patient and/or guardian regarding the historical points, exam findings, and any diagnostic results supporting the discharge/admit diagnosis, lab results, to return to the emergency department if symptoms worsen or persist or if there are any questions or concerns that arise at home. 01/24 18:49 Order name: SARS RAPID; Complete Time: 19:24 sb4 01/24 18:49 Order name: Flu; Complete Time: 19:33 sb4 01/24 18:49 Order name: Strep; Complete Time: 19:33 sb4 01/24 19:32 Order name: Throat Culture [facility] 01/24 17:54 Order name: IV Saline Lock sb4 01/24 17:54 Order name: Labs collected and sent sb4 Administered Medications: 19:35 CANCELLED (Physician Discretion): ns 0.9% 1000 ml IV at 1 bolus Per protocol; 1000 mL sb4 bolus 19:35 CANCELLED (Physician Discretion): TORadol - cxjtzzepc64 mg IVP once sb4 19:35 CANCELLED (Physician Discretion): ondansetron 4 mg IVP once; over 2 minutes sb4 Disposition: 20:24 Co-signature as Attending Physician, Chetan Velasquez MD I reviewed the patient's care rt provided by the Advanced Practice Provider and agree with the diagnosis and treatment plan. Disposition Summary: 01/25/24 19:34 Discharge Ordered Notes: Location: Home sb4 Problem: new sb4 Symptoms: have improved sb4 Condition: Stable sb4 Diagnosis - Nausea with vomiting, unspecified sb4 Followup: sb4 - With: Emergency Department - When: As needed - Reason: Trouble breathing, Worsening of condition Discharge Instructions: - Discharge Summary Sheet sb4 - Nausea and Vomiting, Adult sb4 Forms: - Medication Reconciliation Form sb4 - Thank You Letter sb4 - Patient Portal Instructions sb4 - Leadership Thank You Letter sb4 - Work release form bc6 Prescriptions: - Zofran 4 mg Oral Tablet - take 1 tablet ORAL route every 12 hours As needed; 20 tablet; Refills: 0, sb4 Product Selection Permitted Signatures: Dispatcher [employer] EDMS Julia Danielson PA-C PA-C sb4 Chetan Velasquez MD MD rt Dea Pineda RN RN nj1 Corrections: (The following items were deleted from the chart) 17:55 17:55 CBC+H.LAB.BRZ ordered. EDMS EDMS 17:55 17:55 COMPREHENSIVE METABOLIC PANEL+C.LAB.BRZ ordered. EDMS EDMS 17:55 17:55 LIPASE+C.LAB.BRZ ordered. EDMS EDMS 17:55 17:55 Test, Urine+UC.LAB.BRZ ordered. EDMS EDMS 17:55 17:55 Urinalysis+U.LAB.BRZ ordered. EDMS EDMS 19:35 17:54 NS 0.9% IV 1000 ml IV at 1 bolus Per protocol; 1000 mL bolus ordered. sb4 sb4 19:35 17:54 TORadol - Ketorolac IVP 15 mg IVP once ordered. sb4 sb4 19:35 17:54 Ondansetron IVP 4 mg IVP once; over 2 minutes ordered. sb4 sb4
--- NOTE | 2024-01-25 19:35 | ER ---
Nurse's Notes [facility] Name: Mary Jo Mendieta Age: 28 yrs Sex: Female : 1995 Arrival Date: 01/25/2024 Time: 17:29 Bed DX5 Private MD: Diagnosis: Nausea with vomiting, unspecified Presentation: 01/24 17:47 Chief complaint: Patient states: Nauseous yesterday, as well as vomiting, diarrhea and nj1 headache today. Coronavirus screen: Vaccine status: Patient reports being unvaccinated. Ebola Screen: Patient denies travel to an Ebola-affected area in the 21 days before illness onset. Initial Sepsis Screen: Does the patient meet any 2 criteria? HR > 90 bpm. No. Patient's initial sepsis screen is negative. Does the patient have a suspected source of infection? No. Patient's initial sepsis screen is negative. Risk Assessment: Do you want to hurt yourself or someone else? Patient reports no desire to harm self or others. Onset of symptoms was January 24, 2024. 17:47 Method Of Arrival: [facility] 17:47 Acuity: CHERIE 3 nj1 Triage Assessment: 17:50 General: Appears in no apparent distress. comfortable, Behavior is calm, cooperative, nj1 appropriate for age. Pain: Complains of pain in Head Pain currently is 6 out of 10 on a pain scale. Quality of pain is described as aching. Historical: - Allergies: 17:49 No Known Allergies; nj1 - PMHx: 17:49 epilepsy; nj1 - PSHx: 17:49 section; nj1 - Immunization history:: Client reports having NOT received the Covid vaccine. - Infectious Disease History:: Denies. - Social history:: Smoking status: Patient denies any tobacco usage or history of. Screenin:41 [facility] ED Fall Risk Assessment (Adult) History of falling in the last 3 months, iw including since admission No falls in past 3 months (0 pts) Confusion or Disorientation No (0 pts) Intoxicated or Sedated No (0 pts) Impaired Gait No (0 pts) Mobility Assist Device Used No (0 pt) Altered Elimination No (0 pt) Score/Fall Risk Level 0 - 2 = Low Risk. Abuse screen: Denies threats or abuse. Denies injuries from another. Nutritional screening: No deficits noted. Tuberculosis screening: No symptoms or risk factors identified. Assessment: 19:41 Reassessment: Patient appears in no apparent distress at this time. Patient and/or iw family updated on plan of care and expected duration. Pain level reassessed. Patient is alert, oriented x 3, equal unlabored respirations, skin warm/dry/pink. Vital Signs: 17:47 BP 110 / 71; Pulse 105; Resp 18; Temp 99.3(O); Pulse Ox 97% ; Weight 79.38 kg; Height 5 nj1 ft. 1 in. ; Pain 6/10; 17:47 Body Mass Index 33.07 (79.38 kg, 154.94 cm) nj1 17:47 Pain Scale: Adult [facility] ED Course: 17:32 Patient arrived in ED. im 17:49 Julia Danielson PA-C is PHCP. sb4 17:49 Chetan Velasquez MD is Attending Physician. sb4 17:49 Triage completed. nj1 17:49 Arm band placed on right wrist. nj1 18:45 In the Process of Starting Patients work-up she stated she did not want any blood work bc6 done. that she only wanted to be swabbed. she has her daughter and she will pass out and have a seizure with blood work. 18:52 Strep Sent. bc6 18:52 Flu Sent. bc6 18:52 SARS RAPID Sent. bc6 19:41 Shelley Wade, RN is Primary Nurse. iw 19:41 No provider procedures requiring assistance completed. Patient did not have IV access iw during this emergency room visit. Administered Medications: 19:35 CANCELLED (Physician Discretion): ns 0.9% 1000 ml IV at 1 bolus Per protocol; 1000 mL sb4 bolus 19:35 CANCELLED (Physician Discretion): TORadol - [id number] mg IVP once sb4 19:35 CANCELLED (Physician Discretion): ondansetron 4 mg IVP once; over 2 minutes sb4 Medication: 19:41 VIS not applicable for this client. iw Outcome: 19:34 Discharge ordered by . sb4 19:41 Discharged to home ambulatory, iw 19:41 Condition: good 19:41 Discharge instructions given to patient, Instructed on discharge instructions, follow up and referral plans. medication usage, Demonstrated understanding of instructions, follow-up care, medications, Prescriptions given X 1, 19:41 Patient left the ED. iw Signatures: Shelley Wade, RN RN iw Julia Danielson PANikko PAArcadioC sb4 Keisha Adhikari bc6 Dea Pineda RN RN nj1 Rochelle Falcon Corrections: (The following items were deleted from the chart) 17:50 17:47 Pulse 105bpm; Resp 18bpm; Pulse Ox 97%; Temp 99.3F Oral; 79.38 kg; Height 5 ft. 1 nj1 in.; BMI: 33.0; Pain 6/10, Adult; nj1
[2024-01-25 22:16] VITALS: BP 110/71; TEMP 99.3; O2SAT 97
== END 2024-01-25 19:41 | disposition home or self-care (01) ==
LOC: ER 17:29
DX: R11.2 Nausea with vomiting, unspecified (principal); Z11.52 Encounter for screening for COVID-19
CPT/HCPCS: 36415; 87070; 87081; 87804; 87811; 99283

== ENCOUNTER 2024-02-07 11:44 | Emergency (ER) | payer SELFPAY ==
--- OUTSIDE RECORDS SUMMARY | 2024-02-07 11:52 | XMS REPORT | Continuity of Care Document ---
Author Name Unknown Address [address] [facility] [address] [place] [address] [facility] Address [address] [facility] 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 Role Phone CHERYL DAVISON Primary Care Physician Unavailab NISHA Bey Attending Clinician Unavailable NISHA CADET Attending Clinician Unavailable CON RIOS Attending Clinician Unavailable Con Rios PA-C Attending Clinician [phone] Felecia Vick Attending Clinician [phone] CHERYL DAVISON Attending Clinician Unavailable Xenia WOODSJanuary Attending Clinician Unavailab TRINA Shaw Attending Clinician Unavailable Trina Valentine PA-C Attending Clinician [phone] Unknown, Attending Attending Clinician Unavailab koki GC_GCBZW_Kadijuan francisco_S Attending Clinician UnavailCheryl Hoff Attending Clinician [phone] NOLVIA JACOBS Attending Clinician Unavailable Visit, [facility] Nurse Attending Clinician Unava ilNolvia Kelly Attending Clinician [phone] Doctor Unassigned, Gross Attending Clinician U Rashid Muro Attending Clinician [phone] NAILA LUNDY Attending Clinician Unavaila FELECIA Medrano Attending Clinician Unavailable Kamilah Brice Attending Clinician + KAMILAH MCGINNIS Attending Clinician Unavail able Visit, [facility] Nurse Attending Clinician Unava ilable Nikkie CASILLASM, Naila Winters Attending Clinician [phone] BRIANNE, MICHELLE Attending Clinician Unavailable Alek GARIBAY, Maria Guadalupe Attending Clinician [phone] Helio GARIBAY, Nisha Attending Clinician [phone] Jacinto GARIBAY, Blake Xie Attending Clinician [phone] Tabatha GARIBAY, Heavenly Attending Clinician [phone] Bert GARIBAY, Louise Attending Clinician [phone] [facility], [facility] Temp Attending Clinician Hannah vailable Ultrasound, Ang-m Attending Clinician Unavailjose Gamble MD, Stevan Rogers Attending Clinician +[phone] Dolores GARIBAY, Fern Flanagan Attending Clinician + FERN BERNAL Attending Clinician Unav ailable Faculty, [facility] Attending Clinician Unava ilable Tammie Baires MD, Garcia Attending Clinician + SHAYLA NEAL Attending Clinician Unav ailable Saran Abdalla DO Attending Clinician [phone] UNKNOWN, ATTENDING Attending Clinician Unavailab koki Narvaez RN, Edith Anthony Attending Clinician Unavailable NORM CAZARES Attending Clinician Unavailable Norm Cazares MD Attending Clinician [phone], [facility] Attending Clinician Unavailable 1, [facility] Us Room Attending Clinician Unavailab le Lab, [facility] Attending Clinician Unavailable TERA NORIEGA Attending Clinician Unavailab OLIVIA Macias Attending Clinician Unavailabl angely Ruvalcaba PA-C, Michelle Attending Clinician [phone] Lab, Adc [facility]am Pob I Attending Clinician Unavailab Samina Harris Attending Clinician [phone] Pob[facility], [facility] Attending Clinician Unav ailable NISHA CADET Admitting Clinician Unavailable GC_GCBZW_Kadiyala_Kimberly Admitting Clinician Nisha Burton MD Admitting Clinician Payers Payer Name Policy Type Policy Number Effective Date Expirati on Date Source [facility] [id number] 2022 00:00:00 [employer]WORK [id number] 2011 00:00:00 MEDICAID PENDING PENDING 2022 00:00:00 [place] [id number] 2022 00:00:00 2022 00:00:00 Problems Condition Name Condition Details Condition Category Status Onset Date Resolution Date Last Treatment Date Treating Clinician Comments Source Encounter to establish care Encounter to establish care Disease Active 2022-10 00:00: 00 [facility] Vomiting, unspecifie d vomiting type, unspecifie d whether nausea present Vomiting, unspecifie d vomiting type, unspecifie d whether nausea present Disease Active 2022-10 00:00: 00 [facility] BMI 38.0-38.9, adult BMI 38.0-38.9, adult Disease Active 04-22 00:00: 00 [facility] Contracept emma patch status Contracept emma patch status Disease Active 04-22 00:00: 00 [facility] Anemia of mother in , condition Anemia of mother in , condition Disease Active 04-22 00:00: 00 [facility] Pre-eclamp garth in third trimester Pre-eclamp garth in third trimester Disease Active 01-11 00:00: 00 [facility] Morbid obesity with body mass index of 40.0-49.9 Morbid obesity with body mass index of 40.0-49.9 Disease Active 01-10 00:00: 00 [facility] Back pain affecting in third trimester Back pain affecting in third trimester Disease Active 01-10 00:00: 00 [facility] 38 weeks gestation of 38 weeks gestation of Disease Active 01-10 00:00: 00 [facility] Excessive weight gain affecting Excessive weight gain affecting Disease Active 2023-0 3-03 00:00: 00 [facility] Seizure disorder during in third trimester Seizure disorder during in third trimester Disease Active 8-19 00:00: 00 [facility] Low grade squamous intraepith elial lesion (LGSIL) on cervical Pap smear Low grade squamous intraepith elial lesion (LGSIL) on cervical Pap smear Disease Active 8 00:00: 00 Overview: Formattin g of this note might be different from the original. +HPV 08-12- 0Per ASCCP guideline needs repeat pap I n 1 year [facility] Rubella non-immune status, antepartum Rubella non-immune status, antepartum Disease Active 05-25 00:00: 00 Overview: Formattin g of this note might be different from the original. Address pp [facility] Susceptibl e to varicella (non-immun e), currently Susceptibl e to varicella (non-immun e), currently Disease Active 05-25 00:00: 00 Overview: Formattin g of this note might be different from the original. Address pp [facility] Supervisio n of high-risk Supervisio n of high-risk Disease Active 05-22 00:00: 00 [facility] Obesity in Obesity in Disease Active 05-22 00:00: 00 [facility] History of seizure History of seizure Disease Active 05-22 00:00: 00 Overview: Formattin g of this note might be different from the original. Reports dx at age 4, last saw neuro in 2011, not on meds, reports last seizure activity was in february [facility] Knee pain, left Knee pain, left Disease Active 01-29 00:00: 00 [facility] Knee pain, left Knee pain, left Disease Active 01-29 00:00: 00 [facility] Scoliosis Scoliosis Disease Active 6 00:00: 00 [facility] Allergies, Adverse Reactions, Alerts Allergy Name Allergy Type Status Severity Reaction(s) Onset Date Inactive Date Treating Clinician Comments Source NO KNOWN ALLERGIE S Drug Class Active [facility] Social History Social Habit Start Date Stop Date Quantity Comments Source ASSERTION 2022-05-01 00:00:00 [facility] Alcohol intake 2023-12-21 00:00:00 2023-12-21 00:00:00 Current drinker of alcohol (finding) [facility] Alcohol Comment 2023-04-22 00:00:00 2023-04-22 00:00:00 Social drinking [facility] History of Social function 2023-04-22 00:00:00 2023-04-22 00:00:00 [facility] Exposure to SARS-CoV-2 (event) 2023-01-09 00:00:00 2023-01-19 09:39:00 Not sure [facility] Tobacco use and exposure 2022-05-22 00:00:00 2022-05-22 00:00:00 Smokeless tobacco non-user [facility] Sex Assigned At 1995 00:00:00 1995 00:00:00 [facility] Smoking Status Start Date Stop Date Source Never smoked tobacco [facility] Medications Ordered Medication Name Filled Medication Name Start Date Stop Date Current Medication? Ordering Clinician Indication Dosage Frequency Signature (SIG) Comments Components Source acetaminoph en (TYLENOL) tablet 650 mg 12-22 05:30: 00 12-22 05:25 :00 No 650mg 650 mg, Oral, ONCE, 1 dose, On Wed12/21/23 at 2330, LINDSEY [facility] methylPREDN ISolone 4 mg tablets 12-21 00:00: 00 Yes [id number] Take by mouth SEE-INSTRU CTIONS. follow package directions [facility] bromphenira mine-pseudo ephedrine-D M (BROMFED DM) 2-30-10 mg/5 mL syrup 12-21 00:00: 00 12-31 05:59 :00 Yes [id number] 10mL Take 10 mL by mouth 4 (four) times daily as needed for Congestion /Allergies for up to 10 days. [facility] valACYclovi r (VALTREX) 1 gram tablet 12-18 00:00: 00 12-25 05:59 :00 Yes [id number] 1g Take 1 tablet by mouth in the morning and 1 tablet in the evening. Do all this for 7 days. [facility] ondansetron 4 mg disintegrat ing tablet 2022-10 00:00: 00 Yes [id number] 4mg Take 1 tablet by mouth every 8 (eight) hours as needed for Nausea and Vomiting (N/V). [facility] PAXLOVID, EUA, 300 mg (150 mg x 2)-100 mg tablet 05-17 00:00: 00 Yes [id number] TAKE 3 TABLETS BY MOUTH IN THE MORNING AND IN THE EVENING FOR 5 DAYS [facility] nirmatrelvi r-ritonavir (PAXLOVID, EUA,) 300 mg (150 mg x 2)-100 mg tablet 05-15 00:00: 00 05-17 00:00 :00 No [id number] 3{tbl} Take 3 tablets by mouth in the morning and 3 tablets in the evening. Do all this for 5 days. [facility] levETIRAcet am 250 mg tablet 04-22 15:47: 27 04-22 00:00 :00 No 250mg Take 1 tablet by mouth once now. [facility] norelgestro min-ethinyl estradiol 150-35 mcg/24 hr patch 04-22 00:00: 00 Yes [id number] 1{patch } Apply 1 Patch to skin weekly. [facility] levETIRAcet am 250 mg tablet 01-14 14:48: 52 Yes 250mg Take 250 mg by mouth once now. [facility] levETIRAcet am (KEPPRA) tablet 250 mg 01-14 02:00: 00 Yes 250mg 250 mg, Oral, QHS, First dose on Wed01/13/23 at 2100, Until Discontinu ed, Routine [facility] vit no.130-iron -folic ( VITAMIN) 01-14 00:00: 00 Yes [id number] 1{tbl} Take 1 tablet by mouth in the morning. [facility] vit no.130-iron -folic ( VITAMIN) 01-14 00:00: 00 Yes [id number] 1{tbl} Take 1 tablet by mouth in the morning. [facility] ferrous sulfate 325 mg (65 mg iron) tablet 01-14 00:00: 00 04-22 00:00 :00 No [id number] 325mg Take 1 tablet by mouth in the morning. [facility] HYDROcodone -acetaminop hen 5-325 mg tablet 01-14 00:00: 00 04-22 00:00 :00 No [id number] 1{tbl} Take 1 tablet by mouth every 6 (six) hours as needed for Pain (scale 7-10) (Pain scale above 4). Do not exceed 3 grams of acetaminop hen in 24 hours. Indication s: acute pain [facility] ibuprofen 600 mg tablet 01-14 00:00: 00 04-22 00:00 :00 No [id number] 600mg Take 1 tablet by mouth every 6 (six) hours as needed (Pain). Take with food or milk. [facility] norethindro ne 0.35 mg tablet 01-14 00:00: 00 04-22 00:00 :00 No [id number] 1{tbl} Take 1 tablet by mouth in the morning. [facility] docusate 100 mg capsule 01-14 00:00: 00 04-15 04:59 :00 No [id number] 200mg Take 2 capsules by mouth once daily as needed for Constipati on for up to 90 days. [facility] foLIC acid 1 mg tablet 01-14 00:00: 00 04-15 04:59 :00 No [id number] 1mg Take 1 tablet by mouth in the morning for 90 days. [facility] acetaminoph en (TYLENOL) tablet 650 mg 01-13 17:00: 00 Yes 650mg 650 mg, Oral, Q6H, First dose on Wed01/13/23 at 1200, Until Discontinu ed, Routine [facility] ibuprofen (IBU) tablet 600 mg 01-13 17:00: 00 Yes 600mg 600 mg, Oral, Q6H, First dose on Wed01/13/23 at 1200, Until Discontinu ed, Routine [facility] varicella virus vaccine live (VARIVAX) injection and diluent vial 01-13 14:01: 44 Yes 1{each} 0.5 mL (1 Each), Subcutaneo us, ONCE-PRIOR TO DISCHARGE, 1 dose, Starting on Wed01/13/23 at 0901, Until Discontinu ed, Routine, Give vaccine prior to discharge [facility] famotidine (PEPCID AC) tablet 20 mg 01-13 13:45: 00 Yes 20mg 20 mg, Oral, DAILY, First dose on Wed01/13/23 at 0845, Until Discontinu ed, Routine [facility] HYDROcodone -acetaminop hen (NORCO) 10-325 mg tablet 1 tablet 01-13 11:58: 49 Yes 1{tbl} 1 tablet, Oral, Q6HPRN, Starting on Wed01/13/23 at 0658, Until Discontinu ed, Routine, Pain (scale 7-10) [facility] levETIRAcet am 250 mg tablet 01-13 09:00: 04 Yes 250mg Take 250 mg by mouth once now. [facility] tobramycin (NEBCIN) 240 mg in NaCl 0.9% (NS) piggyback 01-13 06:00: 00 01-13 06:15 :59 No 5mg/kg 240 mg (rounded from 239 mg = 5 mg/kg ?47.8 kg [place] weight), IV Piggyback, ONCE, 1 dose, On Wed01/13/23 at 0100, Administer over 30 Minutes, 50 mL
Reas on for Anti-Infec tive: Documented Infection< br>Documen juanito Infection Site: Pelvic
Duration of Therapy: Other (see Comments) [facility] vit no.130-iron -folic ( VITAMIN) 01-13 00:00: 00 Yes [id number] 1{tbl} Take 1 tablet by mouth in the morning. [facility] docusate 100 mg capsule 01-13 00:00: 00 Yes [id number] 200mg Take 2 capsules by mouth once daily as needed for Constipati on. [facility] ferrous sulfate 325 mg (65 mg iron) tablet 01-13 00:00: 00 Yes [id number] 325mg Take 1 tablet by mouth in the morning and 1 tablet in the evening. [facility] ibuprofen 600 mg tablet 01-13 00:00: 00 Yes [id number] 600mg Take 1 tablet by mouth every 6 (six) hours as needed (Pain). Take with food or milk. [facility] foLIC acid 1 mg tablet 01-13 00:00: 00 Yes [id number] 1mg Take 1 tablet by mouth in the morning. [facility] norethindro ne 0.35 mg tablet 01-13 00:00: 00 Yes [id number] 1{tbl} Take 1 tablet by mouth in the morning. [facility] HYDROcodone -acetaminop hen 5-325 mg tablet 01-13 00:00: 00 01-21 04:59 :00 No [id number] 1{tbl} Take 1 tablet by mouth every 6 (six) hours as needed for Pain (scale 7-10) (Pain scale above 4) for up to 7 days. Do not exceed 3 grams of acetaminop hen in 24 hours. Indication s: acute pain [facility] ampicillin (POLYCILLIN -N) 2,000 mg in NaCl 0.9% (NS) 100 mL MINI-BAG 01-12 22:30: 00 01-13 00:04 :30 No 2g 2,000 mg (2 g), IV Piggyback, ONCE, 1 dose, On Wed01/12/23 at 1730, Administer over 30 Minutes, 100 mL
Reas on for Anti-Infec tive: Documented Infection< br>Documen juanito Infection Site: Pelvic
Duration of Therapy: Other (see Comments) [facility] metroNIDAZO LE in NaCl (iso-os) (FLAGYL I.V.) RTU IV infusion 500 mg 01-12 21:30: 00 01-12 23:27 :17 No 500mg 500 mg, IV Piggyback, ONCE, 1 dose, On Wed01/12/23 at 1630, Administer over 60 Minutes, 100 mL
Reas on for Anti-Infec tive: Documented Infection< br>Documen juanito Infection Site: Pelvic
Duration of Therapy: Other (see Comments) [facility] levETIRAcet am (KEPPRA) tablet 250 mg 01-12 20:45: 00 01-13 02:20 :00 No 250mg 250 mg, Oral, ONCE, 1 dose, On Wed01/12/23 at 1545, Routine [facility] rho(D) immune globulin (RHOGAM) syringe 300 mcg 01-12 20:40: 47 Yes 300ug 300 mcg, Intramuscu lar, ONCE, For 1 dose, Conditiona l, Routine [facility] human papillomav vac,9-louis(P F) (GARDASIL-9 ) syringe 0.5 mL 01-12 20:40: 41 Yes .5mL 0.5 mL, Intramuscu lar, ONCE-PRIOR TO DISCHARGE, 1 dose, Starting on Wed01/12/23 at 1540, Until Discontinu ed, Routine, Give vaccine prior to discharge [facility] diphenhydrA MINE (BENADRYL) injection 25 mg 01-12 20:40: 41 Yes 25mg 25 mg, Slow IV Push, Q6HPRN, Starting on Wed01/12/23 at 1540, Until Discontinu ed, Routine, Itching [facility] diphenhydrA MINE (BENADRYL) tablet 25 mg 01-12 20:40: 41 Yes 25mg 25 mg, Oral, Q6HPRN, Starting on Wed01/12/23 at 1540, Until Discontinu ed, Routine, Sleep, Itching [facility] ondansetron (ZOFRAN (PF)) injection 4 mg 01-12 20:40: 41 Yes 4mg 4 mg, Slow IV Push, Q8HPRN, Starting on Wed01/12/23 at 1540, Until Discontinu ed, Routine, Nausea and Vomiting (N/V) [facility] bisacodyL (DULCOLAX) suppository 10 mg 01-12 20:40: 41 Yes 10mg 10 mg, Rectal, QDAILYPRN, Starting on Wed01/12/23 at 1540, Until Discontinu ed, Routine, Constipati on [facility] simethicone (GAS RELIEF (SIMETHICON E)) chewable tablet 160 mg 01-12 20:40: 41 Yes 160mg 160 mg, Oral, PC+HSPRN, Starting on Wed01/12/23 at 1540, Until Discontinu ed, Routine, Gas [facility] docusate (COLACE) capsule 200 mg 01-12 20:40: 41 Yes 200mg 200 mg, Oral, QDAILYPRN, Starting on Wed01/12/23 at 1540, Until Discontinu ed, Routine, Constipati on [facility] magnesium hydroxide (MILK OF MAGNESIA) 400 mg/5 mL suspension 30 mL 01-12 20:40: 41 Yes 30mL 30 mL, Oral, QDAILYPRN, Starting on Wed01/12/23 at 1540, Until Discontinu ed, Routine, Constipati on [facility] lactated ringers IV infusion 1,000 mL 01-12 20:40: 41 Yes 1000mL at 125 mL/hr, 1,000 mL, IV Infusion, PRN, 1 dose, Starting on Wed01/12/23 at 1540, Until Discontinu ed, Routine [facility] ibuprofen (IBU) tablet 600 mg 01-12 20:40: 41 01-13 11:59 :44 No 600mg 600 mg, Oral, Q6HPRN, Starting on Wed01/12/23 at 1540, Until Wed01/13/23 at 0659, Routine, Pain (scale 1-3) [facility] acetaminoph en (TYLENOL) tablet 650 mg 01-12 03:45: 00 01-12 03:04 :00 No 650mg 650 mg, Oral, ONCE NOW, 1 dose, On Wed01/11/23 at 2245, Routine [facility] tobramycin (NEBCIN) 340 mg in NaCl 0.9% [...] Site: Pelvic
Duration of therapy: 72 hours [facility] ampicillin (POLYCILLIN -N) 2,000 mg in NaCl 0.9% (NS) 100 mL MINI-BAG 01-12 03:45: 00 01-12 20:25 :45 No 2g 2,000 mg (2 g), IV Piggyback, Q6H ABX, First dose on Wed01/11/23 at 2245, Until Discontinu ed, Administer over 30 Minutes, 100 mL
Reas on for Anti-Infec tive: Surgical Prophylaxi s
Surgi german Prophylaxi s: PRODUCT TEST SPECIALIST
Duration of therapy: within 24 hours of surgery [facility] ondansetron (ZOFRAN (PF)) injection 4 mg 01-12 02:15: 00 01-12 01:25 :00 No 4mg 4 mg, Slow IV Push, ONCE, On Wed01/11/23 at 2115, For 1 dose
Do ses of ondansetro n 16 mg and above need to be administer ed via IV piggyback. For Dose >=24mg ECG monitoring is advisable.
[facility] levETIRAcet am (KEPPRA) tablet 250 mg 01-12 02:00: 00 01-12 20:40 :44 No 250mg 250 mg, Oral, QHS, First dose (after last modificati on) on Wed01/11/23 at 2100, Until Discontinu ed, Routine [facility] lactated ringers IV infusion 500 mL 01-11 19:45: 00 01-12 01:50 :56 No 500mL at 999 mL/hr, 500 mL, IV Infusion, ONCE, 1 dose, On Wed01/11/23 at 1445, Routine [facility] ropivacaine 0.2 % (NAROPIN (PF)) epidural infusion 01-11 19:34: 00 Yes Epidural, CONTINUOUS PRN, Starting on Wed01/11/23 at 1434, Until Discontinu ed, Routine, Intra-op [facility] lidocaine-e pinephrine (XYLOCAINE W/EPINEPHRI NE) 1.5 %-1:200,000 injection 01-11 19:32: 00 Yes Intraderma l, ONCE INTRA PROCEDURE, Starting on Wed01/11/23 at 1432, Until Discontinu ed, Routine, Intra-op [facility] lactated ringers IV infusion 500 mL 01-11 18:54: 35 01-11 19:34 :52 No 500mL at 999 mL/hr, 500 mL, IV Infusion, PRN - SEE INSTRUCTIO NS, 1 dose, Starting on Wed01/11/23 at 1354, Until Wed01/11/23 at 1434, Routine [facility] sodium citrate-cit clayton acid (BICITRA) 500-334 mg/5 mL solution 30 mL 01-11 18:54: 35 01-11 19:20 :00 No 30mL 30 mL, Oral, PRE-PROCED URE ONCE, 1 dose, Starting on Wed01/11/23 at 1354, Until Discontinu ed, Routine, Surgery/Pr ocedure [facility] oxytocin (PITOCIN) 30 units in NS 500 mL IV infusion 01-11 07:48: 53 01-12 20:40 :44 No 2mU/min at 2-40 mL/hr, IV Infusion, TITRATE, Starting on Wed01/11/23 at 0248, Until Wed01/12/23 at 1540, LINDSEY [facility] butorphanol (STADOL) injection 1 mg 01-11 07:15: 00 01-11 06:25 :00 No 1mg 1 mg, IV Push, ONCE, 1 dose, On Wed01/11/23 at 0215, Routine [facility] lactated ringers IV infusion 500 mL 01-11 04:17: 47 01-12 20:40 :44 No 500mL at 999 mL/hr, 500 mL, IV Infusion, PRN - SEE INSTRUCTIO NS, Starting on Wed01/10/23 at 2317, Until Wed01/12/23 at 1540, Routine [facility] D5W-LR IV infusion 1,000 mL 01-11 04:17: 47 01-12 20:40 :44 No 1000mL at 1-125 mL/hr, IV Infusion, TITRATE, Starting on Wed01/10/23 at 2317, Until Wed01/12/23 at 1540, Routine [facility] levETIRAcet am (KEPPRA) tablet 250 mg 01-11 01:00: 00 01-11 05:36 :56 No 250mg 250 mg, Oral, BID, First dose on Wed01/10/23 at 2000, Until Discontinu ed, Routine [facility] levETIRAcet am 250 mg tablet 01-10 16:48: 07 Yes 250mg Take 250 mg by mouth once now. [facility] levETIRAcet am 250 mg tablet 2021-10 0 11:24: 52 Yes 250mg Take 250 mg by mouth once now. [facility] No known medications 2021-10 0-14 15:10: 26 No No known medication s [facility] No known medications 9-12 13:59: 38 No No known medication General acute hospital Immunizations Ordered Immunization Name Filled Immunization Name Date Status Comments Source HPV9 2023-04-22 00:00:00 Completed [facility] HPV9 2023-04-22 00:00:00 Completed [facility] HPV9 2023-04-22 00:00:00 Completed [facility] HPV9 2023-04-22 00:00:00 Completed [facility] HPV9 2023-01-14 00:00:00 Completed [facility] HPV9 2023-01-14 00:00:00 Completed [facility] HPV9 2023-01-14 00:00:00 Completed [facility] HPV9 2023-01-14 00:00:00 Completed [facility] HPV9 2023-01-14 00:00:00 Completed [facility] HPV9 2023-01-14 00:00:00 Completed [facility] HPV9 2023-01-14 00:00:00 Completed [facility] HPV9 2023-01-14 00:00:00 Completed [facility] TDAP 2022-11-11 00:00:00 Completed [facility] TDAP 2022-11-11 00:00:00 Completed [facility] TDAP 2022-11-11 00:00:00 Completed [facility] TDAP 2022-11-11 00:00:00 Completed [facility] TDAP 2022-11-11 00:00:00 Completed [facility] TDAP 2022-11-11 00:00:00 Completed [facility] TDAP 2022-11-11 00:00:00 Completed [facility] TDAP 2022-11-11 00:00:00 Completed [facility] TDAP 2022-11-11 00:00:00 Completed [facility] TDAP 2022-11-11 00:00:00 Completed [facility] TDAP 2022-11-11 00:00:00 Completed [facility] TDAP 2022-11-11 00:00:00 Completed [facility] TDAP 2022-11-11 00:00:00 Completed [facility] TDAP 2022-11-11 00:00:00 Completed [facility] TDAP 2022-11-11 00:00:00 Completed [facility] TDAP 2022-11-11 00:00:00 Completed [facility] TDAP 2022-11-11 00:00:00 Completed [facility] TDAP 2022-11-11 00:00:00 Completed [facility] TDAP 2022-11-11 00:00:00 Completed [facility] TDAP 2022-11-11 00:00:00 Completed [facility] TDAP 2022-11-11 00:00:00 Completed [facility] TDAP 2022-11-11 00:00:00 Completed [facility] TDAP 2022-11-11 00:00:00 Completed [facility] TDAP 2022-11-11 00:00:00 Completed [facility] TDAP 2016-01-23 00:00:00 Completed [facility] TDAP 2016-01-23 00:00:00 Completed [facility] TDAP 2016-01-23 00:00:00 Completed [facility] TDAP 2016-01-23 00:00:00 Completed [facility] TDAP 2016-01-23 00:00:00 [facility]pleted [facility] [facility] 2016-01-23 00:00:00 Completed [facility] TDAP 2016-01-23 00:00:00 Completed [facility] TDAP 2016-01-23 00:00:00 Completed [facility] TDAP 2016-01-23 00:00:00 Completed [facility] TDAP 2016-01-23 00:00:00 Completed [facility] TDAP 2016-01-23 00:00:00 Completed [facility] TDAP 2016-01-23 00:00:00 Completed [facility] TDAP 2016-01-23 00:00:00 Completed [facility] TDAP 2016-01-23 00:00:00 Completed [facility] TDAP 2016-01-23 00:00:00 Completed [facility] TDAP 2016-01-23 00:00:00 Completed [facility] TDAP 2016-01-23 00:00:00 Completed [facility] TDAP 2016-01-23 00:00:00 Completed [facility] TDAP 2016-01-23 00:00:00 Completed [facility] TDAP 2016-01-23 00:00:00 Completed [facility] Meningococcal Polysaccharide (groups A, C, Y and W-135) conjugate vaccine (MCV4P) 2016-01-16 00:00:00 Completed [facility] Meningococcal Polysaccharide (groups A, C, Y and W-135) conjugate vaccine (MCV4P) 2016-01-16 00:00:00 Completed [facility] Meningococcal Polysaccharide (groups A, C, Y and W-135) conjugate vaccine (MCV4P) 2016-01-16 00:00:00 Completed [facility] Meningococcal Polysaccharide (groups A, C, Y and W-135) conjugate vaccine (MCV4P) 2016-01-16 00:00:00 Completed [facility] Meningococcal Polysaccharide (groups A, C, Y and W-135) conjugate vaccine (MCV4P) 2016-01-16 00:00:00 Completed [facility] Meningococcal Polysaccharide (groups A, C, Y and W-135) conjugate vaccine (MCV4P) 2016-01-16 00:00:00 Completed [facility] Meningococcal Polysaccharide (groups A, C, Y and W-135) conjugate vaccine (MCV4P) 2016-01-16 00:00:00 Completed [facility] Meningococcal Polysaccharide (groups A, C, Y and W-135) conjugate vaccine (MCV4P) 2016-01-16 00:00:00 Completed [facility] Meningococcal Polysaccharide (groups A, C, Y and W-135) conjugate vaccine (MCV4P) 2016-01-16 00:00:00 Completed [facility] Meningococcal Polysaccharide (groups A, C, Y and W-135) conjugate vaccine (MCV4P) 2016-01-16 00:00:00 Completed [facility] Meningococcal Polysaccharide (groups A, C, Y and W-135) conjugate vaccine (MCV4P) 2016-01-16 00:00:00 Completed [facility] Meningococcal Polysaccharide (groups A, C, Y and W-135) conjugate vaccine (MCV4P) 2016-01-16 00:00:00 Completed [facility] Meningococcal Polysaccharide (groups A, C, Y and W-135) conjugate vaccine (MCV4P) 2016-01-16 00:00:00 Completed [facility] Meningococcal Polysaccharide (groups A, C, Y and W-135) conjugate vaccine (MCV4P) 2016-01-16 00:00:00 Completed [facility] Meningococcal Polysaccharide (groups A, C, Y and W-135) conjugate vaccine (MCV4P) 2016-01-16 00:00:00 Completed [facility] Meningococcal Polysaccharide (groups A, C, Y and W-135) conjugate vaccine (MCV4P) 2016-01-16 00:00:00 Completed [facility] Meningococcal Polysaccharide (groups A, C, Y and W-135) conjugate vaccine (MCV4P) 2016-01-16 00:00:00 Completed [facility] Meningococcal Polysaccharide (groups A, C, Y and W-135) conjugate vaccine (MCV4P) 2016-01-16 00:00:00 Completed [facility] Meningococcal Polysaccharide (groups A, C, Y and W-135) conjugate vaccine (MCV4P) 2016-01-16 00:00:00 Completed [facility] Meningococcal Polysaccharide (groups A, C, Y and W-135) conjugate vaccine (MCV4P) 2016-01-16 00:00:00 Completed [facility] HEPA,NOS 2009-05-28 00:00:00 Completed [facility] Meningococcal Polysaccharide (groups A, C, Y and W-135) conjugate vaccine (MCV4P) 2009-05-28 00:00:00 Completed [facility] TDAP 2009-05-28 00:00:00 Completed [facility] HEPA,NOS 2009-05-28 00:00:00 Completed [facility] Meningococcal Polysaccharide (groups A, C, Y and W-135) conjugate vaccine (MCV4P) 2009-05-28 00:00:00 Completed [facility] TDAP 2009-05-28 00:00:00 Completed [facility] HEPA,NOS 2009-05-28 00:00:00 Completed [facility] Meningococcal Polysaccharide (groups A, C, Y and W-135) conjugate vaccine (MCV4P) 2009-05-28 00:00:00 Completed [facility] TDAP 2009-05-28 00:00:00 Completed [facility] HEPA,NOS 2009-05-28 00:00:00 Completed [facility] Meningococcal Polysaccharide (groups A, C, Y and W-135) conjugate vaccine (MCV4P) 2009-05-28 00:00:00 Completed [facility] TDAP 2009-05-28 00:00:00 Completed [facility] HEPA,NOS 2009-05-28 00:00:00 Completed [facility] Meningococcal Polysaccharide (groups A, C, Y and W-135) conjugate vaccine (MCV4P) 2009-05-28 00:00:00 Completed [facility] TDAP 2009-05-28 00:00:00 Completed [facility] HEPA,NOS 2009-05-28 00:00:00 Completed [facility] Meningococcal Polysaccharide (groups A, C, Y and W-135) conjugate vaccine (MCV4P) 2009-05-28 00:00:00 Completed [facility] TDAP 2009-05-28 00:00:00 Completed [facility] HEPA,NOS 2009-05-28 00:00:00 Completed [facility] Meningococcal Polysaccharide (groups A, C, Y and W-135) conjugate vaccine (MCV4P) 2009-05-28 00:00:00 Completed [facility] TDAP 2009-05-28 00:00:00 Completed [facility] HEPA,NOS 2009-05-28 00:00:00 Completed [facility] Meningococcal Polysaccharide (groups A, C, Y and W-135) conjugate vaccine (MCV4P) 2009-05-28 00:00:00 Completed [facility] TDAP 2009-05-28 00:00:00 Completed [facility] HEPA,NOS 2009-05-28 00:00:00 Completed [facility] Meningococcal Polysaccharide (groups A, C, Y and W-135) conjugate vaccine (MCV4P) 2009-05-28 00:00:00 Completed [facility] TDAP 2009-05-28 00:00:00 Completed [facility] HEPA,NOS 2009-05-28 00:00:00 Completed [facility] Meningococcal Polysaccharide (groups A, C, Y and W-135) conjugate vaccine (MCV4P) 2009-05-28 00:00:00 Completed [facility] TDAP 2009-05-28 00:00:00 Completed [facility] HEPA,NOS 2009-05-28 00:00:00 Completed [facility] Meningococcal Polysaccharide (groups A, C, Y and W-135) conjugate vaccine (MCV4P) 2009-05-28 00:00:00 Completed [facility] TDAP 2009-05-28 00:00:00 Completed [facility] HEPA,NOS 2009-05-28 00:00:00 Completed [facility] Meningococcal Polysaccharide (groups A, C, Y and W-135) conjugate vaccine (MCV4P) 2009-05-28 00:00:00 Completed [facility] TDAP 2009-05-28 00:00:00 Completed [facility] HEPA,NOS 2009-05-28 00:00:00 Completed [facility] Meningococcal Polysaccharide (groups A, C, Y and W-135) conjugate vaccine (MCV4P) 2009-05-28 00:00:00 Completed [facility] TDAP 2009-05-28 00:00:00 Completed [facility] HEPA,NOS 2009-05-28 00:00:00 Completed [facility] Meningococcal Polysaccharide (groups A, C, Y and W-135) conjugate vaccine (MCV4P) 2009-05-28 00:00:00 Completed [facility] TDAP 2009-05-28 00:00:00 Completed [facility] HEPA,NOS 2009-05-28 00:00:00 Completed [facility] Meningococcal Polysaccharide (groups A, C, Y and W-135) conjugate vaccine (MCV4P) 2009-05-28 00:00:00 Completed [facility] TDAP 2009-05-28 00:00:00 Completed [facility] HEPA,NOS 2009-05-28 00:00:00 Completed [facility] Meningococcal Polysaccharide (groups A, C, Y and W-135) conjugate vaccine (MCV4P) 2009-05-28 00:00:00 Completed [facility] TDAP 2009-05-28 00:00:00 Completed [facility] HEPA,NOS 2009-05-28 00:00:00 Completed [facility] Meningococcal Polysaccharide (groups A, C, Y and W-135) conjugate vaccine (MCV4P) 2009-05-28 00:00:00 Completed [facility] TDAP 2009-05-28 00:00:00 Completed [facility] HEPA,NOS 2009-05-28 00:00:00 Completed [facility] Meningococcal Polysaccharide (groups A, C, Y and W-135) conjugate vaccine (MCV4P) 2009-05-28 00:00:00 Completed [facility] TDAP 2009-05-28 00:00:00 Completed [facility] HEPA,NOS 2009-05-28 00:00:00 Completed [facility] Meningococcal Polysaccharide (groups A, C, Y and W-135) conjugate vaccine (MCV4P) 2009-05-28 00:00:00 Completed [facility] TDAP 2009-05-28 00:00:00 Completed [facility] HEPA,NOS 2009-05-28 00:00:00 Completed [facility] Meningococcal Polysaccharide (groups A, C, Y and W-135) conjugate vaccine (MCV4P) 2009-05-28 00:00:00 Completed [facility] TDAP 2009-05-28 00:00:00 Completed [facility] Meningococcal Polysaccharide (groups A, C, Y and W-135) conjugate vaccine (MCV4P) 2007-12-20 00:00:00 Completed [facility] TDAP 2007-12-20 00:00:00 Completed [facility] Varicella (varivax)(chicken pox) 2007-12-20 00:00:00 Completed [facility] Meningococcal Polysaccharide (groups A, C, Y and W-135) conjugate vaccine (MCV4P) 2007-12-20 00:00:00 Completed [facility] TDAP 2007-12-20 00:00:00 Completed [facility] Varicella (varivax)(chicken pox) 2007-12-20 00:00:00 Completed [facility] Meningococcal Polysaccharide (groups A, C, Y and W-135) conjugate vaccine (MCV4P) 2007-12-20 00:00:00 Completed [facility] TDAP 2007-12-20 00:00:00 Completed [facility] Varicella (varivax)(chicken pox) 2007-12-20 00:00:00 Completed [facility] Meningococcal Polysaccharide (groups A, C, Y and W-135) conjugate vaccine (MCV4P) 2007-12-20 00:00:00 Completed [facility] TDAP 2007-12-20 00:00:00 Completed [facility] Varicella (varivax)(chicken pox) 2007-12-20 00:00:00 Completed [facility] Meningococcal Polysaccharide (groups A, C, Y and W-135) conjugate vaccine (MCV4P) 2007-12-20 00:00:00 Completed [facility] TDAP 2007-12-20 00:00:00 Completed [facility] Varicella (varivax)(chicken pox) 2007-12-20 00:00:00 Completed [facility] Meningococcal Polysaccharide (groups A, C, Y and W-135) conjugate vaccine (MCV4P) 2007-12-20 00:00:00 Completed [facility] TDAP 2007-12-20 00:00:00 Completed [facility] Varicella (varivax)(chicken pox) 2007-12-20 00:00:00 Completed [facility] Meningococcal Polysaccharide (groups A, C, Y and W-135) conjugate vaccine (MCV4P) 2007-12-20 00:00:00 Completed [facility] TDAP 2007-12-20 00:00:00 Completed [facility] Varicella (varivax)(chicken pox) 2007-12-20 00:00:00 Completed [facility] Meningococcal Polysaccharide (groups A, C, Y and W-135) conjugate vaccine (MCV4P) 2007-12-20 00:00:00 Completed [facility] TDAP 2007-12-20 00:00:00 Completed [facility] Varicella (varivax)(chicken pox) 2007-12-20 00:00:00 Completed [facility] Meningococcal Polysaccharide (groups A, C, Y and W-135) conjugate vaccine (MCV4P) 2007-12-20 00:00:00 Completed [facility] TDAP 2007-12-20 00:00:00 Completed [facility] Varicella (varivax)(chicken pox) 2007-12-20 00:00:00 Completed [facility] Meningococcal Polysaccharide (groups A, C, Y and W-135) conjugate vaccine (MCV4P) 2007-12-20 00:00:00 Completed [facility] TDAP 2007-12-20 00:00:00 Completed [facility] Varicella (varivax)(chicken pox) 2007-12-20 00:00:00 Completed [facility] Meningococcal Polysaccharide (groups A, C, Y and W-135) conjugate vaccine (MCV4P) 2007-12-20 00:00:00 Completed [facility] TDAP 2007-12-20 00:00:00 Completed [facility] Varicella (varivax)(chicken pox) 2007-12-20 00:00:00 Completed [facility] Meningococcal Polysaccharide (groups A, C, Y and W-135) conjugate vaccine (MCV4P) 2007-12-20 00:00:00 Completed [facility] TDAP 2007-12-20 00:00:00 Completed [facility] Varicella (varivax)(chicken pox) 2007-12-20 00:00:00 Completed [facility] Meningococcal Polysaccharide (groups A, C, Y and W-135) conjugate vaccine (MCV4P) 2007-12-20 00:00:00 Completed [facility] TDAP 2007-12-20 00:00:00 Completed [facility] Varicella (varivax)(chicken pox) 2007-12-20 00:00:00 Completed [facility] Meningococcal Polysaccharide (groups A, C, Y and W-135) conjugate vaccine (MCV4P) 2007-12-20 00:00:00 Completed [facility] TDAP 2007-12-20 00:00:00 Completed [facility] Varicella (varivax)(chicken pox) 2007-12-20 00:00:00 Completed [facility] Meningococcal Polysaccharide (groups A, C, Y and W-135) conjugate vaccine (MCV4P) 2007-12-20 00:00:00 Completed [facility] TDAP 2007-12-20 00:00:00 Completed [facility] Varicella (varivax)(chicken pox) 2007-12-20 00:00:00 Completed [facility] Meningococcal Polysaccharide (groups A, C, Y and W-135) conjugate vaccine (MCV4P) 2007-12-20 00:00:00 Completed [facility] TDAP 2007-12-20 00:00:00 Completed [facility] Varicella (varivax)(chicken pox) 2007-12-20 00:00:00 Completed [facility] Meningococcal Polysaccharide (groups A, C, Y and W-135) conjugate vaccine (MCV4P) 2007-12-20 00:00:00 Completed [facility] TDAP 2007-12-20 00:00:00 Completed [facility] Varicella (varivax)(chicken pox) 2007-12-20 00:00:00 Completed [facility] Meningococcal Polysaccharide (groups A, C, Y and W-135) conjugate vaccine (MCV4P) 2007-12-20 00:00:00 Completed [facility] TDAP 2007-12-20 00:00:00 Completed [facility] Varicella (varivax)(chicken pox) 2007-12-20 00:00:00 Completed [facility] Meningococcal Polysaccharide (groups A, C, Y and W-135) conjugate vaccine (MCV4P) 2007-12-20 00:00:00 Completed [facility] TDAP 2007-12-20 00:00:00 Completed [facility] Varicella (varivax)(chicken pox) 2007-12-20 00:00:00 Completed [facility] Meningococcal Polysaccharide (groups A, C, Y and W-135) conjugate vaccine (MCV4P) 2007-12-20 00:00:00 Completed [facility] TDAP 2007-12-20 00:00:00 Completed [facility] Varicella (varivax)(chicken pox) 2007-12-20 00:00:00 Completed [facility] HEPA,NOS 2007-04-26 00:00:00 Completed [facility] HEPA,NOS 2007-04-26 00:00:00 Completed [facility] HEPA,NOS 2007-04-26 00:00:00 Completed [facility] HEPA,NOS 2007-04-26 00:00:00 Completed [facility] HEPA,NOS 2007-04-26 00:00:00 Completed [facility] HEPA,NOS 2007-04-26 00:00:00 Completed [facility] HEPA,NOS 2007-04-26 00:00:00 Completed [facility] HEPA,NOS 2007-04-26 00:00:00 Completed [facility] HEPA,NOS 2007-04-26 00:00:00 Completed [facility] HEPA,NOS 2007-04-26 00:00:00 Completed [facility] HEPA,NOS 2007-04-26 00:00:00 Completed [facility] HEPA,NOS 2007-04-26 00:00:00 Completed [facility] HEPA,NOS 2007-04-26 00:00:00 Completed [facility] HEPA,NOS 2007-04-26 00:00:00 Completed [facility] HEPA,NOS 2007-04-26 00:00:00 Completed [facility] HEPA,NOS 2007-04-26 00:00:00 Completed [facility] HEPA,NOS 2007-04-26 00:00:00 Completed [facility] HEPA,NOS 2007-04-26 00:00:00 Completed [facility] HEPA,NOS 2007-04-26 00:00:00 Completed [facility] HEPA,NOS 2007-04-26 00:00:00 Completed [facility] DTAP 2001-01-17 00:00:00 Completed [facility] MMR 2001-01-17 00:00:00 Completed [facility] Polio (IPV/OPV) 2001-01-17 00:00:00 Completed [facility] DTAP 2001-01-17 00:00:00 Completed [facility] MMR 2001-01-17 00:00:00 Completed [facility] Polio (IPV/OPV) 2001-01-17 00:00:00 Completed [facility] DTAP 2001-01-17 00:00:00 Completed [facility] MMR 2001-01-17 00:00:00 Completed [facility] Polio (IPV/OPV) 2001-01-17 00:00:00 Completed [facility] DTAP 2001-01-17 00:00:00 Completed [facility] MMR 2001-01-17 00:00:00 Completed [facility] Polio (IPV/OPV) 2001-01-17 00:00:00 Completed [facility] DTAP 2001-01-17 00:00:00 Completed [facility] MMR 2001-01-17 00:00:00 Completed [facility] Polio (IPV/OPV) 2001-01-17 00:00:00 Completed [facility] DTAP 2001-01-17 00:00:00 Completed [facility] MMR 2001-01-17 00:00:00 Completed [facility] Polio (IPV/OPV) 2001-01-17 00:00:00 Completed [facility] DTAP 2001-01-17 00:00:00 Completed [facility] MMR 2001-01-17 00:00:00 Completed [facility] Polio (IPV/OPV) 2001-01-17 00:00:00 Completed [facility] DTAP 2001-01-17 00:00:00 Completed [facility] MMR 2001-01-17 00:00:00 Completed [facility] Polio (IPV/OPV) 2001-01-17 00:00:00 Completed [facility] DTAP 2001-01-17 00:00:00 Completed [facility] MMR 2001-01-17 00:00:00 Completed [facility] Polio (IPV/OPV) 2001-01-17 00:00:00 Completed [facility] DTAP 2001-01-17 00:00:00 Completed [facility] MMR 2001-01-17 00:00:00 Completed [facility] Polio (IPV/OPV) 2001-01-17 00:00:00 Completed [facility] DTAP 2001-01-17 00:00:00 Completed [facility] MMR 2001-01-17 00:00:00 Completed [facility] Polio (IPV/OPV) 2001-01-17 00:00:00 Completed [facility] DTAP 2001-01-17 00:00:00 Completed [facility] MMR 2001-01-17 00:00:00 Completed [facility] Polio (IPV/OPV) 2001-01-17 00:00:00 Completed [facility] DTAP 2001-01-17 00:00:00 Completed [facility] MMR 2001-01-17 00:00:00 Completed [facility] Polio (IPV/OPV) 2001-01-17 00:00:00 Completed [facility] DTAP 2001-01-17 00:00:00 Completed [facility] MMR 2001-01-17 00:00:00 Completed [facility] Polio (IPV/OPV) 2001-01-17 00:00:00 Completed [facility] DTAP 2001-01-17 00:00:00 Completed [facility] MMR 2001-01-17 00:00:00 Completed [facility] Polio (IPV/OPV) 2001-01-17 00:00:00 Completed [facility] DTAP 2001-01-17 00:00:00 Completed [facility] MMR 2001-01-17 00:00:00 Completed [facility] Polio (IPV/OPV) 2001-01-17 00:00:00 Completed [facility] DTAP 2001-01-17 00:00:00 Completed [facility] MMR 2001-01-17 00:00:00 Completed [facility] Polio (IPV/OPV) 2001-01-17 00:00:00 Completed [facility] DTAP 2001-01-17 00:00:00 Completed [facility] MMR 2001-01-17 00:00:00 Completed [facility] Polio (IPV/OPV) 2001-01-17 00:00:00 Completed [facility] DTAP 2001-01-17 00:00:00 Completed [facility] MMR 2001-01-17 00:00:00 Completed [facility] Polio (IPV/OPV) 2001-01-17 00:00:00 Completed [facility] DTAP 2001-01-17 00:00:00 Completed [facility] MMR 2001-01-17 00:00:00 Completed [facility] Polio (IPV/OPV) 2001-01-17 00:00:00 Completed [facility] DTAP 1999-11-04 00:00:00 Completed [facility]icella (varivax)(chicken pox) 1999[facility]11-04 [facility] Varicella (varivax)(chicken pox) 1999-11-04 [facility] Com[facility] Varicella (varivax)(chicken pox) 1999-11-04 00:00[facility] Com[facility] Varicella (varivax)(chicken pox) 1999-11-04 00:00[facility]00 Com[facility] Varicella (varivax)(chicken pox) 1999-11-04 00:00:[facility]:00 Com[facility] Varicella (varivax)(chicken pox) 1999-11-04 00:[facility] Com[facility] Varicella (varivax)(chicken pox) 1999-11-04 00:[facility]00 Com[facility] Varicella (varivax)(chicken pox) 1999-11-04 00:00:00 Completed [facility] DTAP 1999-11-04 00:00:00 Completed [facility] Varicella (varivax)(chicken pox) 1999-11-04 00:00[facility] Com[facility] Varicella (varivax)(chicken pox) 1999-11-04 00:00:[facility]:00 Com[facility] Varicella (varivax)(chicken pox) 1999-11-04 [facility] Com[facility] Varicella (varivax)(chicken pox) 1999-11-04 00:00:00 Completed [facility] DTAP 1999-11-04 00:00:00 Completed [facility] Varicella (varivax)(chicken pox) 1999-11-04 00:00:00 Completed [facility] DTAP 1999-11-04 00:00:00 Completed [facility] Varicella (varivax)(chicken pox) 1999-11-04 00:00:00 Completed [facility] DTAP 1999-11-04 00:00:00 Completed [facility] Varicella (varivax)(chicken pox) 1999-11-04 [facility] Varicella (varivax)(chicken pox) 1999-11-04 [facility] Com[facility] Varicella (varivax)(chicken pox) 1999-11-04 [facility] Com[facility] Varicella (varivax)(chicken pox) 1999-11-04 [facility] Com[facility] Varicella (varivax)(chicken pox) 1999-11-04 00:00:00 Completed [facility] DTAP 1999-11-04 00:00:00 Completed [facility] Varicella (varivax)(chicken pox) 1999-11-04 00:00:00 Completed [facility] DTAP 1997-10-31 00:00:00 Completed [facility] MMR 1997-10-31 00:00:00 Completed [facility] DTAP 1997-10-31 00:00:00 Completed [facility] MMR 1997-10-31 00:00:00 Completed [facility] DTAP 1997-10-31 00:00:00 Completed [facility] MMR 1997-10-31 00:00:00 Completed [facility] DTAP 1997-10-31 00:00:00 Completed [facility] MMR 1997-10-31 00:00:00 Completed [facility] DTAP 1997-10-31 00:00:00 Completed [facility] MMR 1997-10-31 00:00:00 Completed [facility] DTAP 1997-10-31 00:00:00 Completed [facility] MMR 1997-10-31 00:00:00 Completed [facility] HIB PRP-D,booster 1997-10-31 00:00:00 Completed [facility] DTAP 1997-10-31 00:00:00 Completed [facility] MMR 1997-10-31 00:00:00 Completed [facility] HIB PRP-D,booster 1997-10-31 00:00:00 Completed [facility] DTAP 1997-10-31 00:00:00 Completed [facility] MMR 1997-10-31 00:00:00 Completed [facility] HIB PRP-D,booster 1997-10-31 00:00:00 Completed [facility] Heamophilus Influenza B 1997-10-31 00:00:00 Completed [facility] DTAP 1997-10-31 00:00:00 Completed [facility] MMR 1997-10-31 00:00:00 Completed [facility] HIB PRP-D,booster 1997-10-31 00:00:00 Completed [facility] Heamophilus Influenza B 1997-10-31 00:00:00 Completed [facility] DTAP 1997-10-31 00:00:00 Completed [facility] MMR 1997-10-31 00:00:00 Completed [facility] HIB PRP-D,booster 1997-10-31 00:00:00 Completed [facility] Heamophilus Influenza B 1997-10-31 00:00:00 Completed [facility] DTAP 1997-10-31 00:00:00 Completed [facility] MMR 1997-10-31 00:00:00 Completed [facility] HIB PRP-D,booster 1997-10-31 00:00:00 Completed [facility] Heamophilus Influenza B 1997-10-31 00:00:00 Completed [facility] DTAP 1997-10-31 00:00:00 Completed [facility] MMR 1997-10-31 00:00:00 Completed [facility] DTAP 1997-10-31 00:00:00 Completed [facility] MMR 1997-10-31 00:00:00 Completed [facility] DTAP 1997-10-31 00:00:00 Completed [facility] MMR 1997-10-31 00:00:00 Completed [facility] DTAP 1997-10-31 00:00:00 Completed [facility] MMR 1997-10-31 00:00:00 Completed [facility] DTAP 1997-10-31 00:00:00 Completed [facility] MMR 1997-10-31 00:00:00 Completed [facility] DTAP 1997-10-31 00:00:00 Completed [facility] MMR 1997-10-31 00:00:00 Completed [facility] DTAP 1997-10-31 00:00:00 Completed [facility] MMR 1997-10-31 00:00:00 Completed [facility] DTAP 1997-10-31 00:00:00 Completed [facility] MMR 1997-10-31 00:00:00 Completed [facility] DTAP 1997-10-31 00:00:00 Completed [facility] MMR 1997-10-31 00:00:00 Completed [facility] DTAP 1997-04-24 00:00:00 Completed [facility] Hep B, Adol or Pedi Dosage 1997-04-24 00:00:00 Completed [facility] Polio (IPV/OPV) 1997-04-24 00:00:00 Completed [facility] DTAP 1997-04-24 00:00:00 Completed [facility] Hep B, Adol or Pedi Dosage 1997-04-24 00:00:00 Completed [facility] Polio (IPV/OPV) 1997-04-24 00:00:00 Completed [facility] DTAP 1997-04-24 00:00:00 Completed [facility] Hep B, Adol or Pedi Dosage 1997-04-24 00:00:00 Completed [facility] Polio (IPV/OPV) 1997-04-24 00:00:00 Completed [facility] DTAP 1997-04-24 00:00:00 Completed [facility] Hep B, Adol or Pedi Dosage 1997-04-24 00:00:00 Completed [facility] Polio (IPV/OPV) 1997-04-24 00:00:00 Completed [facility] DTAP 1997-04-24 00:00:00 Completed [facility] Hep B, Adol or Pedi Dosage 1997-04-24 00:00:00 Completed [facility] Polio (IPV/OPV) 1997-04-24 00:00:00 Completed [facility] DTAP 1997-04-24 00:00:00 Completed [facility] Hep B, Adol or Pedi Dosage 1997-04-24 00:00:00 Completed [facility] Polio (IPV/OPV) 1997-04-24 00:00:00 Completed [facility] HIB PRP-D,booster 1997-04-24 00:00:00 Completed [facility] DTAP 1997-04-24 00:00:00 Completed [facility] Hep B, Adol or Pedi Dosage 1997-04-24 00:00:00 Completed [facility] Polio (IPV/OPV) 1997-04-24 00:00:00 Completed [facility] HIB PRP-D,booster 1997-04-24 00:00:00 Completed [facility] DTAP 1997-04-24 00:00:00 Completed [facility] Hep B, Adol or Pedi Dosage 1997-04-24 00:00:00 Completed [facility] Polio (IPV/OPV) 1997-04-24 00:00:00 Completed [facility] HIB PRP-D,booster 1997-04-24 00:00:00 Completed [facility] Heamophilus Influenza B 1997-04-24 00:00:00 Completed [facility] DTAP 1997-04-24 00:00:00 Completed [facility] Hep B, Adol or Pedi Dosage 1997-04-24 00:00:00 Completed [facility] Polio (IPV/OPV) 1997-04-24 00:00:00 Completed [facility] HIB PRP-D,booster 1997-04-24 00:00:00 Completed [facility] Heamophilus Influenza B 1997-04-24 00:00:00 Completed [facility] DTAP 1997-04-24 00:00:00 Completed [facility] Hep B, Adol or Pedi Dosage 1997-04-24 00:00:00 Completed [facility] Polio (IPV/OPV) 1997-04-24 00:00:00 Completed [facility] HIB PRP-D,booster 1997-04-24 00:00:00 Completed [facility] Heamophilus Influenza B 1997-04-24 00:00:00 Completed [facility] DTAP 1997-04-24 00:00:00 Completed [facility] Hep B, Adol or Pedi Dosage 1997-04-24 00:00:00 Completed [facility] Polio (IPV/OPV) 1997-04-24 00:00:00 Completed [facility] HIB PRP-D,booster 1997-04-24 00:00:00 Completed [facility] Heamophilus Influenza B 1997-04-24 00:00:00 Completed [facility] DTAP 1997-04-24 00:00:00 Completed [facility] Hep B, Adol or Pedi Dosage 1997-04-24 00:00:00 Completed [facility] Polio (IPV/OPV) 1997-04-24 00:00:00 Completed [facility] DTAP 1997-04-24 00:00:00 Completed [facility] Hep B, Adol or Pedi Dosage 1997-04-24 00:00:00 Completed [facility] Polio (IPV/OPV) 1997-04-24 00:00:00 Completed [facility] DTAP 1997-04-24 00:00:00 Completed [facility] Hep B, Adol or Pedi Dosage 1997-04-24 00:00:00 Completed [facility] Polio (IPV/OPV) 1997-04-24 00:00:00 Completed [facility] DTAP 1997-04-24 00:00:00 Completed [facility] Hep B, Adol or Pedi Dosage 1997-04-24 00:00:00 Completed [facility] Polio (IPV/OPV) 1997-04-24 00:00:00 Completed [facility] DTAP 1997-04-24 00:00:00 Completed [facility] Hep B, Adol or Pedi Dosage 1997-04-24 00:00:00 Completed [facility] Polio (IPV/OPV) 1997-04-24 00:00:00 Completed [facility] DTAP 1997-04-24 00:00:00 Completed [facility] Hep B, Adol or Pedi Dosage 1997-04-24 00:00:00 Completed [facility] Polio (IPV/OPV) 1997-04-24 00:00:00 Completed [facility] DTAP 1997-04-24 00:00:00 Completed [facility] Hep B, Adol or Pedi Dosage 1997-04-24 00:00:00 Completed [facility] Polio (IPV/OPV) 1997-04-24 00:00:00 Completed [facility] DTAP 1997-04-24 00:00:00 Completed [facility] Hep B, Adol or Pedi Dosage 1997-04-24 00:00:00 Completed [facility] Polio (IPV/OPV) 1997-04-24 00:00:00 Completed [facility] DTAP 1997-04-24 00:00:00 Completed [facility] Hep B, Adol or Pedi Dosage 1997-04-24 00:00:00 Completed [facility] Polio (IPV/OPV) 1997-04-24 00:00:00 Completed [facility] DTAP 1996 00:00:00 Completed [facility] Polio (IPV/OPV) 1996 00:00:00 Completed [facility] DTAP 1996 00:00:00 Completed [facility] Polio (IPV/OPV) 1996 00:00:00 Completed [facility] DTAP 1996 00:00:00 Completed [facility] Polio (IPV/OPV) 1996 00:00:00 Completed [facility] DTAP 1996 00:00:00 Completed [facility] Polio (IPV/OPV) 1996 00:00:00 Completed [facility] DTAP 1996 00:00:00 Completed [facility] Polio (IPV/OPV) 1996 00:00:00 Completed [facility] DTAP 1996 00:00:00 Completed [facility] Polio (IPV/OPV) 1996 00:00:00 Completed [facility] HIB PRP-D,booster 1996 00:00:00 Completed [facility] DTAP 1996 00:00:00 Completed [facility] Polio (IPV/OPV) 1996 00:00:00 Completed [facility] HIB PRP-D,booster 1996 00:00:00 Completed [facility] DTAP 1996 00:00:00 Completed [facility] Polio (IPV/OPV) 1996 00:00:00 Completed [facility] HIB PRP-D,booster 1996 00:00:00 Completed [facility] Heamophilus Influenza B 1996 00:00:00 Completed [facility] DTAP 1996 00:00:00 Completed [facility] Polio (IPV/OPV) 1996 00:00:00 Completed [facility] HIB PRP-D,booster 1996 00:00:00 Completed [facility] Heamophilus Influenza B 1996 00:00:00 Completed [facility] DTAP 1996 00:00:00 Completed [facility] Polio (IPV/OPV) 1996 00:00:00 Completed [facility] HIB PRP-D,booster 1996 00:00:00 Completed [facility] Heamophilus Influenza B 1996 00:00:00 Completed [facility] DTAP 1996 00:00:00 Completed [facility] Polio (IPV/OPV) 1996 00:00:00 Completed [facility] HIB PRP-D,booster 1996 00:00:00 Completed [facility] Heamophilus Influenza B 1996 00:00:00 Completed [facility] DTAP 1996 00:00:00 Completed [facility] Polio (IPV/OPV) 1996 00:00:00 Completed [facility] DTAP 1996 00:00:00 Completed [facility] Polio (IPV/OPV) 1996 00:00:00 Completed [facility] DTAP 1996 00:00:00 Completed [facility] Polio (IPV/OPV) 1996 00:00:00 Completed [facility] DTAP 1996 00:00:00 Completed [facility] Polio (IPV/OPV) 1996 00:00:00 Completed [facility] DTAP 1996 00:00:00 Completed [facility] Polio (IPV/OPV) 1996 00:00:00 Completed [facility] DTAP 1996 00:00:00 Completed [facility] Polio (IPV/OPV) 1996 00:00:00 Completed [facility] DTAP 1996 00:00:00 Completed [facility] Polio (IPV/OPV) 1996 00:00:00 Completed [facility] DTAP 1996 00:00:00 Completed [facility] Polio (IPV/OPV) 1996 00:00:00 Completed [facility] DTAP 1996 00:00:00 Completed [facility] Polio (IPV/OPV) 1996 00:00:00 Completed [facility] DTAP 1996 00:00:00 Completed [facility] Hep B, Adol or Pedi Dosage 1996 00:00:00 Completed [facility] Polio (IPV/OPV) 1996 00:00:00 Completed [facility] DTAP 1996 00:00:00 Completed [facility] Hep B, Adol or Pedi Dosage 1996 00:00:00 Completed [facility] Polio (IPV/OPV) 1996 00:00:00 Completed [facility] DTAP 1996 00:00:00 Completed [facility] Hep B, Adol or Pedi Dosage 1996 00:00:00 Completed [facility] Polio (IPV/OPV) 1996 00:00:00 Completed [facility] DTAP 1996 00:00:00 Completed [facility] Hep B, Adol or Pedi Dosage 1996 00:00:00 Completed [facility] Polio (IPV/OPV) 1996 00:00:00 Completed [facility] DTAP 1996 00:00:00 Completed [facility] Hep B, Adol or Pedi Dosage 1996 00:00:00 Completed [facility] Polio (IPV/OPV) 1996 00:00:00 Completed [facility] DTAP 1996 00:00:00 Completed [facility] Hep B, Adol or Pedi Dosage 1996 00:00:00 Completed [facility] Polio (IPV/OPV) 1996 00:00:00 Completed [facility] HIB PRP-D,booster 1996 00:00:00 Completed [facility] DTAP 1996 00:00:00 Completed [facility] Hep B, Adol or Pedi Dosage 1996 00:00:00 Completed [facility] Polio (IPV/OPV) 1996 00:00:00 Completed [facility] HIB PRP-D,booster 1996 00:00:00 Completed [facility] DTAP 1996 00:00:00 Completed [facility] Hep B, Adol or Pedi Dosage 1996 00:00:00 Completed [facility] Polio (IPV/OPV) 1996 00:00:00 Completed [facility] HIB PRP-D,booster 1996 00:00:00 Completed [facility] Heamophilus Influenza B 1996 00:00:00 Completed [facility] DTAP 1996 00:00:00 Completed [facility] Hep B, Adol or Pedi Dosage 1996 00:00:00 Completed [facility] Polio (IPV/OPV) 1996 00:00:00 Completed [facility] HIB PRP-D,booster 1996 00:00:00 Completed [facility] Heamophilus Influenza B 1996 00:00:00 Completed [facility] DTAP 1996 00:00:00 Completed [facility] Hep B, Adol or Pedi Dosage 1996 00:00:00 Completed [facility] Polio (IPV/OPV) 1996 00:00:00 Completed [facility] HIB PRP-D,booster 1996 00:00:00 Completed [facility] Heamophilus Influenza B 1996 00:00:00 Completed [facility] DTAP 1996 00:00:00 Completed [facility] Hep B, Adol or Pedi Dosage 1996 00:00:00 Completed [facility] Polio (IPV/OPV) 1996 00:00:00 Completed [facility] HIB PRP-D,booster 1996 00:00:00 Completed [facility] Heamophilus Influenza B 1996 00:00:00 Completed [facility] DTAP 1996 00:00:00 Completed [facility] Hep B, Adol or Pedi Dosage 1996 00:00:00 Completed [facility] Polio (IPV/OPV) 1996 00:00:00 Completed [facility] DTAP 1996 00:00:00 Completed [facility] Hep B, Adol or Pedi Dosage 1996 00:00:00 Completed [facility] Polio (IPV/OPV) 1996 00:00:00 Completed [facility] DTAP 1996 00:00:00 Completed [facility] Hep B, Adol or Pedi Dosage 1996 00:00:00 Completed [facility] Polio (IPV/OPV) 1996 00:00:00 Completed [facility] DTAP 1996 00:00:00 Completed [facility] Hep B, Adol or Pedi Dosage 1996 00:00:00 Completed [facility] Polio (IPV/OPV) 1996 00:00:00 Completed [facility] DTAP 1996 00:00:00 Completed [facility] Hep B, Adol or Pedi Dosage 1996 00:00:00 Completed [facility] Polio (IPV/OPV) 1996 00:00:00 Completed [facility] DTAP 1996 00:00:00 Completed [facility] Hep B, Adol or Pedi Dosage 1996 00:00:00 Completed [facility] Polio (IPV/OPV) 1996 00:00:00 Completed [facility] DTAP 1996 00:00:00 Completed [facility] Hep B, Adol or Pedi Dosage 1996 00:00:00 Completed [facility] Polio (IPV/OPV) 1996 00:00:00 Completed [facility] DTAP 1996 00:00:00 Completed [facility] Hep B, Adol or Pedi Dosage 1996 00:00:00 Completed [facility] Polio (IPV/OPV) 1996 00:00:00 Completed [facility] DTAP 1996 00:00:00 Completed [facility] Hep B, Adol or Pedi Dosage 1996 00:00:00 Completed [facility] Polio (IPV/OPV) 1996 00:00:00 Completed [facility] Hep B, Adol or Pedi Dosage 1996 00:00:00 Completed [facility] Hep B, Adol or Pedi Dosage 1996 00:00:00 Completed [facility] Hep B, Adol or Pedi Dosage 1996 00:00:00 Completed [facility] Hep B, Adol or Pedi Dosage 1996 00:00:00 Completed [facility] Hep B, Adol or Pedi Dosage 1996 00:00:00 Completed [facility] Hep B, Adol or Pedi Dosage 1996 00:00:00 Completed [facility] Hep B, Adol or Pedi Dosage 1996 00:00:00 Completed [facility] Hep B, Adol or Pedi Dosage 1996 00:00:00 Completed [facility] Hep B, Adol or Pedi Dosage 1996 00:00:00 Completed [facility] Hep B, Adol or Pedi Dosage 1996 00:00:00 Completed [facility] Hep B, Adol or Pedi Dosage 1996 00:00:00 Completed [facility] Hep B, Adol or Pedi Dosage 1996 00:00:00 Completed [facility] Hep B, Adol or Pedi Dosage 1996 00:00:00 Completed [facility] Hep B, Adol or Pedi Dosage 1996 00:00:00 Completed [facility] Hep B, Adol or Pedi Dosage 1996 00:00:00 Completed [facility] Hep B, Adol or Pedi Dosage 1996 00:00:00 Completed [facility] Hep B, Adol or Pedi Dosage 1996 00:00:00 Completed [facility] Hep B, Adol or Pedi Dosage 1996 00:00:00 Completed [facility] Hep B, Adol or Pedi Dosage 1996 00:00:00 Completed [facility] Hep B, Adol or Pedi Dosage 1996 00:00:00 Completed [facility] TDAP Unknown Completed [facility] DTAP Unknown Completed [facility] DTAP Unknown Completed [facility] DTAP Unknown Completed [facility] DTAP Unknown Completed [facility] DTAP Unknown Completed [facility] DTAP Unknown Completed [facility] HEPA,NOS Unknown Completed [facility] HEPA,NOS Unknown Completed [facility] Hep B, Adol or Pedi Dosage Unknown Completed [facility] Hep B, Adol or Pedi Dosage Unknown Completed [facility] Hep B, Adol or Pedi Dosage Unknown Completed [facility] Meningococcal Polysaccharide (groups A, C, Y and W-135) conjugate vaccine (MCV4P) Unknown Completed [facility] Meningococcal Polysaccharide (groups A, C, Y and W-135) conjugate vaccine (MCV4P) Unknown Completed [facility] Meningococcal Polysaccharide (groups A, C, Y and W-135) conjugate vaccine (MCV4P) Unknown Completed [facility] MMR Unknown Completed [facility] MMR Unknown Completed [facility] Polio (IPV/OPV) Unknown Completed [facility] Polio (IPV/OPV) Unknown Completed [facility] Polio (IPV/OPV) Unknown Completed [facility] Polio (IPV/OPV) Unknown Completed [facility] TDAP Unknown Completed [facility] TDAP Unknown Completed [facility] TDAP Unknown Completed [facility] Varicella (varivax)(chicken pox) Unknown Completed [facility] Varicella (varivax)(chicken pox) Unknown Completed [facility] HPV9 Unknown Completed [facility] HIB PRP-D,booster Unknown [facility] PRP-D,booster [facility] PRP-D,booster Unknown [facility] Heamophilus Influenza B Unknown Completed [facility] Heamophilus Influenza B Unknown Completed [facility] Heamophilus Influenza B Unknown Completed [facility] Heamophilus Influenza B Unknown Completed [facility] HPV9 Unknown Completed [facility] TDAP Unknown Completed [facility] DTAP Unknown Completed [facility] DTAP Unknown Completed [facility] DTAP Unknown Completed [facility] DTAP Unknown Completed [facility] DTAP Unknown Completed [facility] DTAP Unknown Completed [facility] HEPA,NOS Unknown Completed [facility] HEPA,NOS Unknown Completed [facility] Hep B, Adol or Pedi Dosage Unknown Completed [facility] Hep B, Adol or Pedi Dosage Unknown Completed [facility] Hep B, Adol or Pedi Dosage Unknown Completed [facility] Meningococcal Polysaccharide (groups A, C, Y and W-135) conjugate vaccine (MCV4P) Unknown Completed [facility] Meningococcal Polysaccharide (groups A, C, Y and W-135) conjugate vaccine (MCV4P) Unknown Completed [facility] Meningococcal Polysaccharide (groups A, C, Y and W-135) conjugate vaccine (MCV4P) Unknown Completed [facility] MMR Unknown Completed [facility] MMR Unknown Completed [facility] Polio (IPV/OPV) Unknown Completed [facility] Polio (IPV/OPV) Unknown Completed [facility] Polio (IPV/OPV) Unknown Completed [facility] Polio (IPV/OPV) Unknown Completed [facility] TDAP Unknown Completed [facility] TDAP Unknown Completed [facility] TDAP Unknown Completed [facility] Varicella (varivax)(chicken pox) Unknown Completed [facility] Varicella (varivax)(chicken pox) Unknown Completed [facility] HPV9 Unknown Completed [facility] HIB PR[facility]-D,booster [facility]oster [facility] [facility] HIB PRP-D,booster Unknown [facility] He[facility] Influenza B Unknown Completed [facility] Heamophilus Influenza B Unknown Completed [facility] Heamophilus Influenza B Unknown Completed [facility] Heamophilus Influenza B Unknown Completed [facility] HPV9 Unknown Completed [facility] HPV9 Unknown Completed [facility] TDAP Unknown Completed [facility] DTAP Unknown Completed [facility] DTAP Unknown Completed [facility] DTAP Unknown Completed [facility] DTAP Unknown Completed [facility] DTAP Unknown Completed [facility] DTAP Unknown Completed [facility] HEPA,NOS Unknown Completed [facility] HEPA,NOS Unknown Completed [facility] Hep B, Adol or Pedi Dosage Unknown Completed [facility] Hep B, Adol or Pedi Dosage Unknown Completed [facility] Hep B, Adol or Pedi Dosage Unknown Completed [facility] Meningococcal Polysaccharide (groups A, C, Y and W-135) conjugate vaccine (MCV4P) Unknown Completed [facility] Meningococcal Polysaccharide (groups A, C, Y and W-135) conjugate vaccine (MCV4P) Unknown Completed [facility] Meningococcal Polysaccharide (groups A, C, Y and W-135) conjugate vaccine (MCV4P) Unknown Completed [facility] MMR Unknown Completed [facility] MMR Unknown Completed [facility] Polio (IPV/OPV) Unknown Completed [facility] Polio (IPV/OPV) Unknown Completed [facility] Polio (IPV/OPV) Unknown Completed [facility] Polio (IPV/OPV) Unknown Completed [facility] TDAP Unknown Completed [facility] TDAP Unknown Completed [facility] TDAP Unknown Completed [facility] Varicella (varivax)(chicken pox) Unknown Completed [facility] Varicella (varivax)(chicken pox) Unknown Completed [facility] HPV9 Unknown Completed [facility] HIB PRP-D,booster [facility]D,booster Unknown [facility] Heam[facility] Influenza B Unknown Completed [facility] Heamophilus Influenza B Unknown Completed [facility] Heamophilus Influenza B Unknown Completed [facility] Heamophilus Influenza B Unknown Completed [facility] HPV9 Unknown Completed [facility] HPV9 Unknown Completed [facility] HPV9 Unknown Completed [facility] TDAP Unknown Completed [facility] DTAP Unknown Completed [facility] DTAP Unknown Completed [facility] DTAP Unknown Completed [facility] DTAP Unknown Completed [facility] DTAP Unknown Completed [facility] DTAP Unknown Completed [facility] HEPA,NOS Unknown Completed [facility] HEPA,NOS Unknown Completed [facility] Hep B, Adol or Pedi Dosage Unknown Completed [facility] Hep B, Adol or Pedi Dosage Unknown Completed [facility] Hep B, Adol or Pedi Dosage Unknown Completed [facility] Meningococcal Polysaccharide (groups A, C, Y and W-135) conjugate vaccine (MCV4P) Unknown Completed [facility] Meningococcal Polysaccharide (groups A, C, Y and W-135) conjugate vaccine (MCV4P) Unknown Completed [facility] Meningococcal Polysaccharide (groups A, C, Y and W-135) conjugate vaccine (MCV4P) Unknown Completed [facility] MMR Unknown Completed [facility] MMR Unknown Completed [facility] Polio (IPV/OPV) Unknown Completed [facility] Polio (IPV/OPV) Unknown Completed [facility] Polio (IPV/OPV) Unknown Completed [facility] Polio (IPV/OPV) Unknown Completed [facility] TDAP Unknown Completed [facility] TDAP Unknown Completed [facility] TDAP Unknown Completed [facility] Varicella (varivax)(chicken pox) Unknown Completed [facility] Varicella (varivax)(chicken pox) Unknown Completed [facility] HPV9 Unknown Completed [facility] HIB PRP-D,booster Unknown [facility]-D[facility]booster Unknown [facility] PRP-D,booster Unknown [facility] He[facility] Influenza B Unknown Completed [facility] Heamophilus Influenza B Unknown Completed [facility] Heamophilus Influenza B Unknown Completed [facility] Heamophilus Influenza B Unknown Completed [facility] HPV9 Unknown Completed [facility] HPV9 Unknown Completed [facility] HPV9 Unknown Completed [facility] TDAP Unknown Completed [facility] DTAP Unknown Completed [facility] DTAP Unknown Completed [facility] DTAP Unknown Completed [facility] DTAP Unknown Completed [facility] DTAP Unknown Completed [facility] DTAP Unknown Completed [facility] HEPA,NOS Unknown Completed [facility] HEPA,NOS Unknown Completed [facility] Hep B, Adol or Pedi Dosage Unknown Completed [facility] Hep B, Adol or Pedi Dosage Unknown Completed [facility] Hep B, Adol or Pedi Dosage Unknown Completed [facility] Meningococcal Polysaccharide (groups A, C, Y and W-135) conjugate vaccine (MCV4P) Unknown Completed [facility] Meningococcal Polysaccharide (groups A, C, Y and W-135) conjugate vaccine (MCV4P) Unknown Completed [facility] Meningococcal Polysaccharide (groups A, C, Y and W-135) conjugate vaccine (MCV4P) Unknown Completed [facility] MMR Unknown Completed [facility] MMR Unknown Completed [facility] Polio (IPV/OPV) Unknown Completed [facility] Polio (IPV/OPV) Unknown Completed [facility] Polio (IPV/OPV) Unknown Completed [facility] Polio (IPV/OPV) Unknown Completed [facility] TDAP Unknown Completed [facility] TDAP Unknown Completed [facility] TDAP Unknown Completed [facility] Varicella (varivax)(chicken pox) Unknown Completed [facility] Varicella (varivax)(chicken pox) Unknown Completed [facility] HPV9 Unknown Completed [facility] HIB PRP-D,booster Unknown [facility]oster [facility] PRP-D,booster Unknown [facility] HIB PRP-D,booster Unknown [facility] Heamophil[facility] Influenza B Unknown Completed [facility] Heamophilus Influenza B Unknown Completed [facility] Heamophilus Influenza B Unknown Completed [facility] Heamophilus Influenza B Unknown Completed [facility] HPV9 Unknown Completed [facility] HPV9 Unknown Completed [facility] HPV9 Unknown Completed [facility] TDAP Unknown Completed [facility] DTAP Unknown Completed [facility] DTAP Unknown Completed [facility] DTAP Unknown Completed [facility] DTAP Unknown Completed [facility] DTAP Unknown Completed [facility] DTAP Unknown Completed [facility] HEPA,NOS Unknown Completed [facility] HEPA,NOS Unknown Completed [facility] Hep B, Adol or Pedi Dosage Unknown Completed [facility] Hep B, Adol or Pedi Dosage Unknown Completed [facility] Hep B, Adol or Pedi Dosage Unknown Completed [facility] Meningococcal Polysaccharide (groups A, C, Y and W-135) conjugate vaccine (MCV4P) Unknown Completed [facility] Meningococcal Polysaccharide (groups A, C, Y and W-135) conjugate vaccine (MCV4P) Unknown Completed [facility] Meningococcal Polysaccharide (groups A, C, Y and W-135) conjugate vaccine (MCV4P) Unknown Completed [facility] MMR Unknown Completed [facility] MMR Unknown Completed [facility] Polio (IPV/OPV) Unknown Completed [facility] Polio (IPV/OPV) Unknown Completed [facility] Polio (IPV/OPV) Unknown Completed [facility] Polio (IPV/OPV) Unknown Completed [facility] TDAP Unknown Completed [facility] TDAP Unknown Completed [facility] TDAP Unknown Completed [facility] Varicella (varivax)(chicken pox) Unknown Completed [facility] Varicella (varivax)(chicken pox) Unknown Completed [facility] HPV9 Unknown Completed [facility] HIB PRP-D,booster Unknown [facility],booster Unknown [facility] HIB PRP-D,booster Unknown Com[facility] HIB PRP-D,booster Unknown [facility] He[facility] Influenza B Unknown Completed [facility] Heamophilus Influenza B Unknown Completed [facility] Heamophilus Influenza B Unknown Completed [facility] Heamophilus Influenza B Unknown Completed [facility] HPV9 Unknown Completed [facility] HPV9 Unknown Completed [facility] HPV9 Unknown Completed [facility] TDAP Unknown Completed [facility] DTAP Unknown Completed [facility] DTAP Unknown Completed [facility] DTAP Unknown Completed [facility] DTAP Unknown Completed [facility] DTAP Unknown Completed [facility] DTAP Unknown Completed [facility] HEPA,NOS Unknown Completed [facility] HEPA,NOS Unknown Completed [facility] Hep B, Adol or Pedi Dosage Unknown Completed [facility] Hep B, Adol or Pedi Dosage Unknown Completed [facility] Hep B, Adol or Pedi Dosage Unknown Completed [facility] Meningococcal Polysaccharide (groups A, C, Y and W-135) conjugate vaccine (MCV4P) Unknown Completed [facility] Meningococcal Polysaccharide (groups A, C, Y and W-135) conjugate vaccine (MCV4P) Unknown Completed [facility] Meningococcal Polysaccharide (groups A, C, Y and W-135) conjugate vaccine (MCV4P) Unknown Completed [facility] MMR Unknown Completed [facility] MMR Unknown Completed [facility] Polio (IPV/OPV) Unknown Completed [facility] Polio (IPV/OPV) Unknown Completed [facility] Polio (IPV/OPV) Unknown Completed [facility] Polio (IPV/OPV) Unknown Completed [facility] TDAP Unknown Completed [facility] TDAP Unknown Completed [facility] TDAP Unknown Completed [facility] Varicella (varivax)(chicken pox) Unknown Completed [facility] Varicella (varivax)(chicken pox) Unknown Completed [facility] HPV9 Unknown Completed [facility] HIB PRP-D,booster Unknown [facility] PRP-D,booster Unknown Com[facility] HIB PRP-D,booster Unknown Com[facility] HIB PRP-D,booster Unknown Completed [facility] Heamophilus Influenza B Unknown Completed [facility] Heamophilus Influenza B Unknown Completed [facility] Heamophilus Influenza B Unknown Completed [facility] Heamophilus Influenza B Unknown Completed [facility] HPV9 Unknown Completed [facility] HPV9 Unknown Completed [facility] HPV9 Unknown Completed [facility] TDAP Unknown Completed [facility] DTAP Unknown Completed [facility] DTAP Unknown Completed [facility] DTAP Unknown Completed [facility] DTAP Unknown Completed [facility] DTAP Unknown Completed [facility] DTAP Unknown Completed [facility] HEPA,NOS Unknown Completed [facility] HEPA,NOS Unknown Completed [facility] Hep B, Adol or Pedi Dosage Unknown Completed [facility] Hep B, Adol or Pedi Dosage Unknown Completed [facility] Hep B, Adol or Pedi Dosage Unknown Completed [facility] Meningococcal Polysaccharide (groups A, C, Y and W-135) conjugate vaccine (MCV4P) Unknown Completed [facility] Meningococcal Polysaccharide (groups A, C, Y and W-135) conjugate vaccine (MCV4P) Unknown Completed [facility] Meningococcal Polysaccharide (groups A, C, Y and W-135) conjugate vaccine (MCV4P) Unknown Completed [facility] MMR Unknown Completed [facility] MMR Unknown Completed [facility] Polio (IPV/OPV) Unknown Completed [facility] Polio (IPV/OPV) Unknown Completed [facility] Polio (IPV/OPV) Unknown Completed [facility] Polio (IPV/OPV) Unknown Completed [facility] TDAP Unknown Completed [facility] TDAP Unknown Completed [facility] TDAP Unknown Completed [facility] Varicella (varivax)(chicken pox) Unknown Completed [facility] Varicella (varivax)(chicken pox) Unknown Completed [facility] HPV9 Unknown Completed [facility] HIB PRP-D,booster Unknown [facility] PRP-D,booster Unknown Com[facility] HIB PRP-D,booster Unknown Com[facility] HIB PRP-D,booster Unknown Completed [facility] Heamophilus Influenza B Unknown Completed [facility] Heamophilus Influenza B Unknown Completed [facility] Heamophilus Influenza B Unknown Completed [facility] Heamophilus Influenza B Unknown Completed [facility] HPV9 Unknown Completed [facility] HPV9 Unknown Completed [facility] HPV9 Unknown Completed [facility] TDAP Unknown Completed [facility] DTAP Unknown Completed [facility] DTAP Unknown Completed [facility] DTAP Unknown Completed [facility] DTAP Unknown Completed [facility] DTAP Unknown Completed [facility] DTAP Unknown Completed [facility] HEPA,NOS Unknown Completed [facility] HEPA,NOS Unknown Completed [facility] Hep B, Adol or Pedi Dosage Unknown Completed [facility] Hep B, Adol or Pedi Dosage Unknown Completed [facility] Hep B, Adol or Pedi Dosage Unknown Completed [facility] Meningococcal Polysaccharide (groups A, C, Y and W-135) conjugate vaccine (MCV4P) Unknown Completed [facility] Meningococcal Polysaccharide (groups A, C, Y and W-135) conjugate vaccine (MCV4P) Unknown Completed [facility] Meningococcal Polysaccharide (groups A, C, Y and W-135) conjugate vaccine (MCV4P) Unknown Completed [facility] MMR Unknown Completed [facility] MMR Unknown Completed [facility] Polio (IPV/OPV) Unknown Completed [facility] Polio (IPV/OPV) Unknown Completed [facility] Polio (IPV/OPV) Unknown Completed [facility] Polio (IPV/OPV) Unknown Completed [facility] TDAP Unknown Completed [facility] TDAP Unknown Completed [facility] TDAP Unknown Completed [facility] Varicella (varivax)(chicken pox) Unknown Completed [facility] Varicella (varivax)(chicken pox) Unknown Completed [facility] HPV9 Unknown Completed [facility] HIB PRP-D,booster Unknown [facility] H[facility] PRP-D,booster Unknown Com[facility] HIB PRP-D,booster Unknown Completed [facility] HIB PRP-D,booster Unknown Completed [facility] Heamophilus Influenza B Unknown Completed [facility] Heamophilus Influenza B Unknown Completed [facility] Heamophilus Influenza B Unknown Completed [facility] Heamophilus Influenza B Unknown Completed [facility] HPV9 Unknown Completed [facility] HPV9 Unknown Completed [facility] HPV9 Unknown Completed [facility] Vital Signs Vital Name Observation Time Observation Value Comments S ource Systolic blood pressure 2023-12-22 05:20:00 116 mm[Hg] [facility] Diastolic blood pressure 2023-12-22 05:20:00 75 mm[Hg] [facility] Heart rate 2023-12-22 05:20:00 104 /min [facility] Body temperature 2023-12-22 05:20:00 38 [facility] Respiratory rate 2023-12-22 05:20:00 20 /min [facility] Oxygen saturation in Arterial blood by Pulse oximetry 2023-12-22 05:20:00 100 /min [facility] Body height 2023-12-22 02:56:00 154.9 cm [facility] Body weight 2023-12-22 02:56:00 79.379 kg [facility] BMI 2023-12-22 02:56:00 33.07 kg/m2 [facility] Systolic blood pressure 2023-08-26 18:20:00 124 mm[Hg] [facility] Diastolic blood pressure 2023-08-26 18:20:00 72 mm[Hg] [facility] Heart rate 2023-08-26 18:20:00 107 /min [facility] Body temperature 2023-08-26 18:20:00 36.78 [facility] Respiratory rate 2023-08-26 18:20:00 18 /min [facility] Body weight 2023-08-26 18:20:00 79.062 kg [facility] BMI 2023-08-26 18:20:00 32.93 kg/m2 [facility] Oxygen saturation in Arterial blood by Pulse oximetry 2023-08-26 18:20:00 98 /min [facility] Systolic blood pressure 2023-08-03 15:00:00 117 mm[Hg] [facility] Diastolic blood pressure 2023-08-03 15:00:00 81 mm[Hg] [facility] Heart rate 2023-08-03 15:00:00 85 /min [facility] Body height 2023-08-03 15:00:00 154.9 cm [facility] 2023-08-03 15:00:00 80.74 kg [facility] BMI 2023-08-03 15:00:00 33.63 kg/m2 [facility] Oxygen saturation in Arterial blood by Pulse oximetry 2023-08-03 15:00:00 99 /min [facility] Systolic blood pressure 2023-07-19 18:06:00 125 mm[Hg] [facility] Diastolic blood pressure 2023-07-19 18:06:00 75 mm[Hg] [facility] Heart rate 2023-07-19 18:06:00 87 /min [facility] Body temperature 2023-07-19 18:06:00 35.94 [facility] Respiratory rate 2023-07-19 18:06:00 17 /min [facility] Body height 2023-07-19 18:06:00 154.9 cm [facility] Body weight 2023-07-19 18:06:00 83.326 kg [facility] BMI 2023-07-19 18:06:00 34.71 kg/m2 [facility] Systolic blood pressure 2023-05-15 18:00:00 111 mm[Hg] [facility] Diastolic blood pressure 2023-05-15 18:00:00 75 mm[Hg] [facility] Heart rate 2023-05-15 18:00:00 100 /min [facility] Body temperature 2023-05-15 18:00:00 36.83 [facility] Respiratory rate 2023-05-15 18:00:00 16 /min [facility] Body height 2023-05-15 18:00:00 154.9 cm [facility] Body weight 2023-05-15 18:00:00 86.818 kg [facility] BMI 2023-05-15 18:00:00 36.16 kg/m2 [facility] Oxygen saturation in Arterial blood by Pulse oximetry 2023-05-15 18:00:00 98 /min [facility] Systolic blood pressure 2023-04-22 20:08:00 119 mm[Hg] [facility] Diastolic blood pressure 2023-04-22 20:08:00 73 mm[Hg] [facility] Heart rate 2023-04-22 20:08:00 79 /min [facility] Body temperature 2023-04-22 20:08:00 36.11 [facility] Respiratory rate 2023-04-22 20:08:00 20 /min [facility] Body height 2023-04-22 20:08:00 152.4 cm [facility] Body weight 2023-04-22 20:08:00 88.451 kg [facility] BMI 2023-04-22 20:08:00 38.08 kg/m2 [facility] Systolic blood pressure 2023-01-19 14:50:00 135 mm[Hg] [facility] Diastolic blood pressure 2023-01-19 14:50:00 84 mm[Hg] [facility] Heart rate 2023-01-19 14:50:00 97 /min [facility] Body temperature 2023-01-19 14:50:00 36.39 [facility] Respiratory rate 2023-01-19 14:50:00 18 /min [facility] Body height 2023-01-19 14:50:00 152.4 cm [facility] weight 2023-01-19 14:50:00 96.888 kg [facility] BMI 2023-01-19 14:50:00 41.72 kg/m2 [facility] Systolic blood pressure 2023-01-14 13:45:00 135 mm[Hg] [facility] Diastolic blood pressure 2023-01-14 13:45:00 82 mm[Hg] [facility] Heart rate 2023-01-14 13:45:00 96 /min [facility] Body temperature 2023-01-14 13:45:00 36.72 [facility] Respiratory rate 2023-01-14 13:45:00 17 /min [facility] Oxygen saturation in Arterial blood by Pulse oximetry 2023-01-14 13:45:00 98 /min [facility] Body height 2023-01-11 03:30:00 154.9 cm [facility] Body weight 2023-01-11 03:30:00 101.606 kg [facility] BMI 2023-01-11 03:30:00 42.35 kg/m2 [facility] Systolic blood pressure 2023-01-12 19:15:00 115 mm[Hg] [facility] Diastolic blood pressure 2023-01-12 19:15:00 80 mm[Hg] [facility] Heart rate 2023-01-12 19:15:00 119 /min [facility] Respiratory rate 2023-01-12 19:15:00 27 /min [facility] Oxygen saturation in Arterial blood by Pulse oximetry 2023-01-12 19:15:00 100 /min [facility] Body temperature 2023-01-12 19:00:00 36.44 [facility] Body height 2023-01-11 03:30:00 154.9 cm [facility] Body weight 2023-01-11 03:30:00 101.606 kg [facility] BMI 2023-01-11 03:30:00 42.35 kg/m2 [facility] Systolic blood pressure 2023-01-07 19:06:00 133 mm[Hg] [facility] Diastolic blood pressure 2023-01-07 19:06:00 83 mm[Hg] [facility] Heart rate 2023-01-07 19:06:00 96 /min [facility] Body temperature 2023-01-07 19:06:00 35.61 [facility] Respiratory rate 2023-01-07 19:06:00 18 /min [facility] Body height 2023-01-07 19:06:00 154.9 cm [facility] Body weight 2023-01-07 19:06:00 101.787 kg [facility] BMI 2023-01-07 19:06:00 42.40 kg/m2 [facility] Systolic blood pressure 2023-01-05 17:43:00 126 mm[Hg] [facility] Diastolic blood pressure 2023-01-05 17:43:00 77 mm[Hg] [facility] Heart rate 2023-01-05 17:43:00 97 /min [facility] Body temperature 2023-01-05 17:43:00 36.72 [facility] Respiratory rate 2023-01-05 17:43:00 18 /min [facility] Body height 2023-01-05 17:43:00 154.9 cm [facility] Body weight 2023-01-05 17:43:00 101.379 kg [facility] BMI 2023-01-05 17:43:00 42.23 kg/m2 [facility] Systolic blood pressure 2022-12-29 14:49:00 121 mm[Hg] [facility] Diastolic blood pressure 2022-12-29 14:49:00 66 mm[Hg] [facility] Heart rate 2022-12-29 14:49:00 94 /min [facility] Body temperature 2022-12-29 14:49:00 36.5 [facility] Respiratory rate 2022-12-29 14:49:00 18 /min [facility] Body height 2022-12-29 14:49:00 154.9 cm [facility] Body weight 2022-12-29 14:49:00 99.565 kg [facility] BMI 2022-12-29 14:49:00 41.47 kg/m2 [facility] Systolic blood pressure 2022-12-25 16:31:00 132 mm[Hg] [facility] Diastolic blood pressure 2022-12-25 16:31:00 79 mm[Hg] Arverne o [facility] Heart rate 2022-12-25 16:31:00 100 /min [facility] Body temperature 2022-12-25 16:31:00 36.5 [facility] Respiratory rate 2022-12-25 16:31:00 18 /min [facility] Body height 2022-12-25 16:31:00 154.9 cm [facility] Body weight 2022-12-25 16:31:00 98.793 kg [facility] BMI 2022-12-25 16:31:00 41.15 kg/m2 [facility] Systolic blood pressure 2022-12-22 14:45:00 123 mm[Hg] [facility] Diastolic blood pressure 2022-12-22 14:45:00 74 mm[Hg] [facility] Heart rate 2022-12-22 14:45:00 107 /min [facility] Body temperature 2022-12-22 14:45:00 36.44 [facility] Respiratory rate 2022-12-22 14:45:00 18 /min [facility] Body height 2022-12-22 14:45:00 154.9 cm [facility] Body weight 2022-12-22 14:45:00 95.89 kg [facility] BMI 2022-12-22 14:45:00 39.94 kg/m2 [facility] Systolic blood pressure 2022-12-10 18:51:00 123 mm[Hg] [facility]verne [facility] Diastolic blood pressure 2022-12-10 18:51:00 74 mm[Hg] [facility] Heart rate 2022-12-10 18:51:00 102 /min [facility] Body temperature 2022-12-10 18:51:00 36.22 [facility] Body height 2022-12-10 18:51:00 154.9 cm [facility] Body weight 2022-12-10 18:51:00 96.344 kg [facility] BMI 2022-12-10 18:51:00 40.13 kg/m2 [facility] Systolic blood pressure 2022-12-07 21:09:00 126 mm[Hg] [facility] Diastolic blood pressure 2022-12-07 21:09:00 86 mm[Hg] [facility] Heart rate 2022-12-07 21:09:00 116 /min [facility] Body temperature 2022-12-07 21:09:00 35.78 [facility] Respiratory rate 2022-12-07 21:09:00 18 /min [facility] Body height 2022-12-07 21:09:00 154.9 cm [facility] Body weight 2022-12-07 21:09:00 95.981 kg [facility] BMI 2022-12-07 21:09:00 39.98 kg/m2 [facility] Systolic blood pressure 2022-11-11 14:26:00 112 mm[Hg] [facility] Diastolic blood pressure 2022-11-11 14:26:00 64 mm[Hg] [facility] Heart rate 2022-11-11 14:26:00 112 /min [facility] Body temperature 2022-11-11 14:26:00 36.5 [facility] Respiratory rate 2022-11-11 14:26:00 18 /min [facility] Body height 2022-11-11 14:26:00 154.9 cm [facility] Body weight 2022-11-11 14:26:00 94.348 kg [facility] BMI 2022-11-11 14:26:00 39.30 kg/m2 [facility] Systolic blood pressure 2022-10-29 14:56:00 97 mm[Hg] [facility] Diastolic blood pressure 2022-10-29 14:56:00 65 mm[Hg] [facility] Heart rate 2022-10-29 14:56:00 96 /min [facility] Body temperature 2022-10-29 14:56:00 36.22 [facility] Respiratory rate 2022-10-29 14:56:00 16 /min [facility] Body height 2022-10-29 14:56:00 154.9 cm [facility] Body weight 2022-10-29 14:56:00 92.704 kg [facility] BMI 2022-10-29 14:56:00 38.62 kg/m2 [facility] Systolic blood pressure 2022-10-14 17:05:00 117 mm[Hg] [facility] Diastolic blood pressure 2022-10-14 17:05:00 69 mm[Hg] [facility] Heart rate 2022-10-14 17:05:00 111 /min [facility] Body temperature 2022-10-14 17:05:00 36.56 [facility] Respiratory rate 2022-10-14 17:05:00 17 /min [facility] Body height 2022-10-14 17:05:00 154.9 cm [facility] Body weight 2022-10-14 17:05:00 90.402 kg [facility] BMI 2022-10-14 17:05:00 37.66 kg/m2 [facility] Systolic blood pressure 2022-09-21 17:13:00 111 mm[Hg] Arverne o [facility] Diastolic blood pressure 2022-09-21 17:13:00 65 mm[Hg] [facility] Heart rate 2022-09-21 17:13:00 102 /min [facility] Body temperature 2022-09-21 17:13:00 36.22 [facility] Respiratory rate 2022-09-21 17:13:00 18 /min [facility] Body height 2022-09-21 17:13:00 154.9 cm [facility] Body weight 2022-09-21 17:13:00 86.665 kg [facility] BMI 2022-09-21 17:13:00 36.10 kg/m2 [facility] Systolic blood pressure 2022-08-21 16:18:00 121 mm[Hg] [facility] Diastolic blood pressure 2022-08-21 16:18:00 73 mm[Hg] [facility] Heart rate 2022-08-21 16:18:00 109 /min [facility] Body temperature 2022-08-21 16:18:00 36.44 [facility] Respiratory rate 2022-08-21 16:18:00 18 /min [facility] Body height 2022-08-21 16:18:00 154.9 cm [facility] Body weight 2022-08-21 16:18:00 81.251 kg [facility] BMI 2022-08-21 16:18:00 33.85 kg/m2 [facility] Systolic blood pressure 2022-08-07 19:40:00 114 mm[Hg] [facility] Diastolic blood pressure 2022-08-07 19:40:00 70 mm[Hg] [facility] Heart rate 2022-08-07 19:40:00 93 /min [facility] Body temperature 2022-08-07 19:40:00 36.44 [facility] Respiratory rate 2022-08-07 19:40:00 17 /min [facility] Body height 2022-08-07 19:40:00 154.9 cm [facility] Body weight 2022-08-07 19:40:00 79.47 kg [facility] BMI 2022-08-07 19:40:00 33.10 kg/m2 [facility] Systolic blood pressure 2022-07-06 16:45:00 103 mm[Hg] [facility] Diastolic blood pressure 2022-07-06 16:45:00 71 mm[Hg] [facility] Heart rate 2022-07-06 16:45:00 101 /min [facility] Body temperature 2022-07-06 16:45:00 36.56 [facility] Body weight 2022-07-06 16:45:00 75.841 kg [facility] BMI 2022-07-06 16:45:00 31.59 kg/m2 [facility] Procedures Procedure Date / Time Performed Performing Clinician Source RAPID INFLUENZA A/B 2023-12-22 05:01:00 Con Rios [facility] ASSIGNMENT OF BENEFITS 2023-12-22 03:17:35 Docto r Unassigned, Gross [facility] RAPID STREP SCREEN FOR GROUP A 2023-12-22 03:13:00 Con Rios [facility] COVID-19 (ID NOW RAPID TESTING) 2023-12-22 03:13:00 Con Rios [facility] NOTICE OF PRIVACY PRACTICES 2023-12-22 02:50:28 Doctor Unassigned, Gross [facility] CONSENT/REFUSAL FOR DIAGNOSIS AND TREATMENT 2023-12-22 02:49:46 Doctor Unassigned, Gross [facility] POCT SARS-COV-2 ANTIGEN (BINAX NOW) 2023-08-26 18:42:00 Trina Valentine [facility] POCT MOLECULAR FLU 2023-08-26 18:32:00 Unknown, Attend ing [facility] GARDASIL 9 (HPV 9V) VACCINE 2023-07-20 18:47:47 Doctor Unassigned, Gross [facility] GARDASIL 9 (HPV 9V) VACCINE 2023-07-19 18:26:23 Doctor Unassigned, Gross [facility] PATIENT FINANCIAL POLICY 2023-07-19 17:54:59 Doctor Unassigned, Gross [facility] POCT SARS-COV-2 ANTIGEN (BINAX NOW) 2023-05-15 18:13:00 Promise Carlos [facility] POCT MOLECULAR STREP 2023-05-15 17:58:00 Unknown, Atte jean claude [facility] GARDASIL 9 (HPV 9V) VACCINE 2023-04-22 21:03:29 Nolvia Jacobs [facility] POCT TEST 2023-04-22 20:55:00 Cortney Jacobs [facility] CBC WITH DIFF 2023-01-13 10:05:00 Alka Beckford Mai [facility] CBC WITH DIFF 2023-01-13 10:05:00 Alka Beckford Mai [facility] VENOUS CORD GAS 2023-01-12 18:14:00 Lauren Uriarte [facility] VENOUS CORD GAS 2023-01-12 18:14:00 Lauren Uriarte [facility] OR FOR DOUBLE SET UP DELIVERY 2023-01-12 17:37:00 Blake Casey [facility] SECTION 2023-01-12 17:37:00 Lauren Caseyedmar Kenny isa [facility] OR FOR DOUBLE SET UP DELIVERY 2023-01-12 17:37:00 CaseyBlake boswell [facility] SECTION 2023-01-12 17:37:00 Lauren Caseyedmar Kenny isa [facility] CENTRAL NEURAXIAL BLOCK 2023-01-11 19:20:00 Rani Zurita [facility] KEPPRA (LEVETIRACETAM) 2023-01-11 05:52:00 Umesh Orozco [facility] TESSYPPRA (LEVETIRACETAM) 2023-01-11 05:52:00 Umesh Orozco [facility] HEPATITIS B SURFACE ANTIGEN 2023-01-11 05:40:00 Sorin Uriarte [facility] HB ABO GROUPING 2023-01-11 05:40:00 Lauren Uriarte [facility] RHO (D) IMMUNE GLOBULIN 2023-01-11 05:40:00 Birdie Suarez Mai [facility] SYPHILIS IGG/IGM 2023-01-11 05:40:00 Gonzalez Uriarte [facility] HEPATITIS B SURFACE ANTIGEN 2023-01-11 05:40:00 Sorin Uriarte [facility] HB ABO GROUPING 2023-01-11 05:40:00 Lauren Uriarte [facility] RHO (D) IMMUNE GLOBULIN 2023-01-11 05:40:00 Birdie Suarez Mai [facility] SYPHILIS IGG/IGM 2023-01-11 05:40:00 Gonzalez Uriarte [facility] SGOT (ASPARTATE AMINO TRANSFER) 2023-01-10 23:44:00 [facility] CREATININE 2023-01-10 23:44:00 [place], [facility] ALANINE AMINO TRANSFERASE(SGPT 2023-01-10 23:44:00 [facility] LACTATE DEHYDROGENASE 2023-01-10 23:44:00 [place] , [facility] URIC ACID 2023-01-10 23:44:00 [place], [facility] COMP. METABOLIC PANEL ([id number]) 2023-01-10 23:44:00 [facility] CBC WITH DIFF 2023-01-10 23:44:00 [place], [facility] URINALYSIS 2023-01-10 23:44:[address] [facility] SGOT (ASPARTATE AMINO TRANSFER) 2023-01-10 23:44:00 [facility], [facility] CREATININE 2023-01-10 23:44:00 [place], [facility] ALANINE AMINO TRANSFERASE(SGPT 2023-01-10 23:44:00 [facility] LACTATE DEHYDROGENASE 2023-01-10 23:44:00 [facility] , [facility] URIC ACID 2023-01-10 23:44:00 [facility], [facility] COMP. METABOLIC PANEL ([id number]) 2023-01-10 23:44:00 [place] [facility] CBC WITH DIFF 2023-01-10 23:44:00 [facility], [facility] URINALYSIS 2023-01-10 23:44:[address] [facility] PROTEIN CREAT RATIO URINE RANDOM 2023-01-10 22:50:00 [place], [facility] PROTEIN CREAT RATIO URINE RANDOM 2023-01-10 22:50:00 Maria Guadalupe Gaston [facility] ASSIGNMENT OF BENEFITS 2023-01-10 21:40:53 Docto r Unassigned, Gross [facility] ASSIGNMENT OF BENEFITS 2023-01-10 21:40:53 Docto r Unassigned, Gross [facility] CONSENT/REFUSAL FOR DIAGNOSIS AND TREATMENT 2023-01-10 21:38:09 Doctor Unassigned, Gross [facility] CONSENT/REFUSAL FOR DIAGNOSIS AND TREATMENT 2023-01-10 21:38:09 Doctor Unassigned, Gross [facility] NON-STRESS TEST 2023-01-07 21:16:56 Ricardo Mcginnis [facility] POCT URINALYSIS 2023-01-07 19:33:00 Kamilah Mcginnis [facility] NON-STRESS TEST 2023-01-06 21:38:57 Ricardo Mcginnis [facility] POCT URINALYSIS 2023-01-05 00:00:00 Kamilah Mcginnis [facility] POCT URINALYSIS 2022-12-29 14:51:00 Kamilah Mcginnis [facility] NON-STRESS TEST 2022-12-25 18:27:50 Hussein Lundy [facility] POCT URINALYSIS 2022-12-25 16:32:00 Kamilah Mcginnis [facility] NON-STRESS TEST 2022-12-22 16:08:21 Hussein Lundy [facility] POCT URINALYSIS 2022-12-22 14:45:00 Kamilah Mcginnis [facility] NON-STRESS TEST 2022-12-10 19:52:27 Hussein Lundy [facility] POCT URINALYSIS W/O SPECIFIC GRAVITY 2022-12-10 19:28:00 Naila Lundy [facility] NON-STRESS TEST 2022-12-07 21:46:26 Ricardo Mcginnis [facility] POCT URINALYSIS 2022-12-07 21:11:00 Kamilah Mcginnis [facility] HIV 1/2 AG-AB WITH REFLEX 2022-11-11 15:24:00 Kamilah Mcginnis [facility] SYPHILIS IGG/IGM 2022-11-11 15:24:00 Thang Mcginnis [facility] TDAP VACCINE, >11 YRS, IM 2022-11-11 14:51:08 Kamilah Mcginnis [facility] POCT URINALYSIS 2022-11-11 14:27:00 Kamilah Mcginnis [facility] POCT URINALYSIS 2022-10-29 15:03:00 Kamilah Mcginnis [facility] POCT URINALYSIS 2022-10-14 00:00:00 Kamilah Mcginnis [facility] POCT URINALYSIS 2022-09-21 17:17:00 Kamilah Mcginnis [facility] ALPHA FETOPROTEIN-MATERNAL SER 2022-08-21 16:50:00 Kamilah Mcginnis [facility] PAP SMEAR-LIQUID BASED-CP 2022-08-21 16:50:00 Kamilah Mcginnis [facility] POCT URINALYSIS 2022-08-07 00:00:00 Kamilah Mcginnis [facility] Encounters Start Date/Time End Date/Time Encounter Type Admission Type Attending Clinicians Care Facility Care Department Encounter ID Source 2023-01-10 19:34:33 Outpatient NISHA VELEZ SANGEETA [facility] [id number] [facility] 2023-12-21 20:58:00 2023-12-21 23:34:00 Emergency X CON RIOS [facility] ERT [id number] [facility] 2023-12-21 20:58:00 2023-12-21 23:34:00 Emergency Con Rios [facility] 1.2.840.114 350.1.13.10 4.2.7.2.686 [id number] [facility] 2023-12-18 00:00:00 2023-12-18 00:00:00 Telephone Maykel Melendezgagandeep [facility] 1..840.114 350.1.13.10 4.2.7.2.686 [id number] [facility] 2023-10-04 16:30:00 2023-10-04 16:30:00 Outpatient CHERYL DYSON [facility] [id number] [facility] 2023-09-28 00:00:00 2023-09-28 00:00:00 Pre Visit Outreach Xenia Karen [facility]TON 1..840.114 350.1.13.10 4.2.7.2.686 [id number] [facility] 2023-08-26 13:00:00 2023-08-26 13:52:45 Outpatient R TRINA VALENTINE [facility] [id number] [facility] 2023-08-26 13:00:00 2023-08-26 13:52:45 Urgent Care Trina Valentine Unknown, Attending [facility] 1..840.114 350.1.13.10 4.2.7.2.686 [id number] [facility] 2023-08-25 00:00:00 2023-08-25 00:00:00 Outpatient GC_GCBZW_Ka diyala_S PRIV PRIV [id number] [facility] 2023-08-03 10:00:00 2023-08-03 10:17:34 Outpatient CHERYL DYSON [facility] [id number] [facility] 2023-08-03 10:00:00 2023-08-03 10:17:34 Office Visit Cheryl Davison [facility] 1.0.114 350.1.13.10 4.2.7.2.686 [id number] [facility] 2023-07-19 14:30:00 2023-07-19 14:30:00 Nurse Visit Visit, [facility] Nurse Nolvia Jacobs [facility] PRODUCT TEST SPECIALIST [facility] CHILD [facility] 1..114 350.1.13.10 4.2.7.2.686 [id number] [facility] 2023-07-19 14:30:00 2023-07-19 13:55:20 Outpatient NOLVIA KLINE [facility] [id number] [facility] 2023-07-19 00:00:00 2023-07-19 00:00:00 Orders Only Doctor Unassigned, Gross [facility] 1.114 350.1.13.10 4.2.7.2.686 [id number] [facility] 2023-07-19 00:00:00 2023-07-19 00:00:00 Letter (Out) Rashid Montes [facility] PRODUCT TEST SPECIALIST [facility] 1.114 350.1.13.10 4.2.7.2.686 [id number] [facility] 2023-05-15 12:40:00 2023-05-15 13:43:53 Outpatient FELECIA BOYD [facility] [id number] [facility] 2023-05-15 12:40:00 2023-05-15 13:00:00 Urgent Care Felecia Melendez Unknown, Attending [facility] MARGUERITE M[facility] 1.114 350.1.13.10 4.2.7.2.686 [id number] [facility] 2023-05-15 00:00:00 2023-05-15 00:00:00 Felecia Echeverria [facility]FF[facility] 1.2.840.114 350.1.13.10 4.2.7.2.686 [id number] [facility] 2023-04-22 15:00:00 2023-04-22 15:57:27 Outpatient R NOLVIA JACOBS [facility] [id number] [facility] 2023-04-22 15:00:00 2023-04-22 15:57:27 Office Visit Nolvia Jacobs [facility] PRODUCT TEST SPECIALIST [facility] 1.2.840.114 350.1.13.10 4.2.7.2.686 [id number] [facility] 2023-04-20 00:00:00 2023-04-20 00:00:00 Telephone Kamilah Mcginnis [facility] PRODUCT TEST SPECIALIST [facility] 1.2.840.114 350.1.13.10 4.2.7.2.686 [id number] [facility] 2023-04-05 00:00:00 2023-04-05 00:00:00 Telephone Kamilah Mcginnis [facility] PRODUCT TEST SPECIALIST [facility] 1.2.840.114 350.1.13.10 4.2.7.2.686 [id number] [facility] 2023-03-23 13:15:00 2023-03-23 13:15:00 Outpatient R KAMILAH MCGINNIS [facility] [id number] [facility] 2023-01-19 10:00:00 2023-01-19 10:06:02 Outpatient NAILA WITT [facility] [id number] [facility] 2023-01-19 10:00:00 2023-01-19 10:06:02 [facility] PRODUCT TEST SPECIALIST [facility] 1.2.840.114 350.1.13.10 4.2.7.2.686 [id number] [facility] 2023-01-10 16:46:00 2023-01-14 14:48:00 Inpatient Rodriguez CADET, NISHA CADET, NISHA CHRISTIANO [id number] [facility] 2023-01-10 16:46:00 2023-01-14 14:48:00 Hospital Encounter RuelasColin kimberly Maria Guadalupe Jain, [facility] 1.2.840.114 350.1.13.10 4.2.7.2.686 [id number] [facility] 2023-01-14 14:30:00 2023-01-14 14:30:00 Outpatient R [facility] [id number] [facility] 2023-01-12 15:30:00 2023-01-12 15:30:00 Outpatient R AKINSARAH, KAMILAH [facility] [id number] [facility] 2023-01-12 13:05:00 2023-01-12 14:23:00 Surgery Blake Casey [facility] 1.2840.114 350.1.13.10 4.2.7.2.686 [id number] [facility] 2023-01-11 14:22:00 2023-01-11 14:22:00 Anesthesia Event [facility] 1.2.840.114 350.1.13.10 4.2.7.2.686 [id number] [facility] 2023-01-08 14:30:00 2023-01-08 14:30:00 Outpatient R [facility] [id number] [facility] 2023-01-07 14:45:00 2023-01-07 15:05:11 Outpatient R AKINSIKARLO, KAMILAH [facility] [id number] [facility] 2023-01-07 14:45:00 2023-01-07 15:05:11 Routine Visit Kamilah Mcginnis [facility] PRODUCT TEST SPECIALIST [facility] 1.840.114 350.1.13.10 4.2.7.2.686 [id number] 107 [id number] [facility] 2023-01-05 13:00:00 2023-01-05 13:35:29 Outpatient R KAMILAH MCGINNIS [facility] [id number] [facility] 2023-01-05 13:00:00 2023-01-05 13:35:29 Routine Visit Kamilah Mcginnis [facility] PRODUCT TEST SPECIALIST [facility] 1.840.114 350.1.13.10 4.2.7.2.686 [id number] 107 [id number] [facility] 2023-01-02 00:00:00 2023-01-02 00:00:00 Telephone Kamilah Mcginnis [facility] PRODUCT TEST SPECIALIST [facility] .84.114 350.1.13.10 4.2.7.2.686 [id number] 107 [id number] [facility] 2023-01-01 13:00:00 2023-01-01 13:00:00 Outpatient R ZULEIKA MCGINNISOLA [facility] [id number] [facility] 2022-12-29 09:00:00 2022-12-29 09:40:36 Outpatient R NAILA LUNDY [facility] [id number] [facility] 2022-12-29 09:00:00 2022-12-29 09:40:36 Routine Visit Provider, LydiachNaila Early [facility] PRODUCT TEST SPECIALIST [facility] 1.840.114 350.1.13.10 4.2.7.2.686 [id number] 107 [id number] [facility] 2022-12-28 10:30:00 2022-12-28 10:30:00 Outpatient P [facility] [id number] [facility] 2022-12-25 10:30:00 2022-12-25 11:20:26 Outpatient R NAILA LUNDY [facility] [id number] [facility] 2022-12-25 10:30:00 2022-12-25 11:20:26 Routine Visit Provider, Naila Aparicio [facility] PRODUCT TEST SPECIALIST [facility] 1.840.114 350.1.13.10 4.2.7.2.686 [id number] 107 [id number] [facility] 2022-12-25 09:30:00 2022-12-25 09:30:00 Outpatient R [facility] [id number] [facility] 2022-12-22 08:45:00 2022-12-22 09:31:01 Outpatient R NAILA LUNDY [facility] [id number] [facility] 2022-12-22 08:45:00 2022-12-22 09:31:01 Routine Visit Provider, Naila Aparicio [facility] PRODUCT TEST SPECIALIST [facility] 1..840.114 350.1.13.10 4.2.7.2.686 [id number] 107 [id number] [facility] 2022-12-21 13:30:00 2022-12-21 13:30:00 Outpatient R KAMILAH MCGINNIS [facility] [id number] [facility] 2022-12-21 08:30:00 2022-12-21 09:01:47 [employer] Rep Visit Ultrasound, Stevan Novak [facility] PRODUCT TEST SPECIALIST [facility] 1..840.114 350.1.13.10 4.2.7.2.686 [id number] [facility] 2022-12-14 13:00:00 2022-12-14 13:00:00 Outpatient R NAILA LUNDY [facility] [id number] [facility] 2022-12-10 13:30:00 2022-12-10 13:30:00 Routine Visit Provider, Naila Aparicio [facility] PRODUCT TEST SPECIALIST [facility] 1..840.114 350.1.13.10 4.2.7.2.686 [id number] 107 [id number] [facility] 2022-12-10 13:30:00 2022-12-10 13:28:21 Outpatient R NAILA LUNDY [facility] [id number] [facility] 2022-12-07 15:15:00 2022-12-07 15:41:47 Routine Visit Kamilah Mcginnis [facility] PRODUCT TEST SPECIALIST [facility] 1..840.114 350.1.13.10 4.2.7.2.686 [id number] 107 [id number] [facility] 2022-12-07 14:00:00 2022-12-07 14:00:00 Outpatient R KAMILAH MCGINNIS [facility] [id number] [facility] 2022-11-30 10:30:00 2022-11-30 10:30:00 Outpatient P [facility] [id number] [facility] 2022-11-25 14:00:00 2022-11-25 14:00:00 Outpatient R KAMILAH MCGINNIS [facility] [id number] [facility] 2022-11-12 00:00:00 2022-11-12 00:00:00 Abstract Kamilah Mcginnis [facility] PRODUCT TEST SPECIALIST [facility] ..840.114 350.1.13.10 4.2.7.2.686 [id number] 107 [id number] [facility] 2022-11-11 10:30:00 2022-11-11 11:00:00 [employer] Visit Ultrasound, Anatoliy Fern Bernal Masha [facility] PRODUCT TEST SPECIALIST [facility] 1..840.114 350.1.13.10 4.2.7.2.686 [id number] [facility] 2022-11-11 10:30:00 2022-11-11 10:30:00 Outpatient P FERN BERNAL [facility] [id number] [facility] 2022-11-11 08:45:00 2022-11-11 09:20:10 Outpatient R KAMILAH MCGINNIS [facility] [id number] [facility] 2022-11-11 08:45:00 2022-11-11 09:20:10 Routine Visit Kamilah Mcginnis [facility] PRODUCT TEST SPECIALIST [facility] ..840.114 350.1.13.10 4.2.7.2.686 [id number] 107 [id number] [facility] 2022-10-29 08:45:00 2022-10-29 09:23:49 Outpatient R KAMILAH MCGINNIS [facility] [id number] [facility] 2022-10-29 08:45:00 2022-10-29 09:23:49 Routine Visit Kamilah Mcginnis [facility] PRODUCT TEST SPECIALIST [facility] ..840.114 350.1.13.10 4.2.7.2.686 [id number] 107 [id number] [facility] 2022-10-14 10:45:00 2022-10-14 11:47:29 Outpatient R KAMILAH MCGINNIS [facility] [id number] [facility] 2022-10-14 10:45:00 2022-10-14 11:47:29 Routine Visit Kamilah Mcginnis [facility] PRODUCT TEST SPECIALIST [facility] 1.840.114 350.1.13.10 4.2.7.2.686 [id number] 107 [id number] [facility] 2022-10-12 10:30:00 2022-10-12 10:30:00 Outpatient P [facility] [id number] [facility] 2022-10-05 15:30:00 2022-10-05 15:30:00 Outpatient R FERN BERNAL [facility] [id number] [facility] 2022-09-28 09:00:00 2022-09-28 09:30:00 Telemedici ne Visit Faculty, Shekhar Oneill [facility] Shayla Iglesias [facility] PRODUCT TEST SPECIALIST [facility] .84.114 350.1.13.10 4.2.7.2.686 [id number] 107 [id number] [facility] 2022-09-28 09:00:00 2022-09-28 09:00:00 Outpatient R SHAYLA IGLESIAS [facility] [id number] [facility] 2022-09-21 11:00:00 2022-09-21 11:33:17 Outpatient R KAMILAH MCGINNIS [facility] [id number] [facility] 2022-09-21 11:00:00 2022-09-21 11:33:17 Routine Visit Kamilah Mcginnis [facility] PRODUCT TEST SPECIALIST [facility] ..114 350.1.13.10 4.2.7.2.686 [id number] 107 [id number] [facility] 2022-09-16 00:00:00 2022-09-16 00:00:00 Telephone Kamilah Mcginnis [facility] PRODUCT TEST SPECIALIST [facility] 1.840.114 350.1.13.10 4.2.7.2.686 [id number] 107 [id number] [facility] 2022-09-10 10:45:00 2022-09-10 11:50:02 [employer] Visit Ultrasound, Shekhar-Mfm Saran Abdalla [facility] PRODUCT TEST SPECIALIST [facility] 1.840.114 350.1.13.10 4.2.7.2.686 [id number] [facility] 2022-09-10 10:45:00 2022-09-10 10:45:00 Outpatient P SUSAN SARAN [facility] [id number] [facility] 2022-09-10 00:00:00 2022-09-10 00:00:00 Abstract Kmailah Mcginnis [facility] PRODUCT TEST SPECIALIST [facility] 1.840.114 350.1.13.10 4.2.7.2.686 [id number] 107 [id number] [facility] 2022-08-21 11:00:00 2022-08-21 11:57:28 Outpatient R KAMILAH MCGINNIS [facility] [id number] [facility] 2022-08-21 11:00:00 2022-08-21 11:57:28 Routine Visit Kamilah Mcginnis [facility] PRODUCT TEST SPECIALIST [facility] 1.840.114 350.1.13.10 4.2.7.2.686 [id number] 107 [id number] [facility] 2022-08-18 16:20:00 2022-08-18 16:20:00 Outpatient R UNKNOWN, ATTENDING [facility] [id number] [facility] 2022-08-17 00:00:00 2022-08-17 00:00:00 Nurse Triage Edith Narvaez [facility] .84.114 350.1.13.10 4.2.7.2.686 [id number] [facility] 2022-08-07 14:45:00 2022-08-07 15:12:29 Outpatient R JOSEFINASARAH KAMILAH [facility] [id number] [facility] 2022-08-07 14:45:00 2022-08-07 15:12:29 Routine Visit Kamilah Mcginnis [facility] PRODUCT TEST SPECIALIST [facility] 1..840.114 350.1.13.10 4.2.7.2.686 [id number] 107 [id number] [facility] 2022-08-03 11:30:00 2022-08-03 15:23:05 Outpatient R NORM CAZARES [facility] [id number] [facility] 2022-08-03 11:30:00 2022-08-03 15:23:05 Telemedici ne Visit Faculty, [facility] Norm [facility] PRODUCT TEST SPECIALIST [facility] 1..840.114 350.1.13.10 4.2.7.2.686 [id number] 107 [id number] [facility] 2022-08-03 11:30:00 2022-08-03 11:30:00 Outpatient R DEBORA NORM [facility] [id number] [facility] 2022-07-21 00:00:00 2022-07-21 00:00:00 Telephone Kamilah Mcginnis [facility] PRODUCT TEST SPECIALIST [facility] 1..840.114 350.1.13.10 4.2.7.2.686 [id number] 107 [id number] [facility] 2022-07-16 00:00:00 2022-07-16 00:00:00 Abstract Kamilah Mcginnis [facility] PRODUCT TEST SPECIALIST [facility] 1..840.114 350.1.13.10 4.2.7.2.686 [id number] 107 [id number] [facility] 2022-07-15 00:00:00 2022-07-15 00:00:00 Abstract Kamilah Mcginnis [facility] PRODUCT TEST SPECIALIST [facility] 1.84.114 350.1.13.10 4.2.7.2.686 [id number] 107 [id number] [facility] 2022-07-14 09:00:00 2022-07-14 09:28:43 [employer] [facility]les[facility] PRODUCT TEST SPECIALIST [facility] 1.84.114 350.1.13.10 4.2.7.2.686 [id number] [facility] 2022-07-14 09:00:00 2022-07-14 09:00:00 Outpatient P [facility] [id number] [facility] 2022-07-14 09:00:00 2022-07-14 09:00:00 Outpatient P SHAYLA IGLESIAS [facility] [id number] [facility] 2022-07-14 08:15:00 2022-07-14 09:00:00 [employer] Rep Visit 1, [facility] Room Cho Shayla Foote [facility] 1.840.114 350.1.13.10 4.2.7.2.686 [id number] [facility] 2022-07-06 11:30:00 2022-07-06 12:12:04 Outpatient R FERN BERNAL [facility] [id number] [facility] 2022-07-06 11:30:00 2022-07-06 12:12:04 Office Visit Faculty, Shekhar Oneill Fern Macdonald [facility] PRODUCT TEST SPECIALIST [facility] 1.840.114 350.1.13.10 4.2.7.2.686 [id number] 107 [id number] [facility] 2022-07-06 11:30:00 2022-07-06 12:12:04 Outpatient R DOLORES FERN [facility] [id number] [facility] 2022-06-23 00:00:00 2022-06-23 00:00:00 Abstract Kamilah Mcginnis [facility] PRODUCT TEST SPECIALIST [facility] 1..840.114 350.1.13.10 4.2.7.2.686 [id number] 107 [id number] [facility] 2022-06-22 14:15:00 2022-06-22 14:32:25 [employer] Rep Visit 1, [facility] Room Shayla Iglesias [facility] PRODUCT TEST SPECIALIST [facility] 1..840.114 350.1.13.10 4.2.7.2.686 [id number] 369 [id number] [facility] 2022-06-22 14:15:00 2022-06-22 14:32:25 Outpatient P SHAYLA IGLESIAS [facility] [id number] [facility] 2022-06-22 14:15:00 2022-06-22 14:15:00 Outpatient P SHAYLA IGLESIAS [facility] [id number] [facility] 2022-06-16 10:45:00 2022-06-16 11:12:27 Outpatient R KAMILAH MCGINNIS [facility] [id number] [facility] 2022-06-16 10:45:00 2022-06-16 11:12:27 Routine Visit Kamilah Mcginnis [facility] PRODUCT TEST SPECIALIST [facility] ..840.114 350.1.13.10 4.2.7.2.686 [id number] 107 [id number] [facility] 2022-06-15 11:30:00 2022-06-15 12:00:00 Telemedici ne Visit Faculty, Shekhar Oneill [facility] Dolores Teodorocourt Flanagan [facility] PRODUCT TEST SPECIALIST [facility] 1.2.840.114 350.1.13.10 4.2.7.2.686 [id number] 107 [id number] [facility] 2022-06-15 11:30:00 2022-06-15 11:30:00 Outpatient R [facility] [id number] [facility] 2022-06-15 11:30:00 2022-06-15 11:30:00 Outpatient R FERN BERNAL [facility] [id number] [facility] 2022-05-28 08:30:00 2022-05-28 08:30:00 [employer] Visit Lab, Ang-RmchKamilah Dodd [facility] PRODUCT TEST SPECIALIST [facility] ..840.114 350.1.13.10 4.2.7.2.686 [id number] 107 [id number] [facility] 2022-05-28 08:30:00 2022-05-28 08:15:52 Outpatient R KAMILAH MCGINNIS [facility] [id number] [facility] 2022-05-28 08:30:00 2022-05-28 08:15:52 Outpatient R KAMILAH MCGINNIS [facility] [id number] [facility] 2022-05-28 08:30:00 2022-05-28 08:15:52 Outpatient R KAMILAH MCGINNIS [facility] [id number] [facility] 2022-05-27 00:00:00 2022-05-27 00:00:00 Telephone Kamilah Mcginnis [facility] PRODUCT TEST SPECIALIST [facility] ..840.114 350.1.13.10 4.2.7.2.686 [id number] 107 [id number] [facility] 2022-05-26 15:00:00 2022-05-26 15:00:00 Outpatient R TERA NORIEGA [facility] [id number] [facility] 2022-05-26 00:00:00 2022-05-26 00:00:00 Letter (Out) Kamilah Mcginnis Noble [facility] PRODUCT TEST SPECIALIST [facility] 1.2.840.114 350.1.13.10 4.2.7.2.686 [id number] 107 [id number] [facility] 2022-05-26 00:00:00 2022-05-26 00:00:00 Letter (Out) Kamilah Mcginnis Noble [facility] PRODUCT TEST SPECIALIST [facility] 1.2.840.114 350.1.13.10 4.2.7.2.686 [id number] 107 [id number] [facility] 2022-05-22 14:15:00 2022-05-22 16:30:24 Outpatient R KAMILAH MCGINNIS [facility] [id number] [facility] 2022-05-22 14:15:00 2022-05-22 16:30:24 Outpatient R KAMILAH MCGINNIS [facility] [id number] [facility] 2022-05-22 14:15:00 2022-05-22 16:30:24 Outpatient R KAMILAH MCGINNIS [facility] [id number] [facility] 2022-05-22 14:15:00 2022-05-22 16:30:24 Initial Visit Kamilah Mcginnis [facility] PRODUCT TEST SPECIALIST [facility] 1.2.840.114 350.1.13.10 4.2.7.2.686 [id number] 107 [id number] [facility] 2022-05-22 13:45:00 2022-05-22 15:23:15 Outpatient R KAIMLAH MCGINNIS [facility] [id number] [facility] 2022-05-22 14:15:00 2022-05-22 14:15:00 Outpatient R KAMILAH MCGINNIS [facility] [id number] [facility] 2022-05-22 00:00:2022-05-22 00:00:00 Orders Only Doctor Unassigned, Gross [facility] 1.114 350.1.13.10 4.2.7.2.686 [id number] [facility] 2021-09-24 14:00:00 2021-09-24 14:00:00 Outpatient R OLIVIA GUERRA [facility] [id number] [facility] 2020-06-19 00:00:00 2020-06-19 00:00:00 Telephone [facility] 1.114 350.1.13.10 4.2.7.2.686 [id number] [facility] 2020-06-17 13:00:00 2020-06-17 13:00:00 Outpatient R [facility] [id number] [facility] 2020-06-17 12:34:28 2020-06-17 12:54:28 Laboratory Only Lab, Adc Fam Pob I [facility] [address] . 350.1.13.10 4.2.7.2.686 [id number] [facility] 2020-06-17 00:00:00 2020-06-17 00:00:00 Letter (Out) Doctor Unassigned, Gross [facility] 1. 350.1.13.10 4.2.7.2.686 [id number] [facility] 2020-04-08 10:45:33 2020-04-08 11:05:33 [facility] .114 350.1.13.10 4.2.7.2.686 [id number] [facility] 2020-04-08 11:00:00 2020-04-08 11:00:00 Outpatient R [facility] [id number] [facility] Results Test Description Test Time Test Comments Results Result Co mments Source [facility] SARS-COV-2 ANTIGEN (BINAX NOW)2023-08-26 18:42:00* Test Item Value Reference Range Interpretation Comme nts POCT SARS-COV-2 ANTIGEN (tomi t code = 15646-7) Not Detected Not Detected On board controls acceptable with C Line (test code = 3574) Yes [facility] SARS-COV-2 ANTIGEN (BINAX NOW)2023-05-15 18:13:00* Test Item Value Reference Range Interpretation Comme nts POCT SARS-COV-2 ANTIGEN (tomi t code = 86013-0) Positive Not Detected A On board controls acceptable with C Line (test code = 3574) Yes Lab Interpretation (test cod e = 60349-9) Abnormal [facility] MOLECULAR [id number] 18:06:20* Test Item Value Reference Range Interpretation Comme nts POCT Molecular Strep (test c ode = 95535-1) Negative Negative Lab Interpretation (test cod e = 82058-7) Normal [facility] [id number] 20:56:00* Test Item Value Reference Range Interpretation Comme nts POCT PREG (test code = 1605) Negative On board controls acceptable with C Line (test code = 3574) Yes POCT PREG LOT # (test code = 3575) POCT PREG TEST DATE ( test code = 3576) [facility] [id number] 20:56:00* Test Item Value Reference Range Interpretation Comme nts POCT PREG (test code = 1605) Negative On board controls acceptable with C Line (test code = 3574) Yes POCT PREG LOT # (test code = 3575) POCT PREG TEST DATE ( test code = 3576) [facility] [id number] 20:44:53* Test Item Value Reference Range Interpretation Comme nts RHIG CANDIDATE? (test code = 5188) No- see comment Patient is not a candidate for RhIg- Patient is Rh Positive.Performed at [facility] Laboratory Services - [facility] Blood [address] [place] [id number] Free: [phone] No. [id number] [facility] IMMUNE [id number] 20:44:53* Test Item Value Reference Range Interpretation Comme nts RHIG CANDIDATE? (test code = 5188) No- see comment Patient is not a candidate for RhIg- Patient is Rh Positive.Performed at [facility] Laboratory Services - [facility] Blood [address] [address]Zxqf Free: [phone] No. [id number] [facility] CORD [id number] 18:38:22* Test Item Value Reference Range Interpretation Comme [facility] VENOUS BASE EXCESS, CORD (test code = 3235191251) -4.8 mEq/L VENOUS PH, CORD (test code = 1898317050) 7.25 7.25-7.45 VENOUS PC02, CORD (test code = 0079597745) 54 See_Comment H [Automated me ssage] The system which generated this result transmitted reference range: 27 - 49 mmHg. The reference range was not used to interpret this result as normal/abnormal. VENOUS PO2, CORD (test code = [id number]) Unable VENOUS BICARBONATE, CORD (test code = [id number]) 23 See_Comment [Automa juanito message] The system which generated this result transmitted reference range: 12 - 29 mEq/L. The reference range was not used to interpret this result as normal/abnormal. Lab Interpretation (test code = 71503-7) Abnormal [facility] CORD [id number] 18:38:22* Test Item Value Reference Range Interpretation Comme nts VENOUS BASE EXCESS, CORD (test code = [id number]) -4.8 mEq/L VENOUS PH, CORD (test code = [id number]) 7.25 7.25-7.45 VENOUS PC02, CORD (test code = [id number]) 54 See_Comment H [Automated me ssage] The system which generated this result transmitted reference range: 27 - 49 mmHg. The reference range was not used to interpret this result as normal/abnormal. VENOUS PO2, CORD (test code = [id number]) Unable VENOUS BICARBONATE, CORD (test code = [id number]) 23 See_Comment [Automa juanito message] The system which generated this result transmitted reference range: 12 - 29 mEq/L. The reference range was not used to interpret this result as normal/abnormal. Lab Interpretation (test code = 09025-8) Abnormal [facility] CORD [id number] 18:34:44* Test Item Value Reference Range Interpretation Comme nts BASE EXCESS, CORD (test code = [id number]) -6.1 mEq/L AC PH, CORD (BEAKER) (test code = [id number]) 7.21 7.18-7.38 PC02, CORD (test code = 0779409127) 58 See_Comment [Automated messa ge] The system which generated this result transmitted reference range: 32 - 66 mmHg. The reference range was not used to interpret this result as normal/abnormal. PO2, CORD (test code = [id number]) 10 See_Comment [Automated messa ge] The system which generated this result transmitted reference range: 10 - 30 mmHg. The reference range was not used to interpret this result as normal/abnormal. BICARBONATE, CORD (test code = [id number]) 23 See_Comment [Automated messa ge] The system which generated this result transmitted reference range: 17 - 27 mEq/L. The reference range was not used to interpret this result as normal/abnormal. [facility] CORD [id number] 18:34:44* Test Item Value Reference Range Interpretation Comme nts BASE EXCESS, CORD (test code = 3344416682) -6.1 mEq/L AC PH, CORD (BEAKER) (test code = 0605772370) 7.21 7.18-7.38 PC02, CORD (test code = 6106400544) 58 See_Comment [Automated messa ge] The system which generated this result transmitted reference range: 32 - 66 mmHg. The reference range was not used to interpret this result as normal/abnormal. PO2, CORD (test code = 1684958955) 10 See_Comment [Automated messa ge] The system which generated this result transmitted reference range: 10 - 30 mmHg. The reference range was not used to interpret this result as normal/abnormal. BICARBONATE, CORD (test code = 9614253860) 23 See_Comment [Automated messa ge] The system which generated this result transmitted reference range: 17 - 27 mEq/L. The reference range was not used to interpret this result as normal/abnormal. [facility] ONLY - SYPHILIS IGG/YFU9585-24-04 14:38:24* Test Item Value Reference Range Interpretation Comme nts Syphilis IgG/IgM (test code = 54488-6) Non-reactive Non-reactive ALYSHA (test code = ALYSHA) Non-reactive - No serologic evidence of T. pallidum infection. Cannot exclude incubating or early syphilis. Submit a second specimen in 2-4 weeks if syphilis is clinically suspected. Equivocal - Further testing to follow. Reactive - Further testing to follow. Lab Interpretation (test code = 18698-7) Normal [facility] ONLY - SYPHILIS IGG/VYS0455-83-84 14:38:24* Test Item Value Reference Range Interpretation Comme nts Syphilis IgG/IgM (test code = 86627-8) Non-reactive Non-reactive ALYSHA (test code = ALYSHA) Non-reactive - No serologic evidence of T. pallidum infection. Cannot exclude incubating or early syphilis. Submit a second specimen in 2-4 weeks if syphilis is clinically suspected. Equivocal - Further testing to follow. Reactive - Further testing to follow. Lab Interpretation (test code = 60280-9) Normal [facility] Vaiensr4081-26-20 06:53:32 * Test Item Value Reference Range Interpretation Comme nts HBsAg Semi-Quantitative (tomi t code = 5195-3) 0.04 Negative [facility] B Surface Vgezlzx3703-88-23 06:53:32 * Test Item Value Reference Range Interpretation Comme nts HBsAg Semi-Quantitative (tomi t code = 5195-3) 0.04 Negative [facility] (LEVETIRAC[facility]AM)2023-01-11 06:22:53* Test Item Value Reference Range Interpretation Comme nts KEPPRA (test code = 1547172778) 5 ug/mL 12-46 L ALYSHA (test code = ALYSHA) Therapeutic range: 12-46 ?g/mL ? ?Toxic: Not well established.Test developed and characteristics determined by [facility]. Lab Interpretation (test code = 41703-3) Abnormal [facility] (LEV[facility]IRAC[facility]AM)2023-01-11 06:22:53* Test Item Value Reference Range Interpretation Comme nts KEPPRA (test code = 4266702564) 5 ug/mL 12-46 L ALYSHA (test code = ALYSHA) Therapeutic range: 12-46 ?g/mL ? ?Toxic: Not well established.Test developed and characteristics determined by [facility]. Lab Interpretation (test code = 76014-3) Abnormal [facility] - ONCE [id number] 05:59:00 * Test Item Value Reference Range Interpretation Comme nts ABO & RH (test code = 20) A POSITIVE IAT (test code = 1185) Negative [facility] ONCE KNTA1024-73-54 05:59:00 * Test Item Value Reference Range Interpretation Comme nts ABO & RH (test code = 20) A POSITIVE IAT (test code = 1185) [facility] [id number] 19:33:00* Test Item Value Reference Range Interpretation [...] U APPEAR (test code = 3267) . [facility]IFIC [id number] 18:03:00* Test Item Value Reference Range Interpretation [...] U APPEAR (test code = 3267) . [facility] URINALYSIS W SPECIFIC IICQWVN9576-30-79 14:51:00* Test Item Value Reference Range Interpretation [...] POCT U APPEAR (test code = 3267) [facility] URINALYSIS W SPECIFIC [id number] 16:32:00* Test Item Value Reference Range Interpretation [...] U APPEAR (test code = 3267) . [facility] URINALYSIS W SPECIFIC [id number] 16:32:00* Test Item Value Reference Range Interpretation [...] U APPEAR (test code = 3267) . [facility] URINALYSIS W SPECIFIC [id number] 14:46:00* Test Item Value Reference Range Interpretation [...] U APPEAR (test code = 3267) . [facility] URINALYSIS W SPECIFIC KSFMADY5496-26-74 14:46:00* Test Item Value Reference Range Interpretation [...] U APPEAR (test code = 3267) . [facility] URINALYSIS W/O SPECIFIC [id number] 19:28:00* Test Item Value Reference Range Interpretation [...] = 3257) * Negative - Negati ve [facility] URINALYSIS W SPECIFIC [id number] 21:12:00* Test Item Value Reference Range Interpretation [...] U APPEAR (test code = 3267) . [facility] SYPHILIS IGG/[id number] 16:39:57* Test Item Value Reference Range Interpretation Comme nts Syphilis IgG/IgM (test code = 73851-4) Non-reactive Non-reactive ALYSHA (test code = ALYSHA) Non-reactive - No serologic evidence of T. pallidum infection. Cannot exclude incubating or early syphilis. Submit a second specimen in 2-4 weeks if syphilis is clinically suspected. Equivocal - Further testing to follow. Reactive - Further testing to follow. Lab Interpretation (test code = 53948-7) Normal [facility]2 AG-AB WITH [id number] 06:31:45* Test Item Value Reference Range Interpretation Comme nts HIV Semi-quantitative (test code = 76812-3) Negative Negative ALYSHA (test code = ALYSHA) Non-reactive for HIV-1 antigen and HIV-1/HIV-2 antibodies. ?No laboratory evidence of HIV infection. ?Repeat in 2-4 weeks if acute HIV infection is suspected. [facility]CIFIC [id number] 14:27:00* Test Item Value Reference Range Interpretation [...] U APPEAR (test code = 3267) . [facility] URINALYSIS W SPECIFIC [id number] 15:03:00* Test Item Value Reference Range Interpretation [...] POCT U APPEAR (test code = 3267) [facility] URINALYSIS W SPECIFIC [id number] 15:03:00* Test Item Value Reference Range Interpretation [...] POCT U APPEAR (test code = 3267) [facility] URINALYSIS W SPECIFIC [id number] 15:03:00* Test Item Value Reference Range Interpretation [...] POCT U APPEAR (test code = 3267) [facility] URINALYSIS W SPECIFIC [id number] 17:08:00* Test Item Value Reference Range Interpretation [...] U APPEAR (test code = 3267) . [facility] URINALYSIS W SPECIFIC [id number] 17:08:00* Test Item Value Reference Range Interpretation [...] U APPEAR (test code = 3267) . [facility] URINALYSIS W SPECIFIC [id number] 17:08:00* Test Item Value Reference Range Interpretation [...] U APPEAR (test code = 3267) . [facility] URINALYSIS W SPECIFIC [id number] 17:08:00* Test Item Value Reference Range Interpretation [...] U APPEAR (test code = 3267) . [facility] URINALYSIS W SPECIFIC [id number] 17:08:00* Test Item Value Reference Range Interpretation [...] U APPEAR (test code = 3267) . [facility]IFIC [id number] 17:18:00* Test Item Value Reference Range Interpretation [...] U APPEAR (test code = 3267) . [facility]AL[facility] FETOPROTEIN-MATERNAL [id number] 16:47:57* Test Item Value Reference Range Interpretation Comme nts AFP-MS (test code = 4889722131) 25.4 ng/mL AFP-MS MoM (test code = 5208092792) WEIGHT (test code = 4308784929) lbs RACE (test code = 5038561505) GEST. AGE (test code = 1129456991) 19,0 Gestational age reflects sample collection date. Previous preliminary verified result was 9,3 on 08/22/2022 at 1301 CDT INS. DEP (test code = 8514798216) No LMP (test code = 1841806012) US DATE (test code = 3318273953) PE DATE (test code = 3557688409) METHOD (test code = 4302804365) US MULT GEST (test code = 8471449931) No NTD HX (test code = 4168986434) No INITAL OR REPEAT (test code = 9988478791) Initial Testing SMOKER (test code = 9196981140) No RH (test code = 8653353962) Positive OSB INTERP (test code = 0213253131) See Note The maternal ser um AFP result is NOT elevated for a of thisgestational age. The risk of an open neural tube defect is less thanthe screening cut-off. OSB RSK (test code = 6574785813) 1:71634 The risk of OSB is equal to 1:68833Byv OSB cut-off is 2.50 (1:104) OSB SCRN (test code = 3027699848) Negative [facility] URINALYSIS W SPECIFIC [id number] 19:43:00* Test Item Value Reference Range Interpretation [...] U APPEAR (test code = 3267) clear [facility] [id number] 19:43:00* Test Item Value Reference Range Interpretation [...] U APPEAR (test code = 3267) clear [facility] Notes Date/Time Note Provider Source 2023-12-21 23:33:06 fUpvi5fZNwOcK1QHk1wU /JwDX3BRYLQU3 SipT94uYzOnctZ4bFe7Z//uuLlSRTra62 18-12-26T23:33:06 Pt discharged with diagnosis of fever and chills and viral illness. Printed and verbal instructions reviewed with and given to pt. Prescriptions given x 2. Pt verbalized understanding of teaching, medications, and recommended follow-up. Denies questions or concerns at this time. Pt ambulatory at discharge. Appears in no apparent distress. No ataxia noted. 59105-0Uqmywnhvx department QsbtCW2019-76-95Q45:33:08[facility] NoteTXT1.2.840.073563.1.13.104.2. 7.2.397528|[id number] for patient cruq90312-1OetmZOSNLNFLOZCNwrungc ed C-CDA narrative lcjf933231946LohdywPretty Harp RN[address] UvbtAvuzvoixkQuayphvesGVZO4510086 215MFYGBTUUERMUYHNFUPFBYN2420-22- 27T23:33:081.2.840.589500.1.72.3. 15|1.2.840.092734.1.13.104.2.7.2. 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 7.2.930242|[id number] for patient eslp09215-8WhfwJOASEWZSHVHFwauybs ed C-CDA narrative [id number] R Shehadeh RN[address]TXTX[address] 724SNZPXVOXUTBHCNDTYUPAXL6011-70- 27T23:07:171.2.840.137283.1.72.3. 15|1.2.840.883547.1.13.104.2.7.2. [id number] Margaux Davis RN [facility] 2023-12-21 20:54:51 lYHhzrRAuvFVXuRkKHaT lS+nncmg9k/8x xzbCHR7FKgzOaZCMeBtQV90YkaMwnjn72 18-12-26T20:54:51 Patient reports fever starting this morning, with headache and chills. Temp around 7pm was 102 at home, took Ibuprofen. She started new prescribed medication yesterday for mouth sores. 70960-4Hefnzpgco department Triage eesuJN0694-22-43A50:56:27[facility] Triage noteTXT1.2.840.752454.1.13.104.2. 7.2.426218|[id number] for patient bgcv80915-6Woyxhkgvv department NoteLNNARRATIVEFormatted C-CDA narrative [id number] M Leibee RNUT[address]Gal[place]onTXTX[address] 287HEDUDKJMLQUPLOKGZJKMJV7863-12- 27T20:56:271.2.840.666930.1.72.3. 15|1.2.840.706830.1.13.104.2.7.2. [id number] Mushtaq Perez RN [facility] 2023-12-18 11:19:45 S6VCvLZs/akSTUfpI4Kb joMRr+iMdwsNc Sbc6lfykUFxrj1qeY6Tw5YGK1+K44ji46 18-12-23T11:19:45 Medina is here with her who is well. Noticed cold sore corner of the lip right side. Sent Valtrex 1 gm PO BID x 7 days. 92676-3Vodgnlmgp encounter SluoWI2645-60-40B17:22:23Telephon e encounter NoteTXT1.2.840.838757.1.13.104.2. 7.2.180946|[id number] for patient brkg56003-2SaoaSKGMLGGBAGOUmqlfwa ed C-CDA narrative text[address] 931CIDWICCZEBTQORSXUOWAHP0220-60- 24T11:22:231.2.840.228552.1.72.3. 15|1.2.840.879657.1.13.104.2.7.2. [id number] [facility] 2023-05-17 10:10:37 hucYbZwRFDpuUIiyxRBt qKOAj1ropG6xu wMyiqCDlNp9IlmhVG/R8LBUVjt2bhAs98 16-05-24T10:10:37 Tried calling patient at the contact number on the chart, no voicemail set up. I don't know if she wants me to send the Paxlovid prescription to any other pharmacy. 98009-0Hscscciqo encounter IxyqRU8124-22-34G37:10:37Telephon e encounter NoteTXT1.2.840.352758.1.13.104.2. 7.2.516240|[id number] for patient [address] VipoLndzlgqufCowpegsltQMXI9294406 981LQSXPVLCLPLBQNENAFXTOI1085-34- 24T10:10:371.2.840.823525.1.72.3. 15|1.2.840.367865.1.13.104.2.7.2. [id number] [facility]"
--- NOTE | 2024-02-07 12:18 | RAD REPORT ---
EXAM DESCRIPTION: CT - Head Brain Wo Cont - 02/07/2024 12:12 pm CLINICAL HISTORY: Headache COMPARISON: none TECHNIQUE: Computed axial tomography of the head was obtained. IV contrast was not requested. All CT scans are performed using dose optimization technique as appropriate and may include automated exposure control or mA/KV adjustment according to patient size. FINDINGS: An intracranial bleed is not seen The ventricles are normal in caliber No significant hypodense areas within the brain visualized No extra-axial fluid collection is noted. Fluid within the sinuses/ mastoids is not seen IMPRESSION: No acute intracranial abnormality is seen If patient's symptoms persist MRI of the brain would be recommended
[2024-02-07] MEDS ORDERED: NA CHLORIDE 0.9% 1,000 ML ONE (12:57)
[2024-02-07] MEDS ORDERED: ONDANSETRON 4 MG/2 ML VIAL ONE (12:57)
[2024-02-07 13:16] LABS: Absolute Lymphocytes (CBC) 0.9 K/uL (0.7-4.9); Absolute Monocytes 0.5 K/uL (0.1-1.3); Absolute Neutrophil 23.2 K/uL (1.8-8.0); Basophils % 0.1 % (0-1.3); Eosinophils % 0.1 % (0-4.4); Hematocrit 45.9 % (36.0-45.0); Hemoglobin 14.8 g/dL (12.0-15.0); Lymphocytes % 3.5 % (15.3-44.8); MCH 26.6 pg (27.0-35.0); MCHC 32.3 g/dL (32.0-36.0); MCV 82.2 fL (80-100); MPV 7.6 fL (7.6-11.3); Neutrophils % 94.3 % (41.7-73.7); Platelets 435 thou/uL (152-406); RBC Red Blood Cell Count 5.58 M/uL (3.86-4.86); Red Cell Distribution Width 17.2 % (12.1-15.2); Specific Gravity > 1.030 (1.005-1.030)
[2024-02-07 13:48] LABS: Albumin 4.1 g/dL (3.4-5.0); Anion Gap 8.3 mEq/L (5.0-15.0); Bilirubin Total 0.6 mg/dL (0.2-1.0); Potassium 4.3 mEq/L (3.5-5.1); Protein, Total 8.8 g/dL (6.4-8.2)
[2024-02-07 13:49] LABS: Albumin/Globulin Ratio 0.9 (1.1-1.8); Globulin 4.7 g/dL (2.3-3.5)
--- NOTE | 2024-02-07 14:08 | RAD REPORT ---
EXAM DESCRIPTION: CT - Abdomen Pelvis W Contrast - 02/07/2024 1:35 pm CLINICAL HISTORY: Abd pain;Nausea / vomiting COMPARISON: No comparisons TECHNIQUE: Thin cut axial CT imaging of the abdomen and pelvis was performed following intravenous a dministration of 100 mL Isovue 300. Multiplanar reformats were generated and reviewed. All CT scans are performed using dose optimization technique as appropriate and may include automated exposure control or mA/KV adjustment according to patient size. FINDINGS: No suspicious findings in the lung bases. The liver, spleen, adrenal glands, and pancreas show no suspicious findings. Gallbladder and biliary tree are also without suspicious finding. Symmetric renal function is seen with no hydronephrosis or suspicious renal mass. Cortical lower pole subcentimeter cyst. No dilated bowel loops or bowel wall thickening. Fluid opacification of nondistended distal small bow el and proximal nondistended colon. No free air, free fluid or inflammatory stranding. No hernia, mas s or bulky lymphadenopathy. The urinary bladder is suboptimally distended limiting evaluation. Dominant left adnexal cyst measuring 3.2 cm. Nonspecific small hypoattenuating anterior myometrial fo ci may represent small fibroids. No suspicious bony findings. IMPRESSION: Nonspecific fluid opacification of nondistended distal small bowel and proximal colon, m ay relate to diarrheal state or mild enteritis. No other acute intra-abdominal process. Likely physiologic left adnexal 3.2 cm cyst.
--- NOTE | 2024-02-07 15:26 | RAD REPORT ---
EXAM DESCRIPTION: US - Abdomen Exam Limited - 02/07/2024 3:13 pm CLINICAL HISTORY: abd pain, vomiting COMPARISON: Abdomen Pelvis W Contrast dated 02/07/2024 TECHNIQUE: Sonographic grayscale and color flow images of the right upper abdominal quadrant were o btained. FINDINGS: The gallbladder demonstrates no gallstones. No pericholecystic fluid or gallbladder wall t hickening. The common bile duct is normal measuring 3 mm. The liver demonstrates no findings of intrahepatic biliary dilatation. IMPRESSION: No abnormalities on limited upper abdominal ultrasound.
--- NOTE | 2024-02-07 16:02 | EDPHYS ---
Physician Documentation [facility] Name: Mary Jo Mendieta Age: 28 yrs Sex: Female : 1995 Arrival Date: 02/07/2024 Time: 11:44 Bed 3 Private MD: ED Physician Steven Shirley HPI: 02/06 12:03 This 28 yrs old Female presents to ER via Wheelchair with complaints of Vomiting, rn Headache, Blurred Vision. 12:03 The patient presents to the emergency department with nausea, vomiting, abdominal pain. rn Onset: The symptoms/episode began/occurred today. Possible causes: unknown. The symptoms are aggravated by nothing. The symptoms are alleviated by nothing. Severity of symptoms: At their worst the symptoms were moderate in the emergency department the symptoms have improved. The patient has not experienced similar symptoms in the past. The patient has been recently seen by a physician:. Patient reports this morning began with nausea/vomiting, after vomiting several times noticed runny nose and headache. Did not start with headache. No family history of aneurysm or brain tumor.. Historical: - Allergies: 11:55 No Known Allergies; ll1 - PMHx: 11:55 epilepsy; ll1 - PSHx: 11:55 section; ll1 - Immunization history:: Adult Immunizations up to date. - Infectious Disease History:: Denies. - Social history:: Smoking status: Patient denies any tobacco usage or history of. - Family history:: not pertinent. - Hospitalizations: : No recent hospitalization is reported. ROS: 12:03 Constitutional: Negative for fever, chills, and weight loss, Cardiovascular: Negative rn for chest pain, palpitations, and edema, Respiratory: Negative for shortness of breath, cough, wheezing, and pleuritic chest pain, Abdomen/GI: Negative for diarrhea, positive for constipation MS/Extremity: Negative for injury and deformity, Skin: Negative for injury, rash, and discoloration, Neuro: Positive for headache Exam: 12:03 Constitutional: This is a well developed, well nourished patient who is awake, alert, rn and in no acute distress. Head/Face: Normocephalic, atraumatic. Eyes: Pupils equal round and reactive to light, extra-ocular motions intact. Cardiovascular: Regular rate and rhythm. No pulse deficits. Respiratory: No increased work of breathing, no retractions or nasal flaring. Abdomen/GI: Soft, no focal tenderness or rebound Skin: Warm, dry MS/ Extremity: Pulses equal, no cyanosis. Neuro: Awake and alert, GCS 15 Vital Signs: 11:55 BP 104 / 75; Pulse 82; Resp 17; Temp 98; Pulse Ox 100% ; Weight 77.11 kg; Height 5 ft. ll1 1 in. ; Pain 8/10; 13:10 BP 112 / 71; Pulse 83; Resp 18; Pulse Ox 99% on R/A; ld1 13:45 Pulse 89; Resp 18; Pulse Ox 100% on R/A; ld1 14:34 BP 117 / 68; Pulse 82; Resp 18; Pulse Ox 98% on R/A; ld1 16:00 BP 115 / 70; Pulse 77; Resp 18; Pulse Ox 100% on R/A; rs5 11:55 Body Mass Index 32.12 (77.11 kg, 154.94 cm) ll1 11:55 Pain Scale: Adult ll1 MDM: 11:47 Patient medically screened. rn 15:44 Differential diagnosis: Nonspecific abd pain, gastritis, appendicitis, diverticulitis, rn viral gastroenteritis, gastroenteritis. 16:00 Data reviewed: vital signs, nurses notes, lab test result(s), radiologic studies, CT rn scan, ultrasound, and as a result, I will discharge patient. Counseling: I had a detailed discussion with the patient and/or guardian regarding the historical points, exam findings, and any diagnostic results supporting the discharge/admit diagnosis, lab results, radiology results, the need for outpatient follow up, to return to the emergency department if symptoms worsen or persist or if there are any questions or concerns that arise at home. Response to treatment: the patient's symptoms have markedly improved after treatment, and as a result, I will discharge patient. Special discussion: Based on the patient's Hx, exam, and Dx evaluation, there is no indication for emergent surgery or inpatient Tx. It is understood by the patient/guardian that if the Sx's persist or worsen they need to return immediately for re-evaluation. I discussed with the patient/guardian in detail that at this point there is no indication for admission to the hospital. It is understood, however, that if the symptoms persist or worsen the patient needs to return immediately for re-evaluation. ED course: CT shows acute enteritis, no other acute complications. Elevated white blood cell count. Patient feels much better, tolerating p.o., no further vomiting. Is smiling and nontoxic. Normal vital signs. Will discharge home with as needed Zofran and antibiotics with return precautions. I have personally reviewed all of the results, including but not limited to blood tests and imaging deemed necessary to safely discharge this patient at this time. All results given to and printed out for patient. I personally went over all the results with the patient and answered all questions. Patient will follow-up with PCP and or specialist as discussed. Return precautions given and understood.. 02/06 12:02 Order name: CBC with Diff rn 02/06 12:02 Order name: CMP; Complete Time: 14:23 rn 02/06 12:02 Order name: Lipase; Complete Time: 14: rn 02/06 12:02 Order name: Test, Urine; Complete Time: 13:24 rn 02/06 12:02 Order name: CT Abd/Pelvis - IV Contrast Only; Complete Time: 14: rn 02/06 12:02 Order name: CT Head Brain wo Cont; Complete Time: 13:24 rn 02/06 14:24 Order name: US Abdomen Limited; Complete Time: 15:27 rn 02/06 12:02 Order name: IV Saline Lock; Complete Time: 13:09 rn 02/06 12:02 Order name: Labs collected and sent; Complete Time: 13:09 rn Administered Medications: 13:09 Drug: NS 0.9% IV 1000 ml IV at 1 bolus Per protocol; 1000 mL bolus Route: IV; Rate: 1 ld1 bolus; Site: right antecubital; 13:30 Follow up: Response: No adverse reaction rs5 13:09 Drug: Ondansetron IVP 4 mg IVP once; over 2 minutes Route: IVP; Site: right antecubital;ld1 13:30 Follow up: Response: No adverse reaction rs5 16:10 Drug: Ciprofloxacin PO 500 mg PO once Route: PO; ld1 16:10 Drug: metroNIDAZOLE PO 500 mg PO once Route: PO; ld1 Disposition Summary: 02/07/24 16:01 Discharge Ordered Notes: Location: Home rn Problem: new rn Symptoms: have improved rn Condition: Stable rn Diagnosis - Infectious gastroenteritis and colitis, unspecified rn - Vomiting, unspecified rn Followup: rn - With: Private Physician - When: As needed - Reason: Recheck today's complaints, Re-evaluation by your physician Discharge Instructions: - Discharge Summary Sheet rn - Nausea and Vomiting, Adult rn Forms: - Medication Reconciliation Form rn - Thank You Letter rn - Antibiotic rn immunology - Prescription Opioid Use rn - Patient Portal Instructions rn - Leadership Thank You Letter rn - Work release form rs5 Prescriptions: - ondansetron 4 mg Oral Tablet,disintegrating - take 1 tablet ORAL route every 8 hours As needed; 12 tablet; Refills: 0, rn Product Selection Permitted - Flagyl 500 mg Oral Tablet - take 1 tablet ORAL route every 8 hours for 10 days; 30 tablet; Refills: 0, rn Product Selection Permitted - Cipro 500 mg Oral tablet - take 1 tablet ORAL route every 12 hours for 10 days; 20 tablet; Refills: 0, rn Product Selection Permitted Signatures: Dispatcher [employer] EDMS Steven Shirley MD MD rn Lewis, Lynsay RN RN ll1 Rosa Dang RN RN ld1 Adarsh Sandra RN rs5 Corrections: (The following items were deleted from the chart) 12:02 12:02 CBC+H.LAB.BRZ ordered. EDMS EDMS 12:02 12:02 COMPREHENSIVE METABOLIC PANEL+C.LAB.BRZ ordered. EDMS EDMS 12:02 12:02 LIPASE+C.LAB.BRZ ordered. EDMS EDMS 12:02 12:02 Test, Urine+UC.LAB.BRZ ordered. EDMS EDMS 12:02 12:02 Urinalysis+U.LAB.BRZ ordered. EDMS EDMS
--- NOTE | 2024-02-07 16:02 | ER ---
Nurse's Notes [facility] Name: Mary Jo Mendieta Age: 28 yrs Sex: Female : 1995 Arrival Date: 02/07/2024 Time: 11:44 Bed 3 Private MD: Diagnosis: Infectious gastroenteritis and colitis, unspecified;Vomiting, unspecified Presentation: 02/06 11:55 Chief complaint: Patient states: BERMUDEZ, N/V, chills, sweating started at 8 AM. [facility], sent here for further evaluation. Coronavirus screen: Client denies travel out of the [place] in the last 14 days. At this time, the client does not indicate any symptoms associated with coronavirus-19. Ebola Screen: Patient denies travel to an Ebola-affected area in the 21 days before illness onset. Initial Sepsis Screen: Does the patient meet any 2 criteria? No. Patient's initial sepsis screen is negative. Does the patient have a suspected source of infection? No. Patient's initial sepsis screen is negative. Risk Assessment: Do you want to hurt yourself or someone else? Patient reports no desire to harm self or others. Onset of symptoms was February 07, 2024. 11:55 Method Of Arrival: Wheelchair ll1 11:55 Acuity: CHERIE 3 ll1 Triage Assessment: 11:59 General: Appears uncomfortable, Behavior is calm, cooperative, appropriate for age. ll1 Pain: Complains of pain in head Pain currently is 8 out of 10 on a pain scale. Quality of pain is described as aching. Neuro: Reports dizziness, headache weakness. GI: Reports cramping, diarrhea, nausea, vomiting. Historical: - Allergies: 11:55 No Known Allergies; ll1 - PMHx: 11:55 epilepsy; ll1 - PSHx: 11:55 section; ll1 - Immunization history:: Adult Immunizations up to date. - Infectious Disease History:: Denies. - Social history:: Smoking status: Patient denies any tobacco usage or history of. - Family history:: not pertinent. - Hospitalizations: : No recent hospitalization is reported. Screenin:10 [facility] ED Fall Risk Assessment (Adult) History of falling in the last 3 months, ld1 including since admission No falls in past 3 months (0 pts). Abuse screen: Denies threats or abuse. Denies injuries from another. Nutritional screening: No deficits noted. Tuberculosis screening: No symptoms or risk factors identified. Assessment: 13:10 General: Appears in no apparent distress. comfortable, Behavior is calm, cooperative, ld1 appropriate for age. Pain: Denies pain. Neuro: Level of Consciousness is awake, alert, obeys commands, Oriented to person, place, time, situation. Cardiovascular: Capillary refill < 3 seconds Patient's skin is warm and dry. Respiratory: Airway is patent Respiratory effort is even, unlabored. GI: Abdomen is round non-distended, Reports vomiting. : No signs and/or symptoms were reported regarding the genitourinary system. EENT: No signs and/or symptoms were reported regarding the EENT system. Derm: No signs and/or symptoms reported regarding the dermatologic system. Musculoskeletal: No signs and/or symptoms reported regarding the musculoskeletal system. 14:12 Reassessment: Patient and/or family updated on plan of care and expected duration. Pain rs5 level reassessed. Patient is alert, oriented x 3, equal unlabored respirations, skin warm/dry/pink. 15:15 Reassessment: No changes from previously documented assessment. rs5 15:50 Reassessment: No changes from previously documented assessment. rs5 Vital Signs: 11:55 BP 104 / 75; Pulse 82; Resp 17; Temp 98; Pulse Ox 100% ; Weight 77.11 kg; Height 5 ft. ll1 1 in. ; Pain 8/10; 13:10 BP 112 / 71; Pulse 83; Resp 18; Pulse Ox 99% on R/A; ld1 13:45 Pulse 89; Resp 18; Pulse Ox 100% on R/A; ld1 14:34 BP 117 / 68; Pulse 82; Resp 18; Pulse Ox 98% on R/A; ld1 16:00 BP 115 / 70; Pulse 77; Resp 18; Pulse Ox 100% on R/A; rs5 11:55 Body Mass Index 32.12 (77.11 kg, 154.94 cm) ll1 11:55 Pain Scale: Adult ll1 ED Course: 11:47 Patient arrived in ED. im 11:47 Steven Shirley MD is Attending Physician. rn 11:56 Triage completed. ll1 11:56 Arm band placed on. ll1 12:13 CT Head Brain wo Cont In Process Unspecified. EDMS 12:50 Patient placed in an exam room, on a stretcher. ll1 12:55 Adarsh Sandra, RN is Primary Nurse. rs5 13:09 Urinalysis w/ reflexes Sent. ld1 13:09 Test, Urine Sent. ld1 13:10 Patient has correct armband on for positive identification. Placed in gown. Bed in low ld1 position. Call light in reach. Side rails up X2. manager perioperative on. Pulse ox on. NIBP on. Door closed. Noise minimized. Warm blanket given. 13:10 No provider procedures requiring assistance completed. Inserted saline lock: 20 gauge ld1 in right antecubital area, using aseptic technique. Blood collected. 13:36 CT Abd/Pelvis - IV Contrast Only In Process Unspecified. EDMS 15:15 US Abdomen Limited In Process Unspecified. EDMS 16:11 IV discontinued, intact, bleeding controlled, No redness/swelling at site. ld1 Administered Medications: 13:09 Drug: NS 0.9% IV 1000 ml IV at 1 bolus Per protocol; 1000 mL bolus Route: IV; Rate: 1 ld1 bolus; Site: right antecubital; 13:30 Follow up: Response: No adverse reaction rs5 13:09 Drug: Ondansetron IVP 4 mg IVP once; over 2 minutes Route: IVP; Site: right antecubital;ld1 13:30 Follow up: Response: No adverse reaction rs5 16:10 Drug: Ciprofloxacin PO 500 mg PO once Route: PO; ld1 16:10 Drug: metroNIDAZOLE PO 500 mg PO once Route: PO; ld1 Medication: 13:10 VIS not applicable for this client. ld1 Outcome: 16:01 Discharge ordered by . rn 16:11 Discharged to home ambulatory, with family, ld1 16:11 Condition: stable 16:11 Discharge instructions given to patient, family, Instructed on discharge instructions, follow up and referral plans. medication usage, Demonstrated understanding of instructions, follow-up care, medications, Prescriptions given X 3, 16:11 Patient left the ED. ld1 Signatures: Dispatcher [employer] EDMS Steven Shirley MD MD rn Lewis, Lynsay, RN RN 1 Rosa Dang RN RN ld1 Adarsh Sandra, RN RN rs5 Falcon, Rochelle im
[2024-02-07] MEDS ORDERED: CIPROFLOXACIN HCL 500 MG TAB ONE (16:04)
[2024-02-07] MEDS ORDERED: metroNIDAZOLE 500 MG TABLET ONE (16:04)
[2024-02-07 17:03] LABS: White Blood Cell Scan OK (OK)
[2024-02-07 17:04] LABS: Blood Morphology Comment NOT SEEN (NOT SEEN); Platelet Estimate INCR
[2024-02-07 17:23] VITALS: BP 117/68; TEMP 98; O2SAT 98
== END 2024-02-07 16:11 | disposition home or self-care (01) ==
LOC: ER 11:44
DX: A09 Infectious gastroenteritis and colitis, unspecified (principal)
CPT/HCPCS: 36415; 70450; 74177; 76705; 80053; 81025; 83690; 85025; 96374; 99285; J2405; J7030; Q9967

== ENCOUNTER 2024-03-08 14:46 | Emergency (ER) | payer SELFPAY ==
--- NOTE | 2024-03-08 14:55 | EDPHYS ---
Physician Documentation [facility] Name: Mary Jo Mendieta Age: 28 yrs Sex: Female : 1995 Arrival Date: 03/08/2024 Time: 14:46 Bed Waiting Private MD: ED Physician Steven Shirley HPI: 03/08 14:56 This 28 yrs old Female presents to ER via Ambulatory with complaints of Rash. rn 14:56 The rash is located on the right hand, left hand, right foot, left foot and mouth. rn Onset: The symptoms/episode began/occurred 3 day(s) ago. Associated signs and symptoms: Pertinent positives: itching, Pertinent negatives: fever. Severity of symptoms: At their worst the symptoms were mild in the emergency department the symptoms are unchanged. The patient has not experienced similar symptoms in the past. Patient reports a daughter recently diagnosed with syim-ozhj-itk-mouth disease. Now patient starting to have blisters and lesions around her mouth/palms/soles. Itches. No fever.. 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 - Infectious Disease History:: Denies. - Social history:: Smoking status: Patient denies any tobacco usage or history of. - Family history:: not pertinent. - Hospitalizations: : No recent hospitalization is reported. ROS: 14:56 Constitutional: Negative for fever, chills, and weight loss, Skin: Positive for rash rn around mouth/palms and soles of feet that is itchy/red with honey colored crusting Exam: 14:56 Constitutional: This is a well developed, well nourished patient who is awake, alert, rn and in no acute distress. Head/Face: Normocephalic, atraumatic. Skin: Warm, dry. Rash above and below mouth, honey colored crusting. Small areas on palms of hands that are papular and crusting as well. Vital Signs: 14:55 BP 115 / 86; Pulse 90; Resp 18 S; Temp 97.8(TE); Pulse Ox 100% on R/A; Weight 71.21 kg as6 (R); Height 5 ft. 1 in. (R); Pain 2; 14:55 Body Mass Index 29.66 (71.21 kg, 154.94 cm) as6 14:55 Pain Scale: Adult as6 MDM: 14:50 Patient medically screened. rn 14:56 Differential diagnosis: impetigo, Pyhi-vewj-dkk-mouth. Data reviewed: vital signs, rn nurses notes, and as a result, I will discharge patient. Counseling: I had a detailed discussion with the patient and/or guardian regarding the historical points, exam findings, and any diagnostic results supporting the discharge/admit diagnosis, the need for outpatient follow up, to return to the emergency department if symptoms worsen or persist or if there are any questions or concerns that arise at home. Special discussion: I discussed with the patient/guardian in detail that at this point there is no indication for admission to the hospital. It is understood, however, that if the symptoms persist or worsen the patient needs to return immediately for re-evaluation. Administered Medications: No medications were administered Disposition Summary: 03/08/24 14:55 Discharge Ordered Notes: Location: Home rn Problem: new rn Symptoms: are unchanged rn Condition: Stable rn Diagnosis - Impetigo, unspecified rn Followup: rn - With: Private Physician - When: As needed - Reason: Recheck today's complaints, Re-evaluation by your physician Discharge Instructions: - Discharge Summary Sheet rn - Impetigo, Adult rn - Hand, Foot, and Mouth Disease, Adult rn Forms: - Medication Reconciliation Form rn - Antibiotic hemodialysis rn - Prescription Opioid Use rn - Patient Portal Instructions rn - Leadership Thank You Letter rn - Work release form as6 Prescriptions: - mupirocin 2 % Topical ointment - apply 1 application TOPICAL route 3 times per day for 10 days; 1 unit; Refills: rn 0, Product Selection Permitted Signatures: Steven Shirley MD MD rn Slawson, Ashby, RN RN as6
--- NOTE | 2024-03-08 14:55 | ER ---
Nurse's Notes [facility] Name: Mary Jo Mendieta Age: 28 yrs Sex: Female : 1995 Arrival Date: 03/08/2024 Time: 14:46 Bed Waiting Private MD: Diagnosis: Impetigo, unspecified Presentation: 03/08 14:52 Chief complaint: Patient states: pt daughter was recently diagnosed with hand food as6 mouth and now thinks she has it. Coronavirus screen: At this time, the client does not indicate any symptoms associated with coronavirus-19. Ebola Screen: No symptoms or risks identified at this time. Initial Sepsis Screen: Does the patient meet any 2 criteria? No. Patient's initial sepsis screen is negative. Does the patient have a suspected source of infection? No. Patient's initial sepsis screen is negative. Risk Assessment: Do you want to hurt yourself or someone else? Patient reports no desire to harm self or others. Onset of symptoms was March 07, 2024. 14:52 Method Of Arrival: Ambulatory as6 14:52 Acuity: CHERIE 5 as6 Triage Assessment: 14:58 General: Appears in no apparent distress. comfortable, Behavior is calm, cooperative. as6 Pain: Complains of pain in mouth and left foot and right foot and left hand and right hand. EENT: Lesions noted. Neuro: Level of Consciousness is awake, alert, obeys commands, Oriented to person, place, time, situation. Cardiovascular: Capillary refill < 3 seconds Patient's skin is warm and dry. Respiratory: Respiratory effort is even, unlabored, Respiratory pattern is regular, symmetrical. GI: No deficits noted. No signs and/or symptoms were reported involving the gastrointestinal system. : No deficits noted. No signs and/or symptoms were reported regarding the genitourinary system. Derm: Rash noted that is draining pus, red, raised, vesicular, on mouth and left foot and right foot and left hand and right hand. Musculoskeletal: Circulation, motion, and sensation intact. TIE CARRIER: 14:55 LMP 03/08/2024, unknown as6 Historical: - Allergies: 14:54 No Known Allergies; as6 - PMHx: 14:54 epilepsy; as6 - PSHx: 14:54 section; as6 - Immunization history:: Adult Immunizations up to date. - Infectious Disease History:: Denies. - Social history:: Smoking status: Patient denies any tobacco usage or history of. - Family history:: not pertinent. - Hospitalizations: : No recent hospitalization is reported. Screenin:59 Abuse screen: Denies threats or abuse. Denies injuries from another. Nutritional as6 screening: No deficits noted. Tuberculosis screening: No symptoms or risk factors identified. 15:00 [facility] ED Fall Risk Assessment (Adult) History of falling in the last 3 months, as6 including since admission No falls in past 3 months (0 pts) Confusion or Disorientation No (0 pts) Intoxicated or Sedated No (0 pts) Impaired Gait No (0 pts) Mobility Assist Device Used No (0 pt) Altered Elimination No (0 pt) Score/Fall Risk Level 0 - 2 = Low Risk Oriented to surroundings, Maintained a safe environment, Educated pt \T\ family on fall prevention, incl call for assistance when getting out of bed, Assessed \T\ reinforced patient's understanding of fall precautions. Vital Signs: 14:55 BP 115 / 86; Pulse 90; Resp 18 S; Temp 97.8(TE); Pulse Ox 100% on R/A; Weight 71.21 kg as6 (R); Height 5 ft. 1 in. (R); Pain 2/10; 14:55 Body Mass Index 29.66 (71.21 kg, 154.94 cm) as6 14:55 Pain Scale: Adult as6 ED Course: 14:50 Patient arrived in ED. im 14:50 Steven Shirley MD is Attending Physician. rn 14:54 Triage completed. as6 14:55 Arm band placed on. as6 14:59 Patient has correct armband on for positive identification. Provided Education on: rx as6 teaching . 15:01 No provider procedures requiring assistance completed. Patient did not have IV access as6 during this emergency room visit. Administered Medications: No medications were administered Medication: 15:01 VIS not applicable for this client. as6 Outcome: 14:55 Discharge ordered by . rn 15:01 Discharged to home ambulatory, as6 15:01 Condition: stable 15:01 Discharge instructions given to patient, Instructed on discharge instructions, follow up and referral plans. medication usage, Demonstrated understanding of instructions, follow-up care, medications, Prescriptions given X 1, 15:04 Patient left the ED. as6 Signatures: Steven Shirley MD MD rn Slawson, Ashby, RN RN as6 Rochelle Falcon
--- OUTSIDE RECORDS SUMMARY | 2024-03-08 14:55 | XMS REPORT | Continuity of Care Document ---
Author Name Unknown Address [address] [facility] [address] [place] [address] [facility] Address [address] [facility] 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 Role Phone CHERYL DAVISON Primary Care Physician Unavailab NISHA Bey Attending Clinician Unavailable NISHA CADET Attending Clinician Unavailable CON RIOS Attending Clinician Unavailable Con Rios PA-C Attending Clinician [phone] Felecia Vick Attending Clinician [phone] CHERYL DAVISON Attending Clinician Unavailable Xenia WOODS January Attending Clinician Unavailab TRINA Shaw Attending Clinician Unavailable Trina Valentine PA-C Attending Clinician [phone] Unknown, Attending Attending Clinician Unavailab koki [email or web address]_Kadijuan francisco_S Attending Clinician UnavailCheryl Hoff Attending Clinician [phone] NOLVIA JACOBS Attending Clinician Unavailable Visit, [facility] Nurse Attending Clinician Unava ilable Nolvia Poole Attending Clinician [phone] Doctor Unassigned, [place] Attending Clinician U Rashid Muro Attending Clinician [phone] NAILA LUNDY Attending Clinician Unavaila FELECIA Medrano Attending Clinician Unavailable Kamilah Brice Attending Clinician + KAMILAH MCGINNIS Attending Clinician Unavail able Visit, [facility] Nurse Attending Clinician Unava ilable Nikkie CASILLASM, Naila Winters Attending Clinician [phone] BRIANNE, MICHELLE Attending Clinician Unavailable Alek GARIBAY, Maria Guadalupe Attending Clinician [phone] Helio GARIBAY, Nisha Attending Clinician [phone] Jacinto GARIBAY, Blake Xie Attending Clinician [phone] Tabatha GARIBAY, Heavenly Attending Clinician [phone] Bert GARIBAY, Louise Attending Clinician [phone] [facility], [facility] Attending Clinician Hannah vailable Ultrasound, Ang-m Attending Clinician Unavailjose Gamble MD, Stevan Rogers Attending Clinician [phone] Christine GARIBAY, Fern Flanagan Attending Clinician + FERN BERNAL Attending Clinician Unav ailable [facility], [facility] Unava ilable Tammie Baires MD, Garcia Attending Clinician + SHAYLA NEAL Attending Clinician Unav ailable Saran Davis DO Attending Clinician [phone] UNKNOWN, ATTENDING Attending Clinician Unavailab koki Narvaez RN, Edith Anthony Attending Clinician Unavailable NORM CAZARES Attending Clinician Unavailable Norm Cazares MD Attending Clinician [phone] Lab, [facility] Attending Clinician Unavailable 1, [facility] Room Attending Clinician Unavailab le Lab, [facility] Attending Clinician Unavailable TERA NORIEGA Attending Clinician Unavailab OLIVIA Macias Attending Clinician Unavailobey Rvualcaba PA-C, Michelle Attending Clinician [phone] Lab, Adc Fam Pob I Attending Clinician Unavailab Samina Harris Attending Clinician [phone] Pob[facility], [facility] Attending Clinician Unav ailable NISHA CADET Admitting Clinician Unavailable [email or web address]_Kadiyala_S Admitting Clinician Nisha Burton MD Admitting Clinician Payers Payer Name Policy Type Policy Number Effective Date Expirati on Date Source [facility] KATIE [id number] 2022 00:00:00 [employer] OF [employer]WORK [id number] 2011 00:00:00 MEDICAID PENDING PENDING 2022 00:00:00 MEDICAID [place] [id number] 2022 00:00:00 2022 00:00:00 Problems Condition Name [...] third trimester Disease Active 01-10 00:00: 00 [facility] 38 weeks gestation of 38 [...] [facility] Scoliosis Scoliosis Disease Active 6- 00:00: 00 [facility] Allergies, Adverse Reactions, Alerts Allergy Name Allergy Type Status Severity Reaction(s) Onset Date Inactive Date Treating Clinician Comments Source NO KNOWN ALLERGIE S Drug Class Active [facility] Social History Social Habit Start Date Stop Date Quantity Comments Source ASSERTION 2022-05-01 00:00:00 [facility] Alcohol intake 2023-12-21 00:00:00 2023-12-21 00:00:00 Current drinker of alcohol (finding) [facility] Alcohol Comment 2023-04-22 00:00:00 2023-04-22 00:00:00 Social drinking [facility] History of Social function 2023-04-22 00:00:00 2023-04-22 00:00:00 [facility] Exposure to SARS-CoV-2 (event) 2023-01-09 00:00:00 2023-01-19 09:39:00 Not sure [facility] Tobacco use and exposure 2022-05-22 00:00:00 2022-05-22 00:00:00 Smokeless tobacco non-user [facility] Sex Assigned At 1995 00:00:00 1995 00:00:00 [facility] Smoking Status Start Date Stop Date Source [...] 4 mg tablets 12-21 00:00: 00 Yes [id number] Take by mouth SEE-INSTRU CTIONS. follow package directions [facility] bromphenira mine-pseudo ephedrine-D M (BROMFED DM) 2-30-10 mg/5 mL syrup 12-21 00:00: 00 12-31 05:59 :00 Yes [id number] 10mL Take 10 mL by mouth 4 (four) times daily as needed for Congestion /Allergies for up to 10 days. [facility] valACYclovi r (VALTREX) 1 gram tablet 12-18 00:00: 00 12-25 05:59 :00 Yes [id number] 1g Take 1 tablet by mouth in the morning and 1 tablet in the evening. Do all this for 7 days. [facility] ondansetron 4 mg disintegrat ing tablet 2022-10 00:00: 00 Yes [id number] 4mg Take 1 tablet by mouth every 8 (eight) hours as needed for Nausea and Vomiting (N/V). [facility] PAXLOVID, EUA, 300 mg (150 mg x 2)-100 mg tablet 05-17 00:00: 00 Yes [id number] TAKE 3 TABLETS BY MOUTH IN THE MORNING AND IN THE EVENING FOR 5 DAYS [facility] nirmatrelvi r-ritonavir (PAXLOVID, EUA,) 300 mg (150 mg x 2)-100 mg tablet 05-15 00:00: 00 05-21 04:59 :00 No [id number] 3{tbl} Take 3 tablets by mouth in the morning and 3 tablets in the evening. Do all this for 5 days. [facility] levETIRAcet am 250 mg tablet 04-22 15:47: 27 04-22 00:00 :00 No 250mg Take 1 tablet by mouth once now. [facility] norelgestro min-ethinyl estradiol 150-35 mcg/24 hr patch 04-22 00:00: 00 Yes [id number] 1{patch } Apply 1 Patch to skin [...] -folic ( VITAMIN) 01-14 00:00: 00 Yes [id number] 1{tbl} Take 1 tablet by mouth in the morning. [facility] vit no.130-iron -folic ( VITAMIN) 01-14 00:00: 00 Yes [id number] 1{tbl} Take 1 tablet by mouth in the morning. [facility] ferrous sulfate 325 mg (65 mg iron) tablet 01-14 00:00: 00 04-22 00:00 :00 No [id number] 325mg Take 1 tablet by mouth in [...] 01-14 00:00: 00 04-22 00:00 :00 No [id number] 600mg Take 1 tablet by mouth every 6 (six) hours as needed (Pain). Take with food or milk. [facility] norethindro ne 0.35 mg tablet 01-14 00:00: 00 04-22 00:00 :00 No [id number] 1{tbl} Take 1 tablet by mouth in the morning. [facility] docusate 100 mg capsule 01-14 00:00: 00 04-15 04:59 :00 No [id number] 200mg Take 2 capsules by mouth once daily as needed for Constipati on for up to 90 days. [facility] foLIC acid 1 mg tablet 01-14 00:00: 00 04-15 04:59 :00 No [id number] 1mg Take 1 tablet by mouth in [...] 239 mg = 5 mg/kg ?47.8 kg [place] weight), IV Piggyback, ONCE, 1 dose, On Wed01/13/23 at 0100, Administer over 30 Minutes, 50 mL
Reas on for Anti-Infec tive: Documented Infection< br>Documen juanito Infection Site: Pelvic
Duration of Therapy: Other (see Comments) [facility] vit no.130-iron -folic ( VITAMIN) 01-13 00:00: 00 Yes [id number] 1{tbl} Take 1 tablet by mouth in the morning. [facility] docusate 100 mg capsule 01-13 00:00: 00 Yes [id number] 200mg Take 2 capsules by mouth once daily as needed for Constipati on. [facility] ferrous sulfate 325 mg (65 mg iron) tablet 01-13 00:00: 00 Yes [id number] 325mg Take 1 tablet by mouth in the morning and 1 tablet in the evening. [facility] ibuprofen 600 mg tablet 01-13 00:00: 00 Yes [id number] 600mg Take 1 tablet by mouth every 6 (six) hours as needed (Pain). Take with food or milk. [facility] foLIC acid 1 mg tablet 01-13 00:00: 00 Yes [id number] 1mg Take 1 tablet by mouth in the morning. [facility] norethindro ne 0.35 mg tablet 01-13 00:00: 00 Yes [id number] 1{tbl} Take 1 tablet by mouth in [...] at 0659, Routine, Pain (scale 1-3) [facility] acetaminoph en (TYLENOL) tablet 650 mg 01-12 03:45: 00 01-12 03:04 :00 No 650mg 650 mg, Oral, ONCE NOW, 1 dose, On Wed01/11/23 at 2245, Routine [facility] tobramycin (NEBCIN) 340 mg in NaCl 0.9% [...] Pelvic
Duration of therapy: 72 hours [facility] ampicillin (POLYCILLIN -N) 2,000 mg in NaCl 0.9% (NS) 100 mL MINI-BAG 01-12 03:45: 00 01-12 20:25 :45 No 2g 2,000 mg (2 g), IV Piggyback, Q6H ABX, First dose on Wed01/11/23 at 2245, Until Discontinu ed, Administer over 30 Minutes, 100 mL
Reas on for Anti-Infec tive: Surgical Prophylaxi s
Surgi german Prophylaxi s: LAB REP
Duration of therapy: within 24 hours of surgery [facility] ondansetron (ZOFRAN (PF)) injection 4 mg 01-12 02:15: 00 01-12 01:25 :00 No 4mg 4 mg, Slow IV Push, ONCE, On Wed01/11/23 at 2115, For 1 dose
Do ses of ondansetro n 16 mg and above need to be administer ed via IV piggyback. For Dose >=24mg ECG monitoring is advisable.
[facility] levETIRAcet am (KEPPRA) tablet 250 mg 01-12 02:00: 00 01-12 20:40 :44 No 250mg 250 mg, Oral, QHS, First dose (after last modificati on) on Wed01/11/23 at 2100, Until Discontinu ed, [facility] 500 mL 01-11 19:45: 00 01-12 01:50 :56 No 500mL at 999 mL/hr, 500 mL, IV Infusion, ONCE, 1 dose, On Wed01/11/23 at 1445, Routine [facility] ropivacaine 0.2 % (NAROPIN (PF)) epidural infusion 01-11 19:34: 00 Yes Epidural, CONTINUOUS PRN, Starting on Wed01/11/23 at 1434, Until Discontinu ed, Routine, Intra-op [facility] lidocaine-e pinephrine (XYLOCAINE W/EPINEPHRI NE) 1.5 %-1:200,000 injection 01-11 19:32: 00 Yes Intraderma l, ONCE INTRA PROCEDURE, Starting on Wed01/11/23 at 1432, Until Discontinu ed, Routine, Intra-op [facility] lactated ringers IV infusion 500 mL 01-11 18:54: 35 01-11 19:34 :52 No 500mL at 999 mL/hr, 500 mL, IV Infusion, PRN - SEE INSTRUCTIO NS, 1 dose, Starting on Wed01/11/23 at 1354, Until Wed01/11/23 at 1434, Routine [facility] sodium citrate-cit clayton acid (BICITRA) 500-334 mg/5 mL solution 30 mL 01-11 18:54: 35 01-11 19:20 :00 No 30mL 30 mL, Oral, PRE-PROCED URE ONCE, 1 dose, Starting on Wed01/11/23 at 1354, Until Discontinu ed, Routine, Surgery/Pr ocedure [facility] oxytocin (PITOCIN) 30 units in NS 500 mL IV infusion 01-11 07:48: 53 01-12 20:40 :44 No 2mU/min at 2-40 mL/hr, IV Infusion, TITRATE, Starting on Wed01/11/23 at 0248, Until Wed01/12/23 at 1540, LINDSEY [facility] butorphanol (STADOL) injection 1 mg 01-11 07:15: 00 01-11 06:25 :00 No 1mg 1 mg, IV Push, ONCE, 1 dose, On Wed01/11/23 at 0215, Routine [facility] lactated ringers IV infusion 500 mL 01-11 [...] 9-12 13:59: 38 No No known medication [facility] Immunizations Ordered Immunization Name Filled Immunization Name Date Status Comments Source HPV9 2023-04-22 00:00:00 Completed [facility] HPV9 2023-04-22 00:00:00 Completed [facility] HPV9 2023-04-22 00:00:00 Completed [facility] HPV9 2023-04-22 00:00:00 Completed [facility] HPV9 2023-01-14 00:00:00 Completed [facility] HPV9 2023-01-14 00:00:00 Completed [facility] HPV9 2023-01-14 00:00:00 Completed [facility] HPV9 2023-01-14 00:00:00 Completed [facility] HPV9 2023-01-14 00:00:00 Completed [facility] HPV9 2023-01-14 00:00:00 Completed [facility] HPV9 2023-01-14 00:00:00 Completed [facility] HPV9 2023-01-14 00:00:00 Completed [facility] TDAP 2022-11-11 00:00:00 Completed [facility] TDAP 2022-11-11 00:00:00 Completed [facility] TDAP 2022-11-11 00:00:00 Completed [facility] TDAP 2022-11-11 00:00:00 Completed [facility] TDAP 2022-11-11 00:00:00 Completed [facility] TDAP 2022-11-11 00:00:00 Completed [facility] TDAP 2022-11-11 00:00:00 Completed [facility] TDAP 2022-11-11 00:00:00 Completed [facility] TDAP 2022-11-11 00:00:00 Completed [facility] TDAP 2022-11-11 00:00:00 Completed [facility] TDAP 2022-11-11 00:00:00 Completed [facility] TDAP 2022-11-11 00:00:00 Completed [facility] TDAP 2022-11-11 00:00:00 Completed [facility] TDAP 2022-11-11 00:00:00 Completed [facility] TDAP 2022-11-11 00:00:00 Completed [facility] TDAP 2022-11-11 00:00:00 Completed [facility] TDAP 2022-11-11 00:00:00 Completed [facility] TDAP 2022-11-11 00:00:00 Completed [facility] TDAP 2022-11-11 00:00:00 Completed [facility] TDAP 2022-11-11 00:00:00 Completed [facility] TDAP 2022-11-11 00:00:00 Completed [facility] TDAP 2022-11-11 00:00:00 Completed [facility] TDAP 2022-11-11 00:00:00 Completed [facility] TDAP 2022-11-11 00:00:00 Completed [facility] TDAP 2016-01-23 00:00:00 Completed [facility] TDAP 2016-01-23 00:00:00 Completed [facility] TDAP 2016-01-23 00:00:00 Completed [facility] TDAP 2016-01-23 00:00:00 Completed [facility] TDAP 2016-01-23 00:00:00 Completed [facility] TDAP 2016-01-23 00:00:00 Completed [facility] TDAP 2016-01-23 00:00:00 Completed [facility] TDAP 2016-01-23 00:00:00 Completed [facility] TDAP 2016-01-23 00:00:00 Completed [facility] TDAP 2016-01-23 00:00:00 Completed [facility] TDAP 2016-01-23 00:00:00 Completed [facility] TDAP 2016-01-23 00:00:00 Completed [facility] TDAP 2016-01-23 00:00:00 Completed [facility] TDAP 2016-01-23 00:00:00 Completed [facility] TDAP 2016-01-23 00:00:00 Completed [facility] TDAP 2016-01-23 00:00:00 Completed [facility] TDAP 2016-01-23 00:00:00 Completed [facility] TDAP 2016-01-23 00:00:00 Completed [facility] TDAP 2016-01-23 00:00:00 Completed [facility] TDAP 2016-01-23 00:00:00 Completed [facility] Meningococcal Polysaccharide (groups A, C, Y and W-135) conjugate vaccine (MCV4P) 2016-01-16 00:00:00 Completed [facility] Meningococcal Polysaccharide (groups A, C, Y and W-135) conjugate vaccine (MCV4P) 2016-01-16 00:00:00 Completed [facility] Meningococcal Polysaccharide (groups A, C, Y and W-135) conjugate vaccine (MCV4P) 2016-01-16 00:00:00 Completed [facility] Meningococcal Polysaccharide (groups A, C, Y and W-135) conjugate vaccine (MCV4P) 2016-01-16 00:00:00 Completed [facility] Meningococcal Polysaccharide (groups A, C, Y and W-135) conjugate vaccine (MCV4P) 2016-01-16 00:00:00 Completed [facility] Meningococcal Polysaccharide (groups A, C, Y and W-135) conjugate vaccine (MCV4P) 2016-01-16 00:00:00 Completed [facility] Meningococcal Polysaccharide (groups A, C, Y and W-135) conjugate vaccine (MCV4P) 2016-01-16 00:00:00 Completed [facility] Meningococcal Polysaccharide (groups A, C, Y and W-135) conjugate vaccine (MCV4P) 2016-01-16 00:00:00 Completed [facility] Meningococcal Polysaccharide (groups A, C, Y and W-135) conjugate vaccine (MCV4P) 2016-01-16 00:00:00 Completed [facility] Meningococcal Polysaccharide (groups A, C, Y and W-135) conjugate vaccine (MCV4P) 2016-01-16 00:00:00 Completed [facility] Meningococcal Polysaccharide (groups A, C, Y and W-135) conjugate vaccine (MCV4P) 2016-01-16 00:00:00 Completed [facility] Meningococcal Polysaccharide (groups A, C, Y and W-135) conjugate vaccine (MCV4P) 2016-01-16 00:00:00 Completed [facility] Meningococcal Polysaccharide (groups A, C, Y and W-135) conjugate vaccine (MCV4P) 2016-01-16 00:00:00 Completed [facility] Meningococcal Polysaccharide (groups A, C, Y and W-135) conjugate vaccine (MCV4P) 2016-01-16 00:00:00 Completed [facility] Meningococcal Polysaccharide (groups A, C, Y and W-135) conjugate vaccine (MCV4P) 2016-01-16 00:00:00 Completed [facility] Meningococcal Polysaccharide (groups A, C, Y and W-135) conjugate vaccine (MCV4P) 2016-01-16 00:00:00 Completed [facility] Meningococcal Polysaccharide (groups A, C, Y and W-135) conjugate vaccine (MCV4P) 2016-01-16 00:00:00 Completed [facility] Meningococcal Polysaccharide (groups A, C, Y and W-135) conjugate vaccine (MCV4P) 2016-01-16 00:00:00 Completed [facility] Meningococcal Polysaccharide (groups A, C, Y and W-135) conjugate vaccine (MCV4P) 2016-01-16 00:00:00 Completed [facility] Meningococcal Polysaccharide (groups A, C, Y and W-135) conjugate vaccine (MCV4P) 2016-01-16 00:00:00 Completed [facility] HEPA,NOS 2009-05-28 00:00:00 Completed [facility] Meningococcal Polysaccharide (groups A, C, Y and W-135) conjugate vaccine (MCV4P) 2009-05-28 00:00:00 Completed [facility] TDAP 2009-05-28 00:00:00 Completed [facility] HEPA,NOS 2009-05-28 00:00:00 Completed [facility] Meningococcal Polysaccharide (groups A, C, Y and W-135) conjugate vaccine (MCV4P) 2009-05-28 00:00:00 Completed [facility] TDAP 2009-05-28 00:00:00 Completed [facility] HEPA,NOS 2009-05-28 00:00:00 Completed [facility] Meningococcal Polysaccharide (groups A, C, Y and W-135) conjugate vaccine (MCV4P) 2009-05-28 00:00:00 Completed [facility] TDAP 2009-05-28 00:00:00 Completed [facility] HEPA,NOS 2009-05-28 00:00:00 Completed [facility] Meningococcal Polysaccharide (groups A, C, Y and W-135) conjugate vaccine (MCV4P) 2009-05-28 00:00:00 Completed [facility] TDAP 2009-05-28 00:00:00 Completed [facility] HEPA,NOS 2009-05-28 00:00:00 Completed [facility] Meningococcal Polysaccharide (groups A, C, Y and W-135) conjugate vaccine (MCV4P) 2009-05-28 00:00:00 Completed [facility] TDAP 2009-05-28 00:00:00 Completed [facility] HEPA,NOS 2009-05-28 00:00:00 Completed [facility] Meningococcal Polysaccharide (groups A, C, Y and W-135) conjugate vaccine (MCV4P) 2009-05-28 00:00:00 Completed [facility] TDAP 2009-05-28 00:00:00 Completed [facility] HEPA,NOS 2009-05-28 00:00:00 Completed [facility] Meningococcal Polysaccharide (groups A, C, Y and W-135) conjugate vaccine (MCV4P) 2009-05-28 00:00:00 Completed [facility] TDAP 2009-05-28 00:00:00 Completed [facility] HEPA,NOS 2009-05-28 00:00:00 Completed [facility] Meningococcal Polysaccharide (groups A, C, Y and W-135) conjugate vaccine (MCV4P) 2009-05-28 00:00:00 Completed [facility] TDAP 2009-05-28 00:00:00 Completed [facility] HEPA,NOS 2009-05-28 00:00:00 Completed [facility] Meningococcal Polysaccharide (groups A, C, Y and W-135) conjugate vaccine (MCV4P) 2009-05-28 00:00:00 Completed [facility] TDAP 2009-05-28 00:00:00 Completed [facility] HEPA,NOS 2009-05-28 00:00:00 Completed [facility] Meningococcal Polysaccharide (groups A, C, Y and W-135) conjugate vaccine (MCV4P) 2009-05-28 00:00:00 Completed [facility] TDAP 2009-05-28 00:00:00 Completed [facility] HEPA,NOS 2009-05-28 00:00:00 Completed [facility] Meningococcal Polysaccharide (groups A, C, Y and W-135) conjugate vaccine (MCV4P) 2009-05-28 00:00:00 Completed [facility] TDAP 2009-05-28 00:00:00 Completed [facility] HEPA,NOS 2009-05-28 00:00:00 Completed [facility] Meningococcal Polysaccharide (groups A, C, Y and W-135) conjugate vaccine (MCV4P) 2009-05-28 [facility] HEPA,NOS 2009-05-28 00:00:00 Completed [facility] Meningococcal Polysaccharide (groups A, C, Y and W-135) conjugate vaccine (MCV4P) 2009-05-28 00:00:00 Completed [facility] TDAP 2009-05-28 00:00:00 Completed [facility] HEPA,NOS 2009-05-28 00:00:00 Completed [facility] Meningococcal Polysaccharide (groups A, C, Y and W-135) conjugate vaccine (MCV4P) 2009-05-28 00:00:00 Completed [facility] TDAP 2009-05-28 00:00:00 Completed [facility] HEPA,NOS 2009-05-28 00:00:00 Completed [facility] Meningococcal Polysaccharide (groups A, C, Y and W-135) conjugate vaccine (MCV4P) 2009-05-28 00:00:00 Completed [facility] TDAP 2009-05-28 00:00:00 Completed [facility] HEPA,NOS 2009-05-28 00:00:00 Completed [facility] Meningococcal Polysaccharide (groups A, C, Y and W-135) conjugate vaccine (MCV4P) 2009-05-28 00:00:00 Completed [facility] TDAP 2009-05-28 00:00:00 Completed [facility] HEPA,NOS 2009-05-28 00:00:00 Completed [facility] Meningococcal Polysaccharide (groups A, C, Y and W-135) conjugate vaccine (MCV4P) 2009-05-28 00:00:00 Completed [facility] TDAP 2009-05-28 00:00:00 Completed [facility] HEPA,NOS 2009-05-28 00:00:00 Completed [facility] Meningococcal Polysaccharide (groups A, C, Y and W-135) conjugate vaccine (MCV4P) 2009-05-28 00:00:00 Completed [facility] TDAP 2009-05-28 00:00:00 Completed [facility] HEPA,NOS 2009-05-28 00:00:00 Completed [facility] Meningococcal Polysaccharide (groups A, C, Y and W-135) conjugate vaccine (MCV4P) 2009-05-28 00:00:00 Completed [facility] TDAP 2009-05-28 00:00:00 Completed [facility] HEPA,NOS 2009-05-28 00:00:00 Completed [facility] Meningococcal Polysaccharide (groups A, C, Y and W-135) conjugate vaccine (MCV4P) 2009-05-28 00:00:00 Completed [facility] TDAP 2009-05-28 00:00:00 Completed [facility] Meningococcal Polysaccharide (groups A, C, Y and W-135) conjugate vaccine (MCV4P) 2007-12-20 00:00:00 Completed [facility] TDAP 2007-12-20 00:00:00 Completed [facility] Varicella (varivax)(chicken pox) 2007-12-20 00:00:00 Completed [facility] Meningococcal Polysaccharide (groups A, C, Y and W-135) conjugate vaccine (MCV4P) 2007-12-20 00:00:00 Completed [facility] TDAP 2007-12-20 00:00:00 Completed [facility] Varicella (varivax)(chicken pox) 2007-12-20 00:00:00 Completed [facility] Meningococcal Polysaccharide (groups A, C, Y and W-135) conjugate vaccine (MCV4P) 2007-12-20 00:00:00 Completed [facility] TDAP 2007-12-20 00:00:00 Completed [facility] Varicella (varivax)(chicken pox) 2007-12-20 00:00:00 Completed [facility] Meningococcal Polysaccharide (groups A, C, Y and W-135) conjugate vaccine (MCV4P) 2007-12-20 00:00:00 Completed [facility] TDAP 2007-12-20 00:00:00 Completed [facility] Varicella (varivax)(chicken pox) 2007-12-20 00:00:00 Completed [facility] Meningococcal Polysaccharide (groups A, C, Y and W-135) conjugate vaccine (MCV4P) 2007-12-20 00:00:00 Completed [facility] TDAP 2007-12-20 00:00:00 Completed [facility] Varicella (varivax)(chicken pox) 2007-12-20 00:00:00 Completed [facility] Meningococcal Polysaccharide (groups A, C, Y and W-135) conjugate vaccine (MCV4P) 2007-12-20 00:00:00 Completed [facility] TDAP 2007-12-20 00:00:00 Completed [facility] Varicella (varivax)(chicken pox) 2007-12-20 00:00:00 Completed [facility] Meningococcal Polysaccharide (groups A, C, Y and W-135) conjugate vaccine (MCV4P) 2007-12-20 00:00:00 Completed [facility] TDAP 2007-12-20 00:00:00 Completed [facility] Varicella (varivax)(chicken pox) 2007-12-20 00:00:00 Completed [facility] Meningococcal Polysaccharide (groups A, C, Y and W-135) conjugate vaccine (MCV4P) 2007-12-20 00:00:00 Completed [facility] TDAP 2007-12-20 00:00:00 Completed [facility] Varicella (varivax)(chicken pox) 2007-12-20 00:00:00 Completed [facility] Meningococcal Polysaccharide (groups A, C, Y and W-135) conjugate vaccine (MCV4P) 2007-12-20 00:00:00 Completed [facility] 2007-12-20 00:00:00 Completed [facility] Varicella (varivax)(chicken pox) 2007-12-20 00:00:00 Completed [facility] Meningococcal Polysaccharide (groups A, C, Y and W-135) conjugate vaccine (MCV4P) 2007-12-20 00:00:00 Completed [facility] TDAP 2007-12-20 00:00:00 Completed [facility] Varicella (varivax)(chicken pox) 2007-12-20 00:00:00 Completed [facility] Meningococcal Polysaccharide (groups A, C, Y and W-135) conjugate vaccine (MCV4P) 2007-12-20 00:00:00 Completed [facility] TDAP 2007-12-20 00:00:00 Completed [facility] Varicella (varivax)(chicken pox) 2007-12-20 00:00:00 Completed [facility] Meningococcal Polysaccharide (groups A, C, Y and W-135) conjugate vaccine (MCV4P) 2007-12-20 00:00:00 Completed [facility] TDAP 2007-12-20 00:00:00 Completed [facility] Varicella (varivax)(chicken pox) 2007-12-20 00:00:00 Completed [facility] Meningococcal Polysaccharide (groups A, C, Y and W-135) conjugate vaccine (MCV4P) 2007-12-20 00:00:00 Completed [facility] TDAP 2007-12-20 00:00:00 Completed [facility] Varicella (varivax)(chicken pox) 2007-12-20 00:00:00 Completed [facility] Meningococcal Polysaccharide (groups A, C, Y and W-135) conjugate vaccine (MCV4P) 2007-12-20 00:00:00 Completed [facility] TDAP 2007-12-20 00:00:00 Completed [facility] Varicella (varivax)(chicken pox) 2007-12-20 00:00:00 Completed [facility] Meningococcal Polysaccharide (groups A, C, Y and W-135) conjugate vaccine (MCV4P) 2007-12-20 00:00:00 Completed [facility] TDAP 2007-12-20 00:00:00 Completed [facility] Varicella (varivax)(chicken pox) 2007-12-20 00:00:00 Completed [facility] Meningococcal Polysaccharide (groups A, C, Y and W-135) conjugate vaccine (MCV4P) 2007-12-20 00:00:00 Completed [facility] TDAP 2007-12-20 00:00:00 Completed [facility] Varicella (varivax)(chicken pox) 2007-12-20 00:00:00 Completed [facility] Meningococcal Polysaccharide (groups A, C, Y and W-135) conjugate vaccine (MCV4P) 2007-12-20 00:00:00 Completed [facility] TDAP 2007-12-20 00:00:00 Completed [facility] Varicella (varivax)(chicken pox) 2007-12-20 00:00:00 Completed [facility] Meningococcal Polysaccharide (groups A, C, Y and W-135) conjugate vaccine (MCV4P) 2007-12-20 00:00:00 Completed [facility] TDAP 2007-12-20 00:00:00 Completed [facility] Varicella (varivax)(chicken pox) 2007-12-20 00:00:00 Completed [facility] Meningococcal Polysaccharide (groups A, C, Y and W-135) conjugate vaccine (MCV4P) 2007-12-20 00:00:00 Completed [facility] TDAP 2007-12-20 00:00:00 Completed [facility] Varicella (varivax)(chicken pox) 2007-12-20 00:00:00 Completed [facility] Meningococcal Polysaccharide (groups A, C, Y and W-135) conjugate vaccine (MCV4P) 2007-12-20 00:00:00 Completed [facility] TDAP 2007-12-20 00:00:00 Completed [facility] Varicella (varivax)(chicken pox) 2007-12-20 00:00:00 Completed [facility] HEPA,NOS 2007-04-26 00:00:00 Completed [facility] HEPA,NOS 2007-04-26 00:00:00 Completed [facility] HEPA,NOS 2007-04-26 00:00:00 Completed [facility] HEPA,NOS 2007-04-26 00:00:00 Completed [facility] HEPA,NOS 2007-04-26 00:00:00 Completed [facility] HEPA,NOS 2007-04-26 00:00:00 Completed [facility] HEPA,NOS 2007-04-26 00:00:00 Completed [facility] HEPA,NOS 2007-04-26 00:00:00 Completed [facility] HEPA,NOS 2007-04-26 00:00:00 Completed [facility] HEPA,NOS 2007-04-26 00:00:00 Completed [facility] HEPA,NOS 2007-04-26 00:00:00 Completed [facility] HEPA,NOS 2007-04-26 00:00:00 Completed [facility] HEPA,NOS 2007-04-26 00:00:00 Completed [facility] HEPA,NOS 2007-04-26 00:00:00 Completed [facility] HEPA,NOS 2007-04-26 00:00:00 Completed [facility] HEPA,NOS 2007-04-26 00:00:00 Completed [facility] HEPA,NOS 2007-04-26 00:00:00 Completed [facility] HEPA,NOS 2007-04-26 00:00:00 Completed [facility] HEPA,NOS 2007-04-26 00:00:00 Completed [facility] HEPA,NOS 2007-04-26 00:00:00 Completed [facility] DTAP 2001-01-17 00:00:00 Completed [facility] MMR 2001-01-17 00:00:00 Completed [facility] Polio (IPV/OPV) 2001-01-17 00:00:00 Completed [facility] DTAP 2001-01-17 00:00:00 Completed [facility] MMR 2001-01-17 00:00:00 Completed [facility] Polio (IPV/OPV) 2001-01-17 00:00:00 Completed [facility] DTAP 2001-01-17 00:00:00 Completed [facility] MMR 2001-01-17 00:00:00 Completed [facility] Polio (IPV/OPV) 2001-01-17 00:00:00 Completed [facility] DTAP 2001-01-17 00:00:00 Completed [facility] MMR 2001-01-17 00:00:00 Completed [facility] Polio (IPV/OPV) 2001-01-17 00:00:00 Completed [facility] DTAP 2001-01-17 00:00:00 Completed [facility] MMR 2001-01-17 00:00:00 Completed [facility] Polio (IPV/OPV) 2001-01-17 00:00:00 Completed [facility] DTAP 2001-01-17 00:00:00 Completed [facility] MMR 2001-01-17 00:00:00 Completed [facility] Polio (IPV/OPV) 2001-01-17 00:00:00 Completed [facility] DTAP 2001-01-17 00:00:00 Completed [facility] MMR 2001-01-17 00:00:00 Completed [facility] Polio (IPV/OPV) 2001-01-17 00:00:00 Completed [facility] DTAP 2001-01-17 00:00:00 Completed [facility] MMR 2001-01-17 00:00:00 Completed [facility] Polio (IPV/OPV) 2001-01-17 00:00:00 Completed [facility] DTAP 2001-01-17 00:00:00 Completed [facility] MMR 2001-01-17 00:00:00 Completed [facility] Polio (IPV/OPV) 2001-01-17 00:00:00 Completed [facility] DTAP 2001-01-17 00:00:00 Completed [facility] MMR 2001-01-17 00:00:00 Completed [facility] Polio (IPV/OPV) 2001-01-17 00:00:00 Completed [facility] DTAP 2001-01-17 00:00:00 Completed [facility] MMR 2001-01-17 00:00:00 Completed [facility] Polio (IPV/OPV) 2001-01-17 00:00:00 Completed [facility] DTAP 2001-01-17 00:00:00 Completed [facility] MMR 2001-01-17 00:00:00 Completed [facility] Polio (IPV/OPV) 2001-01-17 00:00:00 Completed [facility] DTAP 2001-01-17 00:00:00 Completed [facility] MMR 2001-01-17 00:00:00 Completed [facility] Polio (IPV/OPV) 2001-01-17 00:00:00 Completed [facility] DTAP 2001-01-17 00:00:00 Completed [facility] MMR 2001-01-17 00:00:00 Completed [facility] Polio (IPV/OPV) 2001-01-17 00:00:00 Completed [facility] DTAP 2001-01-17 00:00:00 Completed [facility] MMR 2001-01-17 00:00:00 Completed [facility] Polio (IPV/OPV) 2001-01-17 00:00:00 Completed [facility] DTAP 2001-01-17 00:00:00 Completed [facility] MMR 2001-01-17 00:00:00 Completed [facility] Polio (IPV/OPV) 2001-01-17 00:00:00 Completed [facility] DTAP 2001-01-17 00:00:00 Completed [facility] MMR 2001-01-17 00:00:00 Completed [facility] Polio (IPV/OPV) 2001-01-17 00:00:00 Completed [facility] DTAP 2001-01-17 00:00:00 Completed [facility] MMR 2001-01-17 00:00:00 Completed [facility] Polio (IPV/OPV) 2001-01-17 00:00:00 Completed [facility] DTAP 2001-01-17 00:00:00 Completed [facility] MMR 2001-01-17 00:00:00 Completed [facility] Polio (IPV/OPV) 2001-01-17 00:00:00 Completed [facility] DTAP 2001-01-17 00:00:00 Completed [facility] MMR 2001-01-17 00:00:00 Completed [facility] Polio (IPV/OPV) 2001-01-17 00:00:00 Completed [facility] DTAP 1999-11-04 00:00:00 Completed [facility] Varicella (varivax)(chicken pox) 1999-11-04 [facility] Varicella (varivax)(chicken pox) 1999-11-04 [facility] Varicella (varivax)(chicken pox) 1999-11-04 [facility] Varicella (varivax)(chicken pox) 1999-11-04 [facility] Varicella (varivax)(chicken pox) 1999-11-04 [facility] Varicella (varivax)(chicken pox) 1999-11-04 [facility] Varicella (varivax)(chicken pox) 1999-11-04 [facility] Com[facility] Varicella (varivax)(chicken pox) 1999-11-04 00:00:00 Completed [facility] DTAP 1999-11-04 00:00:00 Completed [facility] Varicella (varivax)(chicken pox) 1999-11-04 [facility] Varicella (varivax)(chicken pox) 1999-11-04 00:[facility] Com[facility] Varicella (varivax)(chicken pox) 1999-11-04 [facility] Com[facility] Varicella (varivax)(chicken pox) 1999-11-04 00:00:00 Completed [facility] DTAP 1999-11-04 00:00:00 Completed [facility] Varicella (varivax)(chicken pox) 1999-11-04 00:00:00 Completed [facility] DTAP 1999-11-04 00:00:00 Completed [facility] Varicella (varivax)(chicken pox) 1999-11-04 00:00:00 Completed [facility] DTAP 1999-11-04 00:00:00 Completed [facility] Varicella (varivax)(chicken pox) 1999-11-04 [facility] Varicella (varivax)(chicken pox) 1999-11-04 [facility] Varicella (varivax)(chicken pox) 1999-11-04 [facility] Com[facility] Varicella (varivax)(chicken pox) 1999-11-04 00:00:00 Completed [facility] DTAP 1999-11-04 00:00:00 Completed [facility] Varicella (varivax)(chicken pox) 1999-11-04 00:00:00 Completed [facility] DTAP 1999-11-04 00:00:00 Completed [facility] Varicella (varivax)(chicken pox) 1999-11-04 00:00:00 Completed [facility] DTAP 1997-10-31 00:00:00 Completed [facility] MMR 1997-10-31 00:00:00 Completed [facility] DTAP 1997-10-31 00:00:00 Completed [facility] MMR 1997-10-31 00:00:00 Completed [facility] DTAP 1997-10-31 00:00:00 Completed [facility] MMR 1997-10-31 00:00:00 Completed [facility] DTAP 1997-10-31 00:00:00 Completed [facility] MMR 1997-10-31 00:00:00 Completed [facility] DTAP 1997-10-31 00:00:00 Completed [facility] MMR 1997-10-31 00:00:00 Completed [facility] DTAP 1997-10-31 00:00:00 Completed [facility] MMR 1997-10-31 00:00:00 Completed [facility] HIB PRP-D,booster 1997-10-31 00:00:00 Completed [facility] DTAP 1997-10-31 00:00:00 Completed [facility] MMR 1997-10-31 00:00:00 Completed [facility] HIB PRP-D,booster 1997-10-31 00:00:00 Completed [facility] DTAP 1997-10-31 00:00:00 Completed [facility] MMR 1997-10-31 00:00:00 Completed [facility] HIB PRP-D,booster 1997-10-31 00:00:00 Completed [facility] Heamophilus Influenza B 1997-10-31 00:00:00 Completed [facility] DTAP 1997-10-31 00:00:00 Completed [facility] MMR 1997-10-31 00:00:00 Completed [facility] HIB PRP-D,booster 1997-10-31 00:00:00 Completed [facility] Heamophilus Influenza B 1997-10-31 00:00:00 Completed [facility] DTAP 1997-10-31 00:00:00 Completed [facility] MMR 1997-10-31 00:00:00 Completed [facility] HIB PRP-D,booster 1997-10-31 00:00:00 Completed [facility] Heamophilus Influenza B 1997-10-31 00:00:00 Completed [facility] DTAP 1997-10-31 00:00:00 Completed [facility] MMR 1997-10-31 00:00:00 Completed [facility] HIB PRP-D,booster 1997-10-31 00:00:00 Completed [facility] Heamophilus Influenza B 1997-10-31 00:00:00 Completed [facility] DTAP 1997-10-31 00:00:00 Completed [facility] MMR 1997-10-31 00:00:00 Completed [facility] DTAP 1997-10-31 00:00:00 Completed [facility] MMR 1997-10-31 00:00:00 Completed [facility] DTAP 1997-10-31 00:00:00 Completed [facility] MMR 1997-10-31 00:00:00 Completed [facility] DTAP 1997-10-31 00:00:00 Completed [facility] MMR 1997-10-31 00:00:00 Completed [facility] DTAP 1997-10-31 00:00:00 Completed [facility] MMR 1997-10-31 00:00:00 Completed [facility] DTAP 1997-10-31 00:00:00 Completed [facility] MMR 1997-10-31 00:00:00 Completed [facility] DTAP 1997-10-31 00:00:00 Completed [facility] MMR 1997-10-31 00:00:00 Completed [facility] DTAP 1997-10-31 00:00:00 Completed [facility] MMR 1997-10-31 00:00:00 Completed [facility] DTAP 1997-10-31 00:00:00 Completed [facility] MMR 1997-10-31 00:00:00 Completed [facility] DTAP 1997-04-24 00:00:00 Completed [facility] Hep B, Adol or Pedi Dosage 1997-04-24 00:00:00 Completed [facility] Polio (IPV/OPV) 1997-04-24 00:00:00 Completed [facility] DTAP 1997-04-24 00:00:00 Completed [facility] Hep B, Adol or Pedi Dosage 1997-04-24 00:00:00 Completed [facility] Polio (IPV/OPV) 1997-04-24 00:00:00 Completed [facility] DTAP 1997-04-24 00:00:00 Completed [facility] Hep B, Adol or Pedi Dosage 1997-04-24 00:00:00 Completed [facility] Polio (IPV/OPV) 1997-04-24 00:00:00 Completed [facility] DTAP 1997-04-24 00:00:00 Completed [facility] Hep B, Adol or Pedi Dosage 1997-04-24 00:00:00 Completed [facility] Polio (IPV/OPV) 1997-04-24 00:00:00 Completed [facility] DTAP 1997-04-24 00:00:00 Completed [facility] Hep B, Adol or Pedi Dosage 1997-04-24 00:00:00 Completed [facility] Polio (IPV/OPV) 1997-04-24 00:00:00 Completed [facility] DTAP 1997-04-24 00:00:00 Completed [facility] Hep B, Adol or Pedi Dosage 1997-04-24 00:00:00 Completed [facility] Polio (IPV/OPV) 1997-04-24 00:00:00 Completed [facility] HIB PRP-D,booster 1997-04-24 00:00:00 Completed [facility] DTAP 1997-04-24 00:00:00 Completed [facility] Hep B, Adol or Pedi Dosage 1997-04-24 00:00:00 Completed [facility] Polio (IPV/OPV) 1997-04-24 00:00:00 Completed [facility] HIB PRP-D,booster 1997-04-24 00:00:00 Completed [facility] DTAP 1997-04-24 00:00:00 Completed [facility] Hep B, Adol or Pedi Dosage 1997-04-24 00:00:00 Completed [facility] Polio (IPV/OPV) 1997-04-24 00:00:00 Completed [facility] HIB PRP-D,booster 1997-04-24 00:00:00 Completed [facility] Heamophilus Influenza B 1997-04-24 00:00:00 Completed [facility] DTAP 1997-04-24 00:00:00 Completed [facility] Hep B, Adol or Pedi Dosage 1997-04-24 00:00:00 Completed [facility] Polio (IPV/OPV) 1997-04-24 00:00:00 Completed [facility] HIB PRP-D,booster 1997-04-24 00:00:00 Completed [facility] Heamophilus Influenza B 1997-04-24 00:00:00 Completed [facility] DTAP 1997-04-24 00:00:00 Completed [facility] Hep B, Adol or Pedi Dosage 1997-04-24 00:00:00 Completed [facility] Polio (IPV/OPV) 1997-04-24 00:00:00 Completed [facility] HIB PRP-D,booster 1997-04-24 00:00:00 Completed [facility] Heamophilus Influenza B 1997-04-24 00:00:00 Completed [facility] DTAP 1997-04-24 00:00:00 Completed [facility] Hep B, Adol or Pedi Dosage 1997-04-24 00:00:00 Completed [facility] Polio (IPV/OPV) 1997-04-24 00:00:00 Completed [facility] HIB PRP-D,booster 1997-04-24 00:00:00 Completed [facility] Heamophilus Influenza B 1997-04-24 00:00:00 Completed [facility] DTAP 1997-04-24 00:00:00 Completed [facility] Hep B, Adol or Pedi Dosage 1997-04-24 00:00:00 Completed [facility] Polio (IPV/OPV) 1997-04-24 00:00:00 Completed [facility] DTAP 1997-04-24 00:00:00 Completed [facility] Hep B, Adol or Pedi Dosage 1997-04-24 00:00:00 Completed [facility] Polio (IPV/OPV) 1997-04-24 00:00:00 Completed [facility] DTAP 1997-04-24 00:00:00 Completed [facility] Hep B, Adol or Pedi Dosage 1997-04-24 00:00:00 Completed [facility] Polio (IPV/OPV) 1997-04-24 00:00:00 Completed [facility] DTAP 1997-04-24 00:00:00 Completed [facility] Hep B, Adol or Pedi Dosage 1997-04-24 00:00:00 Completed [facility] Polio (IPV/OPV) 1997-04-24 00:00:00 Completed [facility] DTAP 1997-04-24 00:00:00 Completed [facility] Hep B, Adol or Pedi Dosage 1997-04-24 00:00:00 Completed [facility] Polio (IPV/OPV) 1997-04-24 00:00:00 Completed [facility] DTAP 1997-04-24 00:00:00 Completed [facility] Hep B, Adol or Pedi Dosage 1997-04-24 00:00:00 Completed [facility] Polio (IPV/OPV) 1997-04-24 00:00:00 Completed [facility] DTAP 1997-04-24 00:00:00 Completed [facility] Hep B, Adol or Pedi Dosage 1997-04-24 00:00:00 Completed [facility] Polio (IPV/OPV) 1997-04-24 00:00:00 Completed [facility] DTAP 1997-04-24 00:00:00 Completed [facility] Hep B, Adol or Pedi Dosage 1997-04-24 00:00:00 Completed [facility] Polio (IPV/OPV) 1997-04-24 00:00:00 Completed [facility] DTAP 1997-04-24 00:00:00 Completed [facility] Hep B, Adol or Pedi Dosage 1997-04-24 00:00:00 Completed [facility] Polio (IPV/OPV) 1997-04-24 00:00:00 Completed [facility] DTAP 1996 00:00:00 Completed [facility] Polio (IPV/OPV) 1996 00:00:00 Completed [facility] DTAP 1996 00:00:00 Completed [facility] Polio (IPV/OPV) 1996 00:00:00 Completed [facility] DTAP 1996 00:00:00 Completed [facility] Polio (IPV/OPV) 1996 00:00:00 Completed [facility] DTAP 1996 00:00:00 Completed [facility] Polio (IPV/OPV) 1996 00:00:00 Completed [facility] DTAP 1996 00:00:00 Completed [facility] Polio (IPV/OPV) 1996 00:00:00 Completed [facility] DTAP 1996 00:00:00 Completed [facility] Polio (IPV/OPV) 1996 00:00:00 Completed [facility] HIB PRP-D,booster 1996 00:00:00 Completed [facility] DTAP 1996 00:00:00 Completed [facility] Polio (IPV/OPV) 1996 00:00:00 Completed [facility] HIB PRP-D,booster 1996 00:00:00 Completed [facility] DTAP 1996 00:00:00 Completed [facility] Polio (IPV/OPV) 1996 00:00:00 Completed [facility] HIB PRP-D,booster 1996 00:00:00 Completed [facility] Heamophilus Influenza B 1996 00:00:00 Completed [facility] DTAP 1996 00:00:00 Completed [facility] Polio (IPV/OPV) 1996 00:00:00 Completed [facility] HIB PRP-D,booster 1996 00:00:00 Completed [facility] Heamophilus Influenza B 1996 00:00:00 Completed [facility] DTAP 1996 00:00:00 Completed [facility] Polio (IPV/OPV) 1996 00:00:00 Completed [facility] HIB PRP-D,booster 1996 00:00:00 Completed [facility] Heamophilus Influenza B 1996 00:00:00 Completed [facility] DTAP 1996 00:00:00 Completed [facility] Polio (IPV/OPV) 1996 00:00:00 Completed [facility] HIB PRP-D,booster 1996 00:00:00 Completed [facility] Heamophilus Influenza B 1996 00:00:00 Completed [facility] DTAP 1996 00:00:00 Completed [facility] Polio (IPV/OPV) 1996 00:00:00 Completed [facility] DTAP 1996 00:00:00 Completed [facility] Polio (IPV/OPV) 1996 00:00:00 Completed [facility] DTAP 1996 00:00:00 Completed [facility] Polio (IPV/OPV) 1996 00:00:00 Completed [facility] DTAP 1996 00:00:00 Completed [facility] Polio (IPV/OPV) 1996 00:00:00 Completed [facility] DTAP 1996 00:00:00 Completed [facility] Polio (IPV/OPV) 1996 00:00:00 Completed [facility] DTAP 1996 00:00:00 Completed [facility] Polio (IPV/OPV) 1996 00:00:00 Completed [facility] DTAP 1996 00:00:00 Completed [facility] Polio (IPV/OPV) 1996 00:00:00 Completed [facility] DTAP 1996 00:00:00 Completed [facility] Polio (IPV/OPV) 1996 00:00:00 Completed [facility] DTAP 1996 00:00:00 Completed [facility] Polio (IPV/OPV) 1996 00:00:00 Completed [facility] DTAP 1996 00:00:00 Completed [facility] Hep B, Adol or Pedi Dosage 1996 00:00:00 Completed [facility] Polio (IPV/OPV) 1996 00:00:00 Completed [facility] DTAP 1996 00:00:00 Completed [facility] Hep B, Adol or Pedi Dosage 1996 00:00:00 Completed [facility] Polio (IPV/OPV) 1996 00:00:00 Completed [facility] DTAP 1996 00:00:00 Completed [facility] Hep B, Adol or Pedi Dosage 1996 00:00:00 Completed [facility] Polio (IPV/OPV) 1996 00:00:00 Completed [facility] DTAP 1996 00:00:00 Completed [facility] Hep B, Adol or Pedi Dosage 1996 00:00:00 Completed [facility] Polio (IPV/OPV) 1996 00:00:00 Completed [facility] DTAP 1996 00:00:00 Completed [facility] Hep B, Adol or Pedi Dosage 1996 00:00:00 Completed [facility] Polio (IPV/OPV) 1996 00:00:00 Completed [facility] DTAP 1996 00:00:00 Completed [facility] Hep B, Adol or Pedi Dosage 1996 00:00:00 Completed [facility] Polio (IPV/OPV) 1996 00:00:00 Completed [facility] HIB PRP-D,booster 1996 00:00:00 Completed [facility] DTAP 1996 00:00:00 Completed [facility] Hep B, Adol or Pedi Dosage 1996 00:00:00 Completed [facility] Polio (IPV/OPV) 1996 00:00:00 Completed [facility] HIB PRP-D,booster 1996 00:00:00 Completed [facility] DTAP 1996 00:00:00 Completed [facility] Hep B, Adol or Pedi Dosage 1996 00:00:00 Completed [facility] Polio (IPV/OPV) 1996 00:00:00 Completed [facility] HIB PRP-D,booster 1996 00:00:00 Completed [facility] Heamophilus Influenza B 1996 00:00:00 Completed [facility] DTAP 1996 00:00:00 Completed [facility] Hep B, Adol or Pedi Dosage 1996 00:00:00 Completed [facility] Polio (IPV/OPV) 1996 00:00:00 Completed [facility] HIB PRP-D,booster 1996 00:00:00 Completed [facility] Heamophilus Influenza B 1996 00:00:00 Completed [facility] DTAP 1996 00:00:00 Completed [facility] Hep B, Adol or Pedi Dosage 1996 00:00:00 Completed [facility] Polio (IPV/OPV) 1996 00:00:00 Completed [facility] HIB PRP-D,booster 1996 00:00:00 Completed [facility] Heamophilus Influenza B 1996 00:00:00 Completed [facility] DTAP 1996 00:00:00 Completed [facility] Hep B, Adol or Pedi Dosage 1996 00:00:00 Completed [facility] Polio (IPV/OPV) 1996 00:00:00 Completed [facility] HIB PRP-D,booster 1996 00:00:00 Completed [facility] Heamophilus Influenza B 1996 00:00:00 Completed [facility] DTAP 1996 00:00:00 Completed [facility] Hep B, Adol or Pedi Dosage 1996 00:00:00 Completed [facility] Polio (IPV/OPV) 1996 00:00:00 Completed [facility] DTAP 1996 00:00:00 Completed [facility] Hep B, Adol or Pedi Dosage 1996 00:00:00 Completed [facility] Polio (IPV/OPV) 1996 00:00:00 Completed [facility] DTAP 1996 00:00:00 Completed [facility] Hep B, Adol or Pedi Dosage 1996 00:00:00 Completed [facility] Polio (IPV/OPV) 1996 00:00:00 Completed [facility] DTAP 1996 00:00:00 Completed [facility] Hep B, Adol or Pedi Dosage 1996 00:00:00 Completed [facility] Polio (IPV/OPV) 1996 00:00:00 Completed [facility] DTAP 1996 00:00:00 Completed [facility] Hep B, Adol or Pedi Dosage 1996 00:00:00 Completed [facility] Polio (IPV/OPV) 1996 00:00:00 Completed [facility] DTAP 1996 00:00:00 Completed [facility] Hep B, Adol or Pedi Dosage 1996 00:00:00 Completed [facility] Polio (IPV/OPV) 1996 00:00:00 Completed [facility] DTAP 1996 00:00:00 Completed [facility] Hep B, Adol or Pedi Dosage 1996 00:00:00 Completed [facility] Polio (IPV/OPV) 1996 00:00:00 Completed [facility] DTAP 1996 00:00:00 Completed [facility] Hep B, Adol or Pedi Dosage 1996 00:00:00 Completed [facility] Polio (IPV/OPV) 1996 00:00:00 Completed [facility] DTAP 1996 00:00:00 Completed [facility] Hep B, Adol or Pedi Dosage 1996 00:00:00 Completed [facility] Polio (IPV/OPV) 1996 00:00:00 Completed [facility] Hep B, Adol or Pedi Dosage 1996 00:00:00 Completed [facility] Hep B, Adol or Pedi Dosage 1996 00:00:00 Completed [facility] Hep B, Adol or Pedi Dosage 1996 00:00:00 Completed [facility] Hep B, Adol or Pedi Dosage 1996 00:00:00 Completed [facility] Hep B, Adol or Pedi Dosage 1996 00:00:00 Completed [facility] Hep B, Adol or Pedi Dosage 1996 00:00:00 Completed [facility] Hep B, Adol or Pedi Dosage 1996 00:00:00 Completed [facility] Hep B, Adol or Pedi Dosage 1996 00:00:00 Completed [facility] Hep B, Adol or Pedi Dosage 1996 00:00:00 Completed [facility] Hep B, Adol or Pedi Dosage 1996 00:00:00 Completed [facility] Hep B, Adol or Pedi Dosage 1996 00:00:00 Completed [facility] Hep B, Adol or Pedi Dosage 1996 00:00:00 Completed [facility] Hep B, Adol or Pedi Dosage 1996 00:00:00 Completed [facility] Hep B, Adol or Pedi Dosage 1996 00:00:00 Completed [facility] Hep B, Adol or Pedi Dosage 1996 00:00:00 Completed [facility] Hep B, Adol or Pedi Dosage 1996 00:00:00 Completed [facility] Hep B, Adol or Pedi Dosage 1996 00:00:00 Completed [facility] Hep B, Adol or Pedi Dosage 1996 00:00:00 Completed [facility] Hep B, Adol or Pedi Dosage 1996 00:00:00 Completed [facility] Hep B, Adol or Pedi Dosage 1996 00:00:00 Completed [facility] TDAP Unknown Completed [facility] DTAP Unknown Completed [facility] DTAP Unknown Completed [facility] DTAP Unknown [facility]pleted [facility] DTAP Unknown Completed [facility] DTAP Unknown Completed [facility] DTAP Unknown Completed [facility] HEPA,NOS Unknown Completed [facility] HEPA,NOS Unknown Completed [facility] Hep B, Adol or Pedi Dosage Unknown Completed [facility] Hep B, Adol or Pedi Dosage Unknown Completed [facility] Hep B, Adol or Pedi Dosage Unknown Completed [facility] Meningococcal Polysaccharide (groups A, C, Y and W-135) conjugate vaccine (MCV4P) Unknown Completed [facility] Meningococcal Polysaccharide (groups A, C, Y and W-135) conjugate vaccine (MCV4P) Unknown Completed [facility] Meningococcal Polysaccharide (groups A, C, Y and W-135) conjugate vaccine (MCV4P) Unknown Completed [facility] MMR Unknown Completed [facility] MMR Unknown Completed [facility] Polio (IPV/OPV) Unknown Completed [facility] Polio (IPV/OPV) Unknown Completed [facility] Polio (IPV/OPV) Unknown Completed [facility] Polio (IPV/OPV) Unknown Completed [facility] TDAP Unknown Completed [facility] TDAP Unknown Completed [facility] TDAP Unknown Completed [facility] Varicella (varivax)(chicken pox) Unknown Completed [facility] Varicella (varivax)(chicken pox) Unknown Completed [facility] HPV9 Unknown Completed [facility] HIB PRP-D,booster [facility] Influenza B Unknown Completed [facility] Heamophilus Influenza B Unknown Completed [facility] Heamophilus Influenza B Unknown Completed [facility] Heamophilus Influenza B Unknown Completed [facility] HPV9 Unknown Completed [facility] TDAP Unknown Completed [facility] DTAP Unknown Completed [facility] DTAP Unknown Completed [facility] DTAP Unknown Completed [facility] DTAP Unknown Completed [facility] DTAP Unknown Completed [facility] DTAP Unknown Completed [facility] HEPA,NOS Unknown Completed [facility] HEPA,NOS Unknown Completed [facility] Hep B, Adol or Pedi Dosage Unknown Completed [facility] Hep B, Adol or Pedi Dosage Unknown Completed [facility] Hep B, Adol or Pedi Dosage Unknown Completed [facility] Meningococcal Polysaccharide (groups A, C, Y and W-135) conjugate vaccine (MCV4P) Unknown Completed [facility] Meningococcal Polysaccharide (groups A, C, Y and W-135) conjugate vaccine (MCV4P) Unknown Completed [facility] Meningococcal Polysaccharide (groups A, C, Y and W-135) conjugate vaccine (MCV4P) Unknown Completed [facility] MMR Unknown Completed [facility] MMR Unknown Completed [facility] Polio (IPV/OPV) Unknown Completed [facility] Polio (IPV/OPV) Unknown Completed [facility] Polio (IPV/OPV) Unknown Completed [facility] Polio (IPV/OPV) Unknown Completed [facility] TDAP Unknown Completed [facility] TDAP Unknown Completed [facility] TDAP Unknown Completed [facility] Varicella (varivax)(chicken pox) Unknown Completed [facility] Varicella (varivax)(chicken pox) Unknown Completed [facility] HPV9 Unknown Completed [facility] HIB PRP-D,booster Unknown [facility] He[facility] Influenza B Unknown Completed [facility] Heamophilus Influenza B Unknown Completed [facility] Heamophilus Influenza B Unknown Completed [facility] Heamophilus Influenza B Unknown Completed [facility] HPV9 Unknown Completed [facility] HPV9 Unknown Completed [facility] TDAP Unknown Completed [facility] DTAP Unknown Completed [facility] DTAP Unknown Completed [facility] DTAP Unknown Completed [facility] DTAP Unknown Completed [facility] DTAP Unknown Completed [facility] DTAP Unknown Completed [facility] HEPA,NOS Unknown Completed [facility] HEPA,NOS Unknown Completed [facility] Hep B, Adol or Pedi Dosage Unknown Completed [facility] Hep B, Adol or Pedi Dosage Unknown Completed [facility] Hep B, Adol or Pedi Dosage Unknown Completed [facility] Meningococcal Polysaccharide (groups A, C, Y and W-135) conjugate vaccine (MCV4P) Unknown Completed [facility] Meningococcal Polysaccharide (groups A, C, Y and W-135) conjugate vaccine (MCV4P) Unknown Completed [facility] Meningococcal Polysaccharide (groups A, C, Y and W-135) conjugate vaccine (MCV4P) Unknown Completed [facility] MMR Unknown Completed [facility] MMR Unknown Completed [facility] Polio (IPV/OPV) Unknown Completed [facility] Polio (IPV/OPV) Unknown Completed [facility] Polio (IPV/OPV) Unknown Completed [facility] Polio (IPV/OPV) Unknown Completed [facility] TDAP Unknown Completed [facility] TDAP Unknown Completed [facility] TDAP Unknown Completed [facility] Varicella (varivax)(chicken pox) Unknown Completed [facility] Varicella (varivax)(chicken pox) Unknown Completed [facility] HPV9 Unknown Completed [facility] HIB PRP-D,booster Unknown [facility]booster [facility],booster [facility] Heam[facility] Influenza B Unknown Completed [facility] Heamophilus Influenza B Unknown Completed [facility] Heamophilus Influenza B Unknown [facility]pleted [facility] Heamophilus Influenza B Unknown [facility]pleted [facility] HPV9 Unknown Completed [facility] HPV9 Unknown Completed [facility] HPV9 Unknown Completed [facility] TDAP Unknown Completed [facility] DTAP Unknown Completed [facility] DTAP Unknown Completed [facility] DTAP Unknown Completed [facility] DTAP Unknown Completed [facility] DTAP Unknown Completed [facility] DTAP Unknown Completed [facility] HEPA,NOS Unknown Completed [facility] HEPA,NOS Unknown Completed [facility] Hep B, Adol or Pedi Dosage Unknown Completed [facility] Hep B, Adol or Pedi Dosage Unknown Completed [facility] Hep B, Adol or Pedi Dosage Unknown Completed [facility] Meningococcal Polysaccharide (groups A, C, Y and W-135) conjugate vaccine (MCV4P) Unknown Completed [facility] Meningococcal Polysaccharide (groups A, C, Y and W-135) conjugate vaccine (MCV4P) Unknown Completed [facility] Meningococcal Polysaccharide (groups A, C, Y and W-135) conjugate vaccine (MCV4P) Unknown Completed [facility] MMR Unknown Completed [facility] MMR Unknown Completed [facility] Polio (IPV/OPV) Unknown Completed [facility] Polio (IPV/OPV) Unknown Completed [facility] Polio (IPV/OPV) Unknown Completed [facility] Polio (IPV/OPV) Unknown Completed [facility] TDAP Unknown Completed [facility] TDAP Unknown Completed [facility] TDAP Unknown Completed [facility] Varicella (varivax)(chicken pox) Unknown Completed [facility] Varicella (varivax)(chicken pox) Unknown Completed [facility] HPV9 Unknown Completed [facility] HIB PRP-D,booster Unknown [facility] [place] [facility]P-D,booster Unknown [facility] [place] [facility]D,booster [facility] He[facility] Influenza B Unknown Completed [facility] Heamophilus Influenza B Unknown Completed [facility] Heamophilus Influenza B Unknown Completed [facility] Heamophilus Influenza B Unknown Completed [facility] HPV9 Unknown Completed [facility] HPV9 Unknown Completed [facility] HPV9 Unknown Completed [facility] TDAP Unknown Completed [facility] DTAP Unknown Completed [facility] DTAP Unknown Completed [facility] DTAP Unknown Completed [facility] DTAP Unknown [facility]pleted [facility] DTAP Unknown Completed [facility] DTAP Unknown Completed [facility] HEPA,NOS Unknown Completed [facility] HEPA,NOS Unknown Completed [facility] Hep B, Adol or Pedi Dosage Unknown Completed [facility] Hep B, Adol or Pedi Dosage Unknown Completed [facility] Hep B, Adol or Pedi Dosage Unknown Completed [facility] Meningococcal Polysaccharide (groups A, C, Y and W-135) conjugate vaccine (MCV4P) Unknown Completed [facility] Meningococcal Polysaccharide (groups A, C, Y and W-135) conjugate vaccine (MCV4P) Unknown Completed [facility] Meningococcal Polysaccharide (groups A, C, Y and W-135) conjugate vaccine (MCV4P) Unknown Completed [facility] MMR Unknown Completed [facility] MMR Unknown Completed [facility] Polio (IPV/OPV) Unknown Completed [facility] Polio (IPV/OPV) Unknown Completed [facility] Polio (IPV/OPV) Unknown Completed [facility] Polio (IPV/OPV) Unknown Completed [facility] TDAP Unknown Completed [facility] TDAP Unknown Completed [facility] TDAP Unknown Completed [facility] Varicella (varivax)(chicken pox) Unknown Completed [facility] Varicella (varivax)(chicken pox) Unknown Completed [facility] HPV9 Unknown Completed [facility] HIB PRP-D,booster Unknown [facility]oster Unknown [facility] [place] [facility] PRP-D,booster Unknown [facility]D,booster [facility] Influenza B Unknown Completed [facility] Heamophilus Influenza B Unknown Completed [facility] Heamophilus Influenza B Unknown [facility]pleted [facility] Heamophilus Influenza B Unknown Completed [facility] HPV9 Unknown Completed [facility] HPV9 Unknown Completed [facility] HPV9 Unknown Completed [facility] TDAP Unknown Completed [facility] DTAP Unknown Completed [facility] DTAP Unknown Completed [facility] DTAP Unknown Completed [facility] DTAP Unknown [facility]pleted [facility] DTAP Unknown [facility]pleted [facility] DTAP Unknown Completed [facility] [facility] HEPA,NOS Unknown Completed [facility] HEPA,NOS Unknown Completed [facility] Hep B, Adol or Pedi Dosage Unknown Completed [facility] Hep B, Adol or Pedi Dosage Unknown Completed [facility] Hep B, Adol or Pedi Dosage Unknown Completed [facility] Meningococcal Polysaccharide (groups A, C, Y and W-135) conjugate vaccine (MCV4P) Unknown Completed [facility] Meningococcal Polysaccharide (groups A, C, Y and W-135) conjugate vaccine (MCV4P) Unknown Completed [facility] Meningococcal Polysaccharide (groups A, C, Y and W-135) conjugate vaccine (MCV4P) Unknown Completed [facility] MMR Unknown Completed [facility] MMR Unknown Completed [facility] Polio (IPV/OPV) Unknown Completed [facility] Polio (IPV/OPV) Unknown Completed [facility] Polio (IPV/OPV) Unknown Completed [facility] Polio (IPV/OPV) Unknown Completed [facility] TDAP Unknown Completed [facility] TDAP Unknown Completed [facility] TDAP Unknown Completed [facility] Varicella (varivax)(chicken pox) Unknown Completed [facility] Varicella (varivax)(chicken pox) Unknown Completed [facility] HPV9 Unknown Completed [facility] HIB PRP-D,booster Unknown [facility]-D,booster Unknown [facility]oster [facility] Heamophilus Influenza B Unknown Completed [facility] Heamophilus Influenza B Unknown Completed [facility] Heamophilus Influenza B Unknown Completed [facility] HPV9 Unknown Completed [facility] HPV9 Unknown Completed [facility] HPV9 Unknown Completed [facility] TDAP Unknown Completed [facility] DTAP Unknown [facility]pleted [facility] DTAP Unknown Completed [facility] DTAP Unknown Completed [facility] DTAP Unknown Completed [facility] DTAP Unknown Completed [facility] DTAP Unknown Completed [facility] HEPA,NOS Unknown Completed [facility] HEPA,NOS Unknown Completed [facility] Hep B, Adol or Pedi Dosage Unknown Completed [facility] Hep B, Adol or Pedi Dosage Unknown Completed [facility] Hep B, Adol or Pedi Dosage Unknown Completed [facility] Meningococcal Polysaccharide (groups A, C, Y and W-135) conjugate vaccine (MCV4P) Unknown Completed [facility] Meningococcal Polysaccharide (groups A, C, Y and W-135) conjugate vaccine (MCV4P) Unknown Completed [facility] Meningococcal Polysaccharide (groups A, C, Y and W-135) conjugate vaccine (MCV4P) Unknown Completed [facility] MMR Unknown Completed [facility] MMR Unknown Completed [facility] Polio (IPV/OPV) Unknown Completed [facility] Polio (IPV/OPV) Unknown Completed [facility] Polio (IPV/OPV) Unknown Completed [facility] Polio (IPV/OPV) Unknown Completed [facility] TDAP Unknown Completed [facility] TDAP Unknown Completed [facility] TDAP Unknown Completed [facility] Varicella (varivax)(chicken pox) Unknown Completed [facility] Varicella (varivax)(chicken pox) Unknown Completed [facility] HPV9 Unknown Completed [facility] HIB PRP-D,booster Unknown [facility]D,booster Unknown [facility] PRP-D[facility]booster Unknown [facility] PRP-D,booster Unknown [facility] [place] [facility] Influenza B Unknown Completed [facility] Heamophilus Influenza B Unknown Completed [facility] Heamophilus Influenza B Unknown Completed [facility] Heamophilus Influenza B Unknown [facility]pleted [facility] HPV9 Unknown Completed [facility] HPV9 Unknown Completed [facility] HPV9 Unknown Completed [facility] TDAP Unknown Completed [facility] DTAP Unknown [facility]pleted [facility] DTAP Unknown Completed [facility] DTAP Unknown Completed [facility] DTAP Unknown Completed [facility] DTAP Unknown Completed [facility] DTAP Unknown Completed [facility] HEPA,NOS Unknown Completed [facility] HEPA,NOS Unknown Completed [facility] Hep B, Adol or Pedi Dosage Unknown Completed [facility] Hep B, Adol or Pedi Dosage Unknown Completed [facility] Hep B, Adol or Pedi Dosage Unknown Completed [facility] Meningococcal Polysaccharide (groups A, C, Y and W-135) conjugate vaccine (MCV4P) Unknown Completed [facility] Meningococcal Polysaccharide (groups A, C, Y and W-135) conjugate vaccine (MCV4P) Unknown Completed [facility] Meningococcal Polysaccharide (groups A, C, Y and W-135) conjugate vaccine (MCV4P) Unknown Completed [facility] MMR Unknown Completed [facility] MMR Unknown Completed [facility] Polio (IPV/OPV) Unknown Completed [facility] Polio (IPV/OPV) Unknown Completed [facility] Polio (IPV/OPV) Unknown Completed [facility] Polio (IPV/OPV) Unknown Completed [facility] TDAP Unknown Completed [facility] TDAP Unknown Completed [facility] TDAP Unknown Completed [facility] Varicella (varivax)(chicken pox) Unknown Completed [facility] Varicella (varivax)(chicken pox) Unknown Completed [facility] HPV9 Unknown Completed [facility] HIB PRP-D,booster Unknown [facility]-D,booster Unknown [facility] [place] [facility] PRP-D[facility]booster Unknown [facility] [place] [facility] PRP-D,booster Unknown [facility] [place] [facility]amophil[facility] Influenza B Unknown Completed [facility] Heamophilus Influenza B Unknown Completed [facility] Heamophilus Influenza B Unknown Completed [facility] Heamophilus Influenza B Unknown Completed [facility] HPV9 Unknown Completed [facility] HPV9 Unknown Completed [facility] HPV9 Unknown Completed [facility] TDAP Unknown Completed [facility] DTAP Unknown Completed [facility] DTAP Unknown Completed [facility] DTAP Unknown Completed [facility] DTAP Unknown Completed [facility] DTAP Unknown Completed [facility] DTAP Unknown Completed [facility] HEPA,NOS Unknown Completed [facility] HEPA,NOS Unknown Completed [facility] Hep B, Adol or Pedi Dosage Unknown Completed [facility] Hep B, Adol or Pedi Dosage Unknown Completed [facility] Hep B, Adol or Pedi Dosage Unknown Completed [facility] Meningococcal Polysaccharide (groups A, C, Y and W-135) conjugate vaccine (MCV4P) Unknown Completed [facility] Meningococcal Polysaccharide (groups A, C, Y and W-135) conjugate vaccine (MCV4P) Unknown Completed [facility] Meningococcal Polysaccharide (groups A, C, Y and W-135) conjugate vaccine (MCV4P) Unknown Completed [facility] MMR Unknown Completed [facility] MMR Unknown Completed [facility] Polio (IPV/OPV) Unknown Completed [facility] Polio (IPV/OPV) Unknown Completed [facility] Polio (IPV/OPV) Unknown Completed [facility] Polio (IPV/OPV) Unknown Completed [facility] TDAP Unknown Completed [facility] TDAP Unknown Completed [facility] TDAP Unknown Completed [facility] Varicella (varivax)(chicken pox) Unknown Completed [facility] Varicella (varivax)(chicken pox) Unknown Completed [facility] HPV9 Unknown Completed [facility] HIB PRP-D,booster Unknown [facility] PRP-D,booster Unknown [facility] [place] HIB PRP-D,booster Unknown [facility] PRP-D,booster Unknown [facility] [place] Heamophil[facility] Influenza B Unknown Completed [facility] Heamophilus Influenza B Unknown Completed [facility] Heamophilus Influenza B Unknown Completed [facility] Heamophilus Influenza B Unknown Completed [facility] HPV9 Unknown Completed [facility] HPV9 Unknown Completed [facility] HPV9 Unknown Completed [facility] Vital Signs Vital Name Observation Time Observation Value Comments S silvia Systolic blood pressure 2023-12-22 05:20:00 116 mm[Hg] [facility] Diastolic blood pressure 2023-12-22 05:20:00 75 mm[Hg] [facility] Heart rate 2023-12-22 05:20:00 104 /min [facility] Body temperature 2023-12-22 05:20:00 38 [facility] Respiratory rate 2023-12-22 05:20:00 20 /min [facility] Oxygen saturation in Arterial blood by Pulse oximetry 2023-12-22 05:20:00 100 /min [facility] Body height 2023-12-22 02:56:00 154.9 cm [facility] Body weight 2023-12-22 02:56:00 79.379 kg [facility] BMI 2023-12-22 02:56:00 33.07 kg/m2 [facility] Systolic blood pressure 2023-08-26 18:20:00 124 mm[Hg] [facility] Diastolic blood pressure 2023-08-26 18:20:00 72 mm[Hg] [facility] Heart rate 2023-08-26 18:20:00 107 /min Un[facility] Body temperature 2023-08-26 18:20:00 36.78 [facility] Respiratory rate 2023-08-26 18:20:00 18 /min [facility] Body weight 2023-08-26 18:20:00 79.062 kg [facility] BMI 2023-08-26 18:20:00 32.93 kg/m2 [facility] Oxygen saturation in Arterial blood by Pulse oximetry 2023-08-26 18:20:00 98 /min [facility] Systolic blood pressure 2023-08-03 15:00:00 117 mm[Hg] [facility] Diastolic blood pressure 2023-08-03 15:00:00 81 mm[Hg] [facility] Heart rate 2023-08-03 15:00:00 85 /min Un[facility] Body height 2023-08-03 15:00:00 154.9 cm [facility] 2023-08-03 15:00:00 80.74 kg [facility] BMI 2023-08-03 15:00:00 33.63 kg/m2 [facility] Oxygen saturation in Arterial blood by Pulse oximetry 2023-08-03 15:00:00 99 /min [facility] Systolic blood pressure 2023-07-19 18:06:00 125 mm[Hg] [facility] Diastolic blood pressure 2023-07-19 18:06:00 75 mm[Hg] [facility] Heart rate 2023-07-19 18:06:00 87 /min [facility] Body temperature 2023-07-19 18:06:00 35.94 [facility] Respiratory rate 2023-07-19 18:06:00 17 /min [facility] Body height 2023-07-19 18:06:00 154.9 cm [facility] Body weight 2023-07-19 18:06:00 83.326 kg [facility] BMI 2023-07-19 18:06:00 34.71 kg/m2 [facility] Systolic blood pressure 2023-05-15 18:00:00 111 mm[Hg] [facility] Diastolic blood pressure 2023-05-15 18:00:00 75 mm[Hg] [facility] Heart rate 2023-05-15 18:00:00 100 /min [facility] Body temperature 2023-05-15 18:00:00 36.83 [facility] Respiratory rate 2023-05-15 18:00:00 16 /min [facility] Body height 2023-05-15 18:00:00 154.9 cm [facility] Body weight 2023-05-15 18:00:00 86.818 kg [facility] BMI 2023-05-15 18:00:00 36.16 kg/m2 [facility] Oxygen saturation in Arterial blood by Pulse oximetry 2023-05-15 18:00:00 98 /min [facility] Systolic blood pressure 2023-04-22 20:08:00 119 mm[Hg] [facility] Diastolic blood pressure 2023-04-22 20:08:00 73 mm[Hg] [facility] Heart rate 2023-04-22 20:08:00 79 /min [facility] Body temperature 2023-04-22 20:08:00 36.11 [facility] Respiratory rate 2023-04-22 20:08:00 20 /min [facility] Body height 2023-04-22 20:08:00 152.4 cm [facility] Body weight 2023-04-22 20:08:00 88.451 kg [facility] BMI 2023-04-22 20:08:00 38.08 kg/m2 [facility] Systolic blood pressure 2023-01-19 14:50:00 135 mm[Hg] [facility] Diastolic blood pressure 2023-01-19 14:50:00 84 mm[Hg] [facility] Heart rate 2023-01-19 14:50:00 97 /min [facility] Body temperature 2023-01-19 14:50:00 36.39 [facility] Respiratory rate 2023-01-19 14:50:00 18 /min [facility] Body height 2023-01-19 14:50:00 152.4 cm [facility] Body weight 2023-01-19 14:50:00 96.888 kg [facility] BMI 2023-01-19 14:50:00 41.72 kg/m2 [facility] Systolic blood pressure 2023-01-14 13:45:00 135 mm[Hg] [facility] Diastolic blood pressure 2023-01-14 13:45:00 82 mm[Hg] [facility] Heart rate 2023-01-14 13:45:00 96 /min [facility] Body temperature 2023-01-14 13:45:00 36.72 [facility] Respiratory rate 2023-01-14 13:45:00 17 /min [facility] Oxygen saturation in Arterial blood by Pulse oximetry 2023-01-14 13:45:00 98 /min [facility] Body height 2023-01-11 03:30:00 154.9 cm [facility] Body weight 2023-01-11 03:30:00 101.606 kg [facility] BMI 2023-01-11 03:30:00 42.35 kg/m2 [facility] Systolic blood pressure 2023-01-12 19:15:00 115 mm[Hg] [facility] Diastolic blood pressure 2023-01-12 19:15:00 80 mm[Hg] [facility] Heart rate 2023-01-12 19:15:00 119 /min [facility] Respiratory rate 2023-01-12 19:15:00 27 /min [facility] Oxygen saturation in Arterial blood by Pulse oximetry 2023-01-12 19:15:00 100 /min [facility] Body temperature 2023-01-12 19:00:00 36.44 [facility] Body height 2023-01-11 03:30:00 154.9 cm [facility] Body weight 2023-01-11 03:30:00 101.606 kg [facility] BMI 2023-01-11 03:30:00 42.35 kg/m2 [facility] Systolic blood pressure 2023-01-07 19:06:00 133 mm[Hg] [facility] Diastolic blood pressure 2023-01-07 19:06:00 83 mm[Hg] [facility] Heart rate 2023-01-07 19:06:00 96 /min [facility] Body temperature 2023-01-07 19:06:00 35.61 [facility] Respiratory rate 2023-01-07 19:06:00 18 /min [facility] Body height 2023-01-07 19:06:00 154.9 cm [facility] Body weight 2023-01-07 19:06:00 101.787 kg [facility] BMI 2023-01-07 19:06:00 42.40 kg/m2 [facility] Systolic blood pressure 2023-01-05 17:43:00 126 mm[Hg] [facility] Diastolic blood pressure 2023-01-05 17:43:00 77 mm[Hg] [facility] Heart rate 2023-01-05 17:43:00 97 /min [facility] Body temperature 2023-01-05 17:43:00 36.72 [facility] Respiratory rate 2023-01-05 17:43:00 18 /min [facility] Body height 2023-01-05 17:43:00 154.9 cm [facility] Body weight 2023-01-05 17:43:00 101.379 kg [facility] BMI 2023-01-05 17:43:00 42.23 kg/m2 [facility] Systolic blood pressure 2022-12-29 14:49:00 121 mm[Hg] [facility] Diastolic blood pressure 2022-12-29 14:49:00 66 mm[Hg] [facility] Heart rate 2022-12-29 14:49:00 94 /min [facility] Body temperature 2022-12-29 14:49:00 36.5 [facility] Respiratory rate 2022-12-29 14:49:00 18 /min [facility] Body height 2022-12-29 14:49:00 154.9 cm [facility] Body weight 2022-12-29 14:49:00 99.565 kg [facility] BMI 2022-12-29 14:49:00 41.47 kg/m2 [facility] Systolic blood pressure 2022-12-25 16:31:00 132 mm[Hg] [facility] Diastolic blood pressure 2022-12-25 16:31:00 79 mm[Hg] [facility] Heart rate 2022-12-25 16:31:00 100 /min [facility] Body temperature 2022-12-25 16:31:00 36.5 [facility] Respiratory rate 2022-12-25 16:31:00 18 /min [facility] Body height 2022-12-25 16:31:00 154.9 cm [facility] Body weight 2022-12-25 16:31:00 98.793 kg [facility] BMI 2022-12-25 16:31:00 41.15 kg/m2 [facility] Systolic blood pressure 2022-12-22 14:45:00 123 mm[Hg] [facility] Diastolic blood pressure 2022-12-22 14:45:00 74 mm[Hg] [facility] Heart rate 2022-12-22 14:45:00 107 /min [facility] Body temperature 2022-12-22 14:45:00 36.44 [facility] Respiratory rate 2022-12-22 14:45:00 18 /min [facility] Body height 2022-12-22 14:45:00 154.9 cm [facility] Body weight 2022-12-22 14:45:00 95.89 kg [facility] BMI 2022-12-22 14:45:00 39.94 kg/m2 [facility] Systolic blood pressure 2022-12-10 18:51:00 123 mm[Hg] [facility] Diastolic blood pressure 2022-12-10 18:51:00 74 mm[Hg] [facility] Heart rate 2022-12-10 18:51:00 102 /min [facility] Body temperature 2022-12-10 18:51:00 36.22 [facility] Body height 2022-12-10 18:51:00 154.9 cm [facility] Body weight 2022-12-10 18:51:00 96.344 kg [facility] BMI 2022-12-10 18:51:00 40.13 kg/m2 [facility] Systolic blood pressure 2022-12-07 21:09:00 126 mm[Hg] [facility] Diastolic blood pressure 2022-12-07 21:09:00 86 mm[Hg] [facility] Heart rate 2022-12-07 21:09:00 116 /min [facility] Body temperature 2022-12-07 21:09:00 35.78 [facility] Respiratory rate 2022-12-07 21:09:00 18 /min [facility] Body height 2022-12-07 21:09:00 154.9 cm [facility] Body weight 2022-12-07 21:09:00 95.981 kg [facility] BMI 2022-12-07 21:09:00 39.98 kg/m2 [facility] Systolic blood pressure 2022-11-11 14:26:00 112 mm[Hg] [facility] Diastolic blood pressure 2022-11-11 14:26:00 64 mm[Hg] [facility] Heart rate 2022-11-11 14:26:00 112 /min [facility] Body temperature 2022-11-11 14:26:00 36.5 [facility] Respiratory rate 2022-11-11 14:26:00 18 /min [facility] Body height 2022-11-11 14:26:00 154.9 cm [facility] Body weight 2022-11-11 14:26:00 94.348 kg [facility] BMI 2022-11-11 14:26:00 39.30 kg/m2 [facility] Systolic blood pressure 2022-10-29 14:56:00 97 mm[Hg] [facility] Diastolic blood pressure 2022-10-29 14:56:00 65 mm[Hg] [facility] Heart rate 2022-10-29 14:56:00 96 /min [facility] Body temperature 2022-10-29 14:56:00 36.22 [facility] Respiratory rate 2022-10-29 14:56:00 16 /min [facility] Body height 2022-10-29 14:56:00 154.9 cm [facility] Body weight 2022-10-29 14:56:00 92.704 kg [facility] BMI 2022-10-29 14:56:00 38.62 kg/m2 [facility] Systolic blood pressure 2022-10-14 17:05:00 117 mm[Hg] [facility] Diastolic blood pressure 2022-10-14 17:05:00 69 mm[Hg] [facility] Heart rate 2022-10-14 17:05:00 111 /min [facility] Body temperature 2022-10-14 17:05:00 36.56 [facility] Respiratory rate 2022-10-14 17:05:00 17 /min [facility] Body height 2022-10-14 17:05:00 154.9 cm [facility] Body weight 2022-10-14 17:05:00 90.402 kg [facility] BMI 2022-10-14 17:05:00 37.66 kg/m2 [facility] Systolic blood pressure 2022-09-21 17:13:00 111 mm[Hg] [facility] Diastolic blood pressure 2022-09-21 17:13:00 65 mm[Hg] [facility] Heart rate 2022-09-21 17:13:00 102 /min [facility] Body temperature 2022-09-21 17:13:00 36.22 [facility] Respiratory rate 2022-09-21 17:13:00 18 /min [facility] Body height 2022-09-21 17:13:00 154.9 cm [facility] Body weight 2022-09-21 17:13:00 86.665 kg [facility] [facility] 2022-09-21 17:13:00 36.10 kg/m2 [facility] Systolic blood pressure 2022-08-21 16:18:00 121 mm[Hg] [facility] Diastolic blood pressure 2022-08-21 16:18:00 73 mm[Hg] [facility] Heart rate 2022-08-21 16:18:00 109 /min Unive [facility] Body temperature 2022-08-21 16:18:00 36.44 [facility] Respiratory rate 2022-08-21 16:18:00 18 /min [facility] Body height 2022-08-21 16:18:00 154.9 cm [facility] Body weight 2022-08-21 16:18:00 81.251 kg [facility] BMI 2022-08-21 16:18:00 33.85 kg/m2 [facility] Systolic blood pressure 2022-08-07 19:40:00 114 mm[Hg] [facility] Diastolic blood pressure 2022-08-07 19:40:00 70 mm[Hg] [facility] Heart rate 2022-08-07 19:40:00 93 /min Unive [facility] Body temperature 2022-08-07 19:40:00 36.44 [facility] Respiratory rate 2022-08-07 19:40:00 17 /min [facility] Body height 2022-08-07 19:40:00 154.9 cm [facility] Body weight 2022-08-07 19:40:00 79.47 kg [facility] BMI 2022-08-07 19:40:00 33.10 kg/m2 [facility] Systolic blood pressure 2022-07-06 16:45:00 103 mm[Hg] [facility] Diastolic blood pressure 2022-07-06 16:45:00 71 mm[Hg] [facility] Heart rate 2022-07-06 16:45:00 101 /min Unive [facility] Body temperature 2022-07-06 16:45:00 36.56 [facility] Body weight 2022-07-06 16:45:00 75.841 kg [facility] BMI 2022-07-06 16:45:00 31.59 kg/m2 [facility] Procedures Procedure Date / Time Performed Performing Clinician Source RAPID INFLUENZA A/B 2023-12-22 05:01:00 Con Rios [facility] ASSIGNMENT OF BENEFITS 2023-12-22 03:17:35 Docto r Unassigned, [place] [facility] RAPID STREP SCREEN FOR GROUP A 2023-12-22 03:13:00 Con Rios [facility] COVID-19 (ID NOW RAPID TESTING) 2023-12-22 03:13:00 Con Rios [facility] NOTICE OF PRIVACY PRACTICES 2023-12-22 02:50:28 Doctor Unassigned, [place] [facility] CONSENT/REFUSAL FOR DIAGNOSIS AND TREATMENT 2023-12-22 02:49:46 Doctor Unassigned, [place] [facility] POCT SARS-COV-2 ANTIGEN (BINAX NOW) 2023-08-26 18:42:00 Trina Valentine [facility] POCT MOLECULAR FLU 2023-08-26 18:32:00 Unknown, Attend ing [facility] GARDASIL 9 (HPV 9V) VACCINE 2023-07-20 18:47:47 Doctor Unassigned, [place] [facility] GARDASIL 9 (HPV 9V) VACCINE 2023-07-19 18:26:23 Doctor Unassigned, [place] [facility] PATIENT FINANCIAL POLICY 2023-07-19 17:54:59 Doctor Unassigned, [place] [facility] POCT SARS-COV-2 ANTIGEN (BINAX NOW) 2023-05-15 18:13:00 Promise Carlos [facility] POCT MOLECULAR STREP 2023-05-15 17:58:00 Unknown, Atte jean claude [facility] GARDASIL 9 (HPV 9V) VACCINE 2023-04-22 21:03:29 Nolvia Jacobs [facility] POCT TEST 2023-04-22 20:55:00 Cortney Jacobs [facility] CBC WITH DIFF 2023-01-13 10:05:00 Alka Beckford Mai [facility] CBC WITH DIFF 2023-01-13 10:05:00 Alka Beckford Mai [facility] VENOUS CORD GAS 2023-01-12 18:14:00 Lauren Uriarte [facility] VENOUS CORD GAS 2023-01-12 18:14:00 Lauren Uriarte [facility] OR FOR DOUBLE SET UP DELIVERY 2023-01-12 17:37:00 Blake Casey [facility] SECTION 2023-01-12 17:37:00 Lauren Caseyedmar Kenny isa [facility] OR FOR DOUBLE SET UP DELIVERY 2023-01-12 17:37:00 CaseyBlake boswell [facility] SECTION 2023-01-12 17:37:00 Lauren Caseyis Zoya moss [facility] CENTRAL NEURAXIAL BLOCK 2023-01-11 19:20:00 Rani Zurita [facility] KEPPRA (LEVETIRACETAM) 2023-01-11 05:52:00 Umesh Orozco [facility] TESSYPPRA (LEVETIRACETAM) 2023-01-11 05:52:00 Umesh Orozco [facility] HEPATITIS B SURFACE ANTIGEN 2023-01-11 05:40:00 Sorin Uriarte [facility] HB ABO GROUPING 2023-01-11 05:40:00 Lauren Uriarte [facility] RHO (D) IMMUNE GLOBULIN 2023-01-11 05:40:00 Birdie Suarez Mai [facility] SYPHILIS IGG/IGM 2023-01-11 05:40:00 Betsy Uriarte [facility] HEPATITIS B SURFACE ANTIGEN 2023-01-11 05:40:00 Sorin Uriarte [facility] HB ABO GROUPING 2023-01-11 05:40:00 Lauren Uriarte [facility] RHO (D) IMMUNE GLOBULIN 2023-01-11 05:40:00 Birdie Suarez Mai [facility] SYPHILIS IGG/IGM 2023-01-11 05:40:00 Betsy Uriarte [facility] SGOT (ASPARTATE AMINO TRANSFER) 2023-01-10 23:44:00 [place] CREATININE 2023-01-10 23:44:00 [facility], [facility] ALANINE AMINO TRANSFERASE(SGPT 2023-01-10 23:44:00 [place] LACTATE DEHYDROGENASE 2023-01-10 23:44:00 [place] [facility] URIC ACID 2023-01-10 23:44:00 [facility], [facility] COMP. METABOLIC PANEL (25180) 2023-01-10 23:44:00 [facility] CBC WITH DIFF 2023-01-10 23:44:00 [facility], [facility] URINALYSIS 2023-01-10 23:44:00 [facility] SGOT (ASPARTATE AMINO TRANSFER) 2023-01-10 23:44:00 [facility], [facility] CREATININE 2023-01-10 23:44:00 [facility], [facility] ALANINE AMINO TRANSFERASE(SGPT 2023-01-10 23:44:00 [facility] LACTATE DEHYDROGENASE 2023-01-10 23:44:00 [facility] , [facility] URIC ACID 2023-01-10 23:44:00 [facility], [facility] COMP. METABOLIC PANEL ([id number]) 2023-01-10 23:44:00 [facility] CBC WITH DIFF 2023-01-10 23:44:00 [facility], [facility] URINALYSIS 2023-01-10 23:44:00 [facility] PROTEIN CREAT RATIO URINE RANDOM 2023-01-10 22:50:00 [place], [facility] PROTEIN CREAT RATIO URINE RANDOM 2023-01-10 22:50:00 Maria Guadalupe G[facility] ASSIGNMENT OF BENEFITS 2023-01-10 21:40:53 Docto r Unassigned, [place] [facility] ASSIGNMENT OF BENEFITS 2023-01-10 21:40:53 Docto r Unassigned, [place] [facility] CONSENT/REFUSAL FOR DIAGNOSIS AND TREATMENT 2023-01-10 21:38:09 Doctor Unassigned, [place] [facility] CONSENT/REFUSAL FOR DIAGNOSIS AND TREATMENT 2023-01-10 21:38:09 Doctor Unassigned, [place] [facility] NON-STRESS TEST 2023-01-07 21:16:56 Ricardo Mcginnis [facility] POCT URINALYSIS 2023-01-07 19:33:00 Kamilah Mcginnis [facility] NON-STRESS TEST 2023-01-06 21:38:57 Ricardo Mcginnis [facility] POCT URINALYSIS 2023-01-05 00:00:00 Kamilah Mcginnis [facility] POCT URINALYSIS 2022-12-29 14:51:00 Kamilah Mcginnis [facility] NON-STRESS TEST 2022-12-25 18:27:50 Hussein Lundy [facility] POCT URINALYSIS 2022-12-25 16:32:00 Kamilah Mcginnis [facility] NON-STRESS TEST 2022-12-22 16:08:21 Hussein Lundy [facility] POCT URINALYSIS 2022-12-22 14:45:00 Kamilah Mcginnis [facility] NON-STRESS TEST 2022-12-10 19:52:27 Hussein Lundy [facility] POCT URINALYSIS W/O SPECIFIC GRAVITY 2022-12-10 19:28:00 Naila Lundy [facility] NON-STRESS TEST 2022-12-07 21:46:26 Ricardo Mcginnis [facility] POCT URINALYSIS 2022-12-07 21:11:00 Kamilah Mcginnis [facility] HIV 1/2 AG-AB WITH REFLEX 2022-11-11 15:24:00 Kamilah Mcgninis [facility] SYPHILIS IGG/IGM 2022-11-11 15:24:00 Thang Mcginnis [facility] TDAP VACCINE, >11 YRS, IM 2022-11-11 14:51:08 Kamilah Mcginnis [facility] POCT URINALYSIS 2022-11-11 14:27:00 Kamilah Mcginnis [facility] POCT URINALYSIS 2022-10-29 15:03:00 Kamilah Mcginnis [facility] POCT URINALYSIS 2022-10-14 00:00:00 Kamilah Mcginnis [facility] POCT URINALYSIS 2022-09-21 17:17:00 Kamilah Mcginnis [facility] ALPHA FETOPROTEIN-MATERNAL SER 2022-08-21 16:50:00 Kamilah Mcginnis [facility] PAP SMEAR-LIQUID BASED-CP 2022-08-21 16:50:00 Kamilah Mcginnis [facility] POCT URINALYSIS 2022-08-07 00:00:00 Kamilah Mcginnis [facility] Encounters Start Date/Time End Date/Time Encounter Type Admission Type Attending Clinicians Care Facility Care Department Encounter ID Source 2023-01-10 19:34:33 Outpatient NISHA VELEZ SANGEETA [facility] [id number] [facility] 2023-12-21 20:58:00 2023-12-21 23:34:00 Emergency X CON RIOS [facility] ERT [id number] [facility] 2023-12-21 20:58:00 2023-12-21 23:34:00 Emergency Con Rios [facility] 1.2.840.114 350.1.13.10 4.2.7.2.686 [id number] [facility] 2023-12-18 00:00:00 2023-12-18 00:00:00 Telephone Felecia Melendez [facility] 1..840.114 350.1.13.10 4.2.7.2.686 [id number] [facility] 2023-10-04 16:30:00 2023-10-04 16:30:00 Outpatient CHERYL DYSON [facility] [id number] [facility] 2023-09-28 00:00:00 2023-09-28 00:00:00 Pre Visit Outreach XeniaKaren Betsy [facility] 1..840.114 350.1.13.10 4.2.7.2.686 [id number] [facility] 2023-08-26 13:00:00 2023-08-26 13:52:45 Outpatient R TRINA VALENTINE [facility] [id number] [facility] 2023-08-26 13:00:00 2023-08-26 13:52:45 Urgent Care Trina Valentine Unknown, Attending [facility] 1..840.114 350.1.13.10 4.2.7.2.686 [id number] [facility] 2023-08-25 00:00:00 2023-08-25 00:00:00 Outpatient GC_GCBZW_Ka diyala_S PRIV PRIV [id number] [facility] 2023-08-03 10:00:00 2023-08-03 10:17:34 Outpatient CHERYL DYSON [facility] [id number] [facility] 2023-08-03 10:00:00 2023-08-03 10:17:34 Office Visit Cheryl Davison [facility] 1.840.114 350.1.13.10 4.2.7.2.686 [id number] [facility] 2023-07-19 14:30:00 2023-07-19 14:30:00 Nurse Visit Visit, [facility]Rm[facility] Nurse Nolvia Jacobs [facility] MATERNAL & CHILD [facility] 1.0.114 350.1.13.10 4.2.7.2.686 [id number] [facility] 2023-07-19 14:30:00 2023-07-19 13:55:20 Outpatient NOLVIA KLINE [facility] [id number] [facility] 2023-07-19 00:00:00 2023-07-19 00:00:00 Orders Only Doctor Unassigned, [place] [facility] 1.114 350.1.13.10 4.2.7.2.686 [id number] [facility] 2023-07-19 00:00:00 2023-07-19 00:00:00 Letter (Out) Rashid Montes [facility]NAL & CHILD [facility] 1..114 350.1.13.10 4.2.7.2.686 [id number] [facility] 2023-05-15 12:40:00 2023-05-15 13:43:53 Outpatient FELECIA BOYD [facility] [id number] [facility] 2023-05-15 12:40:00 2023-05-15 13:00:00 Urgent Care Felecia Melendez Unknown, Attending [facility] 1.114 350.1.13.10 4.2.7.2.686 [id number] [facility] 2023-05-15 00:00:00 2023-05-15 00:00:00 Felecia Echeverria [facility] 1.2.840.114 350.1.13.10 4.2.7.2.686 [id number] [facility] 2023-04-22 15:00:00 2023-04-22 15:57:27 Outpatient R NOLVIA JACOBS [facility] [id number] [facility] 2023-04-22 15:00:00 2023-04-22 15:57:27 Office Visit Nolvia Jacobs [facility] MAT[facility]NAL & CHILD [facility] 1.2.840.114 350.1.13.10 4.2.7.2.686 [id number] [facility] 2023-04-20 00:00:00 2023-04-20 00:00:00 Telephone Kamilah Mcginnis [facility] & [facility] 1.2.840.114 350.1.13.10 4.2.7.2.686 [id number] [facility] 2023-04-05 00:00:00 2023-04-05 00:00:00 Telephone Kamilah Mcginnis [facility]NAL & CHILD [facility] 1.2.840.114 350.1.13.10 4.2.7.2.686 [id number] [facility] 2023-03-23 13:15:00 2023-03-23 13:15:00 Outpatient R KAMILAH MCGINNIS [facility] [id number] [facility] 2023-01-19 10:00:00 2023-01-19 10:06:02 Outpatient NAILA WITT [facility] [id number] [facility] 2023-01-19 10:00:00 2023-01-19 10:06:02 [facility] 1.2.840.114 350.1.13.10 4.2.7.2.686 [id number] [facility] 2023-01-10 16:46:00 2023-01-14 14:48:00 Inpatient NISHA DORAN CADET, NISHA [facility] [id number] [facility] 2023-01-10 16:46:00 2023-01-14 14:48:00 Hospital Encounter RuelasColin kimberly Maria Guadalupe Cadet, [facility] 1.2840.114 350.1.13.10 4.2.7.2.686 [id number] [facility] 2023-01-14 14:30:00 2023-01-14 14:30:00 Outpatient R [facility] [id number] [facility] 2023-01-12 15:30:00 2023-01-12 15:30:00 Outpatient R AKINKAMILAH SMITH [facility] [id number] [facility] 2023-01-12 13:05:00 2023-01-12 14:23:00 Surgery Blake Casey [facility] 1.2.840.114 350.1.13.10 4.2.7.2.686 [id number] [facility] 2023-01-11 14:22:00 2023-01-11 14:22:00 Anesthesia Event [facility]ly [facility] 1.2840.114 350.1.13.10 4.2.7.2.686 [id number] [facility] 2023-01-08 14:30:00 2023-01-08 14:30:00 Outpatient R [facility] [id number] [facility] 2023-01-07 14:45:00 2023-01-07 15:05:11 Outpatient R AKINSIDESTINI, KAMILAH [facility] [id number] [facility] 2023-01-07 14:45:00 2023-01-07 15:05:11 Routine Visit Kamilah Mcginnis [facility] & CHILD [facility] 1.840.114 350.1.13.10 4.2.7.2.686 [id number] [facility] 2023-01-05 13:00:00 2023-01-05 13:35:29 Outpatient R KAMILAH MCGINNIS [facility] [id number] [facility] 2023-01-05 13:00:00 2023-01-05 13:35:29 Routine Visit Kamilah Mcignnis [facility] & CHILD [facility] 1.840.114 350.1.13.10 4.2.7.2.686 [id number] [facility] 2023-01-02 00:00:00 2023-01-02 00:00:00 Telephone Kamilah Mcginnis [facility] CHILD [facility] .840.114 350.1.13.10 4.2.7.2.686 [id number] [facility] 2023-01-01 13:00:00 2023-01-01 13:00:00 Outpatient R KAMILAH MCGINNIS [facility] [id number] [facility] 2022-12-29 09:00:00 2022-12-29 09:40:36 Outpatient R NAILA LUNDY [facility] [id number] [facility] 2022-12-29 09:00:00 2022-12-29 09:40:36 Routine Visit Provider, Naila Aparicio [facility] & CHILD [facility] 1.840.114 350.1.13.10 4.2.7.2.686 [id number] [facility] 2022-12-28 10:30:00 2022-12-28 10:30:00 Outpatient P [facility] [id number] [facility] 2022-12-25 10:30:00 2022-12-25 11:20:26 Outpatient R NAILA LUNDY [facility] [id number] [facility] 2022-12-25 10:30:00 2022-12-25 11:20:26 Routine Visit Provider, Naila Aparicio [facility] MATERNAL & CHILD [facility] ..840.114 350.1.13.10 4.2.7.2.686 [id number] [facility] 2022-12-25 09:30:00 2022-12-25 09:30:00 Outpatient R [facility] [id number] [facility] 2022-12-22 08:45:00 2022-12-22 09:31:01 Outpatient R NAILA LUNDY [facility] [id number] [facility] 2022-12-22 08:45:00 2022-12-22 09:31:01 Routine Visit Provider, Naila Aparicio [facility] & CHILD [facility] ..840.114 350.1.13.10 4.2.7.2.686 [id number] [facility] 2022-12-21 13:30:00 2022-12-21 13:30:00 Outpatient R KAMILAH MCGINNIS [facility] [id number] [facility] 2022-12-21 08:30:00 2022-12-21 09:01:47 Outside Food Server Visit Ultrasound, Stevan Novak [facility] MAT[facility]NAL & CHILD [facility] ..840.114 350.1.13.10 4.2.7.2.686 [id number] [facility] 2022-12-14 13:00:00 2022-12-14 13:00:00 Outpatient R NAILA LUNDY [facility] [id number] [facility] 2022-12-10 13:30:00 2022-12-10 13:30:00 Routine Visit Provider, Naila Aparicio [facility]NAL & CHILD [facility] 1..840.114 350.1.13.10 4.2.7.2.686 [id number] [facility] 2022-12-10 13:30:00 2022-12-10 13:28:21 Outpatient R NAILA LUNDY [facility] [id number] [facility] 2022-12-07 15:15:00 2022-12-07 15:41:47 Routine Visit Kamilah Mcginnis [facility] & CHILD [facility] 1..840.114 350.1.13.10 4.2.7.2.686 [id number] [facility] 2022-12-07 14:00:00 2022-12-07 14:00:00 Outpatient R KAMILAH MCGINNIS [facility] [id number] [facility] 2022-11-30 10:30:00 2022-11-30 10:30:00 Outpatient P [facility] [id number] [facility] 2022-11-25 14:00:00 2022-11-25 14:00:00 Outpatient R KAMILAH MCGINNIS [facility] [id number] [facility] 2022-11-12 00:00:00 2022-11-12 00:00:00 Abstract Kamilah Mcginnis [facility] & CHILD [facility] ..840.114 350.1.13.10 4.2.7.2.686 [id number] [facility] 2022-11-11 10:30:00 2022-11-11 11:00:00 Outside Food Server Visit Ultrasound, Anatoliy Fern Bernal Masha [facility] & CHILD [facility] 1..840.114 350.1.13.10 4.2.7.2.686 [id number] [facility] 2022-11-11 10:30:00 2022-11-11 10:30:00 Outpatient P FERN BERNAL [facility] [id number] [facility] 2022-11-11 08:45:00 2022-11-11 09:20:10 Outpatient R KAMILAH MCGINNIS [facility] [id number] [facility] 2022-11-11 08:45:00 2022-11-11 09:20:10 Routine Visit Kamilah Mcginnis [facility] & CHILD [facility] ..840.114 350.1.13.10 4.2.7.2.686 [id number] [facility] 2022-10-29 08:45:00 2022-10-29 09:23:49 Outpatient R KAMILAH MCGINNIS [facility] [id number] [facility] 2022-10-29 08:45:00 2022-10-29 09:23:49 Routine Visit Kamilah Mcginnis [facility] MATERNAL & CHILD [facility] ..840.114 350.1.13.10 4.2.7.2.686 [id number] [facility] 2022-10-14 10:45:00 2022-10-14 11:47:29 Outpatient R KAMILAH MCGINNIS [facility] [id number] [facility] 2022-10-14 10:45:00 2022-10-14 11:47:29 Routine Visit Kamilah Mcginnis [facility] & CHILD [facility] 1.840.114 350.1.13.10 4.2.7.2.686 [id number] [facility] 2022-10-12 10:30:00 2022-10-12 10:30:00 Outpatient P [facility] [id number] [facility] 2022-10-05 15:30:00 2022-10-05 15:30:00 Outpatient R FERN BERNAL [facility] [id number] [facility] 2022-09-28 09:00:00 2022-09-28 09:30:00 Telemedici ne Visit Faculty, [facility] Shayla Iglesias [facility] & CHILD [facility] 1..114 350.1.13.10 4.2.7.2.686 [id number] [facility] 2022-09-28 09:00:00 2022-09-28 09:00:00 Outpatient R SHAYLA IGLESIAS [facility] [id number] [facility] 2022-09-21 11:00:00 2022-09-21 11:33:17 Outpatient R KAMILAH MCGINNIS [facility] [id number] [facility] 2022-09-21 11:00:00 2022-09-21 11:33:17 Routine Visit Kamilah Mcginnis [facility] & CHILD [facility] .0.114 350.1.13.10 4.2.7.2.686 [id number] [facility] 2022-09-16 00:00:00 2022-09-16 00:00:00 Telephone Kamilah Mcginnis [facility] 1.840.114 350.1.13.10 4.2.7.2.686 [id number] [facility] 2022-09-10 10:45:00 2022-09-10 11:50:02 Outside Food Server Visit Ultrasound, [facility] Saran Davis [facility] 1.840.114 350.1.13.10 4.2.7.2.686 [id number] [facility] 2022-09-10 10:45:00 2022-09-10 10:45:00 Outpatient P SARAN DAVIS [facility] [id number] [facility] 2022-09-10 00:00:00 2022-09-10 00:00:00 Abstract Kamilah Mcginnis [facility] 1.840.114 350.1.13.10 4.2.7.2.686 [id number] [facility] 2022-08-21 11:00:00 2022-08-21 11:57:28 Outpatient R KAMILAH MCGINNIS [facility] [id number] [facility] 2022-08-21 11:00:00 2022-08-21 11:57:28 Routine Visit Kamilah Mcginnis [facility] 1.840.114 350.1.13.10 4.2.7.2.686 [id number] [facility] 2022-08-18 16:20:00 2022-08-18 16:20:00 Outpatient R UNKNOWN, ATTENDING [facility] [id number] [facility] 2022-08-17 00:00:00 2022-08-17 00:00:00 Nurse Triage Edith Narvaez [facility] .84.114 350.1.13.10 4.2.7.2.686 [id number] [facility] [facility]-07 14:45:00 2022-08-07 15:12:29 Outpatient R TESFAYE KAMILAH [facility] [id number] [facility] 2022-08-07 14:45:00 2022-08-07 15:12:29 Routine Visit Kamilah Mcginnis [facility] LAB REP [facility]NAL & CHILD [facility] 1..840.114 350.1.13.10 4.2.7.2.686 [id number] 107 [id number] [facility] 2022-08-03 11:30:00 2022-08-03 15:23:05 Outpatient R NORM CAZARES [facility] [id number] [facility] 2022-08-03 11:30:00 2022-08-03 15:23:05 Telemedici ne Visit [facility] Davila [facility] LAB REP [facility] & CHILD [facility] 1..840.114 350.1.13.10 4.2.7.2.686 [id number] [facility] 2022-08-03 11:30:00 2022-08-03 11:30:00 Outpatient R DEBORA NORM [facility] [id number] [facility] 2022-07-21 00:00:00 2022-07-21 00:00:00 Telephone Kamilah Mcginnis [facility] LAB REP [facility] & CHILD [facility] 1..840.114 350.1.13.10 4.2.7.2.686 [id number] 107 [id number] [facility] 2022-07-16 00:00:00 2022-07-16 00:00:00 Abstract Kamilah Mcginnis [facility] LAB REP [facility] CHILD [facility] 1..840.114 350.1.13.10 4.2.7.2.686 [id number] [facility] 2022-07-15 00:00:00 2022-07-15 00:00:00 Abstract Kamilah Mcginnis [facility] LAB REP [facility] & CHILD [facility] 1.84.114 350.1.13.10 4.2.7.2.686 [id number] 107 [id number] [facility] 2022-07-14 09:00:00 2022-07-14 09:28:43 Outside Food Server [facility] Sh[facility]la Iglesias [facility] LAB REP [facility] & CHILD [facility] 1.84.114 350.1.13.10 4.2.7.2.686 [id number] [facility] 2022-07-14 09:00:00 2022-07-14 09:00:00 Outpatient P [facility] [id number] [facility] 2022-07-14 09:00:00 2022-07-14 09:00:00 Outpatient P SHAYLA IGLESIAS [facility] [id number] [facility] 2022-07-14 08:15:00 2022-07-14 09:00:00 Outside Food Server [facility]N [facility] & CHILD [facility] 1.840.114 350.1.13.10 4.2.7.2.686 [id number] [facility] 2022-07-06 11:30:00 2022-07-06 12:12:04 Outpatient R FERN BERNAL [facility] [id number] [facility] 2022-07-06 11:30:00 2022-07-06 12:12:04 Office Visit Faculty, Shekhar Oneill Fern Macdonald [facility] LAB REP [facility] & CHILD [facility] 1.840.114 350.1.13.10 4.2.7.2.686 [id number] [facility] 2022-07-06 11:30:00 2022-07-06 12:12:04 Outpatient R FERN BERNAL [facility] [id number] [facility] 2022-06-23 00:00:00 2022-06-23 00:00:00 Abstract Kamilah Mcginnis Noble [facility] LAB REP [facility] & CHILD [facility] 1..840.114 350.1.13.10 4.2.7.2.686 [id number] [facility] 2022-06-22 14:15:00 2022-06-22 14:32:25 Outside Food Server Visit 1, [facility] Shayla Iglesias [facility] LAB REP [facility] & CHILD [facility] 1..840.114 350.1.13.10 4.2.7.2.686 [id number] [facility] 2022-06-22 14:15:00 2022-06-22 14:32:25 Outpatient P SHAYLA IGLESIAS [facility] [id number] [facility] 2022-06-22 14:15:00 2022-06-22 14:15:00 Outpatient P SHAYLA IGLESIAS [facility] [id number] [facility] 2022-06-16 10:45:00 2022-06-16 11:12:27 Outpatient R ANUPAMA MCGINNISILOLA [facility] [id number] [facility] 2022-06-16 10:45:00 2022-06-16 11:12:27 Routine Visit NuraclemdestiniKamilah Noble [facility] LAB REP [facility] & CHILD [facility] ..840.114 350.1.13.10 4.2.7.2.686 [id number] 107 [id number] [facility] 2022-06-15 11:30:00 2022-06-15 12:00:00 Telemedici ne Visit Faculty, Shekhar One[facility] Fern Bernal [facility] REP [facility] 1.2.840.114 350.1.13.10 4.2.7.2.686 [id number] 107 [id number] [facility] 2022-06-15 11:30:00 2022-06-15 11:30:00 Outpatient R [facility] [id number] [facility] 2022-06-15 11:30:00 2022-06-15 11:30:00 Outpatient R FERN BERNAL [facility] [id number] [facility] 2022-05-28 08:30:00 2022-05-28 08:30:00 Outside Food Server Visit Lab, [facility] Kamilah Mcginnis [facility] LAB REP [facility] & CHILD [facility] ..840.114 350.1.13.10 4.2.7.2.686 [id number] [facility] 2022-05-28 08:30:00 2022-05-28 08:15:52 Outpatient R KAMILAH MCGINNIS [facility] [id number] [facility] 2022-05-28 08:30:00 2022-05-28 08:15:52 Outpatient R KAMILAH MCGINNIS [facility] [id number] [facility] 2022-05-28 08:30:00 2022-05-28 08:15:52 Outpatient R KAMILAH MCGINNIS [facility] [id number] [facility] 2022-05-27 00:00:00 2022-05-27 00:00:00 Telephone Kamilah Mcginnis [facility] LAB REP [facility] CHILD [facility] ..840.114 350.1.13.10 4.2.7.2.686 [id number] 107 [id number] [facility] 2022-05-26 15:00:00 2022-05-26 15:00:00 Outpatient R TERA NORIEGA [facility] [id number] [facility] 2022-05-26 00:00:00 2022-05-26 00:00:00 Letter (Out) Kamilah Mcginnis Noble [facility] LAB REP [facility] & CHILD [facility] 1.2.840.114 350.1.13.10 4.2.7.2.686 [id number] [facility] 2022-05-26 00:00:00 2022-05-26 00:00:00 Letter (Out) Kamilah Mcginnis Noble [facility] LAB REP [facility] & CHILD [facility] 1.2.840.114 350.1.13.10 4.2.7.2.686 [id number] [facility] 2022-05-22 14:15:00 2022-05-22 16:30:24 Outpatient R KAMILAH MCGINNIS [facility] [id number] [facility] 2022-05-22 14:15:00 2022-05-22 16:30:24 Outpatient R KAMILAH MCGINNIS [facility] [id number] [facility] 2022-05-22 14:15:00 2022-05-22 16:30:24 Outpatient R KAMILAH MCGINNIS [facility] [id number] [facility] 2022-05-22 14:15:00 2022-05-22 16:30:24 Initial Visit Kamilah Mcginnis [facility] REP [facility] & CHILD [facility] 1.2.840.114 350.1.13.10 4.2.7.2.686 [id number] [facility] 2022-05-22 13:45:00 2022-05-22 15:23:15 Outpatient R KAMILAH MCGINNIS [facility] [id number] [facility] 2022-05-22 14:15:00 2022-05-22 14:15:00 Outpatient R KAMILAH MCGINNIS [facility] [id number] [facility] 2022-05-22 00:00:00 2022-05-22 00:00:00 Orders Only Doctor Unassigned, [facility] 1. 350.1.13.10 4.2.7.2.686 [id number] [facility] 2021-09-24 14:00:00 2021-09-24 14:00:00 Outpatient R OLIVIA GUERRA [facility] [id number] [facility] 2020-06-19 00:00:00 2020-06-19 00:00:00 Telephone [facility] 1.114 350.1.13.10 4.2.7.2.686 [id number] [facility] 2020-06-17 13:00:00 2020-06-17 13:00:00 Outpatient R [facility] [id number] [facility] 2020-06-17 12:34:28 2020-06-17 12:54:28 Laboratory Only Lab, Adc Fam Pob I [facility] Office Building One .114 350.1.13.10 4.2.7.2.686 [id number] [facility] 2020-06-17 00:00:00 2020-06-17 00:00:00 Letter (Out) Doctor Unassigned, [facility] 1. 350.1.13.10 4.2.7.2.686 [id number] [facility] 2020-04-08 10:45:33 2020-04-08 11:05:33 [facility] .114 350.1.13.10 4.2.7.2.686 [id number] [facility] 2020-04-08 11:00:00 2020-04-08 11:00:00 Outpatient R [facility] [id number] [facility] Results Test Description Test Time Test Comments Results Result Co mments Source [facility] SARS-COV-2 ANTIGEN (BINAX NOW)2023-08-26 18:42:00* Test Item Value Reference Range Interpretation Comme nts POCT SARS-COV-2 ANTIGEN (tomi t code = 89680-4) Not Detected Not Detected On board controls acceptable with C Line (test code = 3574) Yes [facility] SARS-COV-2 ANTIGEN (BINAX NOW)2023-05-15 18:13:00* Test Item Value Reference Range Interpretation Comme nts POCT SARS-COV-2 ANTIGEN (tomi t code = 78222-6) Positive Not Detected A On board controls acceptable with C Line (test code = 3574) Yes Lab Interpretation (test cod e = 75450-3) Abnormal [facility] MOLECULAR [id number] 18:06:20* Test Item Value Reference Range Interpretation Comme [facility] POCT Molecular Strep (test c ode = 04055-6) Negative Negative Lab Interpretation (test cod e = 92239-0) Normal [facility] [id number] 20:56:00* Test Item Value Reference Range Interpretation Comme nts POCT PREG (test code = 1605) Negative On board controls acceptable with C Line (test code = 3574) Yes POCT PREG LOT # (test code = 3575) POCT PREG TEST DATE ( test code = 3576) [facility] [id number] 20:56:00* Test Item Value Reference Range Interpretation Comme nts POCT PREG (test code = 1605) Negative On board controls acceptable with C Line (test code = 3574) Yes POCT PREG LOT # (test code = 3575) POCT PREG TEST DATE ( test code = 3576) [facility] I[facility] [id number] 20:44:53* Test Item Value Reference Range Interpretation Comme nts RHIG CANDIDATE? (test code = 5188) No- see comment Patient is not a candidate for RhIg- Patient is Rh Positive.Performed at [facility] Laboratory Services - [facility] Blood [address] [place] [address] [id number] Free: [phone] No. [id number] [facility] IMMUNE [id number] 20:44:53* Test Item Value Reference Range Interpretation Comme nts RHIG CANDIDATE? (test code = 5188) No- see comment Patient is not a candidate for RhIg- Patient is Rh Positive.Performed at [facility] Laboratory Services - [facility] Blood [address] [id number] Free: [phone] No. [id number] [facility] [id number] 18:38:22* Test Item Value Reference Range Interpretation Comme [facility] VENOUS BASE EXCESS, CORD (test code = 7017131519) -4.8 mEq/L VENOUS PH, CORD (test code = 0870662193) 7.25 7.25-7.45 VENOUS PC02, CORD (test code = 6260293762) 54 See_Comment H [Automated [employer] ssage] The system which generated this result transmitted reference range: 27 - 49 mmHg. The reference range was not used to interpret this result as normal/abnormal. VENOUS PO2, CORD (test code = 4692662898) Unable VENOUS BICARBONATE, CORD (test code = 3371889800) 23 See_Comment [Automa juanito message] The system which generated this result transmitted reference range: 12 - 29 mEq/L. The reference range was not used to interpret this result as normal/abnormal. Lab Interpretation (test code = 66914-3) Abnormal [facility] CORD [id number] 18:38:22* Test Item Value Reference Range Interpretation Comme [facility] VENOUS BASE EXCESS, CORD (test code = 6558035521) -4.8 mEq/L VENOUS PH, CORD (test code = 9330578147) 7.25 7.25-7.45 VENOUS PC02, CORD (test code = 5304173607) 54 See_Comment H [Automated me ssage] The system which generated this result transmitted reference range: 27 - 49 mmHg. The reference range was not used to interpret this result as normal/abnormal. VENOUS PO2, CORD (test code = 5389128930) Unable VENOUS BICARBONATE, CORD (test code = 9064973744) 23 See_Comment [[employer] juanito message] The system which generated this result transmitted reference range: 12 - 29 mEq/L. The reference range was not used to interpret this result as normal/abnormal. Lab Interpretation (test code = 61526-4) Abnormal [facility] CORD [id number] 18:34:44* Test Item Value Reference Range Interpretation Comme nts BASE EXCESS, CORD (test code = 8374778676) -6.1 mEq/L AC PH, CORD (BEAKER) (test code = 7204577819) 7.21 7.18-7.38 PC02, CORD (test code = 2279797176) 58 See_Comment [Automated messa ge] The system which generated this result transmitted reference range: 32 - 66 mmHg. The reference range was not used to interpret this result as normal/abnormal. PO2, CORD (test code = 1176397824) 10 See_Comment [Automated messa ge] The system which generated this result transmitted reference range: 10 - 30 mmHg. The reference range was not used to interpret this result as normal/abnormal. BICARBONATE, CORD (test code = 4905878804) 23 See_Comment [Automated messa ge] The system which generated this result transmitted reference range: 17 - 27 mEq/L. The reference range was not used to interpret this result as normal/abnormal. [facility] CORD [id number] 18:34:44* Test Item Value Reference Range Interpretation Comme nts BASE EXCESS, CORD (test code = 8021240987) -6.1 mEq/L AC PH, CORD (BEAKER) (test code = 7009068793) 7.21 7.18-7.38 PC02, CORD (test code = 7349465455) 58 See_Comment [Automated messa ge] The system which generated this result transmitted reference range: 32 - 66 mmHg. The reference range was not used to interpret this result as normal/abnormal. PO2, CORD (test code = 8011953867) 10 See_Comment [Automated messa ge] The system which generated this result transmitted reference range: 10 - 30 mmHg. The reference range was not used to interpret this result as normal/abnormal. BICARBONATE, CORD (test code = 0793169016) 23 See_Comment [Automated messa ge] The system which generated this result transmitted reference range: 17 - 27 mEq/L. The reference range was not used to interpret this result as normal/abnormal. [facility] ONLY - SYPHILIS [id number] 14:38:24* Test Item Value Reference Range Interpretation Comme nts Syphilis IgG/IgM (test code = 60383-5) Non-reactive Non-reactive ALYSHA (test code = ALYSHA) Non-reactive - No serologic evidence of T. pallidum infection. Cannot exclude incubating or early syphilis. Submit a second specimen in 2-4 weeks if syphilis is clinically suspected. Equivocal - Further testing to follow. Reactive - Further testing to follow. Lab Interpretation (test code = 41915-0) Normal [facility] ONLY - SYPHILIS [id number] 14:38:24* Test Item Value Reference Range Interpretation Comme nts Syphilis IgG/IgM (test code = 92721-1) Non-reactive Non-reactive ALYSHA (test code = ALYSHA) Non-reactive - No serologic evidence of T. pallidum infection. Cannot exclude incubating or early syphilis. Submit a second specimen in 2-4 weeks if syphilis is clinically suspected. Equivocal - Further testing to follow. Reactive - Further testing to follow. Lab Interpretation (test code = 17816-0) Normal [facility] Surface [id number] 06:53:32 * Test Item Value Reference Range Interpretation Comme nts HBsAg Semi-Quantitative (tomi t code = 5195-3) 0.[address] [facility] B Surface Iffxkrx8661-18-93 06:53:32 * Test Item Value Reference Range Interpretation Comme nts HBsAg Semi-Quantitative (tomi t code = 5195-3) 0.04 Negative [facility]KEPPRA (LEVETIRACETAM)2023-01-11 06:22:53* Test Item Value Reference Range Interpretation Comme nts KEPPRA (test code = 0285845071) 5 ug/mL 12-46 L ALYSHA (test code = ALYSHA) Therapeutic range: 12-46 ?g/mL ? ?Toxic: Not well established.Test developed and characteristics determined by [facility] Laboratory Services. Lab Interpretation (test code = 38195-0) Abnormal [facility] (LEVETIRACETAM)2023-01-11 06:22:53* Test Item Value Reference Range Interpretation Comme nts KEPPRA (test code = 9488371140) 5 ug/mL 12-46 L ALYSHA (test code = ALYSHA) Therapeutic range: 12-46 ?g/mL ? ?Toxic: Not well established.Test developed and characteristics determined by [facility] Laboratory Services. Lab Interpretation (test code = 28560-2) Abnormal [facility] and Screen - ONCE [id number] 05:59:00 * Test Item Value Reference Range Interpretation Comme nts ABO & RH (test code = 20) A POSITIVE IAT (test code = 1185) Negative [facility] - ONCE [id number] 05:59:00 * Test Item Value Reference Range Interpretation Comme nts ABO & RH (test code = 20) A POSITIVE IAT (test code = 1185) [facility] [id number] 19:33:00* Test Item Value Reference Range Interpretation [...] U APPEAR (test code = 3267) . [facility] SPECIFIC [id number] 18:03:00* Test Item Value Reference Range Interpretation [...] U APPEAR (test code = 3267) . [facility] URINALYSIS W SPECIFIC [id number] 14:51:00* Test Item Value Reference Range Interpretation [...] POCT U APPEAR (test code = 3267) [facility] URINALYSIS W SPECIFIC [id number] 16:32:00* Test Item Value Reference Range Interpretation [...] U APPEAR (test code = 3267) . [facility] URINALYSIS W SPECIFIC [id number] 16:32:00* Test Item Value Reference Range Interpretation [...] U APPEAR (test code = 3267) . [facility] URINALYSIS W SPECIFIC [id number] 14:46:00* Test Item Value Reference Range Interpretation [...] U APPEAR (test code = 3267) . [facility] URINALYSIS W SPECIFIC [id number] 14:46:00* Test Item Value Reference Range Interpretation [...] U APPEAR (test code = 3267) . [facility] URINALYSIS W/O SPECIFIC [id number] 19:28:00* Test Item Value Reference Range Interpretation [...] = 3257) * Negative - Negati ve [facility] URINALYSIS W SPECIFIC [id number] 21:12:00* Test Item Value Reference Range Interpretation [...] U APPEAR (test code = 3267) . [facility] ONLY - SYPHILIS [id number] 16:39:57* Test Item Value Reference Range Interpretation Comme nts Syphilis IgG/IgM (test code = 97743-2) Non-reactive Non-reactive ALYSHA (test code = ALYSHA) Non-reactive - No serologic evidence of T. pallidum infection. Cannot exclude incubating or early syphilis. Submit a second specimen in 2-4 weeks if syphilis is clinically suspected. Equivocal - Further testing to follow. Reactive - Further testing to follow. Lab Interpretation (test code = 76643-3) Normal [facility]2 AG-AB WITH [id number] 06:31:45* Test Item Value Reference Range Interpretation Comme nts HIV Semi-quantitative (test code = 15334-4) Negative Negative ALYSHA (test code = ALYSHA) Non-reactive for HIV-1 antigen and HIV-1/HIV-2 antibodies. ?No laboratory evidence of HIV infection. ?Repeat in 2-4 weeks if acute HIV infection is suspected. [facility] URINALYSIS W SPECIFIC [id number] 14:27:00* Test Item Value Reference Range Interpretation [...] U APPEAR (test code = 3267) . [facility] URINALYSIS W SPECIFIC [id number] 15:03:00* Test Item Value Reference Range Interpretation [...] POCT U APPEAR (test code = 3267) [facility] URINALYSIS W SPECIFIC [id number] 15:03:00* Test Item Value Reference Range Interpretation [...] POCT U APPEAR (test code = 3267) [facility] URINALYSIS W SPECIFIC [id number] 15:03:00* Test Item Value Reference Range Interpretation [...] POCT U APPEAR (test code = 3267) [facility] URINALYSIS W SPECIFIC [id number] 17:08:00* Test Item Value Reference Range Interpretation [...] U APPEAR (test code = 3267) . [facility] URINALYSIS W SPECIFIC [id number] 17:08:00* Test Item Value Reference Range Interpretation [...] U APPEAR (test code = 3267) . [facility] URINALYSIS W SPECIFIC [id number] 17:08:00* Test Item Value Reference Range Interpretation [...] U APPEAR (test code = 3267) . [facility] URINALYSIS W SPECIFIC [id number] 17:08:00* Test Item Value Reference Range Interpretation [...] U APPEAR (test code = 3267) . [facility] URINALYSIS W SPECIFIC [id number] 17:08:00* Test Item Value Reference Range Interpretation [...] code = 3259) trace Negative - Negat mema POCT U GLU (test code = 3256) [...] U APPEAR (test code = 3267) . [facility] SPECIFIC [id number] 17:18:00* Test Item Value Reference Range Interpretation [...] U APPEAR (test code = 3267) . [facility]AL[facility] FETOPROTEIN-MATERNAL [id number] 16:47:57* Test Item Value Reference Range Interpretation Comme nts AFP-MS (test code = 6878067539) 25.4 ng/mL AFP-MS MoM (test code = 1743866112) WEIGHT (test code = 2557433559) lbs RACE (test code = 6409445261) GEST. AGE (test code = 7944898485) 19,0 Gestational age reflects sample collection date. Previous preliminary verified result was 9,3 on 08/22/2022 at 1301 CDT INS. DEP (test code = 9379724520) No LMP (test code = 1030525444) US DATE (test code = 6049807412) PE DATE (test code = 8659661472) METHOD (test code = 7371560271) US MULT GEST (test code = 4889004902) No NTD HX (test code = 7216071088) No INITAL OR REPEAT (test code = 4190554379) Initial Testing SMOKER (test code = 3249911465) No RH (test code = 7668491812) Positive OSB INTERP (test code = 1060675361) See Note The maternal ser um AFP result is NOT elevated for a of thisgestational age. The risk of an open neural tube defect is less thanthe screening cut-off. OSB RSK (test code = 4135057097) 1:11356 The risk of OSB is equal to 1:42621Tdt OSB cut-off is 2.50 (1:104) OSB SCRN (test code = 1515902373) Negative [facility] URINALYSIS W SPECIFIC [id number] 19:43:00* Test Item Value Reference Range Interpretation [...] [facility] [id number] 19:43:00* Test Item Value Reference Range Interpretation [...] U APPEAR (test code = 3267) clear [facility] Notes Date/Time Note Provider Source 2023-12-21 23:33:06 xMboj7yEUuSaT4JLa4pN /RwDF9PFQTAW5 CbyS75pVxAcxlL8nAg9S//muRgXOMmn49 18-12-26T23:33:06 Pt discharged with diagnosis of fever and chills and viral illness. Printed and verbal instructions reviewed with and given to pt. Prescriptions given x 2. Pt verbalized understanding of teaching, medications, and recommended follow-up. Denies questions or concerns at this time. Pt ambulatory at discharge. Appears in no apparent distress. No ataxia noted. 05815-3Tmbqnsapo department WydiBL5956-89-41R60:33:08Emergen y department NoteTXT1.2.840.308099.1.13.104.2. 7.2.819652|[id number] for patient edgi24094-2UpfdBCGPWSMDOPPXtrfwgs ed C-CDA narrative hrkr065956795NknjzkPretty Harp RN[address] Tr[id number] 046TAVWEEDDEVJTKUDCOMWVNJ2039-30- 27T23:33:081.2.840.349189.1.72.3. 15|1.2.840.072440.1.13.104.2.7.2. [id number] Prettycaral Harp RN [facility] 2023-12-21 23:06:19 WBXLbz6EaV+IOIvqJ8CZ ITQCTLuBL5qzV 29FylvvRXVmWhv2mZJxuAA55ARtkwbu34 18-12-26T23:06:19 Per labor relations representative, flu A &B negative 82004-2Ctphwjsdj department VpysMJ6959-71-53B81:07:17[facility] y department NoteTXT1.2.840.314451.1.13.104.2. 7.2.147551|[id number] for patient [id number] ed C-CDA narrative [id number] R Shehadeh RN[address]TX[place] 557JSVIMODQSLNOHDHBJCUHHQ2064-24- 27T23:07:171.2.840.107517.1.72.3. 15|1.2.840.253684.1.13.104.2.7.2. [id number] Margaux Davis RN [facility] 2023-12-21 20:54:51 lYHhzrRAuvFVXuRkKHaT lS+qntkb1s/8x micFPG0BVokXgYPJrBdQW16NhgPbcgk57 18-12-26T20:54:51 Patient reports fever starting this morning, with headache and chills. Temp around 7pm was 102 at home, took Ibuprofen. She started new prescribed medication yesterday for mouth sores. 99047-5Rdhgvrvrw department Triage qelkWR5595-11-28L12:56:27[facility] Triage noteTXT1.2.840.080377.1.13.104.2. 7.2.071507|[id number] for patient gfyi40767-6Tsqsjbuds department NoteLNNARRATIVEFormatted C-CDA narrative [id number] Gabrielle Ana RNUT[address] 486BFYNUGPQAIWTSJMEQBXBJL3515-20- 27T20:56:271.2.840.908091.1.72.3. 15|1.2.840.339424.1.13.104.2.7.2. [id number] Mushtaq Perez RN [facility] 2023-12-18 11:19:45 A1TJvBTg/zvMSWlaW4Gz joMRr+iMdwsNc Odp9ycwnGBvdz7lrI3Sb7BVW0+G57tb04 18-12-23T11:19:45 Medina is here with her who is well. Noticed cold sore corner of the lip right side. Sent Valtrex 1 gm PO BID x 7 days. 56625-3Kzrbfqhpo encounter YtkgDJ9864-45-64V15:22:23Telephon e encounter NoteTXT1.2.840.642980.1.13.104.2. 7.2.972374|[id number] for patient bkqn25551-1HiicSAHYNFCYBDOIqwtrjq ed C-CDA narrative text[address] 141PUXRBXGBEIUWNGNDMKWFBL9311-32- 24T11:22:231.2.840.379605.1.72.3. 15|1.2.840.349547.1.13.104.2.7.2. [id number] [facility] 2023-05-17 10:10:37 hucYbZwRFDpuUIiyxRBt oOHWg0jxwG8gc eYemeKUjBk9XmxzDY/T4TUTCrz6deIu71 16-05-24T10:10:37 Tried calling patient at the contact number on the chart, no voicemail set up. I don't know if she wants me to send the Paxlovid prescription to any other pharmacy. 08279-3Zgxhrvdga encounter OmkfMG6432-30-65O03:10:37Telephon e encounter NoteTXT1.2.840.249146.1.13.104.2. 7.2.639806|[id number] for patient [address] OfszIaucztjgzJvnnskhtyDHOW1979146 959MXKHAKKVWOTJKUICICLLRC3605-10- 24T10:10:371.2.840.450285.1.72.3. 15|1.2.840.120942.1.13.104.2.7.2. [id number] [facility]"
[2024-03-08 15:58] VITALS: BP 115/86; TEMP 97.8; O2SAT 100
== END 2024-03-08 15:04 | disposition home or self-care (01) ==
LOC: ER 14:46
DX: L01.00 Impetigo, unspecified (principal)